=== PATIENT | female | born 1945 | race Caucasian/White ===

== ENCOUNTER → 2016-08-27 | Outpatient (CLI) | payer MEDICARE ==
--- NOTE | 2016-08-27 11:29 | KCIC ---
PQRS STATEMENT One or more of the following individualized dose reduction techniques were utilized for this study:1.Automated exposure control. 2.Adjustment of the mA and/orkVaccording to patient size. 3.Use of iterative reconstruction technique CT chest. Indication: Reason For Study Reason: COUGH / Spl. Instructions: / History: Cough, hoarseness for about 6 months. Some SOA TECHNIQUE Multiple contiguous axial images were obtained through the chest. Coronal reformations were created. Findings: There is no axillary adenopathy. Evaluation of the mediastinum and elyse are limited in the absence of IV contrast but no gross adenopathy is identified. The heart size is normal. Coronary artery calcifications are noted. There is no pericardial effusion. The thoracic aorta is normal in caliber. The lungs are clear with no evidence for infiltrate or consolidation. Minimal atelectasis is noted in the lingula. There is no pleural effusion or pneumothorax. Limited subdiaphragmatic evaluation demonstrates upper abdominal ascites and recanalized periumbilical vein. There also upper abdominal varices. No destructive osseous lesion is identified. Impression: - Coronary artery disease. - Minimal atelectasis in the lingula. - There is evidence of portal hypertension including upper abdominal ascites and upper abdominal varices. Electronically signed by: Alphonso Gauthier (Aug 27, 2016 11:27:13)
== END | disposition home or self-care (01) ==
LOC: KCIC CT 09:24
PROVIDERS: ATTEND Family Medicine
DX: I25.10 Atherosclerotic heart disease of native coronary artery without angina pectoris (principal); I10 Essential (primary) hypertension; I86.8 Varicose veins of other specified sites; R06.02 Shortness of breath; R18.8 Other ascites; J98.11 Atelectasis
CPT/HCPCS: 71250

== ENCOUNTER → 2016-09-22 | Outpatient (CLI) | payer MEDICARE ==
--- NOTE | 2016-09-22 16:34 | KCIC ---
Examination: Ultrasound abdomen complete. HISTORY History of ascites, varices COMPARISON None available. Findings : The visualized pancreas grossly appears unremarkable. The visualized aorta, IVC appear patent. The right lobe of the liver measures 16.5 centimeters. There is increased echogenicity noted throughout the liver likely hepatic steatosis. There is some nodular appearance to the liver appear. No evidence of gallstones identified in the gallbladder. The gallbladder wall thickness measures 1.7 millimeters. The right kidney measures 10.4 x 4.2 x 5.3 centimeters. There is a small cyst is identified in the lower pole of the right kidney measuring 1.4 centimeters could be a cyst. The left kidney measures 11.2 x 4.8 x 5.4 centimeters. Minimal echogenic appearing bilateral kidneys. No evidence of hydronephrosis. The spleen measures 16.4 centimeters. The umbilical vein appears recannulized. IMPRESSION - Increased echogenicity noted throughout the liver likely hepatic steatosis. There is some nodular appearance to the liver. Correlate for cirrhosis. - The umbilical vein is recannalized - Splenomegaly. - 1.4 centimeters cystic structure in the right kidney probably a cyst. Electronically signed by: Patric Manning (Sep 22, 2016 16:33:23)
== END | disposition home or self-care (01) ==
LOC: KCIC US 08:54
PROVIDERS: ATTEND Family Medicine
DX: R18.8 Other ascites (principal)
CPT/HCPCS: 76700

== ENCOUNTER → 2016-11-04 | Outpatient (CLI) | payer BC, MEDICARE ==
[~2016-11-04] MED LIST: ASPI-482 PO; CONTRAST GIVEN MC PRN; GLIP5TAB10 PO; IOHEXOL 300 MG/ML 100ML VIAL. IV ONE; METF500T4 PO; PANT40TA5 PO
--- NOTE | 2016-11-04 12:54 | KCIC ---
CT head with and without contrast Indication: Vocal cord paralysis after a scope. Pre and post intravenous contrast axial imaging through the brain was performed. PQRS STATEMENT One or more of the following individualized dose reduction techniques were utilized for this study: 1.Automated exposure control. 2.Adjustment of the mA and/orkVaccording to patient size. 3.Use of iterative reconstruction technique. No prior studies are available for comparison. The ventricles and sulci are within normal limits. No sulcal effacement, midline shift or hemorrhage is detected. The cisterns are patent. The visualized paranasal sinuses are clear. No abnormal enhancement following contrast administration is identified. Impression: Unremarkable pre and post-contrast CT of the brain. Electronically signed by: Delonte Carlos MD (November 04, 2016 12:53:48)
--- NOTE | 2016-11-04 12:58 | KCIC ---
CT soft tissue neck with and without contrast Indication: Vocal cord paralysis. Pre and post intravenous contrast axial imaging through the soft tissues of the neck was performed. Sagittal and coronal reformations were also performed. PQRS STATEMENT One or more of the following individualized dose reduction techniques were utilized for this study: 1.Automated exposure control. 2.Adjustment of the mA and/orkVaccording to patient size. 3.Use of iterative reconstruction technique. No prior studies are available for comparison. The visualized intracranial structures are unremarkable. The posterior nasopharynx and oropharynx are unremarkable. The parapharyngeal fat planes are preserved. There is a large amount of artifact in the neck from the patient's dental hardware. This does limit the study. Epiglottis is unremarkable. No significant laryngeal abnormality is seen. No mass is detected. No thyroid mass is seen. No cervical lymphadenopathy is identified. The submandibular and parotid glands are unremarkable. No fluid collections are identified. Impression: Essentially unremarkable CT of the soft tissues of the neck. Electronically signed by: Delonte Carlos MD (November 04, 2016 12:57:07)
--- NOTE | 2016-11-04 13:02 | KCIC ---
CT chest with contrast Indication: Vocal cord paralysis after scope. Axial imaging through the chest was performed after the administration of intravenous contrast. PQRS STATEMENT One or more of the following individualized dose reduction techniques were utilized for this study: 1.Automated exposure control. 2.Adjustment of the mA and/orkVaccording to patient size. 3.Use of iterative reconstruction technique. Comparison is made with prior CT chest from 08/27/2016. No axillary, hilar or mediastinal lymphadenopathy is seen. No mediastinal mass is identified. There is some ectasia of the aortic arch. No pericardial or pleural fluid is identified. There is minimal linear scarring or atelectasis in the lingula. Tiny nodule right upper lobe is noted and stable, image 15. Upper abdomen demonstrates splenomegaly. Previously noted upper abdominal ascites is improved. Impression: Essentially unremarkable CT of the chest with contrast. No mediastinal mass is detected. Electronically signed by: Delonte Carlos MD (November 04, 2016 13:00:24)
== END | disposition home or self-care (01) ==
LOC: KCIC CT 10:31
PROVIDERS: ATTEND Otolaryngology
DX: J38.00 Paralysis of vocal cords and larynx, unspecified (principal)
CPT/HCPCS: 70470; 70492; 71260; 82565; Q9967

== ENCOUNTER 2016-11-09 10:44 | Inpatient (IN) | payer BC, MEDICARE ==
[~2016-11-09] VITALS: Ht 157.5 cm; Wt 71.9 kg
--- NOTE | 2016-11-09 11:45 | PHYS DOC ---
Past Medical History Past Medical History: Diabetes-Type II, GERD, GI Bleed, High Cholesterol, Hypertension, Liver Disease, Other Additional Past Medical Histor: cirrohsis Past Surgical History: , Hysterectomy, Tonsillectomy Alcohol Use: Occasionally Drug Use: None Adult General Chief Complaint Chief Complaint: ABNORMAL LABS HPI HPI Patient is a 71 year old female with history of hypertension, cirrhosis of the liver, diabetes type 2, who presents today with abnormal labs. Patient states she was seen at an imaging center for CT of the abdomen ordered by Dr. Watts for Liver cirrhosis, she states they did her lab work and her creatinine was 7.9 with GFR of 5.4 and she was sent to the ED to be evaluated. Patient states she's had diarrhea for 1-1/2 weeks. She states she's been feeling weak and believes she has the stomach flu, she states she watched her grand children three days ago who had similar symptoms. Patient states she's not been eating much for couple days. Patient denies any vomiting but she states she's had nausea for [address] Migdalia Gannon Review of Systems Review of Systems Constitutional: Denies fever or chills [] Eyes: Denies change in visual acuity, redness, or eye pain [] HENT: Denies nasal congestion or sore throat [] Respiratory: Denies cough or shortness of breath [] Cardiovascular: No additional information not addressed in HPI [] GI: Diarrhea and nausea : Denies dysuria or hematuria [] Musculoskeletal: Denies back pain or joint pain [] Integument: Denies rash or skin lesions [] Neurologic: Denies headache, focal weakness or sensory changes [] Endocrine: Denies polyuria or polydipsia [] Current Medications Current Medications Allergies Allergies Allergies Coded Allergies Type Severity Reaction Last Updated Verified amoxicillin Adverse Reaction Intermediate vomiting and diarrhea 11/09/16 Yes clavulanic acid Adverse Reaction Intermediate vomiting and diarrhea 11/09/16 Yes naproxen Adverse Reaction Intermediate "internal bleeding" 11/09/16 Yes Physical Exam Physical Exam Constitutional: Well developed, well nourished, no acute distress, non-toxic appearance. [] HENT: Normocephalic, atraumatic, bilateral external ears normal, oropharynx moist, no oral exudates, nose normal. [] Eyes: PERRLA, EOMI, conjunctiva normal, no discharge. [] Neck: Normal range of motion, no tenderness, supple, no stridor. [] Cardiovascular:Heart rate regular rhythm, no murmur [] Lungs & Thorax: Bilateral breath sounds clear to auscultation [] Abdomen: Rounded abdomen consistent with cirrhosis. No abdominal tenderness on exam. Bowel sounds normal, soft, no masses, no pulsatile masses. [] Skin: Warm, dry, no erythema, no rash. [] Back: No tenderness, no CVA tenderness. [] Extremities: No tenderness, no cyanosis, no clubbing, ROM intact, no edema. [] Neurologic: Alert and oriented X 3, normal motor function, normal sensory function, no focal deficits noted. [] Psychologic: Affect normal, judgement normal, mood normal. [] Current Patient Data Vital Signs Vital Signs Date Time Temp Pulse Resp B/P (MAP) Pulse Ox O2 Delivery O2 Flow Rate FiO2 11/09/16 10:50 98.5 62 20 200/82 (121) 97 Room Air 98.5 Lab Values Laboratory Tests Test 11/09/16 10:55 11/09/16 11:22 11/09/16 11:43 Urine Collection Type Void Urine Color Yellow Urine Clarity Clear Urine pH 6.0 Urine Specific [place] 1.010 Urine Protein 30 mg/dL (NEG-TRACE) Urine Glucose (UA) Negative mg/dL (NEG) Urine Ketones (Stick) Negative mg/dL (NEG) Urine Blood Moderate (NEG) Urine Nitrite Negative (NEG) Urine Bilirubin Negative (NEG) Urine Urobilinogen Dipstick 0.2 mg/dL (0.2 mg/dL) Urine Leukocyte Esterase Negative (NEG) Urine RBC 6-10 /HPF (0-2) Urine WBC Occ /HPF (0-4) Urine Squamous Epithelial Cells Few /LPF Urine Bacteria 0 /HPF (0-FEW) Prothrombin Time 14.7 SEC (11.7-14.0) H Prothrombin Time INR 1.2 (0.8-1.1) H White Blood Count 5.1 x10^3/uL (4.0-11.0) Red Blood Count 4.27 x10^6/uL (3.50-5.40) Hemoglobin 13.2 g/dL (12.0-15.5) Hematocrit 38.6 % (36.0-47.0) Mean Corpuscular Volume 91 fL (79-100) Mean Corpuscular Hemoglobin 31 pg (25-35) Mean Corpuscular Hemoglobin Concent 34 g/dL (31-37) Red Cell Distribution Width 14.0 % (11.5-14.5) Platelet Count 86 x10^3/uL (140-400) L Neutrophils (%) (Auto) 57 % (31-73) Lymphocytes (%) (Auto) 35 % (24-48) Monocytes (%) (Auto) 6 % (0-9) Eosinophils (%) (Auto) 1 % (0-3) Basophils (%) (Auto) 1 % (0-3) Neutrophils # (Auto) 2.9 x10^3uL (1.8-7.7) Lymphocytes # (Auto) 1.8 x10^3/uL (1.0-4.8) Monocytes # (Auto) 0.3 x10^3/uL (0.0-1.1) Eosinophils # (Auto) 0.0 x10^3/uL (0.0-0.7) Basophils # (Auto) 0.1 x10^3/uL (0.0-0.2) Sodium Level 135 mmol/L (136-145) L Potassium Level 4.9 mmol/L (3.5-5.1) Chloride Level 97 mmol/L (98-107) L Carbon Dioxide Level 20 mmol/L (21-32) L Anion Gap 18 (6-14) H Blood Urea Nitrogen 63 mg/dL (7-20) H Creatinine 7.2 mg/dL (0.6-1.0) H Estimated GFR (Cockcroft-Gault) 5.6 BUN/Creatinine Ratio 9 (6-20) Glucose Level 92 mg/dL (70-99) Lactic Acid Level 3.9 mmol/L (0.4-2.0) H Calcium Level 10.1 mg/dL (8.5-10.1) Magnesium Level 1.7 mg/dL (1.8-2.4) L Total Bilirubin 1.8 mg/dL (0.2-1.0) H Aspartate Amino Transferase (AST) 40 U/L (15-37) H Alanine Aminotransferase (ALT) 28 U/L (14-59) Alkaline Phosphatase 68 U/L (46-116) Creatine Kinase 40 U/L (26-192) Creatine Kinase MB (Mass) 0.6 ng/mL (0.0-3.6) Creatine Kinase MB Relative Index % (0-4) Troponin I Quantitative < 0.017 ng/mL (0.000-0.055) ZP-Apn-U-Type Natriuretic Peptide 4267 pg/mL (0-124) H Total Protein 7.5 g/dL (6.4-8.2) Albumin 3.7 g/dL (3.4-5.0) Albumin/Globulin Ratio 1.0 (1.0-1.7) Lipase 204 U/L (73-393) Influenza Type A Antigen Negative (NEGATIVE) Influenza Type B Antigen Negative (NEGATIVE) Laboratory Tests 11/09/16 11:43 Laboratory Tests 11/09/16 11:43 EKG EKG 11:[address] Thomson sinus rhythm heart rate 58, heart rate 58, no STEMI [] Radiology/Procedures Radiology/Procedures []PROCEDURE: CHEST AP ONLY Indication: Weakness and vomiting. Time of exam 11:58 AM The heart is mildly enlarged. The lungs are clear. No infiltrate or failure is detected. No effusion or pneumothorax is seen. Impression: No acute cardiopulmonary process is detected. DICTATED and SIGNED BY: LINDA WYNNE MD DATE: 11/09/16 1200 CC: ROSSI CAMPA APRN; NON,STAFF; MIGDALIA GANNON MD ~ Course & Med Decision Making Course & Med Decision Making Pertinent Labs and Imaging studies reviewed. (See chart for details) Patient is in the ED with nausea diarrhea generalized weakness for 3 days. She went to get an outpatient CT scan of the abdomen and her creatinine was noted at 7.9 with GFR of 54. Patient denies any history of renal failure. She was sent to the ED for evaluation. CBC with no acute findings. CMP with creatinine of 17.2 and BUN of 63. Lactic acid 3.9 and repeat was ordered. BNP 4267. Chest x-ray with no acute findings. Blood pressure on arrival to the ED was 200/82 with a heart rate of 62. Patient denies taking any of high blood pressure medicines this morning. 11:[address] Thomson sinus rhythm heart rate 58, heart rate 58, no STEMI [] Dr. Thomson spoke with Dr. Carreon glue clamp operator on-call about this patient's care he agreed with assessment of prerenal azotemia given the hypochloremic metabolic acidosis secondary to volume loss and nausea and vomiting. He agreed that normal saline at 100 hours and appropriate fluid rate and he will check on her later this afternoon in the morning. Time of consultation was 2:[address] Peraza who accepted patient for admission. Dragon Disclaimer Dragon Disclaimer This electronic medical record was generated, in whole or in part, using a voice recognition dictation system. Departure Departure Impression: Primary Impression: Acute renal failure Additional Impressions: Dehydration, severe Accelerated hypertension Disposition: ADMITTED INPATIENT Admitting Physician: Other Referrals: MIGDALIA GANNON MD (PCP) Problem Qualifiers Primary Impression: Acute renal failure Acute renal failure type: unspecified Qualified Codes: N17.9 - Acute kidney failure, unspecified KATHERYNROSSI BERRY PICKER MACHINE OPERATOR November 09, 2016 11:45 MARCO A THOMSON MD November 09, 2016 14:49
[2016-11-09 11:54] LABS: BASO # 0.1 x10^3/uL (0.0-0.2); BASO % 1 % (0-3); EOS % 1 % (0-3); HEMATOCRIT 38.6 % (36.0-47.0); HEMOGLOBIN 13.2 g/dL (12.0-15.5); LYMPH # 1.8 x10^3/uL (1.0-4.8); LYMPH % 35 % (24-48); MEAN CORPUSCULAR HEMOGLOBIN 31 pg (25-35); MEAN CORPUSCULAR HGB CONC 34 g/dL (31-37); MEAN CORPUSCULAR VOLUME 91 fL (79-100); MONO % 6 % (0-9); NEUT % 57 % (31-73); PLATELET COUNT 86 x10^3/uL (140-400); RED BLOOD COUNT 4.27 x10^6/uL (3.50-5.40); WHITE BLOOD COUNT 5.1 x10^3/uL (4.0-11.0)
[2016-11-09 11:57] LABS: BILIRUBIN,URINE NEGATIVE (NEG); GLUCOSE,URINE NEGATIVE (NEG); NITRITE,URINE NEGATIVE (NEG); PROTEIN,URINE 30 mg/dL (NEG-TRACE); UROBILINOGEN,URINE 0.2 mg/dL (0.2 mg/dL)
[2016-11-09 12:03] LABS: BACTERIA,URINE 0 /HPF (0-FEW); SQUAMOUS EPITHELIAL CELL,UR FEW /LPF; WBC,URINE OCC /HPF (0-4)
[2016-11-09 12:04] LABS: INR 1.2 (0.8-1.1); PROTHROMBIN TIME PATIENT 14.7 SEC (11.7-14.0)
--- NOTE | 2016-11-09 12:12 | RAD ---
Indication: Weakness and vomiting. Time of exam 11:58 AM The heart is mildly enlarged. The lungs are clear. No infiltrate or failure is detected. No effusion or pneumothorax is seen. Impression: No acute cardiopulmonary process is detected.
[2016-11-09 12:16] LABS: CALCIUM 10.1 mg/dL (8.5-10.1); CREATININE 7.2 mg/dL (0.6-1.0); GFR 5.6; POTASSIUM 4.9 mmol/L (3.5-5.1)
[2016-11-09 12:22] LABS: ALBUMIN 3.7 g/dL (3.4-5.0); MAGNESIUM 1.7 mg/dL (1.8-2.4); TOTAL BILIRUBIN 1.8 mg/dL (0.2-1.0); TOTAL PROTEIN 7.5 g/dL (6.4-8.2)
--- NOTE | 2016-11-09 12:22 | EKG ---
[facility] [address] [place] [address] Test Date: 2016-11-09 Test Time: 11:36:06 Pat Name: DESI GUAMAN Department: Room: Gender: F White Mixing Operator: : [id number] Requested By: ROSSI CAMPA Order Number: [id number] Reading MD: Arsenio Blood Measurements Intervals [place] Rate: 58 P: 41 IN: 156 QRS: -32 QRSD: 94 T: 11 QT: 468 QTc: 463 Interpretive Statements SINUS RHYTHM ABNORMAL LEFT AXIS DEVIATION LEFT ANTERIOR FASCICULAR BLOCK Electronically Signed On 11-15-2016 9:07:57 CDT by Arsenio Blood
[2016-11-09 12:24] LABS: OBC FLU VALID
[2016-11-09 12:29] LABS: CKMB MASS 0.6 ng/mL (0.0-3.6); CREATINE KINASE 40 U/L (26-192)
[2016-11-09] MEDS ORDERED: IV NORMAL SALINE 1000ML BAG 1,000 ML IV ONE (13:45)
[2016-11-09] MEDS ORDERED: fentaNYL PF VIAL 100 MCG/2 ML VIAL IV PRN (14:30)
[2016-11-09] MEDS ORDERED: ONDANSETRON PF 4 MG/2 ML VIAL. IV PRN (14:30)
--- NOTE | 2016-11-09 15:05 | PDOC2 ---
GI CONSULT Reason For Consult: Renal failure, dehydration HPI: HPI: 71 y/o white female who recently saw Dr. Watts in the office for h/o cirrhosis. Labs were ordered including FABY, ASM, Hep B and C, HFE gene (no results available). Outpatient CT A/P was also ordered which was performed today. She was found to have elevated Cr (7.8) and advised to go to the ER. Will be admitted w/ pending renal consult. Denies previous renal disease. Has been ill w/ n/v and diarrhea since 11/06/16 after babysitting her three grandchildren the night before. Her daughter might have had similar symptoms. Not much oral intake the last few days although felt better today. GI history significant for ?GI bleed in [place], [place]. She's unable to describe much of this history to me except to say that she was taking Aleve, was found to be anemic and admitted. Denies PUD, bowel/colon resection. Unclear if she had an EGD/colonoscopy at that point. Has reflux after eating spicy foods about twice weekly, takes Tums and probably pantoprazole (on med list, she's unsure). Med list also includes ASA and iron. No abd pain or weight loss. CT from this morning: cirrhosis and portal hypertension with varices and mild splenomegaly, sigmoid diverticulosis w/ wall thickening (colitis vs incomplete distention). PMH: PMH: HTN, DM, GERD, OA, ?vocal chord paralysis, ?GI bleed, , hysterectomy FH: Family History: Cancer (liver - brother), Other (father - cirrhosis) Social History: Smoke: Quit ALCOHOL: social (in the past) Drugs: None ROS: GEN: Denies fevers, chills, sweats HEENT: Denies blurred vision, sore throat CV: Denies chest pain RESP: Denies shortness of air, cough GI: Per HPI : Denies hematuria, dysuria ENDO: Denies weight changes NEURO: Denies confusion, dizziness MSK: Denies weakness, joint pain/swelling SKIN: Denies jaundice, pruritus Vitals: Vitals: Vital Signs Date Time Temp Pulse Resp B/P (MAP) Pulse Ox O2 Delivery O2 Flow Rate FiO2 11/09/16 10:50 98.5 62 20 200/82 (121) 97 Room Air 98.5 Labs: Labs: Laboratory Tests Test 11/09/16 10:55 11/09/16 11:22 11/09/16 11:43 Urine Collection Type Void Urine Color Yellow Urine Clarity Clear Urine pH 6.0 Urine Specific [place] 1.010 Urine Protein 30 mg/dL (NEG-TRACE) Urine Glucose (UA) Negative mg/dL (NEG) Urine Ketones (Stick) Negative mg/dL (NEG) Urine Blood Moderate (NEG) Urine Nitrite Negative (NEG) Urine Bilirubin Negative (NEG) Urine Urobilinogen Dipstick 0.2 mg/dL (0.2 mg/dL) Urine Leukocyte Esterase Negative (NEG) Urine RBC 6-10 /HPF (0-2) Urine WBC Occ /HPF (0-4) Urine Squamous Epithelial Cells Few /LPF Urine Bacteria 0 /HPF (0-FEW) Prothrombin Time 14.7 SEC (11.7-14.0) Prothromb Time International Ratio 1.2 (0.8-1.1) White Blood Count 5.1 x10^3/uL (4.0-11.0) Red Blood Count 4.27 x10^6/uL (3.50-5.40) Hemoglobin 13.2 g/dL (12.0-15.5) Hematocrit 38.6 % (36.0-47.0) Mean Corpuscular Volume 91 fL (79-100) Mean Corpuscular Hemoglobin 31 pg (25-35) Mean Corpuscular Hemoglobin Concent 34 g/dL (31-37) Red Cell Distribution Width 14.0 % (11.5-14.5) Platelet Count 86 x10^3/uL (140-400) Neutrophils (%) (Auto) 57 % (31-73) Lymphocytes (%) (Auto) 35 % (24-48) Monocytes (%) (Auto) 6 % (0-9) Eosinophils (%) (Auto) 1 % (0-3) Basophils (%) (Auto) 1 % (0-3) Neutrophils # (Auto) 2.9 x10^3uL (1.8-7.7) Lymphocytes # (Auto) 1.8 x10^3/uL (1.0-4.8) Monocytes # (Auto) 0.3 x10^3/uL (0.0-1.1) Eosinophils # (Auto) 0.0 x10^3/uL (0.0-0.7) Basophils # (Auto) 0.1 x10^3/uL (0.0-0.2) Sodium Level 135 mmol/L (136-145) Potassium Level 4.9 mmol/L (3.5-5.1) Chloride Level 97 mmol/L (98-107) Carbon Dioxide Level 20 mmol/L (21-32) Anion Gap 18 (6-14) Blood Urea Nitrogen 63 mg/dL (7-20) Creatinine 7.2 mg/dL (0.6-1.0) Estimated GFR (Cockcroft-Gault) 5.6 BUN/Creatinine Ratio 9 (6-20) Glucose Level 92 mg/dL (70-99) Lactic Acid Level 3.9 mmol/L (0.4-2.0) Calcium Level 10.1 mg/dL (8.5-10.1) Magnesium Level 1.7 mg/dL (1.8-2.4) Total Bilirubin 1.8 mg/dL (0.2-1.0) Aspartate Amino Transf (AST/SGOT) 40 U/L (15-37) Alanine Aminotransferase (ALT/SGPT) 28 U/L (14-59) Alkaline Phosphatase 68 U/L (46-116) Creatine Kinase 40 U/L (26-192) Creatine Kinase MB (Mass) 0.6 ng/mL (0.0-3.6) Creatine Kinase MB Relative Index % (0-4) Troponin I Quantitative < 0.017 ng/mL (0.000-0.055) FH-Fiz-B-Type Natriuretic Peptide 4267 pg/mL (0-124) Total Protein 7.5 g/dL (6.4-8.2) Albumin 3.7 g/dL (3.4-5.0) Albumin/Globulin Ratio 1.0 (1.0-1.7) Lipase 204 U/L (73-393) Influenza Type A Antigen Negative (NEGATIVE) Influenza Type B Antigen Negative (NEGATIVE) Allergies: Coded Allergies: amoxicillin (Verified Adverse Reaction, Intermediate, vomiting and diarrhea, 11/09/16) clavulanic acid (Verified Adverse Reaction, Intermediate, vomiting and diarrhea, 11/09/16) naproxen (Verified Adverse Reaction, Intermediate, "internal bleeding", 11/09/16) Medications: Please see EMR. Imaging: Imaging: CT A/P w/ oral contrast 11/09/16 IMPRESSION 1. There are findings of cirrhosis and portal hypertension with varices and mild splenomegaly. No free fluid is demonstrated. Accurate evaluation for hepatic mass is very limited as no intravenous contrast given for today's exam. 2. There is some residual enhancement of the bilateral renal parenchyma presumably related to patient's recent November 04, 2016 post contrast exam. There is mild right renal pelvocaliectasis/very mild hydronephrosis. Reportedly patient was sent to the emergency department after conclusion of exam due to the patient's elevated creatinine. 3. There is sigmoid diverticulosis. There is appearance of wall thickening of segments of the sigmoid colon and descending colon, colitis not excluded although could be related to incomplete distension. CXR 11/09/16 Impression: No acute cardiopulmonary process is detected. Abd US 09/2016 IMPRESSION - Increased echogenicity noted throughout the liver likely hepatic steatosis. There is some nodular appearance to the liver. Correlate for cirrhosis. - The umbilical vein is recannalized - Splenomegaly. - 1.4 centimeters cystic structure in the right kidney probably a cyst. PE: GEN: NAD HEENT: Atraumatic, PERRL LUNGS: CTAB anteriorly HEART: RRR ABD: BS+, some distention, non-tender EXTREMITY: No edema SKIN: No rashes, no jaundice NEURO/PSYCH: A & O 3 A/P: A/P: Cirrhosis, portal hypertension, varices -CT as above -labs ordered as outpt (FABY, ASM, Hep B and C, HFE gene) N/v, diarrhea - improving -onset over the weekend after babysitting grandchildren, daughter has similar symptoms Acute renal failure ?h/o GI bleed in [place], [place] -now avoids NSAIDs, seems takes PPI and ASA GERD -occasional reflux Diverticulosis CRC screen -unclear when last colonoscopy performed -- Reviewed office records. Await renal consult. Acute renal failure/?viral gastroenteritis w/ known cirrhosis. Other per Dr. Watts. SAUD MCDONALD November 09, 2016 15:05
[2016-11-09] MEDS: PANTOPRAZOLE 40 MG TABLET.DR. PO SCH (17:41)
[2016-11-09 19:00] VITALS: BP 143/55
[2016-11-09] MEDS ORDERED: DEXTROSE 50% 25 GM / 50ML DISP.SYRIN. IV PRN (19:00)
--- NOTE | 2016-11-09 19:23 | ACF ---
Admission Forms Criteria RENAL FAILURE, ACUTE Clinical Indications for Admission to Inpatient Care ( Place 'X' for any and all applicable criteria): Admission is indicated for ALL (if I & II) or III of the following [A](2)(3)(4)( 5)(6)(7): [ ]I. Acute renal failure as indicated by ANY ONE of the following: [ ]a) A 3-fold rise in serum creatinine from baseline [ ]b) Serum creatinine greater than 4 mg/dL (354 micromoles/L) with an acute rise greater than 0.5 mg/dL (44.2 micromoles/L) [ ]c) Reduction of more than 75% in estimated glomerular filtration rate from baseline [ ]d) Estimated glomerular filtration rate less than 35 mL/min/1.73m2 (0.59mL/sec/1.73m2)in a child up to 18 years of age [ ]e) Anuria indicated by ALL of the following: [ ]i) Adequate volume status [ ]ii) Cessation of urine output indicated by ANY ONE of the following: [ ]1) Urine output less than 0.3 mL/kg/hr for 24 hours [ ]2) Anuria (urine output less than 0.1 mL/kg/ hr) for 12 hours [ ] II. Renal failure cannot be managed in an outpatient setting or observational care setting as indicating by ANY ONE of the following: [ ]a) Altered mental status that is severe or persistent [ ]b) Volume overload or Respiratory distress (eg, clinically significant pulmonary edema) that is severe or persistent [ ]c) Cardiac arrhythmias of immediate concern [ ]d) Hemodynamic instability [ ]e) Clinically significant electrolyte abnormality that requires inpatient care (eg, hyperkalemia with severe ECG findings)[B] [ ]f) Clinically significant metabolic abnormality (eg, acidosis) that is severe or persistent [ ]g) Acute treatment of renal failure (eg, renal replacement therapy) not feasible or appropriate in observational care setting [ ]h) Clinical situation too unstable or uncertain (eg, inadequate urine output, ongoing decline in renal function, etiology unclear) [ ]i) Necessary support and caregiver ability to comply with outpatient treatment cannot be arranged in observation care timeframe (eg, within 24 hours) [ ]j) Other significant finding or clinical condition judged not to be within scope of observation care [X]III.General contraindications and/or Inappropriate clinical situations for Observational Care in patients with Acute Renal Failure, when ANY ONE of the following is required: [X]a) Prediction of prolongation of LOS based on ANY ONE of the following may be considered as a contraindication for observational care 2, 3, 4, 5, 6, 7, 8 , 9, 10, 11 [X]i) Age > 65 yrs. [ ]ii) Patient arriving by ambulance [ ]iii) Patient with high acuity [ ]iv) Patient requiring vital sign monitoring [ ]v) Patient on IV medication [ ]b) Systolic blood pressures 180mmHg 3,12 [ ]c) Patient with altered mental status including delirium and other alteration of consciousness, (3) [ ]d) Patient whose discharge disposition will be to a care home home or rehabilitation home should not be managed in Emergency Department Observation Unit. CMS rule requires 3 days hospital stay before such placement.3,13 [ ]e) Patient with failure to thrive due to broad array of etiologies 3, 16,17 [ ]f) Inability to ambulate 3,14 Extended stay beyond goal length of stay may be needed for(13) [ ]a) Continuing uremic complications [ ]b) Care for comorbidities [ ]c) acute renal failure [ ]d) Need for dialysis The original [employer] content created by [employer] has been revised. The portions of the content which have been revised are identified through the use of italic text or in bold, and [facility] has neither reviewed nor approved the modified material. All other unmodified content is copyright [employer] [facility] [employer]. Please see references footnoted in the original [employer] [facility] edition 2016 Admission Criteria Met?: Yes RASHARD RAYMOND November 09, 2016 19:23
--- NOTE | 2016-11-09 21:26 | HP ---
ADMIT DATE: 11/09/2016 CHIEF COMPLAINT: Weakness. HISTORY OF PRESENT ILLNESS: The patient is a 71-year-old woman with past medical history of cirrhosis of unknown specificity who presented to the Emergency Room with generalized weakness. She relates that since Tuesday afternoon, after babysitting her grandchildren on Tuesday night, she started feeling weak and nauseous, had copious watery diarrhea without any blood, multiple episodes of nausea as well. This continued through the night and on Tuesday. By Tuesday, she was slowly feeling a little better in the afternoon. Nevertheless, weakness did not subside and she decided to come to the Emergency Room. In the ER, she was found with a creatinine of 7.2, CO2 at 20, BUN of 63 and was promptly admitted with acute renal failure. She is unaware of having any kidney issues in the past. PAST MEDICAL HISTORY: Cirrhosis, currently undergoing workup by Dr. Watts, question GI bleed associated with NSAID use in [place], GERD, osteoarthritis, diabetes mellitus. PAST SURGICAL HISTORY: She is status post , hysterectomy. FAMILY HISTORY: Father with cirrhosis in advanced age. Brother with liver cancer. SOCIAL HISTORY: Lives with her , just moved 3 years ago to [place] to be closer to her grandchildren. Quit smoking many years ago. No significant alcohol or drug use. MEDICATIONS: MAR reconciled with home medications. ALLERGIES: AUGMENTIN AND NAPROXEN. REVIEW OF SYSTEMS: Positive as per HPI. She is not able to eat without any difficulties, nausea completely resolved. Still has ongoing diarrhea, decreased in frequency, no melena or hematochezia. Rest of organ system review is essentially normal. PHYSICAL EXAMINATION: VITAL SIGNS: From today, show a blood pressure of 200/82 early this morning in the ER, has not been repeated since, pulse at 62. She is afebrile. GENERAL: This is a well-nourished, well-developed, pale appearing 71-year-old woman, alert and oriented, in no acute distress. HEENT: Shows no scleral icterus. NECK: Supple, without any lymphadenopathy. LUNGS: Clear. HEART: Has regular rate and rhythm. ABDOMEN: Has positive bowel sounds, soft, nontender, without any organomegaly or masses. EXTREMITIES: Show no edema. SKIN: Warm, soft and dry without any rash. LABORATORY DATA: CBC with a WBC of 5.1, hemoglobin 13.2, platelets of 86. Chemistries with a BUN and creatinine of 63 and 7.2, sodium 135, CO2 at 20, potassium 4.9, total bilirubin 1.8, AST 40, albumin 3.7. Influenza serology was negative. UA was negative as well. IMAGING STUDIES: Chest x-ray in the Emergency Room showing no acute cardiopulmonary process. ASSESSMENT AND PLAN: The patient is a 71-year-old woman with severe diarrhea, nausea, vomiting and severe kidney failure. Hopefully, this is related to being severely dehydrated. She has been started on IV fluids for the time being. Nephrology consult has been requested. The patient does have a history of cirrhosis, so far of unknown etiology. Dr. Watts has been consulted as well. Doubt that this is related in any way, shape or form. The patient does have a history of GERD and question UGI bleed and is on pantoprazole, will continue. We will hold aspirin, glipizide and metformin given her renal function for the time being. This will be replaced with insulin sliding scale. We will hold off on heparin for the time being for DVT prophylaxis. If she remains bedridden, will start in a.m. ZACKARY ANDERSON MD DR: SHARONA/kevin JOB#: [id number] / [id number] MIGDALIA Charles MD MTDD
[2016-11-09 23:00] VITALS: BP 135/60
[2016-11-10 03:00] VITALS: BP 115/57
[2016-11-10] MEDS: IV NORMAL SALINE 1000ML BAG 1,000 ML IV SCH ×4 (03:15→23:07)
[2016-11-10 07:00] VITALS: BP 149/54
[2016-11-10] MEDS: INSULIN ASPART 300 UNITS/3 ML INSULN.PEN SQ SCH ×3 (08:00→17:38)
[2016-11-10] MEDS: PANTOPRAZOLE 40 MG TABLET.DR. PO SCH (08:12)
[2016-11-10] MEDS ORDERED: PANTOPRAZOLE 40 MG TABLET.DR. PO SCH (09:00)
--- NOTE | 2016-11-10 09:40 | PDOC ---
PROGRESS NOTES Chief Complaint Chief Complaint cc: N/V JIM DUE TO DEHYDRATION HYPERGLYCEMIA CIRRHOSIS PLAN IV NS SSI PRN ZOFRAN LABS REVIEWED. CPM Vitals Vitals Vital Signs Date Time Temp Pulse Resp B/P (MAP) Pulse Ox O2 Delivery O2 Flow Rate FiO2 11/10/16 08:00 Room Air 11/10/16 07:00 97.5 67 19 149/54 (85) 99 97.5 Physical Exam General: Alert, Oriented X3 Heart: Normal S1, Normal S2 Lungs: Clear Abdomen: Normal bowel sounds Labs LABS Laboratory Tests Test 11/09/16 10:55 11/09/16 11:22 11/09/16 11:43 11/09/16 16:28 Urine Collection Type Void Urine Color Yellow Urine Clarity Clear Urine pH 6.0 Urine Specific [place] 1.010 Urine Protein 30 mg/dL (NEG-TRACE) Urine Glucose (UA) Negative mg/dL (NEG) Urine Ketones (Stick) Negative mg/dL (NEG) Urine Blood Moderate (NEG) Urine Nitrite Negative (NEG) Urine Bilirubin Negative (NEG) Urine Urobilinogen Dipstick 0.2 mg/dL (0.2 mg/dL) Urine Leukocyte Esterase Negative (NEG) Urine RBC 6-10 /HPF (0-2) Urine WBC Occ /HPF (0-4) Urine Squamous Epithelial Cells Few /LPF Urine Bacteria 0 /HPF (0-FEW) Prothrombin Time 14.7 SEC (11.7-14.0) Prothromb Time International Ratio 1.2 (0.8-1.1) White Blood Count 5.1 x10^3/uL (4.0-11.0) Red Blood Count 4.27 x10^6/uL (3.50-5.40) Hemoglobin 13.2 g/dL (12.0-15.5) Hematocrit 38.6 % (36.0-47.0) Mean Corpuscular Volume 91 fL (79-100) Mean Corpuscular Hemoglobin 31 pg (25-35) Mean Corpuscular Hemoglobin Concent 34 g/dL (31-37) Red Cell Distribution Width 14.0 % (11.5-14.5) Platelet Count 86 x10^3/uL (140-400) Neutrophils (%) (Auto) 57 % (31-73) Lymphocytes (%) (Auto) 35 % (24-48) Monocytes (%) (Auto) 6 % (0-9) Eosinophils (%) (Auto) 1 % (0-3) Basophils (%) (Auto) 1 % (0-3) Neutrophils # (Auto) 2.9 x10^3uL (1.8-7.7) Lymphocytes # (Auto) 1.8 x10^3/uL (1.0-4.8) Monocytes # (Auto) 0.3 x10^3/uL (0.0-1.1) Eosinophils # (Auto) 0.0 x10^3/uL (0.0-0.7) Basophils # (Auto) 0.1 x10^3/uL (0.0-0.2) Sodium Level 135 mmol/L (136-145) Potassium Level 4.9 mmol/L (3.5-5.1) Chloride Level 97 mmol/L (98-107) Carbon Dioxide Level 20 mmol/L (21-32) Anion Gap 18 (6-14) Blood Urea Nitrogen 63 mg/dL (7-20) Creatinine 7.2 mg/dL (0.6-1.0) Estimated GFR (Cockcroft-Gault) 5.6 BUN/Creatinine Ratio 9 (6-20) Glucose Level 92 mg/dL (70-99) Lactic Acid Level 3.9 mmol/L (0.4-2.0) Calcium Level 10.1 mg/dL (8.5-10.1) Magnesium Level 1.7 mg/dL (1.8-2.4) Total Bilirubin 1.8 mg/dL (0.2-1.0) Aspartate Amino Transf (AST/SGOT) 40 U/L (15-37) Alanine Aminotransferase (ALT/SGPT) 28 U/L (14-59) Alkaline Phosphatase 68 U/L (46-116) Creatine Kinase 40 U/L (26-192) Creatine Kinase MB (Mass) 0.6 ng/mL (0.0-3.6) Creatine Kinase MB Relative Index % (0-4) Troponin I Quantitative < 0.017 ng/mL (0.000-0.055) GS-Oam-N-Type Natriuretic Peptide 4267 pg/mL (0-124) Total Protein 7.5 g/dL (6.4-8.2) Albumin 3.7 g/dL (3.4-5.0) Albumin/Globulin Ratio 1.0 (1.0-1.7) Lipase 204 U/L (73-393) Influenza Type A Antigen Negative (NEGATIVE) Influenza Type B Antigen Negative (NEGATIVE) Glucose (Fingerstick) 63 mg/dL (70-99) Test 11/09/16 16:45 11/09/16 18:15 11/09/16 21:26 11/10/16 07:58 Lactic Acid Level 4.0 mmol/L (0.4-2.0) Clostridium difficile Toxin (PCR) Negative (Negative) Glucose (Fingerstick) 322 mg/dL (70-99) 272 mg/dL (70-99) Assessment and Plan Assessmemt and Plan Problems Medical Problems: (1) Accelerated hypertension Status: Acute (2) Acute renal failure Status: Acute (3) Dehydration, severe Status: Acute Problems: Comment Review of Relevant I have reviewed the following items tiffanie (where applicable) has been applied. Labs Laboratory Tests Test 11/09/16 10:55 11/09/16 11:22 11/09/16 11:43 11/09/16 16:28 Urine Collection Type Void Urine Color Yellow Urine Clarity Clear Urine pH 6.0 Urine Specific [place] 1.010 Urine Protein 30 mg/dL (NEG-TRACE) Urine Glucose (UA) Negative mg/dL (NEG) Urine Ketones (Stick) Negative mg/dL (NEG) Urine Blood Moderate (NEG) Urine Nitrite Negative (NEG) Urine Bilirubin Negative (NEG) Urine Urobilinogen Dipstick 0.2 mg/dL (0.2 mg/dL) Urine Leukocyte Esterase Negative (NEG) Urine RBC 6-10 /HPF (0-2) Urine WBC Occ /HPF (0-4) Urine Squamous Epithelial Cells Few /LPF Urine Bacteria 0 /HPF (0-FEW) Prothrombin Time 14.7 SEC (11.7-14.0) Prothromb Time International Ratio 1.2 (0.8-1.1) White Blood Count 5.1 x10^3/uL (4.0-11.0) Red Blood Count 4.27 x10^6/uL (3.50-5.40) Hemoglobin 13.2 g/dL (12.0-15.5) Hematocrit 38.6 % (36.0-47.0) Mean Corpuscular Volume 91 fL (79-100) Mean Corpuscular Hemoglobin 31 pg (25-35) Mean Corpuscular Hemoglobin Concent 34 g/dL (31-37) Red Cell Distribution Width 14.0 % (11.5-14.5) Platelet Count 86 x10^3/uL (140-400) Neutrophils (%) (Auto) 57 % (31-73) Lymphocytes (%) (Auto) 35 % (24-48) Monocytes (%) (Auto) 6 % (0-9) Eosinophils (%) (Auto) 1 % (0-3) Basophils (%) (Auto) 1 % (0-3) Neutrophils # (Auto) 2.9 x10^3uL (1.8-7.7) Lymphocytes # (Auto) 1.8 x10^3/uL (1.0-4.8) Monocytes # (Auto) 0.3 x10^3/uL (0.0-1.1) Eosinophils # (Auto) 0.0 x10^3/uL (0.0-0.7) Basophils # (Auto) 0.1 x10^3/uL (0.0-0.2) Sodium Level 135 mmol/L (136-145) Potassium Level 4.9 mmol/L (3.5-5.1) Chloride Level 97 mmol/L (98-107) Carbon Dioxide Level 20 mmol/L (21-32) Anion Gap 18 (6-14) Blood Urea Nitrogen 63 mg/dL (7-20) Creatinine 7.2 mg/dL (0.6-1.0) Estimated GFR (Cockcroft-Gault) 5.6 BUN/Creatinine Ratio 9 (6-20) Glucose Level 92 mg/dL (70-99) Lactic Acid Level 3.9 mmol/L (0.4-2.0) Calcium Level 10.1 mg/dL (8.5-10.1) Magnesium Level 1.7 mg/dL (1.8-2.4) Total Bilirubin 1.8 mg/dL (0.2-1.0) Aspartate Amino Transf (AST/SGOT) 40 U/L (15-37) Alanine Aminotransferase (ALT/SGPT) 28 U/L (14-59) Alkaline Phosphatase 68 U/L (46-116) Creatine Kinase 40 U/L (26-192) Creatine Kinase MB (Mass) 0.6 ng/mL (0.0-3.6) Creatine Kinase MB Relative Index % (0-4) Troponin I Quantitative < 0.017 ng/mL (0.000-0.055) OR-Xdw-J-Type Natriuretic Peptide 4267 pg/mL (0-124) Total Protein 7.5 g/dL (6.4-8.2) Albumin 3.7 g/dL (3.4-5.0) Albumin/Globulin Ratio 1.0 (1.0-1.7) Lipase 204 U/L (73-393) Influenza Type A Antigen Negative (NEGATIVE) Influenza Type B Antigen Negative (NEGATIVE) Glucose (Fingerstick) 63 mg/dL (70-99) Test 11/09/16 16:45 11/09/16 18:15 11/09/16 21:26 11/10/16 07:58 Lactic Acid Level 4.0 mmol/L (0.4-2.0) Clostridium difficile Toxin (PCR) Negative (Negative) Glucose (Fingerstick) 322 mg/dL (70-99) 272 mg/dL (70-99) Laboratory Tests Test 11/09/16 10:55 11/09/16 11:22 11/09/16 11:43 11/09/16 16:28 Urine Collection Type Void Urine Color Yellow Urine Clarity Clear Urine pH 6.0 Urine Specific [place] 1.010 Urine Protein 30 mg/dL (NEG-TRACE) Urine Glucose (UA) Negative mg/dL (NEG) Urine Ketones (Stick) Negative mg/dL (NEG) Urine Blood Moderate (NEG) Urine Nitrite Negative (NEG) Urine Bilirubin Negative (NEG) Urine Urobilinogen Dipstick 0.2 mg/dL (0.2 mg/dL) Urine Leukocyte Esterase Negative (NEG) Urine RBC 6-10 /HPF (0-2) Urine WBC Occ /HPF (0-4) Urine Squamous Epithelial Cells Few /LPF Urine Bacteria 0 /HPF (0-FEW) Prothrombin Time 14.7 SEC (11.7-14.0) Prothromb Time International Ratio 1.2 (0.8-1.1) White Blood Count 5.1 x10^3/uL (4.0-11.0) Red Blood Count 4.27 x10^6/uL (3.50-5.40) Hemoglobin 13.2 g/dL (12.0-15.5) Hematocrit 38.6 % (36.0-47.0) Mean Corpuscular Volume 91 fL (79-100) Mean Corpuscular Hemoglobin 31 pg (25-35) Mean Corpuscular Hemoglobin Concent 34 g/dL (31-37) Red Cell Distribution Width 14.0 % (11.5-14.5) Platelet Count 86 x10^3/uL (140-400) Neutrophils (%) (Auto) 57 % (31-73) Lymphocytes (%) (Auto) 35 % (24-48) Monocytes (%) (Auto) 6 % (0-9) Eosinophils (%) (Auto) 1 % (0-3) Basophils (%) (Auto) 1 % (0-3) Neutrophils # (Auto) 2.9 x10^3uL (1.8-7.7) Lymphocytes # (Auto) 1.8 x10^3/uL (1.0-4.8) Monocytes # (Auto) 0.3 x10^3/uL (0.0-1.1) Eosinophils # (Auto) 0.0 x10^3/uL (0.0-0.7) Basophils # (Auto) 0.1 x10^3/uL (0.0-0.2) Sodium Level 135 mmol/L (136-145) Potassium Level 4.9 mmol/L (3.5-5.1) Chloride Level 97 mmol/L (98-107) Carbon Dioxide Level 20 mmol/L (21-32) Anion Gap 18 (6-14) Blood Urea Nitrogen 63 mg/dL (7-20) Creatinine 7.2 mg/dL (0.6-1.0) Estimated GFR (Cockcroft-Gault) 5.6 BUN/Creatinine Ratio 9 (6-20) Glucose Level 92 mg/dL (70-99) Lactic Acid Level 3.9 mmol/L (0.4-2.0) Calcium Level 10.1 mg/dL (8.5-10.1) Magnesium Level 1.7 mg/dL (1.8-2.4) Total Bilirubin 1.8 mg/dL (0.2-1.0) Aspartate Amino Transf (AST/SGOT) 40 U/L (15-37) Alanine Aminotransferase (ALT/SGPT) 28 U/L (14-59) Alkaline Phosphatase 68 U/L (46-116) Creatine Kinase 40 U/L (26-192) Creatine Kinase MB (Mass) 0.6 ng/mL (0.0-3.6) Creatine Kinase MB Relative Index % (0-4) Troponin I Quantitative < 0.017 ng/mL (0.000-0.055) EL-Msz-S-Type Natriuretic Peptide 4267 pg/mL (0-124) Total Protein 7.5 g/dL (6.4-8.2) Albumin 3.7 g/dL (3.4-5.0) Albumin/Globulin Ratio 1.0 (1.0-1.7) Lipase 204 U/L (73-393) Influenza Type A Antigen Negative (NEGATIVE) Influenza Type B Antigen Negative (NEGATIVE) Glucose (Fingerstick) 63 mg/dL (70-99) Test 11/09/16 16:45 11/09/16 18:15 11/09/16 21:26 11/10/16 07:58 Lactic Acid Level 4.0 mmol/L (0.4-2.0) Clostridium difficile Toxin (PCR) Negative (Negative) Glucose (Fingerstick) 322 mg/dL (70-99) 272 mg/dL (70-99) Medications Current Medications Sodium Chloride 1,000 ml @ 125 mls/hr 1X ONCE IV Last administered on 15:22; Start 11/09/16 at 13:45; Stop 11/09/16 at 17:16; Status DC Ondansetron HCl (Zofran) 4 mg PRN Q8HRS PRN IV NAUSEA/VOMITING; Start 11/09/16 at 14:30; Stop 11/10/16 at 14:29 Fentanyl Citrate (Fentanyl 2ml Vial) 50 mcg PRN Q2HR PRN IV PAIN; Start at 14:30; Stop 11/10/16 at 14:29 Pantoprazole Sodium (Protonix) 40 mg DAILYAC PO Last administered on 11/10/16 08:12; Start 11/09/16 at 16:00 Sodium Chloride 1,000 ml @ 100 mls/hr Q10H IV Last administered on 11/10/16 04:48; Start 11/09/16 at 17:15 Pantoprazole Sodium (Protonix) 40 mg DAILY PO ; Start 11/10/16 at 09:00; Status UNV Insulin Aspart (Novolog) 0-7 UNITS TIDWMEALS SQ ; Start 11/10/16 at 08:00 Dextrose (Dextrose 50%-Water Syringe) 12.5 gm PRN Q15MIN PRN IV SEE COMMENTS; Start 11/09/16 at 19:00 Active Scripts Active Reported Pantoprazole Sodium 40 Mg Tablet. 1 Tab PO DAILY Metformin Hcl 500 Mg Tablet 500 Mg PO BIDWMEALS Glipizide 5 Mg Tablet 1 Tab PO BID Aspir 81 (Aspirin) 81 Mg Tablet. 1 Tab PO DAILY Vitals/I & O Vital Sign - Last 24 Hours 11/09/16 11/09/16 11/09/16 11/09/16 10:50 11:32 12:03 12:32 Temp 98.5 98.5 Pulse 62 68 62 62 Resp 20 20 14 14 B/P (MAP) 200/82 (121) 184/106 (132) 200/81 (120) 170/72 (104) Pulse Ox 97 97 97 95 O2 Delivery Room Air Room Air Room Air Room Air 11/09/16 11/09/16 11/09/16 11/09/16 13:55 14:08 15:02 15:44 Pulse 62 62 68 Resp 20 16 16 B/P (MAP) 190/77 (114) 188/78 (114) 150/67 (94) Pulse Ox 97 97 97 O2 Delivery Room Air Room Air Room Air Room Air 11/09/16 11/09/16 11/09/16 11/10/16 19:00 20:00 23:00 03:00 Temp 99.5 98.1 97.9 99.5 98.1 97.9 Pulse 73 74 77 Resp 18 18 18 B/P (MAP) 143/55 (84) 135/60 (85) 115/57 (76) Pulse Ox 98 94 96 O2 Delivery Room Air Room Air Room Air Room Air 11/10/16 11/10/16 07:00 08:00 Temp 97.5 97.5 Pulse 67 Resp 19 B/P (MAP) 149/54 (85) Pulse Ox 99 O2 Delivery Room Air Room Air Intake and Output 11/09/16 11/09/16 11/10/16 15:00 23:00 07:00 Intake Total 1500 ml 2408 ml Output Total 2 ml Balance 1498 ml 2408 ml ROSSANA PEGUERO MD November 10, 2016 09:40
[2016-11-10 11:00] VITALS: BP 148/59
[2016-11-10] MEDS ORDERED: INSULIN ASPART 300 UNITS/3 ML INSULN.PEN SQ ONE (11:45)
[2016-11-10] MEDS ORDERED: MAGNESIUM SULFATE 2GM 50 ML IV ONE (12:00)
--- NOTE | 2016-11-10 12:00 | PDOC2 ---
CONSULT Date of Consult Date of Consult DATE: 11/10/16 TIME: 11:54 Reason for Consult Reason for Consult: JIM Referring Physician Referring Physician: JUSTIN Identification/Chief Complaint Chief Complaint N/V/D Source Source: Chart review, Patient History of Present Illness Reason for Visit: THIS IS A 71 YR OLD WITH N/V/D. SHE HAS HAD THIS FOR SEVERAL DAYS. CR OVER 7.0 WITH MET ACIDOSIS. BASELINE CR IS 1.2. NO HX OF ANY KIDNEY OR BLADDER SURGERIES HEMATURIA DYSURIA OR FREQUENCY Past Medical History Cardiovascular: HTN GI: GERD, GI bleed, Other (CIRRHOSIS) Musculoskeletal: Osteoarthritis Endocrine: Diabetes Past Surgical History Past Surgical History: , Hysterectomy Family History Family History: No Significant Social History No ALCOHOL: social (in the past) Drugs: None Lives: with Family Current Problem List Problem List Problems Medical Problems: (1) Accelerated hypertension Status: Acute (2) Acute renal failure Status: Acute (3) Dehydration, severe Status: Acute Current Medications Current Medications Current Medications Sodium Chloride 1,000 ml @ 125 mls/hr 1X ONCE IV Last administered on 15:22; Start 11/09/16 at 13:45; Stop 11/09/16 at 17:16; Status DC Ondansetron HCl (Zofran) 4 mg PRN Q8HRS PRN IV NAUSEA/VOMITING; Start 11/09/16 at 14:30; Stop 11/10/16 at 14:29 Fentanyl Citrate (Fentanyl 2ml Vial) 50 mcg PRN Q2HR PRN IV PAIN; Start at 14:30; Stop 11/10/16 at 14:29 Pantoprazole Sodium (Protonix) 40 mg DAILYAC PO Last administered on 11/10/16 08:12; Start 11/09/16 at 16:00 Sodium Chloride 1,000 ml @ 100 mls/hr Q10H IV Last administered on 11/10/16 04:48; Start 11/09/16 at 17:15 Pantoprazole Sodium (Protonix) 40 mg DAILY PO ; Start 11/10/16 at 09:00; Status UNV Insulin Aspart (Novolog) 0-7 UNITS TIDWMEALS SQ ; Start 11/10/16 at 08:00 Dextrose (Dextrose 50%-Water Syringe) 12.5 gm PRN Q15MIN PRN IV SEE COMMENTS; Start 11/09/16 at 19:00 Insulin Aspart (Novolog) 20 units 1X ONCE SQ Last administered on 11/10/16t 11 :37; Start 11/10/16 at 11:45; Stop 11/10/16 at 11:46; Status DC Active Scripts Active Reported Pantoprazole Sodium 40 Mg Tablet. 1 Tab PO DAILY Metformin Hcl 500 Mg Tablet 500 Mg PO BIDWMEALS Glipizide 5 Mg Tablet 1 Tab PO BID Aspir 81 (Aspirin) 81 Mg Tablet.dr 1 Tab PO DAILY Allergies Allergies: Coded Allergies: amoxicillin (Verified Adverse Reaction, Intermediate, vomiting and diarrhea, 11/09/16) clavulanic acid (Verified Adverse Reaction, Intermediate, vomiting and diarrhea, 11/09/16) naproxen (Verified Adverse Reaction, Intermediate, "internal bleeding", 11/09/16) ROS General: YES: Fatigue, Malaise, Appetite PSYCHOLOGICAL ROS: YES: Anxiety Eyes: Yes Decreased vision HEENT: YES: Heacaches Respiratory: YES: Cough Gastrointestinal: Yes Nausea, Yes Vomiting, Yes Diarrhea Genitourinary: YES Other (LOW UO) Neurological: Yes Weakness Physical Exam General: Alert, Oriented X3, Cooperative, No acute distress HEENT: Atraumatic, EOMI Heart: Regular rate, Normal S1 Abdomen: Normal bowel sounds, No tenderness Extremities: No clubbing Neuro: Normal speech, Cranial nerves 3-12 NL Psych/Mental Status: Mental status NL, Mood NL MUSCULOSKELETAL: No deformity, No swelling Vitals VITALS Vital Signs Date Time Temp Pulse Resp B/P (MAP) Pulse Ox O2 Delivery O2 Flow Rate FiO2 11/10/16 08:00 Room Air 11/10/16 07:00 97.5 67 19 149/54 (85) 99 97.5 Labs Labs Laboratory Tests Test 11/09/16 10:55 11/09/16 11:22 11/09/16 11:43 11/09/16 16:28 Urine Collection Type Void Urine Color Yellow Urine Clarity Clear Urine pH 6.0 Urine Specific [place] 1.010 Urine Protein 30 mg/dL (NEG-TRACE) Urine Glucose (UA) Negative mg/dL (NEG) Urine Ketones (Stick) Negative mg/dL (NEG) Urine Blood Moderate (NEG) Urine Nitrite Negative (NEG) Urine Bilirubin Negative (NEG) Urine Urobilinogen Dipstick 0.2 mg/dL (0.2 mg/dL) Urine Leukocyte Esterase Negative (NEG) Urine RBC 6-10 /HPF (0-2) Urine WBC Occ /HPF (0-4) Urine Squamous Epithelial Cells Few /LPF Urine Bacteria 0 /HPF (0-FEW) Prothrombin Time 14.7 SEC (11.7-14.0) Prothromb Time International Ratio 1.2 (0.8-1.1) White Blood Count 5.1 x10^3/uL (4.0-11.0) Red Blood Count 4.27 x10^6/uL (3.50-5.40) Hemoglobin 13.2 g/dL (12.0-15.5) Hematocrit 38.6 % (36.0-47.0) Mean Corpuscular Volume 91 fL (79-100) Mean Corpuscular Hemoglobin 31 pg (25-35) Mean Corpuscular Hemoglobin Concent 34 g/dL (31-37) Red Cell Distribution Width 14.0 % (11.5-14.5) Platelet Count 86 x10^3/uL (140-400) Neutrophils (%) (Auto) 57 % (31-73) Lymphocytes (%) (Auto) 35 % (24-48) Monocytes (%) (Auto) 6 % (0-9) Eosinophils (%) (Auto) 1 % (0-3) Basophils (%) (Auto) 1 % (0-3) Neutrophils # (Auto) 2.9 x10^3uL (1.8-7.7) Lymphocytes # (Auto) 1.8 x10^3/uL (1.0-4.8) Monocytes # (Auto) 0.3 x10^3/uL (0.0-1.1) Eosinophils # (Auto) 0.0 x10^3/uL (0.0-0.7) Basophils # (Auto) 0.1 x10^3/uL (0.0-0.2) Sodium Level 135 mmol/L (136-145) Potassium Level 4.9 mmol/L (3.5-5.1) Chloride Level 97 mmol/L (98-107) Carbon Dioxide Level 20 mmol/L (21-32) Anion Gap 18 (6-14) Blood Urea Nitrogen 63 mg/dL (7-20) Creatinine 7.2 mg/dL (0.6-1.0) Estimated GFR (Cockcroft-Gault) 5.6 BUN/Creatinine Ratio 9 (6-20) Glucose Level 92 mg/dL (70-99) Lactic Acid Level 3.9 mmol/L (0.4-2.0) Calcium Level 10.1 mg/dL (8.5-10.1) Magnesium Level 1.7 mg/dL (1.8-2.4) Total Bilirubin 1.8 mg/dL (0.2-1.0) Aspartate Amino Transf (AST/SGOT) 40 U/L (15-37) Alanine Aminotransferase (ALT/SGPT) 28 U/L (14-59) Alkaline Phosphatase 68 U/L (46-116) Creatine Kinase 40 U/L (26-192) Creatine Kinase MB (Mass) 0.6 ng/mL (0.0-3.6) Creatine Kinase MB Relative Index % (0-4) Troponin I Quantitative < 0.017 ng/mL (0.000-0.055) TZ-Txf-J-Type Natriuretic Peptide 4267 pg/mL (0-124) Total Protein 7.5 g/dL (6.4-8.2) Albumin 3.7 g/dL (3.4-5.0) Albumin/Globulin Ratio 1.0 (1.0-1.7) Lipase 204 U/L (73-393) Influenza Type A Antigen Negative (NEGATIVE) Influenza Type B Antigen Negative (NEGATIVE) Glucose (Fingerstick) 63 mg/dL (70-99) Test 11/09/16 16:45 11/09/16 18:15 11/09/16 21:26 11/10/16 07:58 Lactic Acid Level 4.0 mmol/L (0.4-2.0) Clostridium difficile Toxin (PCR) Negative (Negative) Glucose (Fingerstick) 322 mg/dL (70-99) 272 mg/dL (70-99) Test 11/10/16 11:01 Glucose (Fingerstick) 412 mg/dL (70-99) Laboratory Tests Test 11/09/16 16:28 11/09/16 16:45 11/09/16 18:15 11/09/16 21:26 Glucose (Fingerstick) 63 mg/dL (70-99) 322 mg/dL (70-99) Lactic Acid Level 4.0 mmol/L (0.4-2.0) Clostridium difficile Toxin (PCR) Negative (Negative) Test 11/10/16 07:58 11/10/16 11:01 Glucose (Fingerstick) 272 mg/dL (70-99) 412 mg/dL (70-99) Assessment/Plan Assessment/Plan IMP JIM-ATN-CR OF 1.2 DEHYDRATION PROB GASTROENTERITIS LOW MAG PLAN VOLUME EXPAND WITH ISOTONIC SALINE LABS IN AM HOLD METFORMIN REPLACE MAG IZA FELIX MD November 10, 2016 12:00
--- NOTE | 2016-11-10 12:40 | PDOC ---
Subjective: Subjective: No further n/v or diarrhea. No abd pain. Tolerating diet. Feels fatigued. Objective: Vital Signs: Vital Signs Date Time Temp Pulse Resp B/P (MAP) Pulse Ox O2 Delivery O2 Flow Rate FiO2 11/10/16 11:00 97.9 71 19 148/59 (88) 95 Room Air 97.9 Labs: Laboratory Tests Test 11/09/16 16:28 11/09/16 16:45 11/09/16 18:15 11/09/16 21:26 Glucose (Fingerstick) 63 mg/dL 322 mg/dL Lactic Acid Level 4.0 mmol/L Clostridium difficile Toxin (PCR) Negative Test 11/10/16 07:58 11/10/16 11:01 Glucose (Fingerstick) 272 mg/dL 412 mg/dL PE: GEN: NAD LUNGS: clear anteriorly HEART: RRR ABD: S/ND/NT NEURO/PSYCH: A & O 3 A/P: Cirrhosis, portal hypertension, varices N/v, diarrhea - resolved Acute renal failure -per nephrology, labs ordered for a.m. ?h/o GI bleed in [place], [place] -on PPI here -- Stable GI-mcgraw. SAUD MCDONALD November 10, 2016 12:40
[2016-11-10 15:00] VITALS: BP 152/53
[2016-11-10 15:02] LABS: BASO % 0 % (0-3); EOS % 1 % (0-3); HEMATOCRIT 38.2 % (36.0-47.0); HEMOGLOBIN 13.3 g/dL (12.0-15.5); LYMPH # 2.1 x10^3/uL (1.0-4.8); LYMPH % 36 % (24-48); MEAN CORPUSCULAR HEMOGLOBIN 31 pg (25-35); MEAN CORPUSCULAR HGB CONC 35 g/dL (31-37); MEAN CORPUSCULAR VOLUME 89 fL (79-100); MONO % 11 % (0-9); NEUT % 52 % (31-73); PLATELET COUNT 106 x10^3/uL (140-400); RED BLOOD COUNT 4.28 x10^6/uL (3.50-5.40); WHITE BLOOD COUNT 5.9 x10^3/uL (4.0-11.0)
[2016-11-10 15:27] LABS: ALBUMIN 3.8 g/dL (3.4-5.0); CREATININE 5.8 mg/dL (0.6-1.0); GFR 7.2; POTASSIUM 4.2 mmol/L (3.5-5.1); TOTAL BILIRUBIN 1.6 mg/dL (0.2-1.0); TOTAL PROTEIN 7.7 g/dL (6.4-8.2)
[2016-11-10 19:00] VITALS: BP 171/66
[2016-11-10 23:00] VITALS: BP 128/58
[2016-11-11 03:00] VITALS: BP 172/70
[2016-11-11 07:00] VITALS: BP 163/89
[2016-11-11] MEDS: PANTOPRAZOLE 40 MG TABLET.DR. PO SCH (08:46)
[2016-11-11] MEDS: INSULIN ASPART 300 UNITS/3 ML INSULN.PEN SQ SCH ×5 (09:02→17:56)
[2016-11-11 09:13] LABS: CALCIUM 8.5 mg/dL (8.5-10.1); CREATININE 4.3 mg/dL (0.6-1.0); GFR 10.2; MAGNESIUM 1.9 mg/dL (1.8-2.4); POTASSIUM 3.6 mmol/L (3.5-5.1)
[2016-11-11] MEDS: IV NORMAL SALINE 1000ML BAG 1,000 ML IV SCH ×2 (10:30→20:29)
--- NOTE | 2016-11-11 10:47 | PDOC ---
Renal-Progress Notes Subjective Notes Notes FEELING BETTER History of Present Illness Hx of present illness BETTER Vitals Vitals Vital Signs Date Time Temp Pulse Resp B/P (MAP) Pulse Ox O2 Delivery O2 Flow Rate FiO2 11/11/16 07:00 98.0 78 16 163/89 (113) 99 Room Air 98.0 Weight Weight [ ] I.O. Intake and Output Intake and Output 11/11/16 07:00 Intake Total 3541 ml Balance 3541 ml Intake Oral 1590 ml IV Total 1951 ml # Voids 4 Labs Labs Laboratory Tests Test 11/10/16 11:01 11/10/16 14:35 11/10/16 15:27 11/10/16 16:39 Glucose (Fingerstick) 412 mg/dL (70-99) 197 mg/dL (70-99) 268 mg/dL (70-99) White Blood Count 5.9 x10^3/uL (4.0-11.0) Red Blood Count 4.28 x10^6/uL (3.50-5.40) Hemoglobin 13.3 g/dL (12.0-15.5) Hematocrit 38.2 % (36.0-47.0) Mean Corpuscular Volume 89 fL (79-100) Mean Corpuscular Hemoglobin 31 pg (25-35) Mean Corpuscular Hemoglobin Concent 35 g/dL (31-37) Red Cell Distribution Width 14.0 % (11.5-14.5) Platelet Count 106 x10^3/uL (140-400) Neutrophils (%) (Auto) 52 % (31-73) Lymphocytes (%) (Auto) 36 % (24-48) Monocytes (%) (Auto) 11 % (0-9) Eosinophils (%) (Auto) 1 % (0-3) Basophils (%) (Auto) 0 % (0-3) Neutrophils # (Auto) 3.1 x10^3uL (1.8-7.7) Lymphocytes # (Auto) 2.1 x10^3/uL (1.0-4.8) Monocytes # (Auto) 0.6 x10^3/uL (0.0-1.1) Eosinophils # (Auto) 0.1 x10^3/uL (0.0-0.7) Basophils # (Auto) 0.0 x10^3/uL (0.0-0.2) Sodium Level 137 mmol/L (136-145) Potassium Level 4.2 mmol/L (3.5-5.1) Chloride Level 99 mmol/L (98-107) Carbon Dioxide Level 24 mmol/L (21-32) Anion Gap 14 (6-14) Blood Urea Nitrogen 51 mg/dL (7-20) Creatinine 5.8 mg/dL (0.6-1.0) Estimated GFR (Cockcroft-Gault) 7.2 BUN/Creatinine Ratio 9 (6-20) Glucose Level 179 mg/dL (70-99) Hemoglobin A1c 10.1 % (4.8-5.6) Calcium Level 9.0 mg/dL (8.5-10.1) Total Bilirubin 1.6 mg/dL (0.2-1.0) Aspartate Amino Transf (AST/SGOT) 45 U/L (15-37) Alanine Aminotransferase (ALT/SGPT) 34 U/L (14-59) Alkaline Phosphatase 67 U/L (46-116) HD-Cea-R-Type Natriuretic Peptide 1390 pg/mL (0-124) Total Protein 7.7 g/dL (6.4-8.2) Albumin 3.8 g/dL (3.4-5.0) Albumin/Globulin Ratio 1.0 (1.0-1.7) Test 11/10/16 21:06 11/11/16 08:26 11/11/16 08:40 Glucose (Fingerstick) 314 mg/dL (70-99) 247 mg/dL (70-99) Sodium Level 139 mmol/L (136-145) Potassium Level 3.6 mmol/L (3.5-5.1) Chloride Level 103 mmol/L (98-107) Carbon Dioxide Level 22 mmol/L (21-32) Anion Gap 14 (6-14) Blood Urea Nitrogen 40 mg/dL (7-20) Creatinine 4.3 mg/dL (0.6-1.0) Estimated GFR (Cockcroft-Gault) 10.2 Glucose Level 282 mg/dL (70-99) Calcium Level 8.5 mg/dL (8.5-10.1) Magnesium Level 1.9 mg/dL (1.8-2.4) Review of Systems Constitutional: yes: weakness, alert, oriented Ears/Nose/Throat: Yes: no symptom reported Eyes: Yes: no symptom reported Pulmonary: Yes no symptom reported Gastrointestional: Yes: nausea, vomiting, diarrhea Musculoskeletal: Yes: muscle stiffness Skin: Yes no symptom reported Physical Exam General Appearance: no apparent distress Skin: warm Respiratory: bilateral CTA Heart: S1S2 Abdomen: soft, rectal tube Neurology: alert, oriented Musculoskeletal: Osteoarthritis Assessment Assessment IMP DEHYDRATION JIM-IMPROVING GASTROENTERITIS PLAN CONT IVF'S LABS IN AM IZA FELIX MD November 11, 2016 10:47
[2016-11-11 11:00] VITALS: BP 154/78
--- NOTE | 2016-11-11 12:07 | PDOC ---
Subjective: Subjective: No GI complaints except doesn't like the food here. Objective: Vital Signs: Vital Signs Date Time Temp Pulse Resp B/P (MAP) Pulse Ox O2 Delivery O2 Flow Rate FiO2 11/11/16 07:00 98.0 78 16 163/89 (113) 99 Room Air 98.0 Labs: Laboratory Tests Test 11/10/16 14:35 11/10/16 15:27 11/10/16 16:39 11/10/16 21:06 White Blood Count 5.9 x10^3/uL Red Blood Count 4.28 x10^6/uL Hemoglobin 13.3 g/dL Hematocrit 38.2 % Mean Corpuscular Volume 89 fL Mean Corpuscular Hemoglobin 31 pg Mean Corpuscular Hemoglobin Concent 35 g/dL Red Cell Distribution Width 14.0 % Platelet Count 106 x10^3/uL Neutrophils (%) (Auto) 52 % Lymphocytes (%) (Auto) 36 % Monocytes (%) (Auto) 11 % Eosinophils (%) (Auto) 1 % Basophils (%) (Auto) 0 % Neutrophils # (Auto) 3.1 x10^3uL Lymphocytes # (Auto) 2.1 x10^3/uL Monocytes # (Auto) 0.6 x10^3/uL Eosinophils # (Auto) 0.1 x10^3/uL Basophils # (Auto) 0.0 x10^3/uL Sodium Level 137 mmol/L Potassium Level 4.2 mmol/L Chloride Level 99 mmol/L Carbon Dioxide Level 24 mmol/L Anion Gap 14 Blood Urea Nitrogen 51 mg/dL Creatinine 5.8 mg/dL Estimated GFR (Cockcroft-Gault) 7.2 BUN/Creatinine Ratio 9 Glucose Level 179 mg/dL Hemoglobin A1c 10.1 % Calcium Level 9.0 mg/dL Total Bilirubin 1.6 mg/dL Aspartate Amino Transf (AST/SGOT) 45 U/L Alanine Aminotransferase (ALT/SGPT) 34 U/L Alkaline Phosphatase 67 U/L [id number]-[id number]-Type Natriuretic Peptide 1390 pg/mL Total Protein 7.7 g/dL Albumin 3.8 g/dL Albumin/Globulin Ratio 1.0 Glucose (Fingerstick) 197 mg/dL 268 mg/dL 314 mg/dL Test 11/11/16 08:26 11/11/16 08:40 11/11/16 10:51 Glucose (Fingerstick) 247 mg/dL 405 mg/dL Sodium Level 139 mmol/L Potassium Level 3.6 mmol/L Chloride Level 103 mmol/L Carbon Dioxide Level 22 mmol/L Anion Gap 14 Blood Urea Nitrogen 40 mg/dL Creatinine 4.3 mg/dL Estimated GFR (Cockcroft-Gault) 10.2 Glucose Level 282 mg/dL Calcium Level 8.5 mg/dL Magnesium Level 1.9 mg/dL PE: GEN: NAD LUNGS: CTAB HEART: RRR ABD: NABS, S/ND/NT NEURO/PSYCH: A & O 3 A/P: Cirrhosis, portal hypertension, varices Acute renal failure in setting of n/v, diarrhea -GI symptoms resolved -Cr improved DM -HA1c >10 -- Continue same per GI, follow nephrology recs. SAUD MCDONALD November 11, 2016 12:07
--- NOTE | 2016-11-11 13:38 | PDOC ---
PROGRESS NOTES Chief Complaint Chief Complaint cc: Nausea and vomiting acute viral enteritis JIM DUE TO DEHYDRATION DM2, poor control CIRRHOSIS History of Present Illness History of Present Illness hgb A1c 10.1 add meal and Levemir and SSI hold metformin for renal fxn cont current Vitals Vitals Vital Signs Date Time Temp Pulse Resp B/P (MAP) Pulse Ox O2 Delivery O2 Flow Rate FiO2 11/11/16 11:00 98.1 74 17 154/78 (103) 95 Room Air 98.1 Physical Exam General: Alert, Oriented X3, No acute distress Heart: Normal S1, Normal S2, No murmurs Lungs: Clear, Other (good vol) Abdomen: Normal bowel sounds Extremities: No clubbing Skin: No rashes Labs LABS Laboratory Tests Test 11/10/16 14:35 11/10/16 15:27 11/10/16 16:39 11/10/16 21:06 White Blood Count 5.9 x10^3/uL (4.0-11.0) Red Blood Count 4.28 x10^6/uL (3.50-5.40) Hemoglobin 13.3 g/dL (12.0-15.5) Hematocrit 38.2 % (36.0-47.0) Mean Corpuscular Volume 89 fL (79-100) Mean Corpuscular Hemoglobin 31 pg (25-35) Mean Corpuscular Hemoglobin Concent 35 g/dL (31-37) Red Cell Distribution Width 14.0 % (11.5-14.5) Platelet Count 106 x10^3/uL (140-400) Neutrophils (%) (Auto) 52 % (31-73) Lymphocytes (%) (Auto) 36 % (24-48) Monocytes (%) (Auto) 11 % (0-9) Eosinophils (%) (Auto) 1 % (0-3) Basophils (%) (Auto) 0 % (0-3) Neutrophils # (Auto) 3.1 x10^3uL (1.8-7.7) Lymphocytes # (Auto) 2.1 x10^3/uL (1.0-4.8) Monocytes # (Auto) 0.6 x10^3/uL (0.0-1.1) Eosinophils # (Auto) 0.1 x10^3/uL (0.0-0.7) Basophils # (Auto) 0.0 x10^3/uL (0.0-0.2) Sodium Level 137 mmol/L (136-145) Potassium Level 4.2 mmol/L (3.5-5.1) Chloride Level 99 mmol/L (98-107) Carbon Dioxide Level 24 mmol/L (21-32) Anion Gap 14 (6-14) Blood Urea Nitrogen 51 mg/dL (7-20) Creatinine 5.8 mg/dL (0.6-1.0) Estimated GFR (Cockcroft-Gault) 7.2 BUN/Creatinine Ratio 9 (6-20) Glucose Level 179 mg/dL (70-99) Hemoglobin A1c 10.1 % (4.8-5.6) Calcium Level 9.0 mg/dL (8.5-10.1) Total Bilirubin 1.6 mg/dL (0.2-1.0) Aspartate Amino Transf (AST/SGOT) 45 U/L (15-37) Alanine Aminotransferase (ALT/SGPT) 34 U/L (14-59) Alkaline Phosphatase 67 U/L (46-116) LG-Lrp-K-Type Natriuretic Peptide 1390 pg/mL (0-124) Total Protein 7.7 g/dL (6.4-8.2) Albumin 3.8 g/dL (3.4-5.0) Albumin/Globulin Ratio 1.0 (1.0-1.7) Glucose (Fingerstick) 197 mg/dL (70-99) 268 mg/dL (70-99) 314 mg/dL (70-99) Test 11/11/16 08:26 11/11/16 08:40 11/11/16 10:51 Glucose (Fingerstick) 247 mg/dL (70-99) 405 mg/dL (70-99) Sodium Level 139 mmol/L (136-145) Potassium Level 3.6 mmol/L (3.5-5.1) Chloride Level 103 mmol/L (98-107) Carbon Dioxide Level 22 mmol/L (21-32) Anion Gap 14 (6-14) Blood Urea Nitrogen 40 mg/dL (7-20) Creatinine 4.3 mg/dL (0.6-1.0) Estimated GFR (Cockcroft-Gault) 10.2 Glucose Level 282 mg/dL (70-99) Calcium Level 8.5 mg/dL (8.5-10.1) Magnesium Level 1.9 mg/dL (1.8-2.4) Review of Systems Review of Systems tremor at rest, a little worse than usual, she declines to see a neurologist here or outpatient no nchavez Assessment and Plan Assessmemt and Plan Problems Medical Problems: (1) Accelerated hypertension Status: Acute (2) Acute renal failure Status: Acute (3) Dehydration, severe Status: Acute Problems: Comment Review of Relevant I have reviewed the following items tiffanie (where applicable) has been applied. Labs Laboratory Tests Test 11/09/16 16:28 11/09/16 16:45 11/09/16 18:15 11/09/16 21:26 Glucose (Fingerstick) 63 mg/dL (70-99) 322 mg/dL (70-99) Lactic Acid Level 4.0 mmol/L (0.4-2.0) Clostridium difficile Toxin (PCR) Negative (Negative) Test 11/10/16 07:58 11/10/16 11:01 11/10/16 14:35 11/10/16 15:27 Glucose (Fingerstick) 272 mg/dL (70-99) 412 mg/dL (70-99) 197 mg/dL (70-99) White Blood Count 5.9 x10^3/uL (4.0-11.0) Red Blood Count 4.28 x10^6/uL (3.50-5.40) Hemoglobin 13.3 g/dL (12.0-15.5) Hematocrit 38.2 % (36.0-47.0) Mean Corpuscular Volume 89 fL (79-100) Mean Corpuscular Hemoglobin 31 pg (25-35) Mean Corpuscular Hemoglobin Concent 35 g/dL (31-37) Red Cell Distribution Width 14.0 % (11.5-14.5) Platelet Count 106 x10^3/uL (140-400) Neutrophils (%) (Auto) 52 % (31-73) Lymphocytes (%) (Auto) 36 % (24-48) Monocytes (%) (Auto) 11 % (0-9) Eosinophils (%) (Auto) 1 % (0-3) Basophils (%) (Auto) 0 % (0-3) Neutrophils # (Auto) 3.1 x10^3uL (1.8-7.7) Lymphocytes # (Auto) 2.1 x10^3/uL (1.0-4.8) Monocytes # (Auto) 0.6 x10^3/uL (0.0-1.1) Eosinophils # (Auto) 0.1 x10^3/uL (0.0-0.7) Basophils # (Auto) 0.0 x10^3/uL (0.0-0.2) Sodium Level 137 mmol/L (136-145) Potassium Level 4.2 mmol/L (3.5-5.1) Chloride Level 99 mmol/L (98-107) Carbon Dioxide Level 24 mmol/L (21-32) Anion Gap 14 (6-14) Blood Urea Nitrogen 51 mg/dL (7-20) Creatinine 5.8 mg/dL (0.6-1.0) Estimated GFR (Cockcroft-Gault) 7.2 BUN/Creatinine Ratio 9 (6-20) Glucose Level 179 mg/dL (70-99) Hemoglobin A1c 10.1 % (4.8-5.6) Calcium Level 9.0 mg/dL (8.5-10.1) Total Bilirubin 1.6 mg/dL (0.2-1.0) Aspartate Amino Transf (AST/SGOT) 45 U/L (15-37) Alanine Aminotransferase (ALT/SGPT) 34 U/L (14-59) Alkaline Phosphatase 67 U/L (46-116) DM-Qho-C-Type Natriuretic Peptide 1390 pg/mL (0-124) Total Protein 7.7 g/dL (6.4-8.2) Albumin 3.8 g/dL (3.4-5.0) Albumin/Globulin Ratio 1.0 (1.0-1.7) Test 11/10/16 16:39 11/10/16 21:06 11/11/16 08:26 11/11/16 08:40 Glucose (Fingerstick) 268 mg/dL (70-99) 314 mg/dL (70-99) 247 mg/dL (70-99) Sodium Level 139 mmol/L (136-145) Potassium Level 3.6 mmol/L (3.5-5.1) Chloride Level 103 mmol/L (98-107) Carbon Dioxide Level 22 mmol/L (21-32) Anion Gap 14 (6-14) Blood Urea Nitrogen 40 mg/dL (7-20) Creatinine 4.3 mg/dL (0.6-1.0) Estimated GFR (Cockcroft-Gault) 10.2 Glucose Level 282 mg/dL (70-99) Calcium Level 8.5 mg/dL (8.5-10.1) Magnesium Level 1.9 mg/dL (1.8-2.4) Test 11/11/16 10:51 Glucose (Fingerstick) 405 mg/dL (70-99) Laboratory Tests Test 11/10/16 14:35 11/10/16 15:27 11/10/16 16:39 11/10/16 21:06 White Blood Count 5.9 x10^3/uL (4.0-11.0) Red Blood Count 4.28 x10^6/uL (3.50-5.40) Hemoglobin 13.3 g/dL (12.0-15.5) Hematocrit 38.2 % (36.0-47.0) Mean Corpuscular Volume 89 fL (79-100) Mean Corpuscular Hemoglobin 31 pg (25-35) Mean Corpuscular Hemoglobin Concent 35 g/dL (31-37) Red Cell Distribution Width 14.0 % (11.5-14.5) Platelet Count 106 x10^3/uL (140-400) Neutrophils (%) (Auto) 52 % (31-73) Lymphocytes (%) (Auto) 36 % (24-48) Monocytes (%) (Auto) 11 % (0-9) Eosinophils (%) (Auto) 1 % (0-3) Basophils (%) (Auto) 0 % (0-3) Neutrophils # (Auto) 3.1 x10^3uL (1.8-7.7) Lymphocytes # (Auto) 2.1 x10^3/uL (1.0-4.8) Monocytes # (Auto) 0.6 x10^3/uL (0.0-1.1) Eosinophils # (Auto) 0.1 x10^3/uL (0.0-0.7) Basophils # (Auto) 0.0 x10^3/uL (0.0-0.2) Sodium Level 137 mmol/L (136-145) Potassium Level 4.2 mmol/L (3.5-5.1) Chloride Level 99 mmol/L (98-107) Carbon Dioxide Level 24 mmol/L (21-32) Anion Gap 14 (6-14) Blood Urea Nitrogen 51 mg/dL (7-20) Creatinine 5.8 mg/dL (0.6-1.0) Estimated GFR (Cockcroft-Gault) 7.2 BUN/Creatinine Ratio 9 (6-20) Glucose Level 179 mg/dL (70-99) Hemoglobin A1c 10.1 % (4.8-5.6) Calcium Level 9.0 mg/dL (8.5-10.1) Total Bilirubin 1.6 mg/dL (0.2-1.0) Aspartate Amino Transf (AST/SGOT) 45 U/L (15-37) Alanine Aminotransferase (ALT/SGPT) 34 U/L (14-59) Alkaline Phosphatase 67 U/L (46-116) DD-Lkb-R-Type Natriuretic Peptide 1390 pg/mL (0-124) Total Protein 7.7 g/dL (6.4-8.2) Albumin 3.8 g/dL (3.4-5.0) Albumin/Globulin Ratio 1.0 (1.0-1.7) Glucose (Fingerstick) 197 mg/dL (70-99) 268 mg/dL (70-99) 314 mg/dL (70-99) Test 11/11/16 08:26 11/11/16 08:40 11/11/16 10:51 Glucose (Fingerstick) 247 mg/dL (70-99) 405 mg/dL (70-99) Sodium Level 139 mmol/L (136-145) Potassium Level 3.6 mmol/L (3.5-5.1) Chloride Level 103 mmol/L (98-107) Carbon Dioxide Level 22 mmol/L (21-32) Anion Gap 14 (6-14) Blood Urea Nitrogen 40 mg/dL (7-20) Creatinine 4.3 mg/dL (0.6-1.0) Estimated GFR (Cockcroft-Gault) 10.2 Glucose Level 282 mg/dL (70-99) Calcium Level 8.5 mg/dL (8.5-10.1) Magnesium Level 1.9 mg/dL (1.8-2.4) Medications Current Medications Sodium Chloride 1,000 ml @ 125 mls/hr 1X ONCE IV Last administered on 15:22; Start 11/09/16 at 13:45; Stop 11/09/16 at 17:16; Status DC Ondansetron HCl (Zofran) 4 mg PRN Q8HRS PRN IV NAUSEA/VOMITING; Start 11/09/16 at 14:30; Stop 11/10/16 at 14:29; Status DC Fentanyl Citrate (Fentanyl 2ml Vial) 50 mcg PRN Q2HR PRN IV PAIN Last administered on 11/10/16 13:03; Start 11/09/16 at 14:30; Stop 11/10/16 at 14:29 ; Status DC Pantoprazole Sodium (Protonix) 40 mg DAILYAC PO Last administered on 11/11/16 08:46; Start 11/09/16 at 16:00 Sodium Chloride 1,000 ml @ 100 mls/hr Q10H IV Last administered on 11/10/16 23:07; Start 11/09/16 at 17:15 Pantoprazole Sodium (Protonix) 40 mg DAILY PO ; Start 11/10/16 at 09:00; Status UNV Insulin Aspart (Novolog) 0-7 UNITS TIDWMEALS SQ Last administered on 11/11/16 12:35; Start 11/10/16 at 08:00 Dextrose (Dextrose 50%-Water Syringe) 12.5 gm PRN Q15MIN PRN IV SEE COMMENTS; Start 11/09/16 at 19:00 Insulin Aspart (Novolog) 20 units 1X ONCE SQ Last administered on 11/10/16 11 :37; Start 11/10/16 at 11:45; Stop 11/10/16 at 11:46; Status DC Magnesium Sulfate/ Dextrose 50 ml @ 25 mls/hr 1X ONCE IV Last administered on 11/10/16 13:03; Start 11/10/16 at 12:00; Stop 11/10/16 at 13:59; Status DC Insulin Detemir (Levemir) 12 units QHS SQ ; Start 11/11/16 at 21:00 Active Scripts Active Reported Pantoprazole Sodium 40 Mg Tablet.dr 1 Tab PO DAILY Metformin Hcl 500 Mg Tablet 500 Mg PO BIDWMEALS Glipizide 5 Mg Tablet 1 Tab PO BID Aspir 81 (Aspirin) 81 Mg Tablet. 1 Tab PO DAILY Vitals/I & O Vital Sign - Last 24 Hours 11/10/16 11/10/16 11/10/16 11/10/16 15:00 19:00 20:30 23:00 Temp 97.9 97.7 97.7 97.9 97.7 97.7 Pulse 79 85 71 Resp 19 20 18 B/P (MAP) 152/53 (86) 171/66 (101) 128/58 (81) Pulse Ox 98 97 94 O2 Delivery Room Air Room Air Room Air Room Air 11/11/16 11/11/16 11/11/16 03:00 07:00 11:00 Temp 97.9 98.0 98.1 97.9 98.0 98.1 Pulse 72 78 74 Resp 20 16 17 B/P (MAP) 172/70 (104) 163/89 (113) 154/78 (103) Pulse Ox 96 99 95 O2 Delivery Room Air Room Air Room Air Intake and Output 11/10/16 11/10/16 11/11/16 15:00 23:00 07:00 Intake Total 500 ml 1921 ml 1120 ml Balance 500 ml 1921 ml 1120 ml EMRE PORTER MD November 11, 2016 13:38
[2016-11-11 15:00] VITALS: BP 194/63
[2016-11-11 19:00] VITALS: BP 180/48
[2016-11-11] MEDS ORDERED: INSULIN DETEMIR 300 UNITS/3 ML INSULN.PEN. SQ SCH ×2 (21:00)
[2016-11-11 23:02] VITALS: BP 159/55
[2016-11-12 03:00] VITALS: BP 157/54
[2016-11-12 05:35] LABS: CALCIUM 8.3 mg/dL (8.5-10.1); CREATININE 3.3 mg/dL (0.6-1.0); GFR 13.8; POTASSIUM 3.8 mmol/L (3.5-5.1)
[2016-11-12] MEDS: PANTOPRAZOLE 40 MG TABLET.DR. PO SCH (06:05)
[2016-11-12] MEDS: IV NORMAL SALINE 1000ML BAG 1,000 ML IV SCH ×2 (06:06→18:30)
[2016-11-12 07:00] VITALS: BP 147/46
[2016-11-12] MEDS: INSULIN ASPART 300 UNITS/3 ML INSULN.PEN SQ SCH ×6 (08:43→18:38)
--- NOTE | 2016-11-12 10:01 | PDOC ---
Subjective: Subjective: Not sleeping way away from home. Urinating frequently. No GI complaints. Objective: Vital Signs: Vital Signs Date Time Temp Pulse Resp B/P (MAP) Pulse Ox O2 Delivery O2 Flow Rate FiO2 11/12/16 07:00 97.7 69 17 147/46 (79) 97 Room Air 97.7 Labs: Laboratory Tests Test 11/11/16 10:51 11/11/16 16:24 11/11/16 20:34 11/12/16 04:50 Glucose (Fingerstick) 405 mg/dL 369 mg/dL 279 mg/dL Sodium Level 141 mmol/L Potassium Level 3.8 mmol/L Chloride Level 107 mmol/L Carbon Dioxide Level 22 mmol/L Anion Gap 12 Blood Urea Nitrogen 31 mg/dL Creatinine 3.3 mg/dL Estimated GFR (Cockcroft-Gault) 13.8 Glucose Level 266 mg/dL Calcium Level 8.3 mg/dL Test 11/12/16 07:33 Glucose (Fingerstick) 317 mg/dL PE: GEN: NAD LUNGS: CTAB HEART: RRR ABD: NABS, S/ND/NT NEURO/PSYCH: A & O 3 A/P: Cirrhosis, portal hypertension, varices Acute renal failure -precipitating by gastroenteritis - n/v, diarrhea resolved -Cr improving, per nephrology -DM w/ elevated A1c -- Stable GI mcgraw. SAUD MCDONALD November 12, 2016 10:01
--- NOTE | 2016-11-12 10:02 | PDOC ---
PROGRESS NOTES Chief Complaint Chief Complaint cc: Nausea and vomiting acute viral enteritis JIM DUE TO DEHYDRATION DM2, poor control CIRRHOSIS History of Present Illness History of Present Illness hgb A1c 10.1 add meal and Levemir and SSI, increase doses hold metformin for renal fxn cont current, needs additional IV fluid Vitals Vitals Vital Signs Date Time Temp Pulse Resp B/P (MAP) Pulse Ox O2 Delivery O2 Flow Rate FiO2 11/12/16 07:00 97.7 69 17 147/46 (79) 97 Room Air 97.7 Physical Exam General: Alert, Oriented X3, No acute distress Heart: Normal S1, Normal S2, No murmurs Lungs: Clear, Other (good vol) Abdomen: Normal bowel sounds Extremities: No clubbing Skin: No rashes Labs LABS Laboratory Tests Test 11/11/16 10:51 11/11/16 16:24 11/11/16 20:34 11/12/16 04:50 Glucose (Fingerstick) 405 mg/dL (70-99) 369 mg/dL (70-99) 279 mg/dL (70-99) Sodium Level 141 mmol/L (136-145) Potassium Level 3.8 mmol/L (3.5-5.1) Chloride Level 107 mmol/L (98-107) Carbon Dioxide Level 22 mmol/L (21-32) Anion Gap 12 (6-14) Blood Urea Nitrogen 31 mg/dL (7-20) Creatinine 3.3 mg/dL (0.6-1.0) Estimated GFR (Cockcroft-Gault) 13.8 Glucose Level 266 mg/dL (70-99) Calcium Level 8.3 mg/dL (8.5-10.1) Test 11/12/16 07:33 Glucose (Fingerstick) 317 mg/dL (70-99) Review of Systems Review of Systems insomnia, try ambien PRN Assessment and Plan Assessmemt and Plan Problems Medical Problems: (1) Accelerated hypertension Status: Acute (2) Acute renal failure Status: Acute (3) Dehydration, severe Status: Acute Problems: Comment Review of Relevant I have reviewed the following items tiffanie (where applicable) has been applied. Labs Laboratory Tests Test 11/10/16 11:01 11/10/16 14:35 11/10/16 15:27 11/10/16 16:39 Glucose (Fingerstick) 412 mg/dL (70-99) 197 mg/dL (70-99) 268 mg/dL (70-99) White Blood Count 5.9 x10^3/uL (4.0-11.0) Red Blood Count 4.28 x10^6/uL (3.50-5.40) Hemoglobin 13.3 g/dL (12.0-15.5) Hematocrit 38.2 % (36.0-47.0) Mean Corpuscular Volume 89 fL (79-100) Mean Corpuscular Hemoglobin 31 pg (25-35) Mean Corpuscular Hemoglobin Concent 35 g/dL (31-37) Red Cell Distribution Width 14.0 % (11.5-14.5) Platelet Count 106 x10^3/uL (140-400) Neutrophils (%) (Auto) 52 % (31-73) Lymphocytes (%) (Auto) 36 % (24-48) Monocytes (%) (Auto) 11 % (0-9) Eosinophils (%) (Auto) 1 % (0-3) Basophils (%) (Auto) 0 % (0-3) Neutrophils # (Auto) 3.1 x10^3uL (1.8-7.7) Lymphocytes # (Auto) 2.1 x10^3/uL (1.0-4.8) Monocytes # (Auto) 0.6 x10^3/uL (0.0-1.1) Eosinophils # (Auto) 0.1 x10^3/uL (0.0-0.7) Basophils # (Auto) 0.0 x10^3/uL (0.0-0.2) Sodium Level 137 mmol/L (136-145) Potassium Level 4.2 mmol/L (3.5-5.1) Chloride Level 99 mmol/L (98-107) Carbon Dioxide Level 24 mmol/L (21-32) Anion Gap 14 (6-14) Blood Urea Nitrogen 51 mg/dL (7-20) Creatinine 5.8 mg/dL (0.6-1.0) Estimated GFR (Cockcroft-Gault) 7.2 BUN/Creatinine Ratio 9 (6-20) Glucose Level 179 mg/dL (70-99) Hemoglobin A1c 10.1 % (4.8-5.6) Calcium Level 9.0 mg/dL (8.5-10.1) Total Bilirubin 1.6 mg/dL (0.2-1.0) Aspartate Amino Transf (AST/SGOT) 45 U/L (15-37) Alanine Aminotransferase (ALT/SGPT) 34 U/L (14-59) Alkaline Phosphatase 67 U/L (46-116) AT-Txj-X-Type Natriuretic Peptide 1390 pg/mL (0-124) Total Protein 7.7 g/dL (6.4-8.2) Albumin 3.8 g/dL (3.4-5.0) Albumin/Globulin Ratio 1.0 (1.0-1.7) Test 11/10/16 21:06 11/11/16 08:26 11/11/16 08:40 11/11/16 10:51 Glucose (Fingerstick) 314 mg/dL (70-99) 247 mg/dL (70-99) 405 mg/dL (70-99) Sodium Level 139 mmol/L (136-145) Potassium Level 3.6 mmol/L (3.5-5.1) Chloride Level 103 mmol/L (98-107) Carbon Dioxide Level 22 mmol/L (21-32) Anion Gap 14 (6-14) Blood Urea Nitrogen 40 mg/dL (7-20) Creatinine 4.3 mg/dL (0.6-1.0) Estimated GFR (Cockcroft-Gault) 10.2 Glucose Level 282 mg/dL (70-99) Calcium Level 8.5 mg/dL (8.5-10.1) Magnesium Level 1.9 mg/dL (1.8-2.4) Test 11/11/16 16:24 11/11/16 20:34 11/12/16 04:50 11/12/16 07:33 Glucose (Fingerstick) 369 mg/dL (70-99) 279 mg/dL (70-99) 317 mg/dL (70-99) Sodium Level 141 mmol/L (136-145) Potassium Level 3.8 mmol/L (3.5-5.1) Chloride Level 107 mmol/L (98-107) Carbon Dioxide Level 22 mmol/L (21-32) Anion Gap 12 (6-14) Blood Urea Nitrogen 31 mg/dL (7-20) Creatinine 3.3 mg/dL (0.6-1.0) Estimated GFR (Cockcroft-Gault) 13.8 Glucose Level 266 mg/dL (70-99) Calcium Level 8.3 mg/dL (8.5-10.1) Laboratory Tests Test 11/11/16 10:51 11/11/16 16:24 11/11/16 20:34 11/12/16 04:50 Glucose (Fingerstick) 405 mg/dL (70-99) 369 mg/dL (70-99) 279 mg/dL (70-99) Sodium Level 141 mmol/L (136-145) Potassium Level 3.8 mmol/L (3.5-5.1) Chloride Level 107 mmol/L (98-107) Carbon Dioxide Level 22 mmol/L (21-32) Anion Gap 12 (6-14) Blood Urea Nitrogen 31 mg/dL (7-20) Creatinine 3.3 mg/dL (0.6-1.0) Estimated GFR (Cockcroft-Gault) 13.8 Glucose Level 266 mg/dL (70-99) Calcium Level 8.3 mg/dL (8.5-10.1) Test 11/12/16 07:33 Glucose (Fingerstick) 317 mg/dL (70-99) Medications Current Medications Sodium Chloride 1,000 ml @ 125 mls/hr 1X ONCE IV Last administered on 15:22; Start 11/09/16 at 13:45; Stop 11/09/16 at 17:16; Status DC Ondansetron HCl (Zofran) 4 mg PRN Q8HRS PRN IV NAUSEA/VOMITING; Start 11/09/16 at 14:30; Stop 11/10/16 at 14:29; Status DC Fentanyl Citrate (Fentanyl 2ml Vial) 50 mcg PRN Q2HR PRN IV PAIN Last administered on 11/10/16 13:03; Start 11/09/16 at 14:30; Stop 11/10/16 at 14:29 ; Status DC Pantoprazole Sodium (Protonix) 40 mg DAILYAC PO Last administered on 11/12/16 06:05; Start 11/09/16 at 16:00 Sodium Chloride 1,000 ml @ 100 mls/hr Q10H IV Last administered on 11/12/16 06:06; Start 11/09/16 at 17:15 Pantoprazole Sodium (Protonix) 40 mg DAILY PO ; Start 11/10/16 at 09:00; Status UNV Insulin Aspart (Novolog) 0-7 UNITS TIDWMEALS SQ Last administered on 11/12/16 08:43; Start 11/10/16 at 08:00 Dextrose (Dextrose 50%-Water Syringe) 12.5 gm PRN Q15MIN PRN IV SEE COMMENTS; Start 11/09/16 at 19:00 Insulin Aspart (Novolog) 20 units 1X ONCE SQ Last administered on 11/10/16 11 :37; Start 11/10/16 at 11:45; Stop 11/10/16 at 11:46; Status DC Magnesium Sulfate/ Dextrose 50 ml @ 25 mls/hr 1X ONCE IV Last administered on 11/10/16 13:03; Start 11/10/16 at 12:00; Stop 11/10/16 at 13:59; Status DC Insulin Detemir (Levemir) 12 units QHS SQ ; Start 11/11/16 at 21:00; Stop at 21:00; Status DC Insulin Aspart (NovoLOG) 6 units TIDAC SQ Last administered on 11/12/16 08:43 ; Start 11/11/16 at 14:00 Insulin Detemir (Levemir) 16 units QHS SQ Last administered on 11/11/16 20:37 ; Start 11/11/16 at 21:00 Active Scripts Active Reported Pantoprazole Sodium 40 Mg Tablet. 1 Tab PO DAILY Metformin Hcl 500 Mg Tablet 500 Mg PO BIDWMEALS Glipizide 5 Mg Tablet 1 Tab PO BID Aspir 81 (Aspirin) 81 Mg Tablet.dr 1 Tab PO DAILY Vitals/I & O Vital Sign - Last 24 Hours 11/11/16 11/11/16 11/11/16 11/11/16 11:00 15:00 19:00 20:00 Temp 98.1 97.1 97.5 98.1 97.1 97.5 Pulse 74 76 70 Resp 17 18 B/P (MAP) 154/78 (103) 194/63 (106) 180/48 (92) Pulse Ox 95 97 100 O2 Delivery Room Air Room Air Room Air Room Air 11/11/16 11/12/16 11/12/16 23:02 03:00 07:00 Temp 97.9 97.7 97.7 97.9 97.7 97.7 Pulse 68 73 69 Resp 18 18 17 B/P (MAP) 159/55 (89) 157/54 (88) 147/46 (79) Pulse Ox 98 96 97 O2 Delivery Room Air Room Air Room Air Intake and Output 11/11/16 11/11/16 11/12/16 15:00 23:00 07:00 Intake Total 450 ml 120 ml Balance 450 ml 120 ml EMRE PORTER MD November 12, 2016 10:02
[2016-11-12 11:00] VITALS: BP_SYST 143; BP_SYST 178; BP_DIAS 55; BP_DIAS 57
--- NOTE | 2016-11-12 11:33 | PDOC ---
Renal-Progress Notes Subjective Notes Notes NONE History of Present Illness Hx of present illness BETTER Vitals Vitals Vital Signs Date Time Temp Pulse Resp B/P (MAP) Pulse Ox O2 Delivery O2 Flow Rate FiO2 11/12/16 08:00 Room Air 11/12/16 07:00 97.7 69 17 147/46 (79) 97 97.7 Weight Weight [ ] I.O. Intake and Output Intake and Output 11/12/16 07:00 Intake Total 570 ml Balance 570 ml Intake Oral 570 ml # Voids 5 Labs Labs Laboratory Tests Test 11/11/16 16:24 11/11/16 20:34 11/12/16 04:50 11/12/16 07:33 Glucose (Fingerstick) 369 mg/dL (70-99) 279 mg/dL (70-99) 317 mg/dL (70-99) Sodium Level 141 mmol/L (136-145) Potassium Level 3.8 mmol/L (3.5-5.1) Chloride Level 107 mmol/L (98-107) Carbon Dioxide Level 22 mmol/L (21-32) Anion Gap 12 (6-14) Blood Urea Nitrogen 31 mg/dL (7-20) Creatinine 3.3 mg/dL (0.6-1.0) Estimated GFR (Cockcroft-Gault) 13.8 Glucose Level 266 mg/dL (70-99) Calcium Level 8.3 mg/dL (8.5-10.1) Review of Systems Constitutional: yes: weakness, alert, oriented Ears/Nose/Throat: Yes: no symptom reported Eyes: Yes: no symptom reported Pulmonary: Yes no symptom reported Gastrointestional: Yes: nausea, vomiting, diarrhea Musculoskeletal: Yes: muscle stiffness Skin: Yes no symptom reported Physical Exam General Appearance: no apparent distress Skin: warm Respiratory: bilateral CTA Heart: S1S2 Abdomen: soft, rectal tube Neurology: alert, oriented Musculoskeletal: Osteoarthritis Assessment Assessment IMP DEHYDRATION JIM-IMPROVING CR DOWN BUT STILL 3.3 GASTROENTERITIS-IMPROVED PLAN CONT IVF'S ENC PO INTAKE SHOULD BE OK TO D/C BY TOMORROW IF CR IMPROVES AGAIN LABS IN AM IZA FELIX MD November 12, 2016 11:33
[2016-11-12 15:00] VITALS: BP 143/55
[2016-11-12 19:00] VITALS: BP 148/48
[2016-11-12] MEDS: INSULIN DETEMIR 300 UNITS/3 ML INSULN.PEN. SQ SCH (21:55)
[2016-11-12 23:00] VITALS: BP 146/52
[2016-11-13 03:00] VITALS: BP 135/59
[2016-11-13] MEDS: IV NORMAL SALINE 1000ML BAG 1,000 ML IV SCH ×2 (05:17→16:21)
[2016-11-13 05:38] LABS: CALCIUM 8.2 mg/dL (8.5-10.1); CREATININE 2.5 mg/dL (0.6-1.0); POTASSIUM 3.8 mmol/L (3.5-5.1)
[2016-11-13 07:15] VITALS: BP 182/52
[2016-11-13] MEDS: INSULIN ASPART 300 UNITS/3 ML INSULN.PEN SQ SCH ×6 (07:44→17:31)
[2016-11-13] MEDS: PANTOPRAZOLE 40 MG TABLET.DR. PO SCH (08:39)
--- NOTE | 2016-11-13 08:41 | PDOC ---
PROGRESS NOTES Subjective Subjective SEEN IN FOLLOW UP OF ARF DUE TO DEHYDRATION Objective Objective Vital Signs Date Time Temp Pulse Resp B/P (MAP) Pulse Ox O2 Delivery O2 Flow Rate FiO2 11/13/16 03:00 97.7 62 18 135/59 (84) 96 Room Air 97.7 Intake and Output 11/13/16 07:00 Intake Total 734 ml Balance 734 ml Intake Oral 0 ml IV Total 734 ml # Voids 7 Physical Exam Abdomen: Normal bowel sounds, Soft, No tenderness, No hepatosplenomegaly, No masses Heart: Regular rate, Normal S1, Normal S2, No murmurs, Gallops Extremities: No clubbing, No cyanosis, No edema, Normal pulses, No tenderness/ swelling General: Alert, Oriented X3, Cooperative, No acute distress Lungs: Clear to auscultation, Normal air movement Psych/Mental Status: Mental status NL, Mood NL Diagnosis RENAL FAILURE: Acute, Other (DEHYDRATION) Assessment Assessment Problems Medical Problems: (1) Accelerated hypertension Status: Acute (2) Acute renal failure Status: Acute (3) Dehydration, severe Status: Acute Plan Plan of Care NO FURTHER DIARRHEA. CONT IVF AND PO TODAY AND IF GFR CONT TO IMPROVE THEN OK TO D/C TOMORROW WITH CONT PO FLUIDS Comment Review of Relevant I have reviewed the following items tiffanie (where applicable) has been applied. Labs Laboratory Tests Test 11/11/16 08:40 11/11/16 10:51 11/11/16 16:24 11/11/16 20:34 Sodium Level 139 mmol/L (136-145) Potassium Level 3.6 mmol/L (3.5-5.1) Chloride Level 103 mmol/L (98-107) Carbon Dioxide Level 22 mmol/L (21-32) Anion Gap 14 (6-14) Blood Urea Nitrogen 40 mg/dL (7-20) Creatinine 4.3 mg/dL (0.6-1.0) Estimated GFR (Cockcroft-Gault) 10.2 Glucose Level 282 mg/dL (70-99) Calcium Level 8.5 mg/dL (8.5-10.1) Magnesium Level 1.9 mg/dL (1.8-2.4) Glucose (Fingerstick) 405 mg/dL (70-99) 369 mg/dL (70-99) 279 mg/dL (70-99) Test 11/12/16 04:50 11/12/16 07:33 11/12/16 11:09 11/12/16 16:38 Sodium Level 141 mmol/L (136-145) Potassium Level 3.8 mmol/L (3.5-5.1) Chloride Level 107 mmol/L (98-107) Carbon Dioxide Level 22 mmol/L (21-32) Anion Gap 12 (6-14) Blood Urea Nitrogen 31 mg/dL (7-20) Creatinine 3.3 mg/dL (0.6-1.0) Estimated GFR (Cockcroft-Gault) 13.8 Glucose Level 266 mg/dL (70-99) Calcium Level 8.3 mg/dL (8.5-10.1) Glucose (Fingerstick) 317 mg/dL (70-99) 378 mg/dL (70-99) 180 mg/dL (70-99) Test 11/12/16 21:00 11/13/16 05:00 Glucose (Fingerstick) 226 mg/dL (70-99) Sodium Level 144 mmol/L (136-145) Potassium Level 3.8 mmol/L (3.5-5.1) Chloride Level 111 mmol/L (98-107) Carbon Dioxide Level 21 mmol/L (21-32) Anion Gap 12 (6-14) Blood Urea Nitrogen 24 mg/dL (7-20) Creatinine 2.5 mg/dL (0.6-1.0) Estimated GFR (Cockcroft-Gault) 19.0 Glucose Level 164 mg/dL (70-99) Calcium Level 8.2 mg/dL (8.5-10.1) Laboratory Tests Test 11/12/16 11:09 11/12/16 16:38 11/12/16 21:00 11/13/16 05:00 Glucose (Fingerstick) 378 mg/dL (70-99) 180 mg/dL (70-99) 226 mg/dL (70-99) Sodium Level 144 mmol/L (136-145) Potassium Level 3.8 mmol/L (3.5-5.1) Chloride Level 111 mmol/L (98-107) Carbon Dioxide Level 21 mmol/L (21-32) Anion Gap 12 (6-14) Blood Urea Nitrogen 24 mg/dL (7-20) Creatinine 2.5 mg/dL (0.6-1.0) Estimated GFR (Cockcroft-Gault) 19.0 Glucose Level 164 mg/dL (70-99) Calcium Level 8.2 mg/dL (8.5-10.1) Medications Current Medications Sodium Chloride 1,000 ml @ 125 mls/hr 1X ONCE IV Last administered on 15:22; Start 11/09/16 at 13:45; Stop 11/09/16 at 17:16; Status DC Ondansetron HCl (Zofran) 4 mg PRN Q8HRS PRN IV NAUSEA/VOMITING; Start 11/09/16 at 14:30; Stop 11/10/16 at 14:29; Status DC Fentanyl Citrate (Fentanyl 2ml Vial) 50 mcg PRN Q2HR PRN IV PAIN Last administered on 11/10/16 13:03; Start 11/09/16 at 14:30; Stop 11/10/16 at 14:29 ; Status DC Pantoprazole Sodium (Protonix) 40 mg DAILYAC PO Last administered on 11/12/16 06:05; Start 11/09/16 at 16:00 Sodium Chloride 1,000 ml @ 100 mls/hr Q10H IV Last administered on 11/13/16 05:17; Start 11/09/16 at 17:15 Pantoprazole Sodium (Protonix) 40 mg DAILY PO ; Start 11/10/16 at 09:00; Status UNV Insulin Aspart (Novolog) 0-7 UNITS TIDWMEALS SQ Last administered on 11/12/16 18:37; Start 11/10/16 at 08:00 Dextrose (Dextrose 50%-Water Syringe) 12.5 gm PRN Q15MIN PRN IV SEE COMMENTS; Start 11/09/16 at 19:00 Insulin Aspart (Novolog) 20 units 1X ONCE SQ Last administered on 11/10/16 11 :37; Start 11/10/16 at 11:45; Stop 11/10/16 at 11:46; Status DC Magnesium Sulfate/ Dextrose 50 ml @ 25 mls/hr 1X ONCE IV Last administered on 11/10/16 13:03; Start 11/10/16 at 12:00; Stop 11/10/16 at 13:59; Status DC Insulin Detemir (Levemir) 12 units QHS SQ ; Start 11/11/16 at 21:00; Stop at 21:00; Status DC Insulin Aspart (NovoLOG) 6 units TIDAC SQ Last administered on 11/12/16 08:43 ; Start 11/11/16 at 14:00; Stop 11/12/16 at 10:02; Status DC Insulin Detemir (Levemir) 16 units QHS SQ Last administered on 11/11/16 20:37 ; Start 11/11/16 at 21:00; Stop 11/12/16 at 10:02; Status DC Insulin Aspart (NovoLOG) 15 units TIDAC SQ Last administered on 11/12/16 18:38 ; Start 11/12/16 at 11:30 Insulin Detemir (Levemir) 28 units QHS SQ Last administered on 11/12/16 21:55 ; Start 11/12/16 at 21:00 Active Scripts Active Reported Pantoprazole Sodium 40 Mg Tablet. 1 Tab PO DAILY Metformin Hcl 500 Mg Tablet 500 Mg PO BIDWMEALS Glipizide 5 Mg Tablet 1 Tab PO BID Aspir 81 (Aspirin) 81 Mg Tablet.dr 1 Tab PO DAILY Vitals/I & O Vital Sign - Last 24 Hours 11/12/16 11/12/16 11/12/16 11/12/16 11:00 15:00 19:00 20:40 Temp 97.6 96.6 98.1 97.6 96.6 98.1 Pulse 69 69 80 Resp 17 17 18 B/P (MAP) 178/57 (97) 143/55 (84) 148/48 (81) Pulse Ox 96 98 99 O2 Delivery Room Air Room Air Room Air Room Air 11/12/16 11/13/16 23:00 03:00 Temp 98.2 97.7 98.2 97.7 Pulse 66 62 Resp 18 18 B/P (MAP) 146/52 (83) 135/59 (84) Pulse Ox 97 96 O2 Delivery Room Air Room Air Intake and Output 11/12/16 11/12/16 11/13/16 15:00 23:00 07:00 Intake Total 734 ml Balance 734 ml CHAS MARTÍNEZ MD November 13, 2016 08:41
[2016-11-13 10:45] VITALS: BP 170/70
--- NOTE | 2016-11-13 13:21 | PDOC ---
PROGRESS NOTES Chief Complaint Chief Complaint cc: Nausea and vomiting History of Present Illness History of Present Illness Pt was up and walking around her room. She states she feels much better and has been urinating a lot Reports tolerating PO intake Would like to be home for mother's day Vitals Vitals Vital Signs Date Time Temp Pulse Resp B/P (MAP) Pulse Ox O2 Delivery O2 Flow Rate FiO2 11/13/16 10:45 96.1 68 20 170/70 (103) 98 Room Air 96.1 Physical Exam General: Alert, Oriented X3, Cooperative, No acute distress Heart: Regular rate, Normal S1, Normal S2, No murmurs, Gallops Lungs: Clear, Other (no wheezing) Abdomen: Normal bowel sounds, Soft, No tenderness, No hepatosplenomegaly, No masses Extremities: No clubbing, No cyanosis, No edema, Normal pulses, No tenderness/ swelling Skin: No rashes, No significant lesion Labs LABS Laboratory Tests Test 11/12/16 16:38 11/12/16 21:00 11/13/16 05:00 11/13/16 07:17 Glucose (Fingerstick) 180 mg/dL (70-99) 226 mg/dL (70-99) 144 mg/dL (70-99) Sodium Level 144 mmol/L (136-145) Potassium Level 3.8 mmol/L (3.5-5.1) Chloride Level 111 mmol/L (98-107) Carbon Dioxide Level 21 mmol/L (21-32) Anion Gap 12 (6-14) Blood Urea Nitrogen 24 mg/dL (7-20) Creatinine 2.5 mg/dL (0.6-1.0) Estimated GFR (Cockcroft-Gault) 19.0 Glucose Level 164 mg/dL (70-99) Calcium Level 8.2 mg/dL (8.5-10.1) Test 11/13/16 12:03 Glucose (Fingerstick) 250 mg/dL (70-99) Review of Systems Review of Systems Denies chest pain Denies SOA Denies N/V/D Assessment and Plan Assessmemt and Plan Problems Medical Problems: (1) Accelerated hypertension Status: Acute (2) Acute renal failure Status: Acute (3) Dehydration, severe Status: Acute Assessment: Viral Gastroenteritis - resolved Dehydration JIM secondary to severe dehydration DM2 - poor control - A1C 10.1 Cirrhosis Plan: Continue renal recs - cont IVFs and PO intake; if GFR improves again tomorrow probable DC Continue SSI Continue GI prophylaxis Check labs in am PT/OT Problems: Comment Review of Relevant I have reviewed the following items tiffanie (where applicable) has been applied. Labs Laboratory Tests Test 11/11/16 16:24 11/11/16 20:34 11/12/16 04:50 11/12/16 07:33 Glucose (Fingerstick) 369 mg/dL (70-99) 279 mg/dL (70-99) 317 mg/dL (70-99) Sodium Level 141 mmol/L (136-145) Potassium Level 3.8 mmol/L (3.5-5.1) Chloride Level 107 mmol/L (98-107) Carbon Dioxide Level 22 mmol/L (21-32) Anion Gap 12 (6-14) Blood Urea Nitrogen 31 mg/dL (7-20) Creatinine 3.3 mg/dL (0.6-1.0) Estimated GFR (Cockcroft-Gault) 13.8 Glucose Level 266 mg/dL (70-99) Calcium Level 8.3 mg/dL (8.5-10.1) Test 11/12/16 11:09 11/12/16 16:38 11/12/16 21:00 11/13/16 05:00 Glucose (Fingerstick) 378 mg/dL (70-99) 180 mg/dL (70-99) 226 mg/dL (70-99) Sodium Level 144 mmol/L (136-145) Potassium Level 3.8 mmol/L (3.5-5.1) Chloride Level 111 mmol/L (98-107) Carbon Dioxide Level 21 mmol/L (21-32) Anion Gap 12 (6-14) Blood Urea Nitrogen 24 mg/dL (7-20) Creatinine 2.5 mg/dL (0.6-1.0) Estimated GFR (Cockcroft-Gault) 19.0 Glucose Level 164 mg/dL (70-99) Calcium Level 8.2 mg/dL (8.5-10.1) Test 11/13/16 07:17 11/13/16 12:03 Glucose (Fingerstick) 144 mg/dL (70-99) 250 mg/dL (70-99) Laboratory Tests Test 11/12/16 16:38 11/12/16 21:00 11/13/16 05:00 11/13/16 07:17 Glucose (Fingerstick) 180 mg/dL (70-99) 226 mg/dL (70-99) 144 mg/dL (70-99) Sodium Level 144 mmol/L (136-145) Potassium Level 3.8 mmol/L (3.5-5.1) Chloride Level 111 mmol/L (98-107) Carbon Dioxide Level 21 mmol/L (21-32) Anion Gap 12 (6-14) Blood Urea Nitrogen 24 mg/dL (7-20) Creatinine 2.5 mg/dL (0.6-1.0) Estimated GFR (Cockcroft-Gault) 19.0 Glucose Level 164 mg/dL (70-99) Calcium Level 8.2 mg/dL (8.5-10.1) Test 11/13/16 12:03 Glucose (Fingerstick) 250 mg/dL (70-99) Medications Current Medications Sodium Chloride 1,000 ml @ 125 mls/hr 1X ONCE IV Last administered on 15:22; Start 11/09/16 at 13:45; Stop 11/09/16 at 17:16; Status DC Ondansetron HCl (Zofran) 4 mg PRN Q8HRS PRN IV NAUSEA/VOMITING; Start 11/09/16 at 14:30; Stop 11/10/16 at 14:29; Status DC Fentanyl Citrate (Fentanyl 2ml Vial) 50 mcg PRN Q2HR PRN IV PAIN Last administered on 11/10/16 13:03; Start 11/09/16 at 14:30; Stop 11/10/16 at 14:29 ; Status DC Pantoprazole Sodium (Protonix) 40 mg DAILYAC PO Last administered on 11/13/16 08:39; Start 11/09/16 at 16:00 Sodium Chloride 1,000 ml @ 100 mls/hr Q10H IV Last administered on 11/13/16 05:17; Start 11/09/16 at 17:15 Pantoprazole Sodium (Protonix) 40 mg DAILY PO ; Start 11/10/16 at 09:00; Status UNV Insulin Aspart (Novolog) 0-7 UNITS TIDWMEALS SQ Last administered on 11/13/16 12:19; Start 11/10/16 at 08:00 Dextrose (Dextrose 50%-Water Syringe) 12.5 gm PRN Q15MIN PRN IV SEE COMMENTS; Start 11/09/16 at 19:00 Insulin Aspart (Novolog) 20 units 1X ONCE SQ Last administered on 11/10/16 11 :37; Start 11/10/16 at 11:45; Stop 11/10/16 at 11:46; Status DC Magnesium Sulfate/ Dextrose 50 ml @ 25 mls/hr 1X ONCE IV Last administered on 11/10/16 13:03; Start 11/10/16 at 12:00; Stop 11/10/16 at 13:59; Status DC Insulin Detemir (Levemir) 12 units QHS SQ ; Start 11/11/16 at 21:00; Stop at 21:00; Status DC Insulin Aspart (NovoLOG) 6 units TIDAC SQ Last administered on 11/12/16 08:43 ; Start 11/11/16 at 14:00; Stop 11/12/16 at 10:02; Status DC Insulin Detemir (Levemir) 16 units QHS SQ Last administered on 11/11/16 20:37 ; Start 11/11/16 at 21:00; Stop 11/12/16 at 10:02; Status DC Insulin Aspart (NovoLOG) 15 units TIDAC SQ Last administered on 11/13/16 12:19 ; Start 11/12/16 at 11:30 Insulin Detemir (Levemir) 28 units QHS SQ Last administered on 11/12/16 21:55 ; Start 11/12/16 at 21:00 Active Scripts Active Reported Pantoprazole Sodium 40 Mg Tablet.dr 1 Tab PO DAILY Metformin Hcl 500 Mg Tablet 500 Mg PO BIDWMEALS Glipizide 5 Mg Tablet 1 Tab PO BID Aspir 81 (Aspirin) 81 Mg Tablet.dr 1 Tab PO DAILY Vitals/I & O Vital Sign - Last 24 Hours 11/12/16 11/12/16 11/12/16 11/12/16 15:00 19:00 20:40 23:00 Temp 96.6 98.1 98.2 96.6 98.1 98.2 Pulse 69 80 66 Resp 17 18 18 B/P (MAP) 143/55 (84) 148/48 (81) 146/52 (83) Pulse Ox 98 99 97 O2 Delivery Room Air Room Air Room Air Room Air 11/13/16 11/13/16 11/13/16 11/13/16 03:00 07:15 08:30 10:45 Temp 97.7 97.9 96.1 97.7 97.9 96.1 Pulse 62 72 68 Resp 18 20 20 B/P (MAP) 135/59 (84) 182/52 (95) 170/70 (103) Pulse Ox 96 98 98 O2 Delivery Room Air Room Air Room Air Room Air Intake and Output 11/12/16 11/12/16 11/13/16 15:00 23:00 07:00 Intake Total 734 ml Balance 734 ml BIMAL RODRIGES III DO November 13, 2016 13:21
[2016-11-13 14:48] VITALS: BP 171/76
[2016-11-13 19:00] VITALS: BP 140/69
[2016-11-13] MEDS: INSULIN DETEMIR 300 UNITS/3 ML INSULN.PEN. SQ SCH (21:28)
[2016-11-13 23:00] VITALS: BP 148/70
[2016-11-14 03:00] VITALS: BP 130/61
[2016-11-14] MEDS: IV NORMAL SALINE 1000ML BAG 1,000 ML IV SCH ×2 (03:19→07:15)
[2016-11-14] MEDS: PANTOPRAZOLE 40 MG TABLET.DR. PO SCH (06:21)
[2016-11-14 07:30] LABS: CALCIUM 8.4 mg/dL (8.5-10.1); CREATININE 2.1 mg/dL (0.6-1.0); GFR 23.3; POTASSIUM 3.7 mmol/L (3.5-5.1)
[2016-11-14 07:39] LABS: BASO % 1 % (0-3); EOS % 3 % (0-3); HEMATOCRIT 29.5 % (36.0-47.0); HEMOGLOBIN 10.1 g/dL (12.0-15.5); LYMPH # 1.3 x10^3/uL (1.0-4.8); LYMPH % 40 % (24-48); MEAN CORPUSCULAR HEMOGLOBIN 31 pg (25-35); MEAN CORPUSCULAR HGB CONC 34 g/dL (31-37); MEAN CORPUSCULAR VOLUME 91 fL (79-100); MONO % 8 % (0-9); NEUT % 49 % (31-73); PLATELET COUNT 64 x10^3/uL (140-400); RED BLOOD COUNT 3.25 x10^6/uL (3.50-5.40); RED CELL DISTRIBUTION WIDTH 14.5 % (11.5-14.5); WHITE BLOOD COUNT 3.4 x10^3/uL (4.0-11.0)
[2016-11-14 07:55] VITALS: BP 179/63
[2016-11-14] MEDS: INSULIN ASPART 300 UNITS/3 ML INSULN.PEN SQ SCH ×4 (08:00→12:02)
[2016-11-14 10:55] VITALS: BP 130/85
--- NOTE | 2016-11-14 13:23 | PDOC ---
PROGRESS NOTES Chief Complaint Chief Complaint Nausea and vomiting Dehydration Accelerated hypertension Acute renal failure DM2 Cirrhosis GERD Osteoarthritis History of Present Illness History of Present Illness Pt states she feels much better and has been urinating a lot Reports tolerating PO intake Would like to be home for mother's day Vitals Vitals Vital Signs Date Time Temp Pulse Resp B/P (MAP) Pulse Ox O2 Delivery O2 Flow Rate FiO2 11/14/16 10:55 97.7 70 20 130/85 (100) 99 Room Air 97.7 Physical Exam General: Alert, Oriented X3, Cooperative, No acute distress Heart: Regular rate, Normal S1, Normal S2, No murmurs, Gallops Lungs: Clear, Other (no wheezing) Abdomen: Normal bowel sounds, Soft, No tenderness, No hepatosplenomegaly, No masses Extremities: No clubbing, No cyanosis, No edema, Normal pulses, No tenderness/ swelling Skin: No rashes, No significant lesion Labs LABS Laboratory Tests Test 11/13/16 16:16 11/13/16 20:41 11/14/16 06:50 Glucose (Fingerstick) 155 mg/dL (70-99) 214 mg/dL (70-99) White Blood Count 3.4 x10^3/uL (4.0-11.0) Red Blood Count 3.25 x10^6/uL (3.50-5.40) Hemoglobin 10.1 g/dL (12.0-15.5) Hematocrit 29.5 % (36.0-47.0) Mean Corpuscular Volume 91 fL (79-100) Mean Corpuscular Hemoglobin 31 pg (25-35) Mean Corpuscular Hemoglobin Concent 34 g/dL (31-37) Red Cell Distribution Width 14.5 % (11.5-14.5) Platelet Count 64 x10^3/uL (140-400) Neutrophils (%) (Auto) 49 % (31-73) Lymphocytes (%) (Auto) 40 % (24-48) Monocytes (%) (Auto) 8 % (0-9) Eosinophils (%) (Auto) 3 % (0-3) Basophils (%) (Auto) 1 % (0-3) Neutrophils # (Auto) 1.6 x10^3uL (1.8-7.7) Lymphocytes # (Auto) 1.3 x10^3/uL (1.0-4.8) Monocytes # (Auto) 0.3 x10^3/uL (0.0-1.1) Eosinophils # (Auto) 0.1 x10^3/uL (0.0-0.7) Basophils # (Auto) 0.0 x10^3/uL (0.0-0.2) Sodium Level 147 mmol/L (136-145) Potassium Level 3.7 mmol/L (3.5-5.1) Chloride Level 113 mmol/L (98-107) Carbon Dioxide Level 20 mmol/L (21-32) Anion Gap 14 (6-14) Blood Urea Nitrogen 19 mg/dL (7-20) Creatinine 2.1 mg/dL (0.6-1.0) Estimated GFR (Cockcroft-Gault) 23.3 Glucose Level 99 mg/dL (70-99) Calcium Level 8.4 mg/dL (8.5-10.1) Review of Systems Review of Systems General: denies weakness GI: denies N/V/D/C Assessment and Plan Assessmemt and Plan Problems Medical Problems: (1) Accelerated hypertension Status: Acute (2) Acute renal failure Status: Acute (3) Dehydration, severe Status: Acute Nausea and vomiting Dehydration Accelerated hypertension Acute renal failure DM2 Cirrhosis GERD Osteoarthritis Plan: -Discharge today -Follow up with PCP in one week -Consider lab recheck as outpatient -Counseled on appropriate fluid intake -Subspecialty input appreciated Problems: Comment Review of Relevant I have reviewed the following items tiffanie (where applicable) has been applied. Labs Laboratory Tests Test 11/12/16 16:38 11/12/16 21:00 11/13/16 05:00 11/13/16 07:17 Glucose (Fingerstick) 180 mg/dL (70-99) 226 mg/dL (70-99) 144 mg/dL (70-99) Sodium Level 144 mmol/L (136-145) Potassium Level 3.8 mmol/L (3.5-5.1) Chloride Level 111 mmol/L (98-107) Carbon Dioxide Level 21 mmol/L (21-32) Anion Gap 12 (6-14) Blood Urea Nitrogen 24 mg/dL (7-20) Creatinine 2.5 mg/dL (0.6-1.0) Estimated GFR (Cockcroft-Gault) 19.0 Glucose Level 164 mg/dL (70-99) Calcium Level 8.2 mg/dL (8.5-10.1) Test 11/13/16 12:03 11/13/16 16:16 11/13/16 20:41 11/14/16 06:50 Glucose (Fingerstick) 250 mg/dL (70-99) 155 mg/dL (70-99) 214 mg/dL (70-99) White Blood Count 3.4 x10^3/uL (4.0-11.0) Red Blood Count 3.25 x10^6/uL (3.50-5.40) Hemoglobin 10.1 g/dL (12.0-15.5) Hematocrit 29.5 % (36.0-47.0) Mean Corpuscular Volume 91 fL (79-100) Mean Corpuscular Hemoglobin 31 pg (25-35) Mean Corpuscular Hemoglobin Concent 34 g/dL (31-37) Red Cell Distribution Width 14.5 % (11.5-14.5) Platelet Count 64 x10^3/uL (140-400) Neutrophils (%) (Auto) 49 % (31-73) Lymphocytes (%) (Auto) 40 % (24-48) Monocytes (%) (Auto) 8 % (0-9) Eosinophils (%) (Auto) 3 % (0-3) Basophils (%) (Auto) 1 % (0-3) Neutrophils # (Auto) 1.6 x10^3uL (1.8-7.7) Lymphocytes # (Auto) 1.3 x10^3/uL (1.0-4.8) Monocytes # (Auto) 0.3 x10^3/uL (0.0-1.1) Eosinophils # (Auto) 0.1 x10^3/uL (0.0-0.7) Basophils # (Auto) 0.0 x10^3/uL (0.0-0.2) Sodium Level 147 mmol/L (136-145) Potassium Level 3.7 mmol/L (3.5-5.1) Chloride Level 113 mmol/L (98-107) Carbon Dioxide Level 20 mmol/L (21-32) Anion Gap 14 (6-14) Blood Urea Nitrogen 19 mg/dL (7-20) Creatinine 2.1 mg/dL (0.6-1.0) Estimated GFR (Cockcroft-Gault) 23.3 Glucose Level 99 mg/dL (70-99) Calcium Level 8.4 mg/dL (8.5-10.1) Laboratory Tests Test 11/13/16 16:16 11/13/16 20:41 11/14/16 06:50 Glucose (Fingerstick) 155 mg/dL (70-99) 214 mg/dL (70-99) White Blood Count 3.4 x10^3/uL (4.0-11.0) Red Blood Count 3.25 x10^6/uL (3.50-5.40) Hemoglobin 10.1 g/dL (12.0-15.5) Hematocrit 29.5 % (36.0-47.0) Mean Corpuscular Volume 91 fL (79-100) Mean Corpuscular Hemoglobin 31 pg (25-35) Mean Corpuscular Hemoglobin Concent 34 g/dL (31-37) Red Cell Distribution Width 14.5 % (11.5-14.5) Platelet Count 64 x10^3/uL (140-400) Neutrophils (%) (Auto) 49 % (31-73) Lymphocytes (%) (Auto) 40 % (24-48) Monocytes (%) (Auto) 8 % (0-9) Eosinophils (%) (Auto) 3 % (0-3) Basophils (%) (Auto) 1 % (0-3) Neutrophils # (Auto) 1.6 x10^3uL (1.8-7.7) Lymphocytes # (Auto) 1.3 x10^3/uL (1.0-4.8) Monocytes # (Auto) 0.3 x10^3/uL (0.0-1.1) Eosinophils # (Auto) 0.1 x10^3/uL (0.0-0.7) Basophils # (Auto) 0.0 x10^3/uL (0.0-0.2) Sodium Level 147 mmol/L (136-145) Potassium Level 3.7 mmol/L (3.5-5.1) Chloride Level 113 mmol/L (98-107) Carbon Dioxide Level 20 mmol/L (21-32) Anion Gap 14 (6-14) Blood Urea Nitrogen 19 mg/dL (7-20) Creatinine 2.1 mg/dL (0.6-1.0) Estimated GFR (Cockcroft-Gault) 23.3 Glucose Level 99 mg/dL (70-99) Calcium Level 8.4 mg/dL (8.5-10.1) Medications Current Medications Sodium Chloride 1,000 ml @ 125 mls/hr 1X ONCE IV Last administered on 15:22; Start 11/09/16 at 13:45; Stop 11/09/16 at 17:16; Status DC Ondansetron HCl (Zofran) 4 mg PRN Q8HRS PRN IV NAUSEA/VOMITING; Start 11/09/16 at 14:30; Stop 11/10/16 at 14:29; Status DC Fentanyl Citrate (Fentanyl 2ml Vial) 50 mcg PRN Q2HR PRN IV PAIN Last administered on 11/10/16 13:03; Start 11/09/16 at 14:30; Stop 11/10/16 at 14:29 ; Status DC Pantoprazole Sodium (Protonix) 40 mg DAILYAC PO Last administered on 11/14/16 06:21; Start 11/09/16 at 16:00 Sodium Chloride 1,000 ml @ 100 mls/hr Q10H IV Last administered on 11/14/16 03:19; Start 11/09/16 at 17:15 Pantoprazole Sodium (Protonix) 40 mg DAILY PO ; Start 11/10/16 at 09:00; Status UNV Insulin Aspart (Novolog) 0-7 UNITS TIDWMEALS SQ Last administered on 11/14/16 12:01; Start 11/10/16 at 08:00 Dextrose (Dextrose 50%-Water Syringe) 12.5 gm PRN Q15MIN PRN IV SEE COMMENTS; Start 11/09/16 at 19:00 Insulin Aspart (Novolog) 20 units 1X ONCE SQ Last administered on 11/10/16 11 :37; Start 11/10/16 at 11:45; Stop 11/10/16 at 11:46; Status DC Magnesium Sulfate/ Dextrose 50 ml @ 25 mls/hr 1X ONCE IV Last administered on 11/10/16 13:03; Start 11/10/16 at 12:00; Stop 11/10/16 at 13:59; Status DC Insulin Detemir (Levemir) 12 units QHS SQ ; Start 11/11/16 at 21:00; Stop at 21:00; Status DC Insulin Aspart (NovoLOG) 6 units TIDAC SQ Last administered on 11/12/16 08:43 ; Start 11/11/16 at 14:00; Stop 11/12/16 at 10:02; Status DC Insulin Detemir (Levemir) 16 units QHS SQ Last administered on 11/11/16 20:37 ; Start 11/11/16 at 21:00; Stop 11/12/16 at 10:02; Status DC Insulin Aspart (NovoLOG) 15 units TIDAC SQ Last administered on 11/14/16 12:02 ; Start 11/12/16 at 11:30 Insulin Detemir (Levemir) 28 units QHS SQ Last administered on 11/13/16 21:28 ; Start 11/12/16 at 21:00 Active Scripts Active Reported Pantoprazole Sodium 40 Mg Tablet.dr 1 Tab PO DAILY Metformin Hcl 500 Mg Tablet 500 Mg PO BIDWMEALS Glipizide 5 Mg Tablet 1 Tab PO BID Aspir 81 (Aspirin) 81 Mg Tablet.dr 1 Tab PO DAILY Vitals/I & O Vital Sign - Last 24 Hours 11/13/16 11/13/16 11/13/16 11/13/16 14:48 19:00 20:00 23:00 Temp 97.9 98.1 98.5 97.9 98.1 98.5 Pulse 71 75 70 Resp 20 20 20 B/P (MAP) 171/76 (107) 140/69 (92) 148/70 (96) Pulse Ox 98 100 99 O2 Delivery Room Air Room Air Room Air Room Air 11/14/16 11/14/16 11/14/16 11/14/16 03:00 07:55 08:15 10:55 Temp 98.1 97.9 97.7 98.1 97.9 97.7 Pulse 69 71 70 Resp 20 20 20 B/P (MAP) 130/61 (84) 179/63 (101) 130/85 (100) Pulse Ox 99 97 99 O2 Delivery Room Air Room Air Room Air Room Air Intake and Output 11/13/16 11/13/16 11/14/16 15:00 23:00 07:00 Intake Total 300 ml 480 ml 540 ml Balance 300 ml 480 ml 540 ml BIMAL RODRIGES III DO November 14, 2016 13:23
== END 2016-11-14 13:40 | disposition home or self-care (01) | DRG 391 ==
LOC: ER 10:44 → 5 NORTH 13:30
PROVIDERS: ADMIT Internal Medicine Hematology & Oncology; ATTEND Internal Medicine Hematology & Oncology
DX: A08.4 Viral intestinal infection, unspecified (principal); N17.0 Acute kidney failure with tubular necrosis; K76.6 Portal hypertension; E87.2 Acidosis; N13.30 Unspecified hydronephrosis; K74.60 Unspecified cirrhosis of liver; E78.00 Pure hypercholesterolemia, unspecified; I10 Essential (primary) hypertension; K57.30 Diverticulosis of large intestine without perforation or abscess without bleeding; K21.9 Gastro-esophageal reflux disease without esophagitis; M19.90 Unspecified osteoarthritis, unspecified site; E11.65 Type 2 diabetes mellitus with hyperglycemia; D64.9 Anemia, unspecified; Z88.8 Allergy status to other drugs, medicaments and biological substances; Z79.4 Long term (current) use of insulin; Z90.710 Acquired absence of both cervix and uterus; Z80.0 Family history of malignant neoplasm of digestive organs; Z79.899 Other long term (current) drug therapy; Z80.8 Family history of malignant neoplasm of other organs or systems; Z84.89 Family history of other specified conditions; Z79.1 Long term (current) use of non-steroidal anti-inflammatories (NSAID); Z87.891 Personal history of nicotine dependence
CPT/HCPCS: 36415; 71010; 80048; 80053; 81001; 82553; 82947; 83036; 83605; 83690; 83735; 83880; 84484; 85027; 85610; 87324; 87804; 93005; J1815; J3010; J7030; J7060; 99285-25

== ENCOUNTER → 2016-11-09 | Outpatient (CLI) | payer BC, MEDICARE ==
[~2016-11-09] MED LIST changes: -CONTRAST GIVEN MC PRN; -IOHEXOL 300 MG/ML 100ML VIAL. IV ONE
--- NOTE | 2016-11-09 13:07 | KCIC ---
PROCEDURE CT abdomen pelvis with oral contrast only HISTORY Cirrhosis TECHNIQUE After administration of oral contrast, CT imaging was performed of the abdomen pelvis. Multiplanar reconstruction images are submitted. No intravenous contrast was given due to the patient's elevated creatinine. Exposure: One or more of the following individualized dose reduction techniques were utilized for this exam: 1. Automated exposure control. 2. Adjustment of the mA and/or kV according to patient size. 3. Use of iterative reconstruction technique. COMPARISON None FINDINGS There is no significant abnormality of the limited visualized lung bases. There is a somewhat nodular margin of the liver. There is recanalized paraumbilical vein. Spleen is somewhat enlarged at 13 by 9 x 12 centimeters. There are varices such as at the medial aspect of the spleen and near the gastroesophageal junction and gastrohepatic region. Left adrenal gland is poorly defined, no right adrenal nodularity. Mild internal hyperdensity in the gallbladder lumen could be due to vicarious excretion contrast as patient had a recent contrast enhanced exam. There is some residual enhancement of the bilateral kidneys presumably from patient's recent November 04, 2016 exam. There is mild right renal pelvocaliectasis/very mild hydronephrosis. There is hypodense lesion of the mid to inferior right kidney on the order of 1.4 centimeters in size, density measurements of a cyst at 17 Hounsfield units. Bowel is not significantly dilated. There is mild to moderate sigmoid diverticulosis. There is appearance of wall thickening of segments of the descending and sigmoid colon. Normal caliber appendix is visualized. There is scattered atherosclerotic calcification of the normal caliber abdominal aorta. There is atherosclerotic calcification near the superior mesenteric artery origin with suspected [id number] narrowing. There is multilevel lumbar facet degenerative change. There is grade 1 anterior spondylolisthesis at L4-5. There is degenerative disc disease with associated vacuum phenomenon at L4-5 and L1-2. IMPRESSION 1. There are findings of cirrhosis and portal hypertension with varices and mild splenomegaly. No free fluid is demonstrated. Accurate evaluation for hepatic mass is very limited as no intravenous contrast given for today's exam. 2. There is some residual enhancement of the bilateral renal parenchyma presumably related to patient's recent November 04, 2016 post contrast exam. There is mild right renal pelvocaliectasis/very mild hydronephrosis. Reportedly patient was sent to the emergency department after conclusion of exam due to the patient's elevated creatinine. 3. There is sigmoid diverticulosis. There is appearance of wall thickening of segments of the sigmoid colon and descending colon, colitis not excluded although could be related to incomplete distension. Electronically signed by: Leroy Smith MD (November 09, 2016 13:05:19)
== END | disposition home or self-care (01) ==
LOC: KCIC CT 08:37
PROVIDERS: ATTEND Internal Medicine Gastroenterology
DX: K74.60 Unspecified cirrhosis of liver (principal); I10 Essential (primary) hypertension; E11.9 Type 2 diabetes mellitus without complications
CPT/HCPCS: 74176; 82565

== ENCOUNTER 2017-03-22 11:39 | Emergency (ER) | payer BC ==
[~2017-03-22] VITALS: Ht 154.9 cm; Wt 71.7 kg
[2017-03-22] MEDS ORDERED: INSULIN REGULAR 100 UNIT/ML 10ML VIAL. IV ONE (12:15)
[2017-03-22] MEDS ORDERED: IV NORMAL SALINE 500ML BAG 500 ML IV ONE (12:15)
--- NOTE | 2017-03-22 12:23 | PHYS DOC ---
Past Medical History Past Medical History: Diabetes-Type II, GERD, GI Bleed, High Cholesterol, Hypertension, Liver Disease, Other Additional Past Medical Histor: cirrohsis Past Surgical History: , Hysterectomy, Tonsillectomy Alcohol Use: Occasionally Drug Use: None Adult General Chief Complaint Chief Complaint: HYPERGLYCEMIA HPI HPI 71-year-old female with a past medical history of asthma and nonalcoholic steatohepatitis presenting to the emergency department today after being told her blood sugar was elevated. She was recently seen at the [facility] in clinic where the patient had basic lab tests drawn. When she returned home she was called and asked to return to the emergency department because of an elevated blood sugar. She reports feeling fine otherwise. She has a history of type 2 diabetes and used to take metformin and glipizide however currently is not on any diabetic medications. She more recently was only on metformin which was recently taken off about within the last 2 weeks. Location generalized. Duration intermittent. No alleviating or exacerbating factors present. Review of systems is negative for chest pain shortness of breath nausea vomiting diaphoresis fevers chills. She denies abdominal pain. All other review of systems is negative unless otherwise noted in history of present illness. ED course: 71-year-old female presenting to the emergency department today with an elevated blood sugar. Vital signs. Pertinent physical exam findings show a soft nontender abdomen. Lungs are clear to auscultation bilaterally. Otherwise unremarkable exam. Blood work obtained. Chest x-ray and urinalysis obtained and reviewed. The patient was given IV insulin and normal saline in the emergency department. Repeat blood sugar came down. Patient does not have any evidence of acidosis. Unfortunately because the patient has significant kidney dysfunction and does not have a high enough GFR we were unable to initiate metformin. I discussed the case with Dr. Gannon the patient's primary care physician who said that he could follow her up in clinic within a reasonable amount of time. I discussed the plan with the patient which she was comfortable with. The patient was then discharged home in stable condition to follow up with their primary care physician over the next 2-3 days. They were to return if their symptoms worsened or if they were concerned for any reason. [id number] discharge instructions and return precautions were given. Patient's questions were answered to their satisfaction. Patient is comfortable plan. Review of Systems Review of Systems SEE ABOVE. Current Medications Current Medications Current Medications Medications (Trade) Dose Ordered Sig/Gavin Start Time Stop Time Status Last Admin Dose Admin Insulin Human Regular (NovoLIN R VIAL) 10 unit 1X ONCE 03/22/17 12:15 03/22/17 12:16 DC 03/22/17 12:55 10 UNIT Sodium Chloride 500 ml @ 500 mls/hr 1X ONCE 03/22/17 12:15 03/22/17 13:14 DC 03/22/17 12:15 500 MLS/HR Allergies Allergies Allergies Coded Allergies Type Severity Reaction Last Updated Verified amoxicillin Adverse Reaction Intermediate vomiting and diarrhea 11/09/16 Yes clavulanic acid Adverse Reaction Intermediate vomiting and diarrhea 11/09/16 Yes naproxen Adverse Reaction Intermediate "internal bleeding" 11/09/16 Yes Physical Exam Physical Exam SEE ABOVE Constitutional: Well developed, well nourished, no acute distress, non-toxic appearance. [] HENT: Normocephalic, atraumatic, bilateral external ears normal, oropharynx moist, no oral exudates, nose normal. [] Eyes: PERRLA, EOMI, conjunctiva normal, no discharge. [] Neck: Normal range of motion, no tenderness, supple, no stridor. [] Cardiovascular:Heart rate regular rhythm, no murmur [] Lungs & Thorax: Bilateral breath sounds clear to auscultation [] Abdomen: Bowel sounds normal, soft, no tenderness, no masses, no pulsatile masses. [] Skin: Warm, dry, no erythema, no rash. [] Back: No tenderness, no CVA tenderness. [] Extremities: No tenderness, no cyanosis, no clubbing, ROM intact, no edema. [] Neurologic: Alert and oriented X 3, normal motor function, normal sensory function, no focal deficits noted. [] Psychologic: Affect normal, judgement normal, mood normal. [] Current Patient Data Vital Signs Vital Signs Date Time Temp Pulse Resp B/P (MAP) Pulse Ox O2 Delivery O2 Flow Rate FiO2 03/22/17 14:10 57 20 206/82 (123) 97 Room Air 03/22/17 12:00 98.0 98.0 Lab Values Laboratory Tests Test 03/22/17 12:10 03/22/17 12:30 03/22/17 12:40 03/22/17 13:56 Glucose (Fingerstick) 568 mg/dL (70-99) *H 487 mg/dL (70-99) H White Blood Count 5.4 x10^3/uL (4.0-11.0) Red Blood Count 3.64 x10^6/uL (3.50-5.40) Hemoglobin 11.2 g/dL (12.0-15.5) L Hematocrit 32.9 % (36.0-47.0) L Mean Corpuscular Volume 90 fL (79-100) Mean Corpuscular Hemoglobin 31 pg (25-35) Mean Corpuscular Hemoglobin Concent 34 g/dL (31-37) Red Cell Distribution Width 14.0 % (11.5-14.5) Platelet Count 85 x10^3/uL (140-400) L Neutrophils (%) (Auto) 55 % (31-73) Lymphocytes (%) (Auto) 32 % (24-48) Monocytes (%) (Auto) 9 % (0-9) Eosinophils (%) (Auto) 3 % (0-3) Basophils (%) (Auto) 1 % (0-3) Neutrophils # (Auto) 2.9 x10^3uL (1.8-7.7) Lymphocytes # (Auto) 1.7 x10^3/uL (1.0-4.8) Monocytes # (Auto) 0.5 x10^3/uL (0.0-1.1) Eosinophils # (Auto) 0.1 x10^3/uL (0.0-0.7) Basophils # (Auto) 0.1 x10^3/uL (0.0-0.2) Sodium Level 130 mmol/L (136-145) L Potassium Level 5.2 mmol/L (3.5-5.1) H Chloride Level 96 mmol/L (98-107) L Carbon Dioxide Level 21 mmol/L (21-32) Anion Gap 13 (6-14) Blood Urea Nitrogen 29 mg/dL (7-20) H Creatinine 2.2 mg/dL (0.6-1.0) H Estimated GFR (Cockcroft-Gault) 22.1 Glucose Level 641 mg/dL (70-99) *H Calcium Level 9.0 mg/dL (8.5-10.1) Total Bilirubin 1.3 mg/dL (0.2-1.0) H Direct Bilirubin 0.4 mg/dL (0.0-0.2) H Aspartate Amino Transferase (AST) 34 U/L (15-37) Alanine Aminotransferase (ALT) 43 U/L (14-59) Alkaline Phosphatase 70 U/L (46-116) Troponin I Quantitative < 0.017 ng/mL (0.000-0.055) Total Protein 6.3 g/dL (6.4-8.2) L Albumin 3.3 g/dL (3.4-5.0) L Lipase 432 U/L (73-393) H Urine Collection Type Void Urine Color Yellow Urine Clarity Clear Urine pH 5.5 Urine Specific [place] 1.020 Urine Protein Negative mg/dL (NEG-TRACE) Urine Glucose (UA) >=1000 mg/dL (NEG) Urine Ketones (Stick) Negative mg/dL (NEG) Urine Blood Negative (NEG) Urine Nitrite Negative (NEG) Urine Bilirubin Negative (NEG) Urine Urobilinogen Dipstick 0.2 mg/dL (0.2 mg/dL) Urine Leukocyte Esterase Negative (NEG) Urine RBC 0 /HPF (0-2) Urine WBC 0 /HPF (0-4) Urine Squamous Epithelial Cells Few /LPF Urine Bacteria 0 /HPF (0-FEW) Laboratory Tests 03/22/17 12:30 Laboratory Tests 03/22/17 12:30 EKG EKG [] Radiology/Procedures Radiology/Procedures [] Course & Med Decision Making Course & Med Decision Making Pertinent Labs and Imaging studies reviewed. (See chart for details) [] Dragon Disclaimer Dragon Disclaimer This electronic medical record was generated, in whole or in part, using a voice recognition dictation system. Departure Departure Impression: Primary Impression: Hyperglycemia Additional Impression: Diabetes mellitus Disposition: HOME, SELF-CARE Condition: STABLE Referrals: MIGDALIA GANNON MD (PCP) Problem Qualifiers ROSY ARGUETA MD Mar 22, 2017 12:23
--- NOTE | 2017-03-22 12:38 | RAD ---
Indication hyperglycemia. Cortical study. A single view of the chest was obtained. Comparison is made to an examination 11/09/2016. The heart and pulmonary vessels appear normal. The lungs are clear. There is no pleural fluid or pneumothorax. There has not been a significant change when compared to the previous exam. IMPRESSION: No acute or focal process. No significant change
--- NOTE | 2017-03-22 12:53 | EKG ---
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
[2017-03-22 13:27] LABS: BASO # 0.1 x10^3/uL (0.0-0.2); BASO % 1 % (0-3); EOS % 3 % (0-3); HEMATOCRIT 32.9 % (36.0-47.0); HEMOGLOBIN 11.2 g/dL (12.0-15.5); LYMPH # 1.7 x10^3/uL (1.0-4.8); LYMPH % 32 % (24-48); MEAN CORPUSCULAR HEMOGLOBIN 31 pg (25-35); MEAN CORPUSCULAR HGB CONC 34 g/dL (31-37); MEAN CORPUSCULAR VOLUME 90 fL (79-100); MONO % 9 % (0-9); NEUT % 55 % (31-73); PLATELET COUNT 85 x10^3/uL (140-400); RED BLOOD COUNT 3.64 x10^6/uL (3.50-5.40); WHITE BLOOD COUNT 5.4 x10^3/uL (4.0-11.0)
[2017-03-22 13:40] LABS: BILIRUBIN,URINE NEGATIVE (NEG); GLUCOSE,URINE >=1000 mg/dL (NEG); NITRITE,URINE NEGATIVE (NEG); PH,URINE 5.5; PROTEIN,URINE NEGATIVE (NEG-TRACE); UROBILINOGEN,URINE 0.2 mg/dL (0.2 mg/dL)
[2017-03-22 13:46] LABS: BACTERIA,URINE 0 /HPF (0-FEW); RBC,URINE 0 /HPF (0-2); SQUAMOUS EPITHELIAL CELL,UR FEW /LPF; WBC,URINE 0 /HPF (0-4)
[2017-03-22 13:48] LABS: ALBUMIN 3.3 g/dL (3.4-5.0); CREATININE 2.2 mg/dL (0.6-1.0); DIRECT BILIRUBIN 0.4 mg/dL (0.0-0.2); GFR 22.1; POTASSIUM 5.2 mmol/L (3.5-5.1); TOTAL BILIRUBIN 1.3 mg/dL (0.2-1.0); TOTAL PROTEIN 6.3 g/dL (6.4-8.2)
[2017-03-22 14:10] VITALS: BP 206/82
== END 2017-03-22 15:15 | disposition home or self-care (01) ==
LOC: ER 11:39
DX: E11.65 Type 2 diabetes mellitus with hyperglycemia (principal); K21.9 Gastro-esophageal reflux disease without esophagitis; E78.00 Pure hypercholesterolemia, unspecified; I10 Essential (primary) hypertension; K74.60 Unspecified cirrhosis of liver; Z88.1 Allergy status to other antibiotic agents; Z88.8 Allergy status to other drugs, medicaments and biological substances
CPT/HCPCS: 36415; 71010; 80048; 80076; 81001; 82962; 83690; 84484; 85025; 93005; 96361; 96374; 99285; J7040; J1815

== ENCOUNTER 2018-09-12 10:52 | Inpatient (IN) | payer MEDICARE, OTHER ==
[~2018-09-12] VITALS: Ht 165.1 cm; Wt 74.5 kg
[~2018-09-12 10:52] MED LIST changes: +ATOR20TA58 PO; +CHOL100013 PO; +INSU100I13 SQ; +METF500T16 PO; -METF500T4 PO; +METO50TA6 PO; +SPIR25TA5 PO; +VALS320T2 PO; +VENTOLIN HFA18 GM INH
[2018-09-12] MEDS ORDERED: IV NORMAL SALINE 1000ML BAG 1,000 ML IV SCH (11:45)
--- NOTE | 2018-09-12 11:53 | PHYS DOC ---
Past Medical History Past Medical History: Diabetes-Type II, High Cholesterol Additional Past Medical Histor: cirrohsis Past Surgical History: , Hysterectomy, Tonsillectomy Alcohol Use: Occasionally Drug Use: None Adult General Chief Complaint Chief Complaint: ABNORMAL LABS HPI HPI Patient is a 73-year-old female with a past history of CAMPBELL, hypertension and diabetes, who states that she had routine blood draw yesterday and was told that her potassium was 6.9, and was sent to the emergency department. She has no complaints and feels fine. She does not feel any weaker than normal. She has not had any chest pain, or difficulty urinating. She has not had any fevers or chills. She states she has had one prior episode of renal insufficiency, which was treated successfully. There are no alleviating or exacerbating factors to her condition, as she is currently asymptomatic. She does take lisinopril for blood pressure. Review of Systems Review of Systems Constitutional: Denies fever or chills [] Eyes: Denies change in visual acuity, redness, or eye pain [] HENT: Denies nasal congestion or sore throat [] Respiratory: Denies cough or shortness of breath [] Cardiovascular: The patient denies any shortness of breath, chest pain, palpitations, or orthopnea [] GI: Denies abdominal pain, nausea, vomiting, bloody stools or diarrhea [] : Denies dysuria or hematuria [] Musculoskeletal: Denies back pain or joint pain [] Integument: Denies rash or skin lesions [] Neurologic: Denies headache, focal weakness or sensory changes [] Endocrine: Denies polyuria or polydipsia [] All other systems were reviewed and found to be within normal limits, except as documented in this note. Current Medications Current Medications Current Medications Medications (Trade) Dose Ordered Sig/Gavin Start Time Stop Time Status Last Admin Dose Admin Calcium Gluconate (Calcium Gluconate) 1,000 mg 1X ONCE 09/12/18 12:30 09/12/18 12:31 DC Dextrose (Dextrose 50%-Water Syringe) 25 gm 1X ONCE 09/12/18 12:30 09/12/18 12:31 DC Insulin Human Regular (HumuLIN R VIAL) 10 unit 1X ONCE 09/12/18 12:30 09/12/18 12:31 DC Sodium Polystyrene Sulfonate (Kayexalate) 30 gm 1X ONCE 09/12/18 12:30 09/12/18 12:31 DC Sodium Bicarbonate (Sodium Bicarb Adult 8.4% Syr) 50 meq 1X ONCE 09/12/18 12:30 09/12/18 12:31 DC Sodium Chloride 1,000 ml @ 1,000 mls/hr Q1H 09/12/18 11:45 09/12/18 12:44 09/12/18 12:01 1,000 MLS/HR Allergies Allergies Allergies Coded Allergies Type Severity Reaction Last Updated Verified NSAIDS (Non-Steroidal Anti-Inflamma Adverse Reaction Intermediate CAUSES GI BLEEDING 10/04/17 Yes Sulfa (Sulfonamide Antibiotics) Adverse Reaction Intermediate Nausea and Vomiting 10/04/17 Yes amoxicillin Adverse Reaction Intermediate vomiting and diarrhea 11/09/16 Yes aspirin Adverse Reaction Intermediate CAUSES GI BLEEDING 10/04/17 Yes clavulanic acid Adverse Reaction Intermediate vomiting and diarrhea 11/09/16 Yes naproxen Adverse Reaction Intermediate "internal bleeding" 11/09/16 Yes Physical Exam Physical Exam PHYSICAL EXAM: CONSTITUTIONAL: Well developed, well nourished HEAD: normocephalic, atraumatic EENT: PERRL, EOMI. Conjunctivae normal color, sclerae non-icteric; moist mucous membranes. NECK: Supple, non-tender; no meningismus. LUNGS: Lungs CTA, breathing even and unlabored. Normal air movement. HEART: Regular rate and rhythm, no murmur CHEST: No deformity; non-tender ABDOMEN: The abdomen is soft, and non-tender, no masses or bruits. EXTREM: Normal ROM; no deformity, no calf tenderness. Normal pulses palpable in all extremities. There is no pedal edema. SKIN: No rash; no diaphoresis with the patient does appear somewhat pale. NEURO: Alert; normal speech and cognition; CN's grossly intact; strength grossly intact without focal deficit. BACK: No CVA TTP. Current Patient Data Vital Signs Vital Signs Date Time Temp Pulse Resp B/P (MAP) Pulse Ox O2 Delivery O2 Flow Rate FiO2 09/12/18 12:27 53 18 113/52 (72) 100 Room Air 09/12/18 11:13 97.8 97.8 Lab Values Laboratory Tests Test 09/12/18 11:45 White Blood Count 6.7 x10^3/uL (4.0-11.0) Red Blood Count 4.35 x10^6/uL (3.50-5.40) Hemoglobin 13.5 g/dL (12.0-15.5) Hematocrit 40.8 % (36.0-47.0) Mean Corpuscular Volume 94 fL (79-100) Mean Corpuscular Hemoglobin 31 pg (25-35) Mean Corpuscular Hemoglobin Concent 33 g/dL (31-37) Red Cell Distribution Width 13.5 % (11.5-14.5) Platelet Count 106 x10^3/uL (140-400) L Neutrophils (%) (Auto) 64 % (31-73) Lymphocytes (%) (Auto) 24 % (24-48) Monocytes (%) (Auto) 10 % (0-9) H Eosinophils (%) (Auto) 2 % (0-3) Basophils (%) (Auto) 1 % (0-3) Neutrophils # (Auto) 4.3 x10^3uL (1.8-7.7) Lymphocytes # (Auto) 1.6 x10^3/uL (1.0-4.8) Monocytes # (Auto) 0.7 x10^3/uL (0.0-1.1) Eosinophils # (Auto) 0.1 x10^3/uL (0.0-0.7) Basophils # (Auto) 0.1 x10^3/uL (0.0-0.2) Sodium Level 131 mmol/L (136-145) L Potassium Level 6.6 mmol/L (3.5-5.1) *H Chloride Level 98 mmol/L (98-107) Carbon Dioxide Level 20 mmol/L (21-32) L Anion Gap 13 (6-14) Blood Urea Nitrogen 43 mg/dL (7-20) H Creatinine 2.9 mg/dL (0.6-1.0) H Estimated GFR (Cockcroft-Gault) 16.0 BUN/Creatinine Ratio 15 (6-20) Glucose Level 413 mg/dL (70-99) H Calcium Level 9.8 mg/dL (8.5-10.1) Magnesium Level 1.6 mg/dL (1.8-2.4) L Total Bilirubin 1.8 mg/dL (0.2-1.0) H Aspartate Amino Transferase (AST) 42 U/L (15-37) H Alanine Aminotransferase (ALT) 45 U/L (14-59) Alkaline Phosphatase 105 U/L (46-116) WC-Nxb-B-Type Natriuretic Peptide 836 pg/mL (0-124) H Total Protein 7.1 g/dL (6.4-8.2) Albumin 3.4 g/dL (3.4-5.0) Albumin/Globulin Ratio 0.9 (1.0-1.7) L Laboratory Tests 09/12/18 11:45 Laboratory Tests 09/12/18 11:45 EKG EKG [Sinus rhythm a rate of 64 beats for minute, left axis deviation, normal intervals, nonspecific ST/T changes without acute ischemic changes, mildly pointed T waves laterally, no definite "peaked" T waves. Course & Med Decision Making Course & Med Decision Making Pertinent Labs and Imaging studies reviewed. (See chart for details) [12:35 PM: [The patient's condition remains stable. I spoke with the hospitalist, who accepted the patient to the hospital for further evaluation and treatment.]] Dragon Disclaimer Dragon Disclaimer This electronic medical record was generated, in whole or in part, using a voice recognition dictation system. Departure Departure Impression: Primary Impression: Hyperkalemia Additional Impression: Acute on chronic renal failure Disposition: ADMITTED INPATIENT Admitting Physician: Tushar Caruso Condition: STABLE Referrals: MIGDALIA GANNON MD (PCP) Problem Qualifiers LION CHEN MD Sep 12, 2018 11:53
--- NOTE | 2018-09-12 12:05 | EKG ---
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
[2018-09-12 12:08] LABS: BASO # 0.1 x10^3/uL (0.0-0.2); BASO % 1 % (0-3); EOS # 0.1 x10^3/uL (0.0-0.7); EOS % 2 % (0-3); HEMATOCRIT 40.8 % (36.0-47.0); HEMOGLOBIN 13.5 g/dL (12.0-15.5); LYMPH # 1.6 x10^3/uL (1.0-4.8); LYMPH % 24 % (24-48); MEAN CORPUSCULAR HEMOGLOBIN 31 pg (25-35); MEAN CORPUSCULAR HGB CONC 33 g/dL (31-37); MEAN CORPUSCULAR VOLUME 94 fL (79-100); MONO # 0.7 x10^3/uL (0.0-1.1); MONO % 10 % (0-9); NEUT # 4.3 x10^3uL (1.8-7.7); NEUT % 64 % (31-73); PLATELET COUNT 106 x10^3/uL (140-400); RED BLOOD COUNT 4.35 x10^6/uL (3.50-5.40); RED CELL DISTRIBUTION WIDTH 13.5 % (11.5-14.5); WHITE BLOOD COUNT 6.7 x10^3/uL (4.0-11.0)
[2018-09-12 12:14] LABS: ALBUMIN 3.4 g/dL (3.4-5.0); ALBUMIN/GLOBULIN RATIO 0.9 (1.0-1.7); CALCIUM 9.8 mg/dL (8.5-10.1); CREATININE 2.9 mg/dL (0.6-1.0); MAGNESIUM 1.6 mg/dL (1.8-2.4); TOTAL BILIRUBIN 1.8 mg/dL (0.2-1.0); TOTAL PROTEIN 7.1 g/dL (6.4-8.2)
[2018-09-12 12:21] LABS: POTASSIUM 6.6 mmol/L (3.5-5.1)
[2018-09-12] MEDS ORDERED: INSULIN REGULAR 100 UNIT/ML 3ML VIAL. IV ONE (12:30)
[2018-09-12] MEDS ORDERED: CALCIUM GLUCONATE 1,000 MG/10 ML VIAL. IVP ONE (12:30)
[2018-09-12] MEDS ORDERED: DEXTROSE 50% 25 GM / 50ML DISP.SYRIN. IV ONE (12:30)
[2018-09-12] MEDS ORDERED: SODIUM BICARB ADULT 8.4% 50 MEQ/50 ML DISP.SYRIN. IV ONE (12:30)
[2018-09-12] MEDS ORDERED: SODIUM POLYSTYRENE SULFONATE 15 GM/60 ML ORAL.SUSP. PO ONE (12:30)
--- NOTE | 2018-09-12 12:36 | PDOC1 ---
History and Physical Date of Admission Date of Admission DATE: 09/12/18 TIME: 12:36 Identification/Chief Complaint Chief Complaint seen in er, 73-year-old female with a past history of CAMPBELL, hypertension and diabetes, she had routine blood draw 09/11 and was told that her potassium was 6.9, and was sent to the emergency department. She has not been drinking much fluid ,She does not feel any weaker than normal. She has not had any chest pain , or difficulty urinating. She has not had any fevers Past Medical History Past Medical History Past Medical History Past Medical History Past Medical History: Diabetes-Type II, High Cholesterol Additional Past Medical Histor: cirrohsis Past Surgical History: , Hysterectomy, Tonsillectomy Alcohol Use: Occasionally Drug Use: None Cardiovascular: HTN GI: GERD, GI bleed, Other Musculoskeletal: Osteoarthritis Renal/: Chronic renal insuff Endocrine: Diabetes Past Surgical History Past Surgical History: , Hysterectomy Family History Family History: No Significant, Hypertension Social History Smoke: No ALCOHOL: none Drugs: None Current Medications Current Medications Current Medications Sodium Chloride 1,000 ml @ 1,000 mls/hr Q1H IV Last administered on 09/12/18at 12:01; Start 09/12/18 at 11:45; Stop 09/12/18 at 12:44 Sodium Polystyrene Sulfonate (Kayexalate) 30 gm 1X ONCE PO ; Start 09/12/18 at 12:30; Stop 09/12/18 at 12:31; Status DC Insulin Human Regular (HumuLIN R VIAL) 10 unit 1X ONCE IV ; Start 09/12/18 at 12:30; Stop 09/12/18 at 12:31; Status DC Dextrose (Dextrose 50%-Water Syringe) 25 gm 1X ONCE IV ; Start 09/12/18 at 12: 30; Stop 09/12/18 at 12:31; Status DC Sodium Bicarbonate (Sodium Bicarb Adult 8.4% Syr) 50 meq 1X ONCE IV ; Start 06/21 at 12:30; Stop 09/12/18 at 12:31; Status DC Calcium Gluconate (Calcium Gluconate) 1,000 mg 1X ONCE IVP ; Start 09/12/18 at 12:30; Stop 09/12/18 at 12:31; Status DC Active Scripts Active Reported Ventolin Hfa Inhaler (Albuterol Sulfate) 18 Gm Hfa.aer.ad 2 Puff INH PRN Q4HRS Atorvastatin Calcium 20 Mg Tablet 1 Tab PO DAILY Metoprolol Tartrate 50 Mg Tablet 1 Tab PO BID Spironolactone 25 Mg Tablet 1 Tab PO PRN Diovan (Valsartan) 320 Mg Tablet 320 Mg PO DAILY Vitamin D (Cholecalciferol (Vitamin D3)) 1,000 Unit Capsule 1 Cap PO DAILY Lantus Solostar (Insulin Glargine,Hum.rec.anlog) 100 Unit/1 Ml Insuln.pen 60 Unit SQ QHS Pantoprazole Sodium 40 Mg Tablet.dr 1 Tab PO DAILY Allergies Allergies: Coded Allergies: NSAIDS (Non-Steroidal Anti-Inflamma (Verified Adverse Reaction, Intermediate, CAUSES GI BLEEDING, 10/04/17) Sulfa (Sulfonamide Antibiotics) (Verified Adverse Reaction, Intermediate, Nausea and Vomiting, 10/04/17) amoxicillin (Verified Adverse Reaction, Intermediate, vomiting and diarrhea, 11/09/16) aspirin (Verified Adverse Reaction, Intermediate, CAUSES GI BLEEDING, ) clavulanic acid (Verified Adverse Reaction, Intermediate, vomiting and diarrhea, 11/09/16) naproxen (Verified Adverse Reaction, Intermediate, "internal bleeding", 11/09/16) ROS Review of System Review of Systems Review of Systems Constitutional: Denies fever or chills [] poor liquid intake recently Eyes: Denies change in visual acuity, redness, or eye pain [] HENT: Denies nasal congestion or sore throat [] Respiratory: Denies cough or shortness of breath [] Cardiovascular: The patient denies any shortness of breath, chest pain, palpitations, or orthopnea [] GI: Denies abdominal pain, nausea, vomiting, bloody stools or diarrhea [] : Denies dysuria or hematuria [] Musculoskeletal: Denies back pain or joint pain [] Integument: Denies rash or skin lesions [] Neurologic: Denies headache, focal weakness or sensory changes [] Endocrine: Denies polyuria or polydipsia [] 14 pt systems were reviewed and found to be within normal limits, except as documented PSYCHOLOGICAL ROS: No: Anxiety, Behavioral Disorder, Concentration difficultie , Decreased libido, Depression, Disorientation, Hallucinations, Hostility, Irritablity, Memory difficulties, Mood Swings, Obsessive thoughts, Physical abuse, Sexual abuse, Sleep disturbances, Suicidal ideation, Other ALLERGY AND IMMUNOLOGY: No: Hives, Insect Bite Sensitivity, Itchy/Watery Eyes, Nasal Congestion, Post Nasal Drip, Seasonal Allergies, Other ENDOCRINE: No: Breast Changes, Galactorrhea, Hair Pattern Changes, Hot Flashes , Malaise/lethargy, Mood Swings, Palpitations, Polydipsia/polyuria, Skin Changes , Temperature Intolerance, Unexpected Weight Changes, Other Respiratory: YES: SOB with excertion Neurological: No Behavorial Changes, No Bowel/Bladder ControlChng, No Confusion , No Dizziness, No Gait Disturbance, No Headaches, No Impaired Coord/balance, No Memory Loss, No Numbness/Tingling, No Seizures, No Speech Problems, No Tremors, No Visual Changes, No Weakness, No Other Skin: Yes Dry Skin Physical Exam Physical Exam Physical Exam Physical Exam PHYSICAL EXAM: CONSTITUTIONAL: Well developed, well nourished HEAD: normocephalic, atraumatic EENT: PERRL, EOMI. Conjunctivae normal color, sclerae non-icteric; moist mucous membranes. NECK: Supple, non-tender; no meningismus. LUNGS: Lungs CTA, breathing even and unlabored. Normal air movement. HEART: Regular rate and rhythm, no murmur CHEST: No deformity; non-tender ABDOMEN: The abdomen is soft, and non-tender, no masses or bruits. EXTREM: Normal ROM; no deformity, no calf tenderness. Normal pulses palpable in all extremities. no pedal edema. SKIN: No rash; no diaphoresis with the patient does appear somewhat pale. NEURO: Alert; normal speech and cognition; CN's grossly intact; strength grossly intact without focal deficit. BACK: No CVA TTP. General: Alert, Oriented X3, Cooperative, No acute distress HEENT: Atraumatic, EOMI, Other (DRY MUCOUS MEMBRANES ORAL) Lungs: Clear to auscultation, Normal air movement Heart: S1S2, RRR, no thrills Breasts: Not examined Rectal Exam: not examined PELVIC: Examination not indicated Extremities: No clubbing, No cyanosis Neuro: Normal speech, Cranial nerves 3-12 NL Psych/Mental Status: Mental status NL, Mood NL Vitals Vitals Vital Signs Date Time Temp Pulse Resp B/P (MAP) Pulse Ox O2 Delivery O2 Flow Rate FiO2 09/12/18 12:27 53 18 113/52 (72) 100 Room Air 09/12/18 11:13 97.8 97.8 Labs Labs Laboratory Tests Test 09/12/18 11:45 White Blood Count 6.7 x10^3/uL (4.0-11.0) Red Blood Count 4.35 x10^6/uL (3.50-5.40) Hemoglobin 13.5 g/dL (12.0-15.5) Hematocrit 40.8 % (36.0-47.0) Mean Corpuscular Volume 94 fL (79-100) Mean Corpuscular Hemoglobin 31 pg (25-35) Mean Corpuscular Hemoglobin Concent 33 g/dL (31-37) Red Cell Distribution Width 13.5 % (11.5-14.5) Platelet Count 106 x10^3/uL (140-400) Neutrophils (%) (Auto) 64 % (31-73) Lymphocytes (%) (Auto) 24 % (24-48) Monocytes (%) (Auto) 10 % (0-9) Eosinophils (%) (Auto) 2 % (0-3) Basophils (%) (Auto) 1 % (0-3) Neutrophils # (Auto) 4.3 x10^3uL (1.8-7.7) Lymphocytes # (Auto) 1.6 x10^3/uL (1.0-4.8) Monocytes # (Auto) 0.7 x10^3/uL (0.0-1.1) Eosinophils # (Auto) 0.1 x10^3/uL (0.0-0.7) Basophils # (Auto) 0.1 x10^3/uL (0.0-0.2) Sodium Level 131 mmol/L (136-145) Potassium Level 6.6 mmol/L (3.5-5.1) Chloride Level 98 mmol/L (98-107) Carbon Dioxide Level 20 mmol/L (21-32) Anion Gap 13 (6-14) Blood Urea Nitrogen 43 mg/dL (7-20) Creatinine 2.9 mg/dL (0.6-1.0) Estimated GFR (Cockcroft-Gault) 16.0 BUN/Creatinine Ratio 15 (6-20) Glucose Level 413 mg/dL (70-99) Calcium Level 9.8 mg/dL (8.5-10.1) Magnesium Level 1.6 mg/dL (1.8-2.4) Total Bilirubin 1.8 mg/dL (0.2-1.0) Aspartate Amino Transf (AST/SGOT) 42 U/L (15-37) Alanine Aminotransferase (ALT/SGPT) 45 U/L (14-59) Alkaline Phosphatase 105 U/L (46-116) UP-Bpa-T-Type Natriuretic Peptide 836 pg/mL (0-124) Total Protein 7.1 g/dL (6.4-8.2) Albumin 3.4 g/dL (3.4-5.0) Albumin/Globulin Ratio 0.9 (1.0-1.7) Laboratory Tests Test 09/12/18 11:45 White Blood Count 6.7 x10^3/uL (4.0-11.0) Red Blood Count 4.35 x10^6/uL (3.50-5.40) Hemoglobin 13.5 g/dL (12.0-15.5) Hematocrit 40.8 % (36.0-47.0) Mean Corpuscular Volume 94 fL (79-100) Mean Corpuscular Hemoglobin 31 pg (25-35) Mean Corpuscular Hemoglobin Concent 33 g/dL (31-37) Red Cell Distribution Width 13.5 % (11.5-14.5) Platelet Count 106 x10^3/uL (140-400) Neutrophils (%) (Auto) 64 % (31-73) Lymphocytes (%) (Auto) 24 % (24-48) Monocytes (%) (Auto) 10 % (0-9) Eosinophils (%) (Auto) 2 % (0-3) Basophils (%) (Auto) 1 % (0-3) Neutrophils # (Auto) 4.3 x10^3uL (1.8-7.7) Lymphocytes # (Auto) 1.6 x10^3/uL (1.0-4.8) Monocytes # (Auto) 0.7 x10^3/uL (0.0-1.1) Eosinophils # (Auto) 0.1 x10^3/uL (0.0-0.7) Basophils # (Auto) 0.1 x10^3/uL (0.0-0.2) Sodium Level 131 mmol/L (136-145) Potassium Level 6.6 mmol/L (3.5-5.1) Chloride Level 98 mmol/L (98-107) Carbon Dioxide Level 20 mmol/L (21-32) Anion Gap 13 (6-14) Blood Urea Nitrogen 43 mg/dL (7-20) Creatinine 2.9 mg/dL (0.6-1.0) Estimated GFR (Cockcroft-Gault) 16.0 BUN/Creatinine Ratio 15 (6-20) Glucose Level 413 mg/dL (70-99) Calcium Level 9.8 mg/dL (8.5-10.1) Magnesium Level 1.6 mg/dL (1.8-2.4) Total Bilirubin 1.8 mg/dL (0.2-1.0) Aspartate Amino Transf (AST/SGOT) 42 U/L (15-37) Alanine Aminotransferase (ALT/SGPT) 45 U/L (14-59) Alkaline Phosphatase 105 U/L (46-116) LJ-Bej-H-Type Natriuretic Peptide 836 pg/mL (0-124) Total Protein 7.1 g/dL (6.4-8.2) Albumin 3.4 g/dL (3.4-5.0) Albumin/Globulin Ratio 0.9 (1.0-1.7) Images Images Abdominal ultrasound dated 09/12/2018. Comparison made to CT dated 11/09/2016. Clinical data indication: Cirrhosis and portal hypertension. Renal failure. FINDINGS: Liver is heterogeneous in echogenicity and of slightly nodular contour. No apparent hepatic mass. Intrapelvic and extrapelvic biliary tree normal in caliber. The common bile duct measures 5 mm. Recanalized umbilical vein. Gallbladder normal in size. There is diffuse gallbladder wall thickening measuring up to 4 mm. No pericholecystic fluid. No shadowing stones. Right kidney measures 10.1 cm in length. Left kidney measures 11.6 cm in length. Mild bilateral pelvocaliectasis. Echogenic focus at the upper pole left kidney measures 10 mm. There is also a small cyst at the midpole right kidney measures 1.5 cm. Spleen is homogeneous in echogenicity and measures 15 cm longitudinal dimension. Limited visualized portions of pancreas aorta and IVC unremarkable. No significant ascites. IMPRESSION: 1. Heterogeneous nodular liver consistent with history of cirrhosis. 2. Diffuse wall thickening of the gallbladder, nonspecific. This could be related to hepatocellular disease. Acalculous cholecystitis considered less likely. 3. Mild bilateral renal pelvocaliectasis, nonspecific. This is similar to prior CT. 4. Possible small stone at the upper pole left kidney. 5. Splenomegaly with recanalized umbilical vein, suggesting portal hypertension. Electronically signed by: Toro Khan MD (09/12/2018 2:07 PM) [facility] TECHNIQUE After administration of oral contrast, CT imaging was performed of the abdomen pelvis. Multiplanar reconstruction images are submitted. No intravenous contrast was given due to the patient's elevated creatinine. Exposure: One or more of the following individualized dose reduction techniques were utilized for this exam: 1. Automated exposure control. 2. Adjustment of the mA and/or kV according to patient size. 3. Use of iterative reconstruction technique. COMPARISON None FINDINGS There is no significant abnormality of the limited visualized lung bases. There is a somewhat nodular margin of the liver. There is recanalized paraumbilical vein. Spleen is somewhat enlarged at 13 by 9 x 12 centimeters. There are varices such as at the medial aspect of the spleen and near the gastroesophageal junction and gastrohepatic region. Left adrenal gland is poorly defined, no right adrenal nodularity. Mild internal hyperdensity in the gallbladder lumen could be due to vicarious excretion contrast as patient had a recent contrast enhanced exam. There is some residual enhancement of the bilateral kidneys presumably from patient's recent November 04, 2016 exam. There is mild right renal pelvocaliectasis/very mild hydronephrosis. There is hypodense lesion of the mid to inferior right kidney on the order of 1.4 centimeters in size, density measurements of a cyst at 17 Hounsfield units. Bowel is not significantly dilated. There is mild to moderate sigmoid diverticulosis. There is appearance of wall thickening of segments of the descending and sigmoid colon. Normal caliber appendix is visualized. There is scattered atherosclerotic calcification of the normal caliber abdominal aorta. There is atherosclerotic calcification near the superior mesenteric artery origin with suspected [id number] narrowing. There is multilevel lumbar facet degenerative change. There is grade 1 anterior spondylolisthesis at L4-5. There is degenerative disc disease with associated vacuum phenomenon at L4-5 and L1-2. IMPRESSION 1. There are findings of cirrhosis and portal hypertension with varices and mild splenomegaly. No free fluid is demonstrated. Accurate evaluation for hepatic mass is very limited as no intravenous contrast given for today's exam. 2. There is some residual enhancement of the bilateral renal parenchyma presumably related to patient's recent November 04, 2016 post contrast exam. There is mild right renal pelvocaliectasis/very mild hydronephrosis. Reportedly patient was sent to the emergency department after conclusion of exam due to the patient's elevated creatinine. 3. There is sigmoid diverticulosis. There is appearance of wall thickening of segments of the sigmoid colon and descending colon, colitis not excluded although could be related to incomplete distension. Electronically signed by: Leroy Smith MD (November 09, 2016 13:05:19) VTE Prophylaxis Ordered VTE Prophylaxis Devices: Yes VTE Pharmacological Prophylaxi: Yes Assessment/Plan Assessment/Plan impression 1. cirrhosis and portal hypertension with varices and mild splenomegaly. No free fluid is demonstrated. Accurate evaluation for hepatic mass is very limited as no intravenous contrast given for today's exam. 2. acute renal failure on ckd stage 3 3. hyperkalemia sec to dec renal clearance/ vasomotor nephropathy 4. Hyperkalemia, CKD, hyponatremia 5. DM/hyperglycemia 6. +FABY hx 7. acid reflux 8. Diverticulosis 9. Heterogeneous nodular liver consistent with history of cirrhosis. 10. Diffuse wall thickening of the gallbladder, nonspecific. This could be related to hepatocellular disease. Acalculous cholecystitis considered less likely. 11. Mild bilateral renal pelvocaliectasis, nonspecific. This is similar to prior CT. 12. Possible small stone at the upper pole left kidney. 13. Splenomegaly with recanalized umbilical vein, suggesting portal hypertension. 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 IV hydration with serial labs / renal consult. plan admit 2 mn nephrology consult kayexylate iv fluid support GI consult follow k iv hydrate dvt prophylaxis 78 min exam, record review coordination of care > 50% of this face to face and record review d/w ER // COMPLEX DECISION MAKING ELISA CASTELAN MD Sep 12, 2018 12:36
[2018-09-12 13:48] LABS: BILIRUBIN,URINE NEGATIVE (NEG); CLARITY,URINE CLEAR; COLOR,URINE YELLOW; NITRITE,URINE NEGATIVE (NEG); PROTEIN,URINE NEGATIVE (NEG-TRACE); UROBILINOGEN,URINE 0.2 mg/dL (0.2 mg/dL)
[2018-09-12 13:56] LABS: BACTERIA,URINE 0 /HPF (0-FEW); RBC,URINE 0 /HPF (0-2); SQUAMOUS EPITHELIAL CELL,UR FEW /LPF; WBC,URINE 0 /HPF (0-4)
--- NOTE | 2018-09-12 14:10 | RAD ---
Abdominal ultrasound dated 09/12/2018. Comparison made to CT dated 11/09/2016. Clinical data indication: Cirrhosis and portal hypertension. Renal failure. FINDINGS: Liver is heterogeneous in echogenicity and of slightly nodular contour. No apparent hepatic mass. Intrapelvic and extrapelvic biliary tree normal in caliber. The common bile duct measures 5 mm. Recanalized umbilical vein. Gallbladder normal in size. There is diffuse gallbladder wall thickening measuring up to 4 mm. No pericholecystic fluid. No shadowing stones. Right kidney measures 10.1 cm in length. Left kidney measures 11.6 cm in length. Mild bilateral pelvocaliectasis. Echogenic focus at the upper pole left kidney measures 10 mm. There is also a small cyst at the midpole right kidney measures 1.5 cm. Spleen is homogeneous in echogenicity and measures 15 cm longitudinal dimension. Limited visualized portions of pancreas aorta and IVC unremarkable. No significant ascites. IMPRESSION: 1. Heterogeneous nodular liver consistent with history of cirrhosis. 2. Diffuse wall thickening of the gallbladder, nonspecific. This could be related to hepatocellular disease. Acalculous cholecystitis considered less likely. 3. Mild bilateral renal pelvocaliectasis, nonspecific. This is similar to prior CT. 4. Possible small stone at the upper pole left kidney. 5. Splenomegaly with recanalized umbilical vein, suggesting portal hypertension. Electronically signed by: Toro Khan MD (09/12/2018 2:07 PM) [facility]
--- NOTE | 2018-09-12 14:23 | PDOC2 ---
GI CONSULT Reason For Consult: Cirrhosis/portal HTN HPI: HPI: 73 y/o female admitted through ER - was sent for hyperkalemia. Seen this afternoon w/ Dr. Watts - she has no complaints. Does take spironolactone. Very pleasant, not the best historian. ?h/o GI bleed in [place], [place] - was taking Aleve and was anemic. Unclear if she had EGD or colonoscopy at that time - no scopes per our office records. Per past GI consult, h/o reflux after certain foods. Past imaging noted cirrhosis and portal hypertension, again demonstrated on US from today. Past imaging also noted diverticulosis. Very mildly elevated lipase in 2017. Per office records, normal AFP, neg Hep B and C, neg AMA, and positive FABY. No past paracentesis. PMH: PMH: HTN, DM, HLD, GERD, OA, ?vocal cord paralysis, ?GI bleed, diverticulosis, CKD , hysterectomy, cataract removal, tonsillectomy FH: Family History: Cancer (liver - brother), Other (father - cirrhosis) Social History: Smoke: Quit ALCOHOL: social (in the past) Drugs: None ROS: GEN: Denies fevers, chills, sweats HEENT: Denies blurred vision, sore throat CV: Denies chest pain RESP: Denies shortness of air, cough GI: Per HPI : Denies hematuria, dysuria ENDO: Denies weight changes NEURO: Denies confusion, dizziness MSK: Denies weakness, joint pain/swelling SKIN: Denies jaundice, pruritus Vitals: Vitals: Vital Signs Date Time Temp Pulse Resp B/P (MAP) Pulse Ox O2 Delivery O2 Flow Rate FiO2 09/12/18 13:29 68 17 98 Room Air 09/12/18 11:13 97.8 97.8 Labs: Labs: Laboratory Tests Test 09/12/18 11:45 09/12/18 13:15 White Blood Count 6.7 x10^3/uL (4.0-11.0) Red Blood Count 4.35 x10^6/uL (3.50-5.40) Hemoglobin 13.5 g/dL (12.0-15.5) Hematocrit 40.8 % (36.0-47.0) Mean Corpuscular Volume 94 fL (79-100) Mean Corpuscular Hemoglobin 31 pg (25-35) Mean Corpuscular Hemoglobin Concent 33 g/dL (31-37) Red Cell Distribution Width 13.5 % (11.5-14.5) Platelet Count 106 x10^3/uL (140-400) Neutrophils (%) (Auto) 64 % (31-73) Lymphocytes (%) (Auto) 24 % (24-48) Monocytes (%) (Auto) 10 % (0-9) Eosinophils (%) (Auto) 2 % (0-3) Basophils (%) (Auto) 1 % (0-3) Neutrophils # (Auto) 4.3 x10^3uL (1.8-7.7) Lymphocytes # (Auto) 1.6 x10^3/uL (1.0-4.8) Monocytes # (Auto) 0.7 x10^3/uL (0.0-1.1) Eosinophils # (Auto) 0.1 x10^3/uL (0.0-0.7) Basophils # (Auto) 0.1 x10^3/uL (0.0-0.2) Sodium Level 131 mmol/L (136-145) Potassium Level 6.6 mmol/L (3.5-5.1) Chloride Level 98 mmol/L (98-107) Carbon Dioxide Level 20 mmol/L (21-32) Anion Gap 13 (6-14) Blood Urea Nitrogen 43 mg/dL (7-20) Creatinine 2.9 mg/dL (0.6-1.0) Estimated GFR (Cockcroft-Gault) 16.0 BUN/Creatinine Ratio 15 (6-20) Glucose Level 413 mg/dL (70-99) Calcium Level 9.8 mg/dL (8.5-10.1) Magnesium Level 1.6 mg/dL (1.8-2.4) Total Bilirubin 1.8 mg/dL (0.2-1.0) Aspartate Amino Transf (AST/SGOT) 42 U/L (15-37) Alanine Aminotransferase (ALT/SGPT) 45 U/L (14-59) Alkaline Phosphatase 105 U/L (46-116) NU-Try-U-Type Natriuretic Peptide 836 pg/mL (0-124) Total Protein 7.1 g/dL (6.4-8.2) Albumin 3.4 g/dL (3.4-5.0) Albumin/Globulin Ratio 0.9 (1.0-1.7) Urine Collection Type Unknown Urine Color Yellow Urine Clarity Clear Urine pH 6.0 Urine Specific [place] 1.015 Urine Protein Negative mg/dL (NEG-TRACE) Urine Glucose (UA) >=1000 mg/dL (NEG) Urine Ketones (Stick) Negative mg/dL (NEG) Urine Blood Negative (NEG) Urine Nitrite Negative (NEG) Urine Bilirubin Negative (NEG) Urine Urobilinogen Dipstick 0.2 mg/dL (0.2 mg/dL) Urine Leukocyte Esterase Negative (NEG) Urine RBC 0 /HPF (0-2) Urine WBC 0 /HPF (0-4) Urine Squamous Epithelial Cells Few /LPF Urine Bacteria 0 /HPF (0-FEW) Allergies: Coded Allergies: NSAIDS (Non-Steroidal Anti-Inflamma (Verified Adverse Reaction, Intermediate, CAUSES GI BLEEDING, 10/04/17) Sulfa (Sulfonamide Antibiotics) (Verified Adverse Reaction, Intermediate, Nausea and Vomiting, 10/04/17) amoxicillin (Verified Adverse Reaction, Intermediate, vomiting and diarrhea, 11/09/16) aspirin (Verified Adverse Reaction, Intermediate, CAUSES GI BLEEDING, ) clavulanic acid (Verified Adverse Reaction, Intermediate, vomiting and diarrhea, 11/09/16) naproxen (Verified Adverse Reaction, Intermediate, "internal bleeding", 11/09/16) Medications: Current Medications Medications (Trade) Dose Ordered Sig/Gavin Route PRN Reason Start Time Stop Time Status Last Admin Dose Admin Sodium Chloride 1,000 ml @ 1,000 mls/hr Q1H IV 09/12/18 11:45 09/12/18 12:44 DC 09/12/18 12:01 Sodium Polystyrene Sulfonate (Kayexalate) 30 gm 1X ONCE PO 09/12/18 12:30 09/12/18 12:31 DC 09/12/18 12:42 Insulin Human Regular (HumuLIN R VIAL) 10 unit 1X ONCE IV 09/12/18 12:30 09/12/18 12:31 DC 09/12/18 12:53 Dextrose (Dextrose 50%-Water Syringe) 25 gm 1X ONCE IV 09/12/18 12:30 09/12/18 12:31 DC 09/12/18 12:52 Sodium Bicarbonate (Sodium Bicarb Adult 8.4% Syr) 50 meq 1X ONCE IV 09/12/18 12:30 09/12/18 12:31 DC 09/12/18 12:53 Calcium Gluconate (Calcium Gluconate) 1,000 mg 1X ONCE IVP 09/12/18 12:30 09/12/18 12:31 DC 09/12/18 12:52 Imaging: Imaging: Abd US IMPRESSION: 1. Heterogeneous nodular liver consistent with history of cirrhosis. 2. Diffuse wall thickening of the gallbladder, nonspecific. This could be related to hepatocellular disease. Acalculous cholecystitis considered less likely. 3. Mild bilateral renal pelvocaliectasis, nonspecific. This is similar to prior CT. 4. Possible small stone at the upper pole left kidney. 5. Splenomegaly with recanalized umbilical vein, suggesting portal hypertension. PE: GEN: NAD HEENT: Atraumatic, PERRL LUNGS: CTAB HEART: RRR ABD: NABS, S/ND/NT EXTREMITY: No edema SKIN: No rashes, no jaundice NEURO/PSYCH: A & O 3 A/P: A/P: Hyperkalemia, CKD, hyponatremia DM/hyperglycemia Cirrhosis, portal hypertension - +FABY per office records Occasional acid reflux CRC screen - unclear timing Diverticulosis -- Currently without IVF, will start. Recheck BMP in a.m. May need to adjust diuretic. Renal consult pending. Consider outpt 'scopes. SAUD MCDONALD Sep 12, 2018 14:23
[2018-09-12] MEDS ORDERED: IRBE300T3 PO (14:46)
[2018-09-12] MEDS ORDERED: RANI-376 PO (14:46)
[2018-09-12] MEDS ORDERED: GLIP10TA13 PO (14:46)
[2018-09-12 15:00] VITALS: BP 140/50
[2018-09-12] MEDS: IV 1/2 NORMAL SALINE 1,000 ML IV SCH (16:33)
[2018-09-12 19:00] VITALS: BP 92/36
[2018-09-12] MEDS ORDERED: DEXTROSE 50% 25 GM / 50ML DISP.SYRIN. IV PRN ×2 (20:00→22:30)
[2018-09-12] MEDS: METOPROLOL TART IMMED RELEASE 50 MG TABLET. PO SCH (20:40)
[2018-09-12] MEDS: ENOXAPARIN 30 MG/0.3 ML SYRINGE. SQ SCH (20:47)
[2018-09-12] MEDS ORDERED: INSULIN LISPRO 300 UNITS/3 ML INSULN.PEN. SQ ONE ×2 (21:00→23:15)
[2018-09-12 23:00] VITALS: BP 104/48
[2018-09-12 23:05] LABS: CALCIUM 8.7 mg/dL (8.5-10.1); CREATININE 2.7 mg/dL (0.6-1.0); GFR 17.3
--- NOTE | 2018-09-13 00:25 | NUR ---
DR Osborne notified of glucose 323, no further humalog to administer. Recheck 2 hrs after, call if >400
[2018-09-13 03:00] VITALS: BP 95/45
[2018-09-13] MEDS: IV 1/2 NORMAL SALINE 1,000 ML IV SCH ×2 (06:13→17:43)
[2018-09-13 07:31] LABS: BASO % 1 % (0-3); EOS # 0.1 x10^3/uL (0.0-0.7); EOS % 2 % (0-3); HEMATOCRIT 34.1 % (36.0-47.0); HEMOGLOBIN 11.5 g/dL (12.0-15.5); LYMPH # 1.9 x10^3/uL (1.0-4.8); LYMPH % 44 % (24-48); MEAN CORPUSCULAR HEMOGLOBIN 31 pg (25-35); MEAN CORPUSCULAR HGB CONC 34 g/dL (31-37); MEAN CORPUSCULAR VOLUME 93 fL (79-100); MONO # 0.4 x10^3/uL (0.0-1.1); MONO % 9 % (0-9); NEUT % 45 % (31-73); PLATELET COUNT 75 x10^3/uL (140-400); RED BLOOD COUNT 3.68 x10^6/uL (3.50-5.40); RED CELL DISTRIBUTION WIDTH 13.3 % (11.5-14.5); WHITE BLOOD COUNT 4.4 x10^3/uL (4.0-11.0)
[2018-09-13 07:35] LABS: PROTHROMBIN TIME PATIENT 15.1 SEC (11.7-14.0)
[2018-09-13 07:50] VITALS: BP 115/43
[2018-09-13] MEDS: INSULIN LISPRO 300 UNITS/3 ML INSULN.PEN. SQ SCH ×6 (08:00→23:27)
[2018-09-13 08:12] LABS: ALBUMIN 2.8 g/dL (3.4-5.0); CALCIUM 8.7 mg/dL (8.5-10.1); CREATININE 2.4 mg/dL (0.6-1.0); DIRECT BILIRUBIN 0.5 mg/dL (0.0-0.2); GFR 19.8; PHOSPHORUS 3.2 mg/dL (2.6-4.7); POTASSIUM 4.3 mmol/L (3.5-5.1); TOTAL BILIRUBIN 1.6 mg/dL (0.2-1.0)
[2018-09-13] MEDS: CHOLECALCIFEROL (VITAMIN D3) 1,000 UNIT TABLET PO SCH (08:38)
[2018-09-13] MEDS: METOPROLOL TART IMMED RELEASE 50 MG TABLET. PO SCH ×2 (08:39→20:57)
[2018-09-13 11:00] VITALS: BP 109/49
--- NOTE | 2018-09-13 11:14 | PDOC2 ---
CONSULT Date of Consult Date of Consult DATE: 09/13/18 TIME: 11:08 Reason for Consult Reason for Consult: HIGH K AND JIM Referring Physician Referring Physician: FLIP Identification/Chief Complaint Chief Complaint ABNORMAL LABS Source Source: Chart review, Patient History of Present Illness Reason for Visit: THIS IS A 73 YR OLD WITH ABNORMAL LABS. OP LABS SHOWED A K OF 6.9 AND SHE WAS SENT TO THE ER. HERE K WAS 6.6. CR OF 2.9 WITH MILD MET ACIDOSIS AND A BLOOD GLUCOSE OF OVER 500. SHE DENIED ANY NEPHROTOXINS. SHE IS NOTED TO HAVE CKD WITH CR OF ABOUT 2.0 AT BASELINE C/W STAGE 4 CKD. SHE ALSO REPORTED INCREASED THIRST AND POLYURIA. MEDS INCLUDED AN ARB AND ALDACTONE Past Medical History Cardiovascular: HTN GI: GERD, GI bleed, Other Musculoskeletal: Osteoarthritis Renal/: Chronic renal insuff Endocrine: Diabetes Past Surgical History Past Surgical History: , Hysterectomy Family History Family History: No Significant, Hypertension Social History No ALCOHOL: none Drugs: None Lives: with Family Current Problem List Problem List Problems Medical Problems: (1) Acute on chronic renal failure Status: Acute (2) Hyperkalemia Status: Acute Current Medications Current Medications Current Medications Sodium Chloride 1,000 ml @ 1,000 mls/hr Q1H IV Last administered on 09/12/18at 12:01; Start 09/12/18 at 11:45; Stop 09/12/18 at 12:44; Status DC Sodium Polystyrene Sulfonate (Kayexalate) 30 gm 1X ONCE PO Last administered on 09/12/18at 12:42; Start 09/12/18 at 12:30; Stop 09/12/18 at 12:31; Status DC Insulin Human Regular (HumuLIN R VIAL) 10 unit 1X ONCE IV Last administered on 09/12/18 12:53; Start 09/12/18 at 12:30; Stop 09/12/18 at 12:31; Status DC Dextrose (Dextrose 50%-Water Syringe) 25 gm 1X ONCE IV Last administered on 06/21at 12:52; Start 09/12/18 at 12:30; Stop 09/12/18 at 12:31; Status DC Sodium Bicarbonate (Sodium Bicarb Adult 8.4% Syr) 50 meq 1X ONCE IV Last administered on 09/12/18at 12:53; Start 09/12/18 at 12:30; Stop 09/12/18 at 12:31 ; Status DC Calcium Gluconate (Calcium Gluconate) 1,000 mg 1X ONCE IVP Last administered on 09/12/18at 12:52; Start 09/12/18 at 12:30; Stop 09/12/18 at 12:31; Status DC Sodium Chloride 1,000 ml @ 75 mls/hr [id number] IV Last administered on at 06:13; Start 09/12/18 at 15:15 Enoxaparin Sodium (Lovenox 30mg Syringe) 30 mg Q24H SQ Last administered on 06/21at 20:47; Start 09/12/18 at 20:00 Insulin Human Lispro (HumaLOG) 0-7 UNITS TIDWMEALS SQ Last administered on 09/13at 08:49; Start 09/13/18 at 08:00 Dextrose (Dextrose 50%-Water Syringe) 12.5 gm PRN Q15MIN PRN IV SEE COMMENTS; Start 09/12/18 at 20:00; Stop 09/12/18 at 22:38; Status DC Metoprolol Tartrate (Lopressor) 50 mg BID PO ; Start 09/12/18 at 21:00 Vitamin D (Vitamin D3) 1,000 unit DAILY PO Last administered on 09/13/18at 08:38 ; Start 09/13/18 at 09:00 Insulin Human Lispro (HumaLOG) 12 units 1X ONCE SQ Last administered on at 21:44; Start 09/12/18 at 21:00; Stop 09/12/18 at 21:02; Status DC Insulin Human Lispro (HumaLOG) 0-7 UNITS TIDWMEALS SQ ; Start 09/13/18 at 08:00 Dextrose (Dextrose 50%-Water Syringe) 12.5 gm PRN Q15MIN PRN IV SEE COMMENTS; Start 09/12/18 at 22:30 Insulin Human Lispro (HumaLOG) 8 units 1X ONCE SQ Last administered on at 23:16; Start 09/12/18 at 23:15; Stop 09/12/18 at 23:16; Status DC Glipizide (Glucotrol) 10 mg DAILYAC PO ; Start 09/13/18 at 11:30 Famotidine (Pepcid) 20 mg DAILY PO ; Start 09/13/18 at 11:00 Atorvastatin Calcium (Lipitor) 20 mg QHS PO ; Start 09/13/18 at 21:00 Active Scripts Active Reported Irbesartan 300 Mg Tablet 1 Tab PO DAILY Glipizide 10 Mg Tablet 10 Mg PO DAILY Zantac (Ranitidine Hcl) 150 Mg Tablet 1 Tab PO BID Atorvastatin Calcium 20 Mg Tablet 1 Tab PO DAILY Metoprolol Tartrate 50 Mg Tablet 1 Tab PO BID Spironolactone 25 Mg Tablet 1 Tab PO PRN Vitamin D (Cholecalciferol (Vitamin D3)) 1,000 Unit Capsule 1 Cap PO DAILY Allergies Allergies: Coded Allergies: NSAIDS (Non-Steroidal Anti-Inflamma (Verified Adverse Reaction, Intermediate, CAUSES GI BLEEDING, 10/04/17) Sulfa (Sulfonamide Antibiotics) (Verified Adverse Reaction, Intermediate, Nausea and Vomiting, 10/04/17) amoxicillin (Verified Adverse Reaction, Intermediate, vomiting and diarrhea, 11/09/16) aspirin (Verified Adverse Reaction, Intermediate, CAUSES GI BLEEDING, ) clavulanic acid (Verified Adverse Reaction, Intermediate, vomiting and diarrhea, 11/09/16) naproxen (Verified Adverse Reaction, Intermediate, "internal bleeding", 11/09/16) ROS General: YES: Fatigue, Malaise, Appetite, Other (POLYURIA) PSYCHOLOGICAL ROS: YES: Anxiety Eyes: Yes Decreased vision HEENT: YES: Heacaches Respiratory: YES: Cough Gastrointestinal: Yes Constipation Genitourinary: YES Frequency Musculoskeletal: Yes Muscular Weakness Neurological: Yes Headaches Skin: Yes Dry Skin Physical Exam General: Alert, Oriented X3, Cooperative, No acute distress HEENT: Atraumatic, PERRLA, EOMI Lungs: Clear to auscultation Heart: Regular rate Abdomen: Normal bowel sounds, Soft, No tenderness Neuro: Normal speech, Cranial nerves 3-12 NL Psych/Mental Status: Mental status NL, Mood NL MUSCULOSKELETAL: No joint tenderness, No deformity Vitals VITALS Vital Signs Date Time Temp Pulse Resp B/P (MAP) Pulse Ox O2 Delivery O2 Flow Rate FiO2 09/13/18 08:39 67 115/43 09/13/18 07:50 97.5 18 99 Room Air 97.5 Labs Labs Laboratory Tests Test 09/12/18 11:45 09/12/18 13:15 09/12/18 16:47 09/12/18 20:40 White Blood Count 6.7 x10^3/uL (4.0-11.0) Red Blood Count 4.35 x10^6/uL (3.50-5.40) Hemoglobin 13.5 g/dL (12.0-15.5) Hematocrit 40.8 % (36.0-47.0) Mean Corpuscular Volume 94 fL (79-100) Mean Corpuscular Hemoglobin 31 pg (25-35) Mean Corpuscular Hemoglobin Concent 33 g/dL (31-37) Red Cell Distribution Width 13.5 % (11.5-14.5) Platelet Count 106 x10^3/uL (140-400) Neutrophils (%) (Auto) 64 % (31-73) Lymphocytes (%) (Auto) 24 % (24-48) Monocytes (%) (Auto) 10 % (0-9) Eosinophils (%) (Auto) 2 % (0-3) Basophils (%) (Auto) 1 % (0-3) Neutrophils # (Auto) 4.3 x10^3uL (1.8-7.7) Lymphocytes # (Auto) 1.6 x10^3/uL (1.0-4.8) Monocytes # (Auto) 0.7 x10^3/uL (0.0-1.1) Eosinophils # (Auto) 0.1 x10^3/uL (0.0-0.7) Basophils # (Auto) 0.1 x10^3/uL (0.0-0.2) Sodium Level 131 mmol/L (136-145) Potassium Level 6.6 mmol/L (3.5-5.1) Chloride Level 98 mmol/L (98-107) Carbon Dioxide Level 20 mmol/L (21-32) Anion Gap 13 (6-14) Blood Urea Nitrogen 43 mg/dL (7-20) Creatinine 2.9 mg/dL (0.6-1.0) Estimated GFR (Cockcroft-Gault) 16.0 BUN/Creatinine Ratio 15 (6-20) Glucose Level 413 mg/dL (70-99) Calcium Level 9.8 mg/dL (8.5-10.1) Magnesium Level 1.6 mg/dL (1.8-2.4) Total Bilirubin 1.8 mg/dL (0.2-1.0) Aspartate Amino Transf (AST/SGOT) 42 U/L (15-37) Alanine Aminotransferase (ALT/SGPT) 45 U/L (14-59) Alkaline Phosphatase 105 U/L (46-116) CL-Ejs-W-Type Natriuretic Peptide 836 pg/mL (0-124) Total Protein 7.1 g/dL (6.4-8.2) Albumin 3.4 g/dL (3.4-5.0) Albumin/Globulin Ratio 0.9 (1.0-1.7) Urine Collection Type Unknown Urine Color Yellow Urine Clarity Clear Urine pH 6.0 Urine Specific [place] 1.015 Urine Protein Negative mg/dL (NEG-TRACE) Urine Glucose (UA) >=1000 mg/dL (NEG) Urine Ketones (Stick) Negative mg/dL (NEG) Urine Blood Negative (NEG) Urine Nitrite Negative (NEG) Urine Bilirubin Negative (NEG) Urine Urobilinogen Dipstick 0.2 mg/dL (0.2 mg/dL) Urine Leukocyte Esterase Negative (NEG) Urine RBC 0 /HPF (0-2) Urine WBC 0 /HPF (0-4) Urine Squamous Epithelial Cells Few /LPF Urine Bacteria 0 /HPF (0-FEW) Glucose (Fingerstick) 390 mg/dL (70-99) 540 mg/dL (70-99) Test 09/12/18 22:15 09/12/18 22:48 09/13/18 00:19 09/13/18 02:24 Sodium Level 132 mmol/L (136-145) Potassium Level 5.0 mmol/L (3.5-5.1) Chloride Level 97 mmol/L (98-107) Carbon Dioxide Level 23 mmol/L (21-32) Anion Gap 12 (6-14) Blood Urea Nitrogen 38 mg/dL (7-20) Creatinine 2.7 mg/dL (0.6-1.0) Estimated GFR (Cockcroft-Gault) 17.3 Glucose Level 510 mg/dL (70-99) Calcium Level 8.7 mg/dL (8.5-10.1) Glucose (Fingerstick) 440 mg/dL (70-99) 323 mg/dL (70-99) 213 mg/dL (70-99) Test 09/13/18 05:57 09/13/18 06:53 09/13/18 07:34 Glucose (Fingerstick) 164 mg/dL (70-99) 271 mg/dL (70-99) White Blood Count 4.4 x10^3/uL (4.0-11.0) Red Blood Count 3.68 x10^6/uL (3.50-5.40) Hemoglobin 11.5 g/dL (12.0-15.5) Hematocrit 34.1 % (36.0-47.0) Mean Corpuscular Volume 93 fL (79-100) Mean Corpuscular Hemoglobin 31 pg (25-35) Mean Corpuscular Hemoglobin Concent 34 g/dL (31-37) Red Cell Distribution Width 13.3 % (11.5-14.5) Platelet Count 75 x10^3/uL (140-400) Neutrophils (%) (Auto) 45 % (31-73) Lymphocytes (%) (Auto) 44 % (24-48) Monocytes (%) (Auto) 9 % (0-9) Eosinophils (%) (Auto) 2 % (0-3) Basophils (%) (Auto) 1 % (0-3) Neutrophils # (Auto) 2.0 x10^3uL (1.8-7.7) Lymphocytes # (Auto) 1.9 x10^3/uL (1.0-4.8) Monocytes # (Auto) 0.4 x10^3/uL (0.0-1.1) Eosinophils # (Auto) 0.1 x10^3/uL (0.0-0.7) Basophils # (Auto) 0.0 x10^3/uL (0.0-0.2) Prothrombin Time 15.1 SEC (11.7-14.0) Prothromb Time International Ratio 1.2 (0.8-1.1) Sodium Level 133 mmol/L (136-145) Potassium Level 4.3 mmol/L (3.5-5.1) Chloride Level 99 mmol/L (98-107) Carbon Dioxide Level 20 mmol/L (21-32) Anion Gap 14 (6-14) Blood Urea Nitrogen 35 mg/dL (7-20) Creatinine 2.4 mg/dL (0.6-1.0) Estimated GFR (Cockcroft-Gault) 19.8 Glucose Level 261 mg/dL (70-99) Calcium Level 8.7 mg/dL (8.5-10.1) Phosphorus Level 3.2 mg/dL (2.6-4.7) Total Bilirubin 1.6 mg/dL (0.2-1.0) Direct Bilirubin 0.5 mg/dL (0.0-0.2) Aspartate Amino Transf (AST/SGOT) 43 U/L (15-37) Alanine Aminotransferase (ALT/SGPT) 40 U/L (14-59) Alkaline Phosphatase 84 U/L (46-116) Total Protein 6.0 g/dL (6.4-8.2) Albumin 2.8 g/dL (3.4-5.0) Laboratory Tests Test 09/12/18 11:45 09/12/18 13:15 09/12/18 16:47 09/12/18 20:40 White Blood Count 6.7 x10^3/uL (4.0-11.0) Red Blood Count 4.35 x10^6/uL (3.50-5.40) Hemoglobin 13.5 g/dL (12.0-15.5) Hematocrit 40.8 % (36.0-47.0) Mean Corpuscular Volume 94 fL (79-100) Mean Corpuscular Hemoglobin 31 pg (25-35) Mean Corpuscular Hemoglobin Concent 33 g/dL (31-37) Red Cell Distribution Width 13.5 % (11.5-14.5) Platelet Count 106 x10^3/uL (140-400) Neutrophils (%) (Auto) 64 % (31-73) Lymphocytes (%) (Auto) 24 % (24-48) Monocytes (%) (Auto) 10 % (0-9) Eosinophils (%) (Auto) 2 % (0-3) Basophils (%) (Auto) 1 % (0-3) Neutrophils # (Auto) 4.3 x10^3uL (1.8-7.7) Lymphocytes # (Auto) 1.6 x10^3/uL (1.0-4.8) Monocytes # (Auto) 0.7 x10^3/uL (0.0-1.1) Eosinophils # (Auto) 0.1 x10^3/uL (0.0-0.7) Basophils # (Auto) 0.1 x10^3/uL (0.0-0.2) Sodium Level 131 mmol/L (136-145) Potassium Level 6.6 mmol/L (3.5-5.1) Chloride Level 98 mmol/L (98-107) Carbon Dioxide Level 20 mmol/L (21-32) Anion Gap 13 (6-14) Blood Urea Nitrogen 43 mg/dL (7-20) Creatinine 2.9 mg/dL (0.6-1.0) Estimated GFR (Cockcroft-Gault) 16.0 BUN/Creatinine Ratio 15 (6-20) Glucose Level 413 mg/dL (70-99) Calcium Level 9.8 mg/dL (8.5-10.1) Magnesium Level 1.6 mg/dL (1.8-2.4) Total Bilirubin 1.8 mg/dL (0.2-1.0) Aspartate Amino Transf (AST/SGOT) 42 U/L (15-37) Alanine Aminotransferase (ALT/SGPT) 45 U/L (14-59) Alkaline Phosphatase 105 U/L (46-116) YL-Aih-V-Type Natriuretic Peptide 836 pg/mL (0-124) Total Protein 7.1 g/dL (6.4-8.2) Albumin 3.4 g/dL (3.4-5.0) Albumin/Globulin Ratio 0.9 (1.0-1.7) Urine Collection Type Unknown Urine Color Yellow Urine Clarity Clear Urine pH 6.0 Urine Specific [place] 1.015 Urine Protein Negative mg/dL (NEG-TRACE) Urine Glucose (UA) >=1000 mg/dL (NEG) Urine Ketones (Stick) Negative mg/dL (NEG) Urine Blood Negative (NEG) Urine Nitrite Negative (NEG) Urine Bilirubin Negative (NEG) Urine Urobilinogen Dipstick 0.2 mg/dL (0.2 mg/dL) Urine Leukocyte Esterase Negative (NEG) Urine RBC 0 /HPF (0-2) Urine WBC 0 /HPF (0-4) Urine Squamous Epithelial Cells Few /LPF Urine Bacteria 0 /HPF (0-FEW) Glucose (Fingerstick) 390 mg/dL (70-99) 540 mg/dL (70-99) Test 09/12/18 22:15 09/12/18 22:48 3/13/19 00:19 09/13/18 02:24 Sodium Level 132 mmol/L (136-145) Potassium Level 5.0 mmol/L (3.5-5.1) Chloride Level 97 mmol/L (98-107) Carbon Dioxide Level 23 mmol/L (21-32) Anion Gap 12 (6-14) Blood Urea Nitrogen 38 mg/dL (7-20) Creatinine 2.7 mg/dL (0.6-1.0) Estimated GFR (Cockcroft-Gault) 17.3 Glucose Level 510 mg/dL (70-99) Calcium Level 8.7 mg/dL (8.5-10.1) Glucose (Fingerstick) 440 mg/dL (70-99) 323 mg/dL (70-99) 213 mg/dL (70-99) Test 09/13/18 05:57 09/13/18 06:53 09/13/18 07:34 Glucose (Fingerstick) 164 mg/dL (70-99) 271 mg/dL (70-99) White Blood Count 4.4 x10^3/uL (4.0-11.0) Red Blood Count 3.68 x10^6/uL (3.50-5.40) Hemoglobin 11.5 g/dL (12.0-15.5) Hematocrit 34.1 % (36.0-47.0) Mean Corpuscular Volume 93 fL (79-100) Mean Corpuscular Hemoglobin 31 pg (25-35) Mean Corpuscular Hemoglobin Concent 34 g/dL (31-37) Red Cell Distribution Width 13.3 % (11.5-14.5) Platelet Count 75 x10^3/uL (140-400) Neutrophils (%) (Auto) 45 % (31-73) Lymphocytes (%) (Auto) 44 % (24-48) Monocytes (%) (Auto) 9 % (0-9) Eosinophils (%) (Auto) 2 % (0-3) Basophils (%) (Auto) 1 % (0-3) Neutrophils # (Auto) 2.0 x10^3uL (1.8-7.7) Lymphocytes # (Auto) 1.9 x10^3/uL (1.0-4.8) Monocytes # (Auto) 0.4 x10^3/uL (0.0-1.1) Eosinophils # (Auto) 0.1 x10^3/uL (0.0-0.7) Basophils # (Auto) 0.0 x10^3/uL (0.0-0.2) Prothrombin Time 15.1 SEC (11.7-14.0) Prothromb Time International Ratio 1.2 (0.8-1.1) Sodium Level 133 mmol/L (136-145) Potassium Level 4.3 mmol/L (3.5-5.1) Chloride Level 99 mmol/L (98-107) Carbon Dioxide Level 20 mmol/L (21-32) Anion Gap 14 (6-14) Blood Urea Nitrogen 35 mg/dL (7-20) Creatinine 2.4 mg/dL (0.6-1.0) Estimated GFR (Cockcroft-Gault) 19.8 Glucose Level 261 mg/dL (70-99) Calcium Level 8.7 mg/dL (8.5-10.1) Phosphorus Level 3.2 mg/dL (2.6-4.7) Total Bilirubin 1.6 mg/dL (0.2-1.0) Direct Bilirubin 0.5 mg/dL (0.0-0.2) Aspartate Amino Transf (AST/SGOT) 43 U/L (15-37) Alanine Aminotransferase (ALT/SGPT) 40 U/L (14-59) Alkaline Phosphatase 84 U/L (46-116) Total Protein 6.0 g/dL (6.4-8.2) Albumin 2.8 g/dL (3.4-5.0) Assessment/Plan Assessment/Plan IMP JIM WITH CR FO 2.9 CKD STAGE 4 WITH CR OF ABOUT 2.0 DEHYDRATION HYPERGLYCEMIA POORLY CONTROLLED DM II HYPERKALEMIA MET ACIDOSIS LIVER CIRRHOSIS PLAN HOLD ARB HOLD ALDACTONE HYDRATION RENAL SONOGRAM IZA FELIX MD Sep 13, 2018 11:14
[2018-09-13] MEDS: FAMOTIDINE 20 MG TABLET. PO SCH (12:23)
[2018-09-13] MEDS: glipiZIDE 5 MG TABLET PO SCH (12:26)
--- NOTE | 2018-09-13 12:28 | PDOC ---
Subjective: Subjective: Tired - didn't sleep well last night. Hungry - awaiting lunch. No GI complaints. Objective: Objective: Note hyperglycemia overnight. Vital Signs: Vital Signs Date Time Temp Pulse Resp B/P (MAP) Pulse Ox O2 Delivery O2 Flow Rate FiO2 09/13/18 08:39 67 115/43 09/13/18 07:50 97.5 18 99 Room Air 97.5 Labs: Laboratory Tests Test 09/12/18 16:47 09/12/18 20:40 09/12/18 22:48 09/13/18 00:19 Glucose (Fingerstick) 390 mg/dL (70-99) 540 mg/dL (70-99) 440 mg/dL (70-99) 323 mg/dL (70-99) Test 09/13/18 02:24 09/13/18 05:57 09/13/18 07:34 09/13/18 11:25 Glucose (Fingerstick) 213 mg/dL (70-99) 164 mg/dL (70-99) 271 mg/dL (70-99) 431 mg/dL (70-99) PE: GEN: NAD LUNGS: CTAB HEART: RRR ABD: NABS, S/ND/NT NEURO/PSYCH: A & O 3 A/P: CKD, DM, cirrhosis -- MELD 22 w/ elevated Cr. Continue support per GI. SAUD MCDONALD Sep 13, 2018 12:28
[2018-09-13] MEDS ORDERED: INSULIN LISPRO 300 UNITS/3 ML INSULN.PEN. SQ SCH ×3 (12:30→23:15)
--- NOTE | 2018-09-13 13:57 | PDOC ---
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 On spironolactone ARBreturn diuretic at home which we are holding I'll getting IV fluids from renal I have discussed with GI, okay to continue statinas LFTs are not that high Plan continue IV hydration per renal Avoid nephrotoxins Creatinine is 2.4 Follow GI and renal recommendations PT OT Nontoxic-appearing Diabetes type 2, slightly scaly insulin-so far blood sugars are good Vitals Vitals Vital Signs Date Time Temp Pulse Resp B/P (MAP) Pulse Ox O2 Delivery O2 Flow Rate FiO2 09/13/18 11:00 98.4 85 18 109/49 (69) 95 Room Air 98.4 Physical Exam General: Alert, Oriented X3, Cooperative, No acute distress Heart: Regular rate Lungs: Clear, Other Abdomen: Normal bowel sounds, Soft, No tenderness Extremities: No clubbing, No cyanosis Labs LABS Laboratory Tests Test 09/12/18 16:47 09/12/18 20:40 09/12/18 22:15 09/12/18 22:48 Glucose (Fingerstick) 390 mg/dL (70-99) 540 mg/dL (70-99) 440 mg/dL (70-99) Sodium Level 132 mmol/L (136-145) Potassium Level 5.0 mmol/L (3.5-5.1) Chloride Level 97 mmol/L (98-107) Carbon Dioxide Level 23 mmol/L (21-32) Anion Gap 12 (6-14) Blood Urea Nitrogen 38 mg/dL (7-20) Creatinine 2.7 mg/dL (0.6-1.0) Estimated GFR (Cockcroft-Gault) 17.3 Glucose Level 510 mg/dL (70-99) Calcium Level 8.7 mg/dL (8.5-10.1) Test 09/13/18 00:19 09/13/18 02:24 09/13/18 05:57 09/13/18 06:53 Glucose (Fingerstick) 323 mg/dL (70-99) 213 mg/dL (70-99) 164 mg/dL (70-99) White Blood Count 4.4 x10^3/uL (4.0-11.0) Red Blood Count 3.68 x10^6/uL (3.50-5.40) Hemoglobin 11.5 g/dL (12.0-15.5) Hematocrit 34.1 % (36.0-47.0) Mean Corpuscular Volume 93 fL (79-100) Mean Corpuscular Hemoglobin 31 pg (25-35) Mean Corpuscular Hemoglobin Concent 34 g/dL (31-37) Red Cell Distribution Width 13.3 % (11.5-14.5) Platelet Count 75 x10^3/uL (140-400) Neutrophils (%) (Auto) 45 % (31-73) Lymphocytes (%) (Auto) 44 % (24-48) Monocytes (%) (Auto) 9 % (0-9) Eosinophils (%) (Auto) 2 % (0-3) Basophils (%) (Auto) 1 % (0-3) Neutrophils # (Auto) 2.0 x10^3uL (1.8-7.7) Lymphocytes # (Auto) 1.9 x10^3/uL (1.0-4.8) Monocytes # (Auto) 0.4 x10^3/uL (0.0-1.1) Eosinophils # (Auto) 0.1 x10^3/uL (0.0-0.7) Basophils # (Auto) 0.0 x10^3/uL (0.0-0.2) Prothrombin Time 15.1 SEC (11.7-14.0) Prothromb Time International Ratio 1.2 (0.8-1.1) Sodium Level 133 mmol/L (136-145) Potassium Level 4.3 mmol/L (3.5-5.1) Chloride Level 99 mmol/L (98-107) Carbon Dioxide Level 20 mmol/L (21-32) Anion Gap 14 (6-14) Blood Urea Nitrogen 35 mg/dL (7-20) Creatinine 2.4 mg/dL (0.6-1.0) Estimated GFR (Cockcroft-Gault) 19.8 Glucose Level 261 mg/dL (70-99) Calcium Level 8.7 mg/dL (8.5-10.1) Phosphorus Level 3.2 mg/dL (2.6-4.7) Total Bilirubin 1.6 mg/dL (0.2-1.0) Direct Bilirubin 0.5 mg/dL (0.0-0.2) Aspartate Amino Transf (AST/SGOT) 43 U/L (15-37) Alanine Aminotransferase (ALT/SGPT) 40 U/L (14-59) Alkaline Phosphatase 84 U/L (46-116) Total Protein 6.0 g/dL (6.4-8.2) Albumin 2.8 g/dL (3.4-5.0) Test 09/13/18 07:34 09/13/18 11:25 Glucose (Fingerstick) 271 mg/dL (70-99) 431 mg/dL (70-99) Review of Systems Review of Systems A 14 point ROS was completed with the following noted as positive: Other systems reviewed and negative. \CONSTITUTIONAL: No fever or chills EYES: No recent changes SKIN: No rash or itching CARDIOVASCULAR: No chest pain, syncope, palpitations, or edema RESPIRATORY: No SOB or cough GASTROINTESTINAL: No nausea, vomiting or abdominal pain NEUROLOGICAL: No headaches or weakness ENDOCRINE: No cold or heat intolerance GENITOURINARY: No urgency or frequency of urination MUSCULOSKELETAL: No back pain or joint pain LYMPHATICS: No enlarged lymph nodes PSYCHIATRIC: No anxiety or depression Assessment and Plan Assessmemt and Plan Problems Medical Problems: (1) Acute on chronic renal failure Status: Acute (2) Hyperkalemia Status: Acute Comment Review of Relevant I have reviewed the following items tiffanie (where applicable) has been applied. Labs Laboratory Tests Test 09/12/18 11:45 09/12/18 13:15 09/12/18 16:47 09/12/18 20:40 White Blood Count 6.7 x10^3/uL (4.0-11.0) Red Blood Count 4.35 x10^6/uL (3.50-5.40) Hemoglobin 13.5 g/dL (12.0-15.5) Hematocrit 40.8 % (36.0-47.0) Mean Corpuscular Volume 94 fL (79-100) Mean Corpuscular Hemoglobin 31 pg (25-35) Mean Corpuscular Hemoglobin Concent 33 g/dL (31-37) Red Cell Distribution Width 13.5 % (11.5-14.5) Platelet Count 106 x10^3/uL (140-400) Neutrophils (%) (Auto) 64 % (31-73) Lymphocytes (%) (Auto) 24 % (24-48) Monocytes (%) (Auto) 10 % (0-9) Eosinophils (%) (Auto) 2 % (0-3) Basophils (%) (Auto) 1 % (0-3) Neutrophils # (Auto) 4.3 x10^3uL (1.8-7.7) Lymphocytes # (Auto) 1.6 x10^3/uL (1.0-4.8) Monocytes # (Auto) 0.7 x10^3/uL (0.0-1.1) Eosinophils # (Auto) 0.1 x10^3/uL (0.0-0.7) Basophils # (Auto) 0.1 x10^3/uL (0.0-0.2) Sodium Level 131 mmol/L (136-145) Potassium Level 6.6 mmol/L (3.5-5.1) Chloride Level 98 mmol/L (98-107) Carbon Dioxide Level 20 mmol/L (21-32) Anion Gap 13 (6-14) Blood Urea Nitrogen 43 mg/dL (7-20) Creatinine 2.9 mg/dL (0.6-1.0) Estimated GFR (Cockcroft-Gault) 16.0 BUN/Creatinine Ratio 15 (6-20) Glucose Level 413 mg/dL (70-99) Calcium Level 9.8 mg/dL (8.5-10.1) Magnesium Level 1.6 mg/dL (1.8-2.4) Total Bilirubin 1.8 mg/dL (0.2-1.0) Aspartate Amino Transf (AST/SGOT) 42 U/L (15-37) Alanine Aminotransferase (ALT/SGPT) 45 U/L (14-59) Alkaline Phosphatase 105 U/L (46-116) GK-Xxs-L-Type Natriuretic Peptide 836 pg/mL (0-124) Total Protein 7.1 g/dL (6.4-8.2) Albumin 3.4 g/dL (3.4-5.0) Albumin/Globulin Ratio 0.9 (1.0-1.7) Urine Collection Type Unknown Urine Color Yellow Urine Clarity Clear Urine pH 6.0 Urine Specific Errol 1.015 Urine Protein Negative mg/dL (NEG-TRACE) Urine Glucose (UA) >=1000 mg/dL (NEG) Urine Ketones (Stick) Negative mg/dL (NEG) Urine Blood Negative (NEG) Urine Nitrite Negative (NEG) Urine Bilirubin Negative (NEG) Urine Urobilinogen Dipstick 0.2 mg/dL (0.2 mg/dL) Urine Leukocyte Esterase Negative (NEG) Urine RBC 0 /HPF (0-2) Urine WBC 0 /HPF (0-4) Urine Squamous Epithelial Cells Few /LPF Urine Bacteria 0 /HPF (0-FEW) Glucose (Fingerstick) 390 mg/dL (70-99) 540 mg/dL (70-99) Test 09/12/18 22:15 09/12/18 22:48 09/13/18 00:19 09/13/18 02:24 Sodium Level 132 mmol/L (136-145) Potassium Level 5.0 mmol/L (3.5-5.1) Chloride Level 97 mmol/L (98-107) Carbon Dioxide Level 23 mmol/L (21-32) Anion Gap 12 (6-14) Blood Urea Nitrogen 38 mg/dL (7-20) Creatinine 2.7 mg/dL (0.6-1.0) Estimated GFR (Cockcroft-Gault) 17.3 Glucose Level 510 mg/dL (70-99) Calcium Level 8.7 mg/dL (8.5-10.1) Glucose (Fingerstick) 440 mg/dL (70-99) 323 mg/dL (70-99) 213 mg/dL (70-99) Test 09/13/18 05:57 09/13/18 06:53 09/13/18 07:34 09/13/18 11:25 Glucose (Fingerstick) 164 mg/dL (70-99) 271 mg/dL (70-99) 431 mg/dL (70-99) White Blood Count 4.4 x10^3/uL (4.0-11.0) Red Blood Count 3.68 x10^6/uL (3.50-5.40) Hemoglobin 11.5 g/dL (12.0-15.5) Hematocrit 34.1 % (36.0-47.0) Mean Corpuscular Volume 93 fL (79-100) Mean Corpuscular Hemoglobin 31 pg (25-35) Mean Corpuscular Hemoglobin Concent 34 g/dL (31-37) Red Cell Distribution Width 13.3 % (11.5-14.5) Platelet Count 75 x10^3/uL (140-400) Neutrophils (%) (Auto) 45 % (31-73) Lymphocytes (%) (Auto) 44 % (24-48) Monocytes (%) (Auto) 9 % (0-9) Eosinophils (%) (Auto) 2 % (0-3) Basophils (%) (Auto) 1 % (0-3) Neutrophils # (Auto) 2.0 x10^3uL (1.8-7.7) Lymphocytes # (Auto) 1.9 x10^3/uL (1.0-4.8) Monocytes # (Auto) 0.4 x10^3/uL (0.0-1.1) Eosinophils # (Auto) 0.1 x10^3/uL (0.0-0.7) Basophils # (Auto) 0.0 x10^3/uL (0.0-0.2) Prothrombin Time 15.1 SEC (11.7-14.0) Prothromb Time International Ratio 1.2 (0.8-1.1) Sodium Level 133 mmol/L (136-145) Potassium Level 4.3 mmol/L (3.5-5.1) Chloride Level 99 mmol/L (98-107) Carbon Dioxide Level 20 mmol/L (21-32) Anion Gap 14 (6-14) Blood Urea Nitrogen 35 mg/dL (7-20) Creatinine 2.4 mg/dL (0.6-1.0) Estimated GFR (Cockcroft-Gault) 19.8 Glucose Level 261 mg/dL (70-99) Calcium Level 8.7 mg/dL (8.5-10.1) Phosphorus Level 3.2 mg/dL (2.6-4.7) Total Bilirubin 1.6 mg/dL (0.2-1.0) Direct Bilirubin 0.5 mg/dL (0.0-0.2) Aspartate Amino Transf (AST/SGOT) 43 U/L (15-37) Alanine Aminotransferase (ALT/SGPT) 40 U/L (14-59) Alkaline Phosphatase 84 U/L (46-116) Total Protein 6.0 g/dL (6.4-8.2) Albumin 2.8 g/dL (3.4-5.0) Laboratory Tests Test 09/12/18 16:47 09/12/18 20:40 09/12/18 22:15 09/12/18 22:48 Glucose (Fingerstick) 390 mg/dL (70-99) 540 mg/dL (70-99) 440 mg/dL (70-99) Sodium Level 132 mmol/L (136-145) Potassium Level 5.0 mmol/L (3.5-5.1) Chloride Level 97 mmol/L (98-107) Carbon Dioxide Level 23 mmol/L (21-32) Anion Gap 12 (6-14) Blood Urea Nitrogen 38 mg/dL (7-20) Creatinine 2.7 mg/dL (0.6-1.0) Estimated GFR (Cockcroft-Gault) 17.3 Glucose Level 510 mg/dL (70-99) Calcium Level 8.7 mg/dL (8.5-10.1) Test 09/13/18 00:19 09/13/18 02:24 09/13/18 05:57 09/13/18 06:53 Glucose (Fingerstick) 323 mg/dL (70-99) 213 mg/dL (70-99) 164 mg/dL (70-99) White Blood Count 4.4 x10^3/uL (4.0-11.0) Red Blood Count 3.68 x10^6/uL (3.50-5.40) Hemoglobin 11.5 g/dL (12.0-15.5) Hematocrit 34.1 % (36.0-47.0) Mean Corpuscular Volume 93 fL (79-100) Mean Corpuscular Hemoglobin 31 pg (25-35) Mean Corpuscular Hemoglobin Concent 34 g/dL (31-37) Red Cell Distribution Width 13.3 % (11.5-14.5) Platelet Count 75 x10^3/uL (140-400) Neutrophils (%) (Auto) 45 % (31-73) Lymphocytes (%) (Auto) 44 % (24-48) Monocytes (%) (Auto) 9 % (0-9) Eosinophils (%) (Auto) 2 % (0-3) Basophils (%) (Auto) 1 % (0-3) Neutrophils # (Auto) 2.0 x10^3uL (1.8-7.7) Lymphocytes # (Auto) 1.9 x10^3/uL (1.0-4.8) Monocytes # (Auto) 0.4 x10^3/uL (0.0-1.1) Eosinophils # (Auto) 0.1 x10^3/uL (0.0-0.7) Basophils # (Auto) 0.0 x10^3/uL (0.0-0.2) Prothrombin Time 15.1 SEC (11.7-14.0) Prothromb Time International Ratio 1.2 (0.8-1.1) Sodium Level 133 mmol/L (136-145) Potassium Level 4.3 mmol/L (3.5-5.1) Chloride Level 99 mmol/L (98-107) Carbon Dioxide Level 20 mmol/L (21-32) Anion Gap 14 (6-14) Blood Urea Nitrogen 35 mg/dL (7-20) Creatinine 2.4 mg/dL (0.6-1.0) Estimated GFR (Cockcroft-Gault) 19.8 Glucose Level 261 mg/dL (70-99) Calcium Level 8.7 mg/dL (8.5-10.1) Phosphorus Level 3.2 mg/dL (2.6-4.7) Total Bilirubin 1.6 mg/dL (0.2-1.0) Direct Bilirubin 0.5 mg/dL (0.0-0.2) Aspartate Amino Transf (AST/SGOT) 43 U/L (15-37) Alanine Aminotransferase (ALT/SGPT) 40 U/L (14-59) Alkaline Phosphatase 84 U/L (46-116) Total Protein 6.0 g/dL (6.4-8.2) Albumin 2.8 g/dL (3.4-5.0) Test 09/13/18 07:34 09/13/18 11:25 Glucose (Fingerstick) 271 mg/dL (70-99) 431 mg/dL (70-99) Medications Current Medications Sodium Chloride 1,000 ml @ 1,000 mls/hr Q1H IV Last administered on 09/12/18 12:01; Start 09/12/18 at 11:45; Stop 09/12/18 at 12:44; Status DC Sodium Polystyrene Sulfonate (Kayexalate) 30 gm 1X ONCE PO Last administered on 09/12/18at 12:42; Start 09/12/18 at 12:30; Stop 09/12/18 at 12:31; Status DC Insulin Human Regular (HumuLIN R VIAL) 10 unit 1X ONCE IV Last administered on 09/12/18at 12:53; Start 09/12/18 at 12:30; Stop 09/12/18 at 12:31; Status DC Dextrose (Dextrose 50%-Water Syringe) 25 gm 1X ONCE IV Last administered on 12:52; Start 09/12/18 at 12:30; Stop 09/12/18 at 12:31; Status DC Sodium Bicarbonate (Sodium Bicarb Adult 8.4% Syr) 50 meq 1X ONCE IV Last administered on 09/12/18at 12:53; Start 09/12/18 at 12:30; Stop 09/12/18 at 12:31 ; Status DC Calcium Gluconate (Calcium Gluconate) 1,000 mg 1X ONCE IVP Last administered on 09/12/18 12:52; Start 09/12/18 at 12:30; Stop 09/12/18 at 12:31; Status DC Sodium Chloride 1,000 ml @ 75 mls/hr [id number] IV Last administered on at 06:13; Start 09/12/18 at 15:15 Enoxaparin Sodium (Lovenox 30mg Syringe) 30 mg Q24H SQ Last administered on 06/21at 20:47; Start 09/12/18 at 20:00 Insulin Human Lispro (HumaLOG) 0-7 UNITS TIDWMEALS SQ Last administered on 09/13at 08:49; Start 09/13/18 at 08:00 Dextrose (Dextrose 50%-Water Syringe) 12.5 gm PRN Q15MIN PRN IV SEE COMMENTS; Start 09/12/18 at 20:00; Stop 09/12/18 at 22:38; Status DC Metoprolol Tartrate (Lopressor) 50 mg BID PO ; Start 09/12/18 at 21:00 Vitamin D (Vitamin D3) 1,000 unit DAILY PO Last administered on 09/13/18at 08:38 ; Start 09/13/18 at 09:00 Insulin Human Lispro (HumaLOG) 12 units 1X ONCE SQ Last administered on at 21:44; Start 09/12/18 at 21:00; Stop 09/12/18 at 21:02; Status DC Insulin Human Lispro (HumaLOG) 0-7 UNITS TIDWMEALS SQ ; Start 09/13/18 at 08:00 Dextrose (Dextrose 50%-Water Syringe) 12.5 gm PRN Q15MIN PRN IV SEE COMMENTS; Start 09/12/18 at 22:30 Insulin Human Lispro (HumaLOG) 8 units 1X ONCE SQ Last administered on at 23:16; Start 09/12/18 at 23:15; Stop 09/12/18 at 23:16; Status DC Glipizide (Glucotrol) 10 mg DAILYAC PO Last administered on 09/13/18at 12:26; Start 09/13/18 at 11:30 Famotidine (Pepcid) 20 mg DAILY PO Last administered on 09/13/18at 12:23; Start 09/13/18 at 11:00 Atorvastatin Calcium (Lipitor) 20 mg QHS PO ; Start 09/13/18 at 21:00 Insulin Human Lispro (HumaLOG) 20 units STAT SQ ; Start 09/13/18 at 12:30 Active Scripts Active Reported Irbesartan 300 Mg Tablet 1 Tab PO DAILY Glipizide 10 Mg Tablet 10 Mg PO DAILY Zantac (Ranitidine Hcl) 150 Mg Tablet 1 Tab PO BID Atorvastatin Calcium 20 Mg Tablet 1 Tab PO DAILY Metoprolol Tartrate 50 Mg Tablet 1 Tab PO BID Spironolactone 25 Mg Tablet 1 Tab PO PRN Vitamin D (Cholecalciferol (Vitamin D3)) 1,000 Unit Capsule 1 Cap PO DAILY Vitals/I & O Vital Sign - Last 24 Hours 09/12/18 09/12/18 09/12/18 09/12/18 15:00 18:00 19:00 20:00 Temp 97.9 98.2 97.9 98.2 Pulse 57 67 Resp 18 18 B/P (MAP) 140/50 (80) 92/36 (54) Pulse Ox 99 99 O2 Delivery Room Air Room Air Room Air Room Air 09/12/18 09/13/18 09/13/18 09/13/18 23:00 03:00 07:50 08:39 Temp 98.2 98.2 97.5 98.2 98.2 97.5 Pulse 68 73 67 67 Resp 18 18 18 B/P (MAP) 104/48 (66) 95/45 (62) 115/43 (67) 115/43 Pulse Ox 97 98 99 O2 Delivery Room Air Room Air Room Air 09/13/18 11:00 Temp 98.4 98.4 Pulse 85 Resp 18 B/P (MAP) 109/49 (69) Pulse Ox 95 O2 Delivery Room Air Intake and Output 09/12/18 09/12/18 09/13/18 14:59 22:59 06:59 Intake Total 440 ml 360 ml Balance 440 ml 360 ml JULIANO MCGRATH MD Sep 13, 2018 13:57
[2018-09-13] MEDS ORDERED: INSULIN REGULAR VIAL 150 UNIT in 0.9 % SODIUM CHLORIDE 150ML 150 ML IV PRN (14:15)
[2018-09-13] MEDS ORDERED: DEXTROSE 50% 25 GM / 50ML DISP.SYRIN. IV PRN ×3 (14:15→23:15)
[2018-09-13 14:28] VITALS: BP 119/39
[2018-09-13 19:00] VITALS: BP 117/46
[2018-09-13] MEDS: ATORVASTATIN CALCIUM 20 MG TABLET PO SCH (20:56)
[2018-09-13] MEDS: ENOXAPARIN 30 MG/0.3 ML SYRINGE. SQ SCH (20:57)
[2018-09-13 23:00] VITALS: BP 127/60
[2018-09-14] VITALS (7 sets, daily range): BP systolic 106–138; BP diastolic 47–67
[2018-09-14 03:13] LABS: HEMOGLOBIN A1C 15.4 % (4.8-5.6)
[2018-09-14] MEDS: METOPROLOL TART IMMED RELEASE 50 MG TABLET. PO SCH ×2 (09:00→20:51)
[2018-09-14] MEDS: IV 1/2 NORMAL SALINE 1,000 ML IV SCH (09:15)
[2018-09-14] MEDS: CHOLECALCIFEROL (VITAMIN D3) 1,000 UNIT TABLET PO SCH (09:15)
[2018-09-14] MEDS: glipiZIDE 5 MG TABLET PO SCH (09:15)
[2018-09-14] MEDS: FAMOTIDINE 20 MG TABLET. PO SCH (09:16)
[2018-09-14] MEDS: INSULIN LISPRO 300 UNITS/3 ML INSULN.PEN. SQ SCH ×3 (09:21→17:40)
[2018-09-14 09:28] LABS: BASO % 1 % (0-3); EOS # 0.1 x10^3/uL (0.0-0.7); EOS % 1 % (0-3); HEMATOCRIT 36.4 % (36.0-47.0); HEMOGLOBIN 12.1 g/dL (12.0-15.5); LYMPH # 1.8 x10^3/uL (1.0-4.8); LYMPH % 31 % (24-48); MEAN CORPUSCULAR HEMOGLOBIN 31 pg (25-35); MEAN CORPUSCULAR HGB CONC 33 g/dL (31-37); MEAN CORPUSCULAR VOLUME 94 fL (79-100); MONO # 0.7 x10^3/uL (0.0-1.1); MONO % 12 % (0-9); NEUT # 3.2 x10^3uL (1.8-7.7); NEUT % 55 % (31-73); PLATELET COUNT 91 x10^3/uL (140-400); RED BLOOD COUNT 3.87 x10^6/uL (3.50-5.40); RED CELL DISTRIBUTION WIDTH 13.9 % (11.5-14.5); WHITE BLOOD COUNT 5.8 x10^3/uL (4.0-11.0)
[2018-09-14 10:04] LABS: ALBUMIN 2.9 g/dL (3.4-5.0); ALBUMIN/GLOBULIN RATIO 0.9 (1.0-1.7); CREATININE 2.4 mg/dL (0.6-1.0); GFR 19.8; POTASSIUM 4.7 mmol/L (3.5-5.1); TOTAL BILIRUBIN 1.5 mg/dL (0.2-1.0); TOTAL PROTEIN 6.2 g/dL (6.4-8.2)
--- NOTE | 2018-09-14 12:11 | PDOC ---
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 InciDental diverticulosis Incidental nonobstructing left upper pole kidney stone Incidental gallbladder wall thickening History of Present Illness History of Present Illness CAMPBELL seems to be stable Creatinine down to 2.4 from 2.7 from 2.9 - on IVF 75 per renal Blood sugars down to 300 from 400 or 500 Insulin drip never started - did get some pushes last night Patient would rather pay her mortgage rather than pay insulin-she is self-pay Otherwise She has no symptoms Plan: lantus 20 units twice a day now-I'm trying to minimize insulin shots as is expensive for her Start glyburide 5 twice a day Unable to start metformin because of creatinine Social work for insulin help Hgba1c if not yet done I can DC to home once my blood sugars are much better-and when okay with renal Avoid nephrotoxins Vitals Vitals Vital Signs Date Time Temp Pulse Resp B/P (MAP) Pulse Ox O2 Delivery O2 Flow Rate FiO2 09/14/18 11:00 98.7 67 18 106/67 (80) 98 Room Air 98.7 Physical Exam General: Alert, Oriented X3, Cooperative, No acute distress Heart: Regular rate Lungs: Clear, Other Abdomen: Normal bowel sounds, Soft, No tenderness Extremities: No clubbing, No cyanosis Labs LABS Laboratory Tests Test 09/13/18 14:02 09/13/18 16:46 09/13/18 20:07 09/14/18 07:22 Glucose (Fingerstick) 466 mg/dL (70-99) 369 mg/dL (70-99) 323 mg/dL (70-99) 351 mg/dL (70-99) Test 09/14/18 08:55 09/14/18 11:43 White Blood Count 5.8 x10^3/uL (4.0-11.0) Red Blood Count 3.87 x10^6/uL (3.50-5.40) Hemoglobin 12.1 g/dL (12.0-15.5) Hematocrit 36.4 % (36.0-47.0) Mean Corpuscular Volume 94 fL (79-100) Mean Corpuscular Hemoglobin 31 pg (25-35) Mean Corpuscular Hemoglobin Concent 33 g/dL (31-37) Red Cell Distribution Width 13.9 % (11.5-14.5) Platelet Count 91 x10^3/uL (140-400) Neutrophils (%) (Auto) 55 % (31-73) Lymphocytes (%) (Auto) 31 % (24-48) Monocytes (%) (Auto) 12 % (0-9) Eosinophils (%) (Auto) 1 % (0-3) Basophils (%) (Auto) 1 % (0-3) Neutrophils # (Auto) 3.2 x10^3uL (1.8-7.7) Lymphocytes # (Auto) 1.8 x10^3/uL (1.0-4.8) Monocytes # (Auto) 0.7 x10^3/uL (0.0-1.1) Eosinophils # (Auto) 0.1 x10^3/uL (0.0-0.7) Basophils # (Auto) 0.0 x10^3/uL (0.0-0.2) Sodium Level 133 mmol/L (136-145) Potassium Level 4.7 mmol/L (3.5-5.1) Chloride Level 99 mmol/L (98-107) Carbon Dioxide Level 21 mmol/L (21-32) Anion Gap 13 (6-14) Blood Urea Nitrogen 29 mg/dL (7-20) Creatinine 2.4 mg/dL (0.6-1.0) Estimated GFR (Cockcroft-Gault) 19.8 BUN/Creatinine Ratio 12 (6-20) Glucose Level 451 mg/dL (70-99) Calcium Level 9.0 mg/dL (8.5-10.1) Total Bilirubin 1.5 mg/dL (0.2-1.0) Aspartate Amino Transf (AST/SGOT) 45 U/L (15-37) Alanine Aminotransferase (ALT/SGPT) 42 U/L (14-59) Alkaline Phosphatase 89 U/L (46-116) Total Protein 6.2 g/dL (6.4-8.2) Albumin 2.9 g/dL (3.4-5.0) Albumin/Globulin Ratio 0.9 (1.0-1.7) Glucose (Fingerstick) 371 mg/dL (70-99) Review of Systems Review of Systems A 14 point ROS was completed with the following noted as positive: Other systems reviewed and negative. \CONSTITUTIONAL: No fever or chills EYES: No recent changes SKIN: No rash or itching CARDIOVASCULAR: No chest pain, syncope, palpitations, or edema RESPIRATORY: No SOB or cough GASTROINTESTINAL: No nausea, vomiting or abdominal pain NEUROLOGICAL: No headaches or weakness ENDOCRINE: No cold or heat intolerance GENITOURINARY: No urgency or frequency of urination MUSCULOSKELETAL: No back pain or joint pain LYMPHATICS: No enlarged lymph nodes PSYCHIATRIC: No anxiety or depression Assessment and Plan Assessmemt and Plan Problems Medical Problems: (1) Acute on chronic renal failure Status: Acute (2) Hyperkalemia Status: Acute Comment Review of Relevant I have reviewed the following items tiffanie (where applicable) has been applied. Labs Laboratory Tests Test 09/12/18 13:15 09/12/18 16:47 09/12/18 20:40 09/12/18 22:15 Urine Collection Type Unknown Urine Color Yellow Urine Clarity Clear Urine pH 6.0 Urine Specific [place] 1.015 Urine Protein Negative mg/dL (NEG-TRACE) Urine Glucose (UA) >=1000 mg/dL (NEG) Urine Ketones (Stick) Negative mg/dL (NEG) Urine Blood Negative (NEG) Urine Nitrite Negative (NEG) Urine Bilirubin Negative (NEG) Urine Urobilinogen Dipstick 0.2 mg/dL (0.2 mg/dL) Urine Leukocyte Esterase Negative (NEG) Urine RBC 0 /HPF (0-2) Urine WBC 0 /HPF (0-4) Urine Squamous Epithelial Cells Few /LPF Urine Bacteria 0 /HPF (0-FEW) Glucose (Fingerstick) 390 mg/dL (70-99) 540 mg/dL (70-99) Sodium Level 132 mmol/L (136-145) Potassium Level 5.0 mmol/L (3.5-5.1) Chloride Level 97 mmol/L (98-107) Carbon Dioxide Level 23 mmol/L (21-32) Anion Gap 12 (6-14) Blood Urea Nitrogen 38 mg/dL (7-20) Creatinine 2.7 mg/dL (0.6-1.0) Estimated GFR (Cockcroft-Gault) 17.3 Glucose Level 510 mg/dL (70-99) Calcium Level 8.7 mg/dL (8.5-10.1) Test 09/12/18 22:48 09/13/18 00:19 09/13/18 02:24 09/13/18 05:57 Glucose (Fingerstick) 440 mg/dL (70-99) 323 mg/dL (70-99) 213 mg/dL (70-99) 164 mg/dL (70-99) Test 09/13/18 06:53 09/13/18 07:34 09/13/18 11:25 09/13/18 14:02 White Blood Count 4.4 x10^3/uL (4.0-11.0) Red Blood Count 3.68 x10^6/uL (3.50-5.40) Hemoglobin 11.5 g/dL (12.0-15.5) Hematocrit 34.1 % (36.0-47.0) Mean Corpuscular Volume 93 fL (79-100) Mean Corpuscular Hemoglobin 31 pg (25-35) Mean Corpuscular Hemoglobin Concent 34 g/dL (31-37) Red Cell Distribution Width 13.3 % (11.5-14.5) Platelet Count 75 x10^3/uL (140-400) Neutrophils (%) (Auto) 45 % (31-73) Lymphocytes (%) (Auto) 44 % (24-48) Monocytes (%) (Auto) 9 % (0-9) Eosinophils (%) (Auto) 2 % (0-3) Basophils (%) (Auto) 1 % (0-3) Neutrophils # (Auto) 2.0 x10^3uL (1.8-7.7) Lymphocytes # (Auto) 1.9 x10^3/uL (1.0-4.8) Monocytes # (Auto) 0.4 x10^3/uL (0.0-1.1) Eosinophils # (Auto) 0.1 x10^3/uL (0.0-0.7) Basophils # (Auto) 0.0 x10^3/uL (0.0-0.2) Prothrombin Time 15.1 SEC (11.7-14.0) Prothromb Time International Ratio 1.2 (0.8-1.1) Sodium Level 133 mmol/L (136-145) Potassium Level 4.3 mmol/L (3.5-5.1) Chloride Level 99 mmol/L (98-107) Carbon Dioxide Level 20 mmol/L (21-32) Anion Gap 14 (6-14) Blood Urea Nitrogen 35 mg/dL (7-20) Creatinine 2.4 mg/dL (0.6-1.0) Estimated GFR (Cockcroft-Gault) 19.8 Glucose Level 261 mg/dL (70-99) Calcium Level 8.7 mg/dL (8.5-10.1) Phosphorus Level 3.2 mg/dL (2.6-4.7) Total Bilirubin 1.6 mg/dL (0.2-1.0) Direct Bilirubin 0.5 mg/dL (0.0-0.2) Aspartate Amino Transf (AST/SGOT) 43 U/L (15-37) Alanine Aminotransferase (ALT/SGPT) 40 U/L (14-59) Alkaline Phosphatase 84 U/L (46-116) Total Protein 6.0 g/dL (6.4-8.2) Albumin 2.8 g/dL (3.4-5.0) Glucose (Fingerstick) 271 mg/dL (70-99) 431 mg/dL (70-99) 466 mg/dL (70-99) Test 09/13/18 16:46 09/13/18 20:07 09/14/18 07:22 09/14/18 08:55 Glucose (Fingerstick) 369 mg/dL (70-99) 323 mg/dL (70-99) 351 mg/dL (70-99) White Blood Count 5.8 x10^3/uL (4.0-11.0) Red Blood Count 3.87 x10^6/uL (3.50-5.40) Hemoglobin 12.1 g/dL (12.0-15.5) Hematocrit 36.4 % (36.0-47.0) Mean Corpuscular Volume 94 fL (79-100) Mean Corpuscular Hemoglobin 31 pg (25-35) Mean Corpuscular Hemoglobin Concent 33 g/dL (31-37) Red Cell Distribution Width 13.9 % (11.5-14.5) Platelet Count 91 x10^3/uL (140-400) Neutrophils (%) (Auto) 55 % (31-73) Lymphocytes (%) (Auto) 31 % (24-48) Monocytes (%) (Auto) 12 % (0-9) Eosinophils (%) (Auto) 1 % (0-3) Basophils (%) (Auto) 1 % (0-3) Neutrophils # (Auto) 3.2 x10^3uL (1.8-7.7) Lymphocytes # (Auto) 1.8 x10^3/uL (1.0-4.8) Monocytes # (Auto) 0.7 x10^3/uL (0.0-1.1) Eosinophils # (Auto) 0.1 x10^3/uL (0.0-0.7) Basophils # (Auto) 0.0 x10^3/uL (0.0-0.2) Sodium Level 133 mmol/L (136-145) Potassium Level 4.7 mmol/L (3.5-5.1) Chloride Level 99 mmol/L (98-107) Carbon Dioxide Level 21 mmol/L (21-32) Anion Gap 13 (6-14) Blood Urea Nitrogen 29 mg/dL (7-20) Creatinine 2.4 mg/dL (0.6-1.0) Estimated GFR (Cockcroft-Gault) 19.8 BUN/Creatinine Ratio 12 (6-20) Glucose Level 451 mg/dL (70-99) Calcium Level 9.0 mg/dL (8.5-10.1) Total Bilirubin 1.5 mg/dL (0.2-1.0) Aspartate Amino Transf (AST/SGOT) 45 U/L (15-37) Alanine Aminotransferase (ALT/SGPT) 42 U/L (14-59) Alkaline Phosphatase 89 U/L (46-116) Total Protein 6.2 g/dL (6.4-8.2) Albumin 2.9 g/dL (3.4-5.0) Albumin/Globulin Ratio 0.9 (1.0-1.7) Test 09/14/18 11:43 Glucose (Fingerstick) 371 mg/dL (70-99) Laboratory Tests Test 09/13/18 14:02 09/13/18 16:46 09/13/18 20:07 09/14/18 07:22 Glucose (Fingerstick) 466 mg/dL (70-99) 369 mg/dL (70-99) 323 mg/dL (70-99) 351 mg/dL (70-99) Test 09/14/18 08:55 09/14/18 11:43 White Blood Count 5.8 x10^3/uL (4.0-11.0) Red Blood Count 3.87 x10^6/uL (3.50-5.40) Hemoglobin 12.1 g/dL (12.0-15.5) Hematocrit 36.4 % (36.0-47.0) Mean Corpuscular Volume 94 fL (79-100) Mean Corpuscular Hemoglobin 31 pg (25-35) Mean Corpuscular Hemoglobin Concent 33 g/dL (31-37) Red Cell Distribution Width 13.9 % (11.5-14.5) Platelet Count 91 x10^3/uL (140-400) Neutrophils (%) (Auto) 55 % (31-73) Lymphocytes (%) (Auto) 31 % (24-48) Monocytes (%) (Auto) 12 % (0-9) Eosinophils (%) (Auto) 1 % (0-3) Basophils (%) (Auto) 1 % (0-3) Neutrophils # (Auto) 3.2 x10^3uL (1.8-7.7) Lymphocytes # (Auto) 1.8 x10^3/uL (1.0-4.8) Monocytes # (Auto) 0.7 x10^3/uL (0.0-1.1) Eosinophils # (Auto) 0.1 x10^3/uL (0.0-0.7) Basophils # (Auto) 0.0 x10^3/uL (0.0-0.2) Sodium Level 133 mmol/L (136-145) Potassium Level 4.7 mmol/L (3.5-5.1) Chloride Level 99 mmol/L (98-107) Carbon Dioxide Level 21 mmol/L (21-32) Anion Gap 13 (6-14) Blood Urea Nitrogen 29 mg/dL (7-20) Creatinine 2.4 mg/dL (0.6-1.0) Estimated GFR (Cockcroft-Gault) 19.8 BUN/Creatinine Ratio 12 (6-20) Glucose Level 451 mg/dL (70-99) Calcium Level 9.0 mg/dL (8.5-10.1) Total Bilirubin 1.5 mg/dL (0.2-1.0) Aspartate Amino Transf (AST/SGOT) 45 U/L (15-37) Alanine Aminotransferase (ALT/SGPT) 42 U/L (14-59) Alkaline Phosphatase 89 U/L (46-116) Total Protein 6.2 g/dL (6.4-8.2) Albumin 2.9 g/dL (3.4-5.0) Albumin/Globulin Ratio 0.9 (1.0-1.7) Glucose (Fingerstick) 371 mg/dL (70-99) Medications Current Medications Sodium Chloride 1,000 ml @ 1,000 mls/hr Q1H IV Last administered on 09/12/18 12:01; Start 09/12/18 at 11:45; Stop 09/12/18 at 12:44; Status DC Sodium Polystyrene Sulfonate (Kayexalate) 30 gm 1X ONCE PO Last administered on 09/12/18at 12:42; Start 09/12/18 at 12:30; Stop 09/12/18 at 12:31; Status DC Insulin Human Regular (HumuLIN R VIAL) 10 unit 1X ONCE IV Last administered on 09/12/18 12:53; Start 09/12/18 at 12:30; Stop 09/12/18 at 12:31; Status DC Dextrose (Dextrose 50%-Water Syringe) 25 gm 1X ONCE IV Last administered on 12:52; Start 09/12/18 at 12:30; Stop 09/12/18 at 12:31; Status DC Sodium Bicarbonate (Sodium Bicarb Adult 8.4% Syr) 50 meq 1X ONCE IV Last administered on 09/12/18 12:53; Start 09/12/18 at 12:30; Stop 09/12/18 at 12:31 ; Status DC Calcium Gluconate (Calcium Gluconate) 1,000 mg 1X ONCE IVP Last administered on 09/12/18 12:52; Start 09/12/18 at 12:30; Stop 09/12/18 at 12:31; Status DC Sodium Chloride 1,000 ml @ 75 mls/hr [id number] IV Last administered on at 09:15; Start 09/12/18 at 15:15 Enoxaparin Sodium (Lovenox 30mg Syringe) 30 mg Q24H SQ Last administered on 20:57; Start 09/12/18 at 20:00 Insulin Human Lispro (HumaLOG) 0-7 UNITS TIDWMEALS SQ Last administered on 09/13 08:49; Start 09/13/18 at 08:00; Stop 09/13/18 at 14:07; Status DC Dextrose (Dextrose 50%-Water Syringe) 12.5 gm PRN Q15MIN PRN IV SEE COMMENTS; Start 09/12/18 at 20:00; Stop 09/12/18 at 22:38; Status DC Metoprolol Tartrate (Lopressor) 50 mg BID PO Last administered on 09/13/18 20: 57; Start 09/12/18 at 21:00 Vitamin D (Vitamin D3) 1,000 unit DAILY PO Last administered on 09/14/18 09:15 ; Start 09/13/18 at 09:00 Insulin Human Lispro (HumaLOG) 12 units 1X ONCE SQ Last administered on at 21:44; Start 09/12/18 at 21:00; Stop 09/12/18 at 21:02; Status DC Insulin Human Lispro (HumaLOG) 0-7 UNITS TIDWMEALS SQ ; Start 09/13/18 at 08:00 ; Stop 09/13/18 at 21:12; Status DC Dextrose (Dextrose 50%-Water Syringe) 12.5 gm PRN Q15MIN PRN IV SEE COMMENTS; Start 09/12/18 at 22:30; Stop 09/13/18 at 23:07; Status DC Insulin Human Lispro (HumaLOG) 8 units 1X ONCE SQ Last administered on at 23:16; Start 09/12/18 at 23:15; Stop 09/12/18 at 23:16; Status DC Glipizide (Glucotrol) 10 mg DAILYAC PO Last administered on 09/14/18 09:15; Start 09/13/18 at 11:30 Famotidine (Pepcid) 20 mg DAILY PO Last administered on 09/14/18 09:16; Start 09/13/18 at 11:00 Atorvastatin Calcium (Lipitor) 20 mg QHS PO Last administered on 09/13/18 20: 56; Start 09/13/18 at 21:00 Insulin Human Lispro (HumaLOG) 20 units STAT SQ ; Start 09/13/18 at 12:30 Insulin Human Lispro (HumaLOG) 0-9 UNITS TIDWMEALS SQ Last administered on 09/13at 17:43; Start 09/13/18 at 17:00; Stop 09/13/18 at 23:01; Status DC Dextrose (Dextrose 50%-Water Syringe) 12.5 gm PRN Q15MIN PRN IV SEE COMMENTS; Start 09/13/18 at 14:15; Stop 09/13/18 at 14:15; Status DC Insulin Human Regular 150 unit/ Sodium Chloride 151.5 ml @ 0 mls/hr CONT PRN IV SEE I/O RECORD; Start 09/13/18 at 14:15 Dextrose (Dextrose 50%-Water Syringe) 12.5 gm PRN Q15MIN PRN IV LOW BLOOD SUGAR ; Start 09/13/18 at 14:15; Stop 09/13/18 at 23:07; Status DC Insulin Human Lispro (HumaLOG) 0-9 UNITS QID SQ ; Start 09/13/18 at 23:15; Status UNV Insulin Human Lispro (HumaLOG) 0-9 UNITS QIDACHS SQ Last administered on at 09:21; Start 09/13/18 at 23:30 Dextrose (Dextrose 50%-Water Syringe) 12.5 gm PRN Q15MIN PRN IV SEE COMMENTS; Start 09/13/18 at 23:15 Active Scripts Active Reported Irbesartan 300 Mg Tablet 1 Tab PO DAILY Glipizide 10 Mg Tablet 10 Mg PO DAILY Zantac (Ranitidine Hcl) 150 Mg Tablet 1 Tab PO BID Atorvastatin Calcium 20 Mg Tablet 1 Tab PO DAILY Metoprolol Tartrate 50 Mg Tablet 1 Tab PO BID Spironolactone 25 Mg Tablet 1 Tab PO PRN Vitamin D (Cholecalciferol (Vitamin D3)) 1,000 Unit Capsule 1 Cap PO DAILY Vitals/I & O Vital Sign - Last 24 Hours 09/13/18 09/13/18 09/13/18 09/13/18 14:28 19:00 20:00 20:57 Temp 98.5 98.3 98.5 98.3 Pulse 87 76 78 Resp 18 20 B/P (MAP) 119/39 (65) 117/46 (69) 120/54 Pulse Ox 97 97 O2 Delivery Room Air Room Air Room Air 09/13/18 09/14/18 09/14/18 09/14/18 23:00 03:31 07:00 08:00 Temp 98.5 98.6 98.6 98.5 98.6 98.6 Pulse 71 65 65 Resp 20 20 18 B/P (MAP) 127/60 (82) 116/51 (72) 138/47 (77) Pulse Ox 96 95 96 O2 Delivery Room Air Room Air Room Air Room Air 09/14/18 09/14/18 09:00 11:00 Temp 98.7 98.7 Pulse 65 67 Resp 18 B/P (MAP) 138/47 106/67 (80) Pulse Ox 98 O2 Delivery Room Air Intake and Output 09/13/18 09/13/18 09/14/18 14:59 22:59 06:59 Intake Total 240 ml 530 ml Balance 240 ml 530 ml JULIANO MCGRATH MD Sep 14, 2018 12:11
--- NOTE | 2018-09-14 12:23 | PDOC ---
Renal-Progress Notes Subjective Notes Notes FEELS WELL History of Present Illness Hx of present illness BETTER Vitals Vitals Vital Signs Date Time Temp Pulse Resp B/P (MAP) Pulse Ox O2 Delivery O2 Flow Rate FiO2 09/14/18 12:17 98.7 67 106/67 (80) 98 Room Air 98.7 09/14/18 11:00 18 Weight Weight [ ] I.O. Intake and Output Intake and Output 09/14/18 07:00 Intake Total 770 ml Balance 770 ml Intake Oral 770 ml # Voids 5 Labs Labs Laboratory Tests Test 09/13/18 14:02 09/13/18 16:46 09/13/18 20:07 09/14/18 07:22 Glucose (Fingerstick) 466 mg/dL (70-99) 369 mg/dL (70-99) 323 mg/dL (70-99) 351 mg/dL (70-99) Test 09/14/18 08:55 09/14/18 11:43 White Blood Count 5.8 x10^3/uL (4.0-11.0) Red Blood Count 3.87 x10^6/uL (3.50-5.40) Hemoglobin 12.1 g/dL (12.0-15.5) Hematocrit 36.4 % (36.0-47.0) Mean Corpuscular Volume 94 fL (79-100) Mean Corpuscular Hemoglobin 31 pg (25-35) Mean Corpuscular Hemoglobin Concent 33 g/dL (31-37) Red Cell Distribution Width 13.9 % (11.5-14.5) Platelet Count 91 x10^3/uL (140-400) Neutrophils (%) (Auto) 55 % (31-73) Lymphocytes (%) (Auto) 31 % (24-48) Monocytes (%) (Auto) 12 % (0-9) Eosinophils (%) (Auto) 1 % (0-3) Basophils (%) (Auto) 1 % (0-3) Neutrophils # (Auto) 3.2 x10^3uL (1.8-7.7) Lymphocytes # (Auto) 1.8 x10^3/uL (1.0-4.8) Monocytes # (Auto) 0.7 x10^3/uL (0.0-1.1) Eosinophils # (Auto) 0.1 x10^3/uL (0.0-0.7) Basophils # (Auto) 0.0 x10^3/uL (0.0-0.2) Sodium Level 133 mmol/L (136-145) Potassium Level 4.7 mmol/L (3.5-5.1) Chloride Level 99 mmol/L (98-107) Carbon Dioxide Level 21 mmol/L (21-32) Anion Gap 13 (6-14) Blood Urea Nitrogen 29 mg/dL (7-20) Creatinine 2.4 mg/dL (0.6-1.0) Estimated GFR (Cockcroft-Gault) 19.8 BUN/Creatinine Ratio 12 (6-20) Glucose Level 451 mg/dL (70-99) Calcium Level 9.0 mg/dL (8.5-10.1) Total Bilirubin 1.5 mg/dL (0.2-1.0) Aspartate Amino Transf (AST/SGOT) 45 U/L (15-37) Alanine Aminotransferase (ALT/SGPT) 42 U/L (14-59) Alkaline Phosphatase 89 U/L (46-116) Total Protein 6.2 g/dL (6.4-8.2) Albumin 2.9 g/dL (3.4-5.0) Albumin/Globulin Ratio 0.9 (1.0-1.7) Glucose (Fingerstick) 371 mg/dL (70-99) Review of Systems Constitutional: yes: weakness, alert, oriented Ears/Nose/Throat: Yes: no symptom reported Eyes: Yes: no symptom reported Pulmonary: Yes no symptom reported Cardiovascular: Yes no symptom reported Gastrointestional: Yes: no symptom reported Genitourinary: Yes: no symptom reported Musculoskeletal: Yes: no symptom reported Skin: Yes no symptom reported Psychiatric/Neurological: Yes: no symptom reported Physical Exam General Appearance: no apparent distress Skin: warm Respiratory: bilateral CTA Heart: S1S2 Abdomen: soft, bowel sounds present Extremities: pulses present Neurology: alert Musculoskeletal: Osteoarthritis Assessment Assessment IMP JIM BETTER WITH CR DOWN TO 2.4 CKD STAGE 4 WITH CR OF ABOUT 2.0 DEHYDRATION HYPERGLYCEMIA POORLY CONTROLLED DM II HYPERKALEMIA MET ACIDOSIS LIVER CIRRHOSIS PLAN HOLD ARB HOLD ALDACTONE HYDRATION RENAL SONOGRAM NEG FOR ANY ACUTE FINDINGS OK TO D/C FROM RENAL STANDPOINT IZA FELIX MD Sep 14, 2018 12:23
[2018-09-14] MEDS ORDERED: INSULIN GLARGINE 300 UNITS/3 ML INSULN.PEN. SQ SCH (12:30)
--- NOTE | 2018-09-14 12:47 | PDOC ---
Subjective: Subjective: Would like some help opening her Ranch packet. Objective: Vital Signs: Vital Signs Date Time Temp Pulse Resp B/P (MAP) Pulse Ox O2 Delivery O2 Flow Rate FiO2 09/14/18 12:17 98.7 67 106/67 (80) 98 Room Air 98.7 09/14/18 11:00 18 Labs: Laboratory Tests Test 09/13/18 14:02 09/13/18 16:46 09/13/18 20:07 09/14/18 07:22 Glucose (Fingerstick) 466 mg/dL 369 mg/dL 323 mg/dL 351 mg/dL Test 09/14/18 08:55 09/14/18 11:43 White Blood Count 5.8 x10^3/uL Red Blood Count 3.87 x10^6/uL Hemoglobin 12.1 g/dL Hematocrit 36.4 % Mean Corpuscular Volume 94 fL Mean Corpuscular Hemoglobin 31 pg Mean Corpuscular Hemoglobin Concent 33 g/dL Red Cell Distribution Width 13.9 % Platelet Count 91 x10^3/uL Neutrophils (%) (Auto) 55 % Lymphocytes (%) (Auto) 31 % Monocytes (%) (Auto) 12 % Eosinophils (%) (Auto) 1 % Basophils (%) (Auto) 1 % Neutrophils # (Auto) 3.2 x10^3uL Lymphocytes # (Auto) 1.8 x10^3/uL Monocytes # (Auto) 0.7 x10^3/uL Eosinophils # (Auto) 0.1 x10^3/uL Basophils # (Auto) 0.0 x10^3/uL Sodium Level 133 mmol/L Potassium Level 4.7 mmol/L Chloride Level 99 mmol/L Carbon Dioxide Level 21 mmol/L Anion Gap 13 Blood Urea Nitrogen 29 mg/dL Creatinine 2.4 mg/dL Estimated GFR (Cockcroft-Gault) 19.8 BUN/Creatinine Ratio 12 Glucose Level 451 mg/dL Calcium Level 9.0 mg/dL Total Bilirubin 1.5 mg/dL Aspartate Amino Transf (AST/SGOT) 45 U/L Alanine Aminotransferase (ALT/SGPT) 42 U/L Alkaline Phosphatase 89 U/L Total Protein 6.2 g/dL Albumin 2.9 g/dL Albumin/Globulin Ratio 0.9 Glucose (Fingerstick) 371 mg/dL PE: GEN: NAD - dressed, eating lunch LUNGS: room air ABD: S/ND/NT NEURO/PSYCH: A & O 3 A/P: CKD, DM, cirrhosis -- Renal following - spironolactone held. SAUD MCDONALD Sep 14, 2018 12:47
--- NOTE | 2018-09-14 15:47 | NUR ---
SW consulted to assist with Insulin. Pt is insured and does not qualify to get services at [facility]. SW provided pt with [employer] services, [employer] and Rx assistance cards. Pt reported she lives at home with spouse and lives off of social security benefits. Pt reported she is struggling to afford her Insulin. SW provided pt with various pt assistance programs informations as well. Pt accepted resources and verbalized understanding. No other dc needs noted at this time. Discussed with Physician.
[2018-09-14] MEDS ORDERED: glyBURIDE 5 MG TABLET PO SCH (17:00)
[2018-09-14] MEDS ORDERED: INSULIN LISPRO 300 UNITS/3 ML INSULN.PEN. SQ ONE (18:15)
[2018-09-14] MEDS: ATORVASTATIN CALCIUM 20 MG TABLET PO SCH (20:52)
[2018-09-14] MEDS: ENOXAPARIN 30 MG/0.3 ML SYRINGE. SQ SCH (20:54)
[2018-09-14] MEDS: INSULIN GLARGINE 300 UNITS/3 ML INSULN.PEN. SQ SCH (20:58)
[2018-09-15] MEDS: IV 1/2 NORMAL SALINE 1,000 ML IV SCH (01:48)
[2018-09-15 03:00] VITALS: BP 100/41
[2018-09-15 05:14] LABS: CALCIUM 8.8 mg/dL (8.5-10.1); CREATININE 2.4 mg/dL (0.6-1.0); GFR 19.8; POTASSIUM 4.4 mmol/L (3.5-5.1)
[2018-09-15 07:00] VITALS: BP 111/47
[2018-09-15] MEDS ORDERED: INSULIN LISPRO 300 UNITS/3 ML INSULN.PEN. SQ SCH ×2 (08:00→12:00)
[2018-09-15] MEDS: CHOLECALCIFEROL (VITAMIN D3) 1,000 UNIT TABLET PO SCH (08:17)
[2018-09-15] MEDS: FAMOTIDINE 20 MG TABLET. PO SCH (08:17)
[2018-09-15 08:18] VITALS: BP 100/41
[2018-09-15] MEDS: METOPROLOL TART IMMED RELEASE 50 MG TABLET. PO SCH (08:18)
[2018-09-15] MEDS: INSULIN GLARGINE 300 UNITS/3 ML INSULN.PEN. SQ SCH (08:21)
[2018-09-15] MEDS ORDERED: INSU100I11 SQ (10:00)
[2018-09-15] MEDS ORDERED: INSU100I13 SQ (10:00)
--- NOTE | 2018-09-15 10:02 | SNU/HH DC ---
DISCHARGE WITH HOME HEALTH DISCHARGE INFORMATION: Discharge Date: Sep 15, 2018 Final Diagnosis: Problems Medical Problems: (1) Acute on chronic renal failure Status: Acute (2) Hyperkalemia Status: Acute Condition on Discharge: Stable CODE STATUS: Code Status: Full HOME HEALTH: Face to Face: I certify this patient is under my care and that I, or a nurse practitioner or physician's custody assistant working with me, had a face to face encounter that meets the physician face to face encounter requirements with this patient on 09/15 Medical Complications: DM, Other (renal failure, hyperkalemia, hyperglycemia, non-compliance with DM meds) POST DISCHARGE ORDERS: Activity Instructions for Disc: Other, see below Weight Bearing Status after Di: No restrictions DIET AFTER DISCHARGE: ADA Wound/Incision Care: Ice to area for comfort CHECKS AFTER DISCHARGE: Checks after discharge: Check blood sugar, ac/hs FOLLOW-UP: Follow up with: primary care 1 week CERTIFICATION STATEMENT: Certification Statement: Certification Statement: Based on the above finding, I certify that this patient is confined to the home and needs intermittent group home care, physical therapy and/or speech therapy, or continues to need occupational therapy.~ This patient is under my care, and I have initiated the establishment of the plan of care.~ This patient will be followed by myself or a community physician who will periodically review the plan of care. Home Meds Active Scripts Azithromycin (AZITHROMYCIN TABLET) 250 Mg Tablet, 250 MG PO DAILY for sinusitis for 6 Days, #6 TAB 0 Refills Prov:EMRE PORTER MD 09/15/18 Glipizide (GLIPIZIDE ER) 5 Mg Tab.er.24, 1 TAB PO DAILY for diabetes, #30 TAB 1 Refill Prov:EMRE PORTER MD 09/15/18 Insulin Lispro (HUMALOG) 100 Unit/1 Ml Insuln.pen, 20 UNITS SQ TIDWMEALS for diabetes for 30 Days, EACH 1 Refill Prov:EMRE PORTER MD 09/15/18 Insulin Glargine,Hum.rec.anlog (LANTUS SOLOSTAR) 100 Unit/1 Ml Insuln.pen, 33 UNITS SQ BID for diabetes for 30 Days, EACH Prov:EMRE PORTER MD 09/15/18 Reported Medications Irbesartan (IRBESARTAN) 300 Mg Tablet, 1 TAB PO DAILY for HTN , #30 TAB 5 Refills 09/12/18 Ranitidine Hcl (ZANTAC) 150 Mg Tablet, 1 TAB PO BID for GERD, #60 TAB 2 Refills 09/12/18 Atorvastatin Calcium (ATORVASTATIN CALCIUM) 20 Mg Tablet, 1 TAB PO DAILY, #30 TAB 5 Refills 10/04/17 Metoprolol Tartrate (METOPROLOL TARTRATE) 50 Mg Tablet, 1 TAB PO BID, #60 TAB 5 Refills 10/04/17 Cholecalciferol (Vitamin D3) (VITAMIN D) 1,000 Unit Capsule, 1 CAP PO DAILY, # 30 CAP 3 Refills 10/04/17 Discontinued Reported Medications Glipizide (GLIPIZIDE) 10 Mg Tablet, 10 MG PO DAILY for DM II , TAB 09/12/18 Spironolactone (SPIRONOLACTONE) 25 Mg Tablet, 1 TAB PO PRN, #90 TAB 1 Refill 10/04/17 Albuterol Sulfate (VENTOLIN HFA INHALER) 18 Gm Hfa.aer.ad, 2 PUFF INH PRN Q4HRS , INHALER 0 Refills 10/04/17 Valsartan (DIOVAN) 320 Mg Tablet, 320 MG PO DAILY, TAB 10/04/17 Insulin Glargine,Hum.rec.anlog (LANTUS SOLOSTAR) 100 Unit/1 Ml Insuln.pen, 60 UNIT SQ QHS, #15 ML 3 Refills 10/04/17 Pantoprazole Sodium (PANTOPRAZOLE SODIUM) 40 Mg Tablet., 1 TAB PO DAILY, #30 TAB 3 Refills 11/04/16 EMRE PORTER MD Sep 15, 2018 10:02
--- NOTE | 2018-09-15 10:27 | PDOC3 ---
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 InciDental diverticulosis Incidental nonobstructing left upper pole kidney stone Incidental gallbladder wall thickening History of Present Illness History of Present Illness COTNRERAS seems to be stable Creatinine down to 2.4 from 2.7 from 2.9 - on IVF 75 per renal Blood sugars down to 300 from 400 or 500 Insulin drip never started - did get some pushes last night Patient would rather pay her mortgage rather than pay insulin-she is self-pay Problems Medical Problems: (1) Acute on chronic renal failure Status: Acute (2) Hyperkalemia Status: Acute Brief Hospital Course Allergies Allergies Coded Allergies Type Severity Reaction Last Updated Verified NSAIDS (Non-Steroidal Anti-Inflamma Adverse Reaction Intermediate CAUSES GI BLEEDING 10/04/17 Yes Sulfa (Sulfonamide Antibiotics) Adverse Reaction Intermediate Nausea and Vomiting 10/04/17 Yes amoxicillin Adverse Reaction Intermediate vomiting and diarrhea 11/09/16 Yes aspirin Adverse Reaction Intermediate CAUSES GI BLEEDING 10/04/17 Yes clavulanic acid Adverse Reaction Intermediate vomiting and diarrhea 11/09/16 Yes naproxen Adverse Reaction Intermediate "internal bleeding" 11/09/16 Yes Vital Signs Vital Signs Date Time Temp Pulse Resp B/P (MAP) Pulse Ox O2 Delivery O2 Flow Rate FiO2 09/15/18 08:18 62 100/41 09/15/18 08:00 Room Air 09/15/18 07:00 98.5 18 96 98.5 Lab Results Laboratory Tests Test 09/13/18 11:25 09/13/18 14:02 09/13/18 16:46 09/13/18 20:07 Glucose (Fingerstick) 431 mg/dL (70-99) 466 mg/dL (70-99) 369 mg/dL (70-99) 323 mg/dL (70-99) Test 09/14/18 07:22 09/14/18 08:55 09/14/18 11:43 09/14/18 16:43 Glucose (Fingerstick) 351 mg/dL (70-99) 371 mg/dL (70-99) 355 mg/dL (70-99) White Blood Count 5.8 x10^3/uL (4.0-11.0) Red Blood Count 3.87 x10^6/uL (3.50-5.40) Hemoglobin 12.1 g/dL (12.0-15.5) Hematocrit 36.4 % (36.0-47.0) Mean Corpuscular Volume 94 fL (79-100) Mean Corpuscular Hemoglobin 31 pg (25-35) Mean Corpuscular Hemoglobin Concent 33 g/dL (31-37) Red Cell Distribution Width 13.9 % (11.5-14.5) Platelet Count 91 x10^3/uL (140-400) Neutrophils (%) (Auto) 55 % (31-73) Lymphocytes (%) (Auto) 31 % (24-48) Monocytes (%) (Auto) 12 % (0-9) Eosinophils (%) (Auto) 1 % (0-3) Basophils (%) (Auto) 1 % (0-3) Neutrophils # (Auto) 3.2 x10^3uL (1.8-7.7) Lymphocytes # (Auto) 1.8 x10^3/uL (1.0-4.8) Monocytes # (Auto) 0.7 x10^3/uL (0.0-1.1) Eosinophils # (Auto) 0.1 x10^3/uL (0.0-0.7) Basophils # (Auto) 0.0 x10^3/uL (0.0-0.2) Sodium Level 133 mmol/L (136-145) Potassium Level 4.7 mmol/L (3.5-5.1) Chloride Level 99 mmol/L (98-107) Carbon Dioxide Level 21 mmol/L (21-32) Anion Gap 13 (6-14) Blood Urea Nitrogen 29 mg/dL (7-20) Creatinine 2.4 mg/dL (0.6-1.0) Estimated GFR (Cockcroft-Gault) 19.8 BUN/Creatinine Ratio 12 (6-20) Glucose Level 451 mg/dL (70-99) Calcium Level 9.0 mg/dL (8.5-10.1) Total Bilirubin 1.5 mg/dL (0.2-1.0) Aspartate Amino Transf (AST/SGOT) 45 U/L (15-37) Alanine Aminotransferase (ALT/SGPT) 42 U/L (14-59) Alkaline Phosphatase 89 U/L (46-116) Total Protein 6.2 g/dL (6.4-8.2) Albumin 2.9 g/dL (3.4-5.0) Albumin/Globulin Ratio 0.9 (1.0-1.7) Test 09/14/18 20:42 09/15/18 04:00 09/15/18 08:16 Glucose (Fingerstick) 364 mg/dL (70-99) 339 mg/dL (70-99) Sodium Level 137 mmol/L (136-145) Potassium Level 4.4 mmol/L (3.5-5.1) Chloride Level 104 mmol/L (98-107) Carbon Dioxide Level 20 mmol/L (21-32) Anion Gap 13 (6-14) Blood Urea Nitrogen 28 mg/dL (7-20) Creatinine 2.4 mg/dL (0.6-1.0) Estimated GFR (Cockcroft-Gault) 19.8 Glucose Level 180 mg/dL (70-99) Calcium Level 8.8 mg/dL (8.5-10.1) Laboratory Tests Test 09/14/18 11:43 09/14/18 16:43 09/14/18 20:42 09/15/18 04:00 Glucose (Fingerstick) 371 mg/dL (70-99) 355 mg/dL (70-99) 364 mg/dL (70-99) Sodium Level 137 mmol/L (136-145) Potassium Level 4.4 mmol/L (3.5-5.1) Chloride Level 104 mmol/L (98-107) Carbon Dioxide Level 20 mmol/L (21-32) Anion Gap 13 (6-14) Blood Urea Nitrogen 28 mg/dL (7-20) Creatinine 2.4 mg/dL (0.6-1.0) Estimated GFR (Cockcroft-Gault) 19.8 Glucose Level 180 mg/dL (70-99) Calcium Level 8.8 mg/dL (8.5-10.1) Test 09/15/18 08:16 Glucose (Fingerstick) 339 mg/dL (70-99) Brief Hospital Course Ms. Eaton is a 73 old admit for renal failure and hyperglycemia Plan: lantus 33 units twice a day no Start glyburide 5 a day Unable to start metformin because of creatinine Social work for insulin help Hgba1c 15.4!! i discussed need for blood sugar control, she says she cannot afford meds Discharge Information Condition at Discharge: Improved Follow Up: Weeks Disposition/Orders: D/C to Home w/ HH Scheduled Atorvastatin Calcium (Atorvastatin Calcium) 20 Mg Tablet, 1 TAB PO DAILY, #30 Ref 5 (Reported) Entered as Reported by: GERALD JOHNSON on 10/04/17 1500 Last Action: Continued on 09/13/18 1036 by JULIANO MCGRATH Azithromycin (Azithromycin Tablet) 250 Mg Tablet, 250 MG PO DAILY for sinusitis for 6 Days, #6 Ref 0 Prescribed by: EMRE PORTER on 09/15/18 1030 Cholecalciferol (Vitamin D3) (Vitamin D) 1,000 Unit Capsule, 1 CAP PO DAILY, # 30 Ref 3 (Reported) Entered as Reported by: GERALD JOHNSON on 10/04/17 1458 Last Action: Converted on 09/12/181999 by ELISA CASTELAN MD Glipizide (Glipizide Er) 5 Mg Tab.er.24, 1 TAB PO DAILY for diabetes, #30 Ref 1 Prescribed by: EMRE PORTER on 09/15/18 1028 Insulin Glargine,Hum.rec.anlog (Lantus Solostar) 100 Unit/1 Ml Insuln.pen, 33 UNITS SQ BID for diabetes for 30 Days Prescribed by: EMRE PORTER on 09/15/18 1000 Insulin Lispro (Humalog) 100 Unit/1 Ml Insuln.pen, 20 UNITS SQ TIDWMEALS for diabetes for 30 Days, Ref 1 Prescribed by: EMRE PORTER on 09/15/18 1000 Irbesartan (Irbesartan) 300 Mg Tablet, 1 TAB PO DAILY for HTN , #30 Ref 5 ( Reported) Entered as Reported by: DUNIA ROMERO on 09/12/18 1446 Last Taken: UNKNOWN on Unknown Date & Time Last Action: HELD on 09/13/18 103 by JULIANO MCGRATH Metoprolol Tartrate (Metoprolol Tartrate) 50 Mg Tablet, 1 TAB PO BID, #60 Ref 5 (Reported) Entered as Reported by: GERALD JOHNSON on 10/04/17 1459 Last Action: Continued on 09/12/181999 by ELISA CASTELAN MD Ranitidine Hcl (Zantac) 150 Mg Tablet, 1 TAB PO BID for GERD, #60 Ref 2 ( Reported) Entered as Reported by: DUNIA ROMERO on 09/12/18 1446 Last Taken: UNKNOWN on Unknown Date & Time Last Action: Converted on 09/13 1027 by JULIANO MCGRATH Discontinued Medications Albuterol Sulfate (Ventolin Hfa Inhaler) 18 Gm Hfa.aer.ad, 2 PUFF INH PRN Q4HRS , Ref 0 (Reported) Entered as Reported by: GERALD JOHNSON on 10/04/17 1500 Last Action: Discontinued on 09/12/18 1446 by DUNIA ROMERO Glipizide (Glipizide) 10 Mg Tablet, 10 MG PO DAILY for DM II , (Reported) Entered as Reported by: DUNIA ROMERO on 09/12/18 144 Last Taken: UNKNOWN on Unknown Date & Time Last Action: Converted on 09/13 1027 by JULIANO MCGRATH Insulin Glargine,Hum.rec.anlog (Lantus Solostar) 100 Unit/1 Ml Insuln.pen, 60 UNIT SQ QHS, #15 Ref 3 (Reported) Entered as Reported by: GERALD JOHNSON on 10/04/17 1458 Last Action: Discontinued on 09/12/181445 by DUNIA ROMERO Pantoprazole Sodium (Pantoprazole Sodium) 40 Mg Tablet.dr, 1 TAB PO DAILY, #30 Ref 3 (Reported) Entered as Reported by: Idania Smith on 11/04/16 1050 Last Action: Discontinued on 09/12/181445 by DUNIA ROMERO Spironolactone (Spironolactone) 25 Mg Tablet, 1 TAB PO PRN, #90 Ref 1 (Reported) Entered as Reported by: GERALD JOHNSON on 10/04/17 1459 Last Action: HELD on 09/13/18 1036 by JULIANO MCGRATH Valsartan (Diovan) 320 Mg Tablet, 320 MG PO DAILY, (Reported) Entered as Reported by: GERALD JOHNSON on 10/04/17 1458 Last Action: Discontinued on 09/12/18 144 by DUNIA ROMERO Patient Instructions Patient Instructions after DC ordered, she came out and asked for abx for sinus infection, azithro 250 daily for 6 days will f/u with Renal, Dr. Carreon hold aldactone for renal failure EMRE PORTER MD Sep 15, 2018 10:27
[2018-09-15] MEDS ORDERED: GLIP5TAB22 PO (10:28)
[2018-09-15] MEDS ORDERED: AZIT250T6 PO (10:30)
--- NOTE | 2018-09-15 11:04 | PDOC ---
Renal-Progress Notes Subjective Notes Notes FEELS WELL History of Present Illness Hx of present illness STABLE Vitals Vitals Vital Signs Date Time Temp Pulse Resp B/P (MAP) Pulse Ox O2 Delivery O2 Flow Rate FiO2 09/15/18 08:18 62 100/41 09/15/18 08:00 Room Air 09/15/18 07:00 98.5 18 96 98.5 Weight Weight [ ] I.O. Intake and Output Intake and Output 09/15/18 06:59 Intake Total 850 ml Balance 850 ml Intake Oral 850 ml # Voids 7 Labs Labs Laboratory Tests Test 09/14/18 11:43 09/14/18 16:43 09/14/18 20:42 09/15/18 04:00 Glucose (Fingerstick) 371 mg/dL (70-99) 355 mg/dL (70-99) 364 mg/dL (70-99) Sodium Level 137 mmol/L (136-145) Potassium Level 4.4 mmol/L (3.5-5.1) Chloride Level 104 mmol/L (98-107) Carbon Dioxide Level 20 mmol/L (21-32) Anion Gap 13 (6-14) Blood Urea Nitrogen 28 mg/dL (7-20) Creatinine 2.4 mg/dL (0.6-1.0) Estimated GFR (Cockcroft-Gault) 19.8 Glucose Level 180 mg/dL (70-99) Calcium Level 8.8 mg/dL (8.5-10.1) Test 09/15/18 08:16 Glucose (Fingerstick) 339 mg/dL (70-99) Review of Systems Constitutional: yes: weakness, alert, oriented Ears/Nose/Throat: Yes: no symptom reported Eyes: Yes: no symptom reported Pulmonary: Yes no symptom reported Cardiovascular: Yes no symptom reported Gastrointestional: Yes: no symptom reported Genitourinary: Yes: no symptom reported Musculoskeletal: Yes: no symptom reported Skin: Yes no symptom reported Psychiatric/Neurological: Yes: no symptom reported Physical Exam General Appearance: no apparent distress Skin: warm Respiratory: bilateral CTA Heart: S1S2 Abdomen: soft, bowel sounds present Extremities: pulses present Neurology: alert Musculoskeletal: Osteoarthritis Assessment Assessment IMP JIM RESOLVED. SUSPECT CR NOW AT BASELINE CKD STAGE 4 WITH CR OF ABOUT 2.0 DEHYDRATION HYPERGLYCEMIA POORLY CONTROLLED DM II HYPERKALEMIA-RESOLVED MET ACIDOSIS-RESOLVED LIVER CIRRHOSIS PLAN PT TO D/C TODAY HAVE ASKED HER TO FOLLOW UP WITH ME IN OFFICE ALDACTONE TO BE HELD D/W ATTENDING IZA FELIX MD Sep 15, 2018 11:04
--- NOTE | 2018-09-15 11:43 | NUR ---
Discharge Note: DESI GUAMAN EAGLE Discharge instructions and discharge home medications reviewed with Patient and a copy given. All questions have been answered and understanding verbalized. The following instructions and handouts were given: Hyperglycemia, Diabetes Meal Planning Discontinued lines and drains: Peripheral IV intact. Patient discharged to Home or Self Care with[facility] [place] [facility] Walked to front door by Celestina Martin RN
[2018-09-15] MEDS ORDERED: INSULIN GLARGINE 300 UNITS/3 ML INSULN.PEN. SQ SCH (21:00)
== END 2018-09-15 11:57 | disposition home health service (06) | DRG 682 ==
LOC: ER 10:52 → 5 NORTH 12:40
PROVIDERS: ADMIT Family Medicine; ATTEND Family Medicine
DX: N17.0 Acute kidney failure with tubular necrosis (principal); E11.00 Type 2 diabetes mellitus with hyperosmolarity without nonketotic hyperglycemic-hyperosmolar coma (NKHHC); E87.1 Hypo-osmolality and hyponatremia; E87.2 Acidosis; K76.6 Portal hypertension; E11.65 Type 2 diabetes mellitus with hyperglycemia; E11.22 Type 2 diabetes mellitus with diabetic chronic kidney disease; E86.0 Dehydration; E87.5 Hyperkalemia; K57.30 Diverticulosis of large intestine without perforation or abscess without bleeding; K74.60 Unspecified cirrhosis of liver; N13.2 Hydronephrosis with renal and ureteral calculous obstruction; R16.1 Splenomegaly, not elsewhere classified; N18.4 Chronic kidney disease, stage 4 (severe); M19.90 Unspecified osteoarthritis, unspecified site; E78.00 Pure hypercholesterolemia, unspecified; E78.5 Hyperlipidemia, unspecified; I12.9 Hypertensive chronic kidney disease with stage 1 through stage 4 chronic kidney disease, or unspecified chronic kidney disease; K21.9 Gastro-esophageal reflux disease without esophagitis; Z82.49 Family history of ischemic heart disease and other diseases of the circulatory system; Z90.710 Acquired absence of both cervix and uterus; Z88.6 Allergy status to analgesic agent; Z88.1 Allergy status to other antibiotic agents; Z79.899 Other long term (current) drug therapy; Z88.2 Allergy status to sulfonamides; Z88.8 Allergy status to other drugs, medicaments and biological substances; Z98.49 Cataract extraction status, unspecified eye
CPT/HCPCS: 36415; 76700; 80048; 80053; 80069; 80076; 81001; 82962; 83036; 83735; 83880; 85025; 85610; 93005; 96361; 96374; 96375; J0610; J1650; J1815; J7030; J7042; 99285-25

== ENCOUNTER → 2018-10-10 | Outpatient (CLI) | payer MEDICARE ==
[2018-09-15 08:18] VITALS: BP 100/41
[~2018-10-10] MED LIST changes: +AMOX1TAB11 PO; +AZIT250T6 PO; +CHOL2000 PO; +GLIP10TA13 PO; +GLIP5TAB22 PO; +INSU100I11 SQ; +IRBE300T3 PO; +RANI-376 PO; +[UNRECOGNIZED DRUG - CODE] PO
--- NOTE | 2018-10-10 16:47 | RAD ---
RENAL COMPLETE BILATERAL: 10/10/2018 4:09 PM Indication: 73 years old Female. Left upper pole renal calculus. Renal pelvocaliectasis.. Comparison: Abdominal ultrasound September 12, 2018 FINDINGS: Sonographic evaluation of kidneys is performed utilizing grayscale and color Doppler. Right kidney: Size: 10.6 x 4.2 x 3.9cm. Collecting System: No hydronephrosis. No renal calculi detected. Right renal cyst measures 1.7 cm. Parenchyma: Normal echotexture and morphology. No focal contour deforming renal mass. Left kidney: Size: 11.1 x 3.7 x 5.1cm. Collecting System: No hydronephrosis. Stable superior pole 7 mm calculus. Parenchyma: Normal echotexture and morphology. Hyperechoic lesion in the left kidney, medial superior pole measures 7 x 7 x 9 mm just above an angiomyolipoma. Urinary bladder: Unremarkable. IMPRESSION: 1. Stable 7 mm superior pole left renal calculus. No hydronephrosis. No significant residual pelvocaliectasis. 2. Simple right renal cyst measures 1.7 cm. 3. Medial superior pole hyperechoic lesion in the left kidney most favors an angiomyolipoma. Less likely consideration would include focal pyelonephritis which may be assessed with urinalysis. Electronically signed by: Fanta Monique MD (10/10/2018 4:44 PM) [id number]
== END | disposition home or self-care (01) ==
LOC: US 16:05
PROVIDERS: ATTEND Urology
DX: N20.0 Calculus of kidney (principal); N28.1 Cyst of kidney, acquired; D17.71 Benign lipomatous neoplasm of kidney
CPT/HCPCS: 76770

== ENCOUNTER 2018-11-17 15:45 | Inpatient (IN) | payer MEDICARE ==
[~2018-11-17] VITALS: Ht 157.5 cm; Wt 68.9 kg
[~2018-11-17 15:45] MED LIST changes: -AMOX1TAB11 PO; -CHOL2000 PO; -[UNRECOGNIZED DRUG - CODE] PO
--- NOTE | 2018-11-17 17:13 | PHYS DOC ---
Past Medical History Past Medical History: Diabetes-Type II, High Cholesterol Additional Past Medical Histor: cirrohsis (ROSSI CAMPA APRN) Past Surgical History: , Hysterectomy, Tonsillectomy (ROSSI CAMPA APRN) Alcohol Use: Occasionally Drug Use: None (ROSSI CAMPA APRN) Adult General Chief Complaint Chief Complaint: ABNORMAL LABS HPI HPI Patient is a 73 year old female with history of diabetes type 2, high cholesterol, asthma, nonalcoholic steatohepatitis, who presents today stating she received a phone call from the doctor's office and was informed her potassium was 7.5 from labs that were drawn on Tuesday this week. Patient denies any symptoms. PCP Dr. Migdalia Graham's (ROSSI CAMPA APRN) Review of Systems Review of Systems Constitutional: Denies fever or chills [] Eyes: Denies change in visual acuity, redness, or eye pain [] HENT: Denies nasal congestion or sore throat [] Respiratory: Denies cough or shortness of breath [] Cardiovascular: Reports elevated potassium. No additional information not addressed in HPI [] GI: Denies abdominal pain, nausea, vomiting, bloody stools or diarrhea [] : Denies dysuria or hematuria [] Musculoskeletal: Denies back pain or joint pain [] Integument: Denies rash or skin lesions [] Neurologic: Denies headache, focal weakness or sensory changes [] All other systems were reviewed and found to be within normal limits, except as documented in this note. (ROSSI CAMPA APRN) Current Medications Current Medications Current Medications Medications (Trade) Dose Ordered Sig/Gavin Start Time Stop Time Status Last Admin Dose Admin Calcium Gluconate (Calcium Gluconate) 1,000 mg 1X ONCE 11/17/18 17:45 11/17/18 17:46 Cancel Dextrose (Dextrose 50%-Water Syringe) 25 gm 1X ONCE 11/17/18 17:45 11/17/18 17:46 Cancel Insulin Human Regular (HumuLIN R VIAL) 10 unit 1X ONCE 11/17/18 17:45 11/17/18 17:46 Cancel Sodium Polystyrene Sulfonate (Kayexalate) 30 gm 1X ONCE 11/17/18 17:45 11/17/18 17:46 Cancel Sodium Bicarbonate (Sodium Bicarb Adult 8.4% Syr) 50 meq 1X ONCE 11/17/18 17:45 11/17/18 17:46 Cancel Sodium Chloride 1,000 ml @ 1,000 mls/hr Q1H 11/17/18 17:45 11/17/18 18:44 DC 11/17/18 18:25 1,000 MLS/HR (CHAS WEEKS DO) Allergies Allergies Allergies Coded Allergies Type Severity Reaction Last Updated Verified NSAIDS (Non-Steroidal Anti-Inflamma Adverse Reaction Intermediate CAUSES GI BLEEDING 10/04/17 Yes Sulfa (Sulfonamide Antibiotics) Adverse Reaction Intermediate Nausea and Vomiting 10/04/17 Yes amoxicillin Adverse Reaction Intermediate vomiting and diarrhea 11/09/16 Yes aspirin Adverse Reaction Intermediate CAUSES GI BLEEDING 10/04/17 Yes clavulanic acid Adverse Reaction Intermediate vomiting and diarrhea 11/09/16 Yes naproxen Adverse Reaction Intermediate "internal bleeding" 11/09/16 Yes (CHAS WEEKS DO) Physical Exam Physical Exam Constitutional: Well developed, well nourished, no acute distress, non-toxic appearance. [] HENT: Normocephalic, atraumatic, bilateral external ears normal, oropharynx moist, no oral exudates, nose normal. [] Eyes: PERRLA, EOMI, conjunctiva normal, no discharge. [] Neck: Normal range of motion, no tenderness, supple, no stridor. [] Cardiovascular:Heart rate regular rhythm, no murmur [] Lungs & Thorax: Bilateral breath sounds clear to auscultation [] Abdomen: Bowel sounds normal, soft, no tenderness, no masses, no pulsatile masses. [] Skin: Warm, dry, no erythema, no rash. [] Back: No tenderness, no CVA tenderness. [] Extremities: No tenderness, no cyanosis, no clubbing, ROM intact, +2 bilateral pedal pulses, edema noted to bilateral lower extremities Neurologic: Alert and oriented X 3, normal motor function, normal sensory function, no focal deficits noted. [] Psychologic: Affect normal, judgement normal, mood normal. [] (ROSSI CAMPA APRN) Current Patient Data Vital Signs Vital Signs Date Time Temp Pulse Resp B/P (MAP) Pulse Ox O2 Delivery O2 Flow Rate FiO2 11/17/18 18:00 69 184/75 (111) 95 11/17/18 17:03 98.1 20 Room Air 98.1 (CHAS WEEKS DO) Lab Values Laboratory Tests Test 11/17/18 17:15 White Blood Count 8.2 x10^3/uL (4.0-11.0) Red Blood Count 4.09 x10^6/uL (3.50-5.40) Hemoglobin 12.7 g/dL (12.0-15.5) Hematocrit 37.1 % (36.0-47.0) Mean Corpuscular Volume 91 fL (79-100) Mean Corpuscular Hemoglobin 31 pg (25-35) Mean Corpuscular Hemoglobin Concent 34 g/dL (31-37) Red Cell Distribution Width 13.7 % (11.5-14.5) Platelet Count 101 x10^3/uL (140-400) L Neutrophils (%) (Auto) 68 % (31-73) Lymphocytes (%) (Auto) 22 % (24-48) L Monocytes (%) (Auto) 9 % (0-9) Eosinophils (%) (Auto) 1 % (0-3) Basophils (%) (Auto) 1 % (0-3) Neutrophils # (Auto) 5.5 x10^3uL (1.8-7.7) Lymphocytes # (Auto) 1.8 x10^3/uL (1.0-4.8) Monocytes # (Auto) 0.7 x10^3/uL (0.0-1.1) Eosinophils # (Auto) 0.1 x10^3/uL (0.0-0.7) Basophils # (Auto) 0.1 x10^3/uL (0.0-0.2) Prothrombin Time 15.0 SEC (11.7-14.0) H Prothrombin Time INR 1.2 (0.8-1.1) H PTT 30 SEC (24-38) Sodium Level 133 mmol/L (136-145) L Potassium Level 5.7 mmol/L (3.5-5.1) H Chloride Level 98 mmol/L (98-107) Carbon Dioxide Level 20 mmol/L (21-32) L Anion Gap 15 (6-14) H Blood Urea Nitrogen 36 mg/dL (7-20) H Creatinine 2.6 mg/dL (0.6-1.0) H Estimated GFR (Cockcroft-Gault) 18.1 BUN/Creatinine Ratio 14 (6-20) Glucose Level 528 mg/dL (70-99) *H Hemoglobin A1c 9.5 % (4.8-5.6) H Calcium Level 9.6 mg/dL (8.5-10.1) Magnesium Level 1.6 mg/dL (1.8-2.4) L Total Bilirubin 2.7 mg/dL (0.2-1.0) H Aspartate Amino Transferase (AST) 25 U/L (15-37) Alanine Aminotransferase (ALT) 26 U/L (14-59) Alkaline Phosphatase 91 U/L (46-116) Creatine Kinase 24 U/L (26-192) L Creatine Kinase MB (Mass) < 0.5 ng/mL (0.0-3.6) Creatine Kinase MB Relative Index % (0-4) Troponin I Quantitative < 0.017 ng/mL (0.000-0.055) Total Protein 6.8 g/dL (6.4-8.2) Albumin 3.7 g/dL (3.4-5.0) Albumin/Globulin Ratio 1.2 (1.0-1.7) Laboratory Tests 11/17/18 17:15 Laboratory Tests 11/17/18 17:15 (CHAS WEEKS DO) Lab Values Laboratory Tests Test 11/17/18 17:15 11/17/18 18:20 White Blood Count 8.2 x10^3/uL (4.0-11.0) Red Blood Count 4.09 x10^6/uL (3.50-5.40) Hemoglobin 12.7 g/dL (12.0-15.5) Hematocrit 37.1 % (36.0-47.0) Mean Corpuscular Volume 91 fL (79-100) Mean Corpuscular Hemoglobin 31 pg (25-35) Mean Corpuscular Hemoglobin Concent 34 g/dL (31-37) Red Cell Distribution Width 13.7 % (11.5-14.5) Platelet Count 101 x10^3/uL (140-400) L Neutrophils (%) (Auto) 68 % (31-73) Lymphocytes (%) (Auto) 22 % (24-48) L Monocytes (%) (Auto) 9 % (0-9) Eosinophils (%) (Auto) 1 % (0-3) Basophils (%) (Auto) 1 % (0-3) Neutrophils # (Auto) 5.5 x10^3uL (1.8-7.7) Lymphocytes # (Auto) 1.8 x10^3/uL (1.0-4.8) Monocytes # (Auto) 0.7 x10^3/uL (0.0-1.1) Eosinophils # (Auto) 0.1 x10^3/uL (0.0-0.7) Basophils # (Auto) 0.1 x10^3/uL (0.0-0.2) Prothrombin Time 15.0 SEC (11.7-14.0) H Prothrombin Time INR 1.2 (0.8-1.1) H PTT 30 SEC (24-38) Sodium Level 133 mmol/L (136-145) L Potassium Level 5.7 mmol/L (3.5-5.1) H Chloride Level 98 mmol/L (98-107) Carbon Dioxide Level 20 mmol/L (21-32) L Anion Gap 15 (6-14) H Blood Urea Nitrogen 36 mg/dL (7-20) H Creatinine 2.6 mg/dL (0.6-1.0) H Estimated GFR (Cockcroft-Gault) 18.1 BUN/Creatinine Ratio 14 (6-20) Glucose Level 528 mg/dL (70-99) *H Calcium Level 9.6 mg/dL (8.5-10.1) Magnesium Level 1.6 mg/dL (1.8-2.4) L Total Bilirubin 2.7 mg/dL (0.2-1.0) H Aspartate Amino Transferase (AST) 25 U/L (15-37) Alanine Aminotransferase (ALT) 26 U/L (14-59) Alkaline Phosphatase 91 U/L (46-116) Creatine Kinase 24 U/L (26-192) L Creatine Kinase MB (Mass) < 0.5 ng/mL (0.0-3.6) Creatine Kinase MB Relative Index % (0-4) Troponin I Quantitative < 0.017 ng/mL (0.000-0.055) Total Protein 6.8 g/dL (6.4-8.2) Albumin 3.7 g/dL (3.4-5.0) Albumin/Globulin Ratio 1.2 (1.0-1.7) O2 Saturation 97 % (92-99) Arterial Blood pH 7.43 (7.35-7.45) Arterial Blood pCO2 at Patient Temp 27 mmHg (35-46) L Arterial Blood pO2 at Patient Temp 89 mmHg (65-108) Arterial Blood HCO3 18 mmol/L (21-28) L Arterial Blood Base Excess -5 mmol/L (-3-3) L FiO2 21 Laboratory Tests 11/17/18 17:15 Laboratory Tests 11/17/18 17:15 (ROSSI CAMPA APRN) EKG EKG 17:[address] Madison sinus rhythm HR 72 no STEMI (ROSSI CAMPA APRN) Radiology/Procedures Radiology/Procedures [] (ROSSI CAMPA APRN) Course & Med Decision Making Course & Med Decision Making Pertinent Labs and Imaging studies reviewed. (See chart for details) This is a 73-year-old female patient presenting to the ED today to be evaluated for elevated potassium. On arrival to the ED there is no EKG changes, sodium 133, potassium 5.7, CO2 20, glucose 528 with an anion gap of 15, BUN 36, creatinine 2.6, patient has history of chronic renal disease. Consulted with -. He requested we give patient IV fluids and also consult nephrology and see what they want to do. Spoke with Dr. Kee who stated we continue IV fluids Dr. Richmond ordered DKA protocal (ROSSI CAMPA APRN) Dragon Disclaimer Dragon Disclaimer This electronic medical record was generated, in whole or in part, using a voice recognition dictation system. (ROSSI CAMPA APRN) Departure Departure Impression: Primary Impression: Hyperkalemia Additional Impressions: Chronic renal failure Hyperglycemia Disposition: ADMITTED INPATIENT Condition: STABLE Referrals: MIGDALIA GANNON MD (PCP) Attending Signature Attending Signature I have reviewed the PA/IT RISK ADVISOR's note and plan of care. I was available for consultation as needed during the patient's visit in the emergency department. I agree with the clinical impression, plan, and disposition. (CHAS WEEKS DO) Problem Qualifiers Additional Impressions: Chronic renal failure Chronic kidney disease stage: unspecified stage Qualified Codes: N18.9 - Chronic kidney disease, unspecified ROSSI CAMPA APRN November 17, 2018 17:13 CHAS WEEKS DO November 18, 2018 04:55
[2018-11-17 17:21] LABS: BASO # 0.1 x10^3/uL (0.0-0.2); BASO % 1 % (0-3); EOS # 0.1 x10^3/uL (0.0-0.7); EOS % 1 % (0-3); HEMATOCRIT 37.1 % (36.0-47.0); HEMOGLOBIN 12.7 g/dL (12.0-15.5); LYMPH # 1.8 x10^3/uL (1.0-4.8); LYMPH % 22 % (24-48); MEAN CORPUSCULAR HEMOGLOBIN 31 pg (25-35); MEAN CORPUSCULAR HGB CONC 34 g/dL (31-37); MEAN CORPUSCULAR VOLUME 91 fL (79-100); MONO # 0.7 x10^3/uL (0.0-1.1); MONO % 9 % (0-9); NEUT # 5.5 x10^3uL (1.8-7.7); NEUT % 68 % (31-73); PLATELET COUNT 101 x10^3/uL (140-400); RED BLOOD COUNT 4.09 x10^6/uL (3.50-5.40); RED CELL DISTRIBUTION WIDTH 13.7 % (11.5-14.5); WHITE BLOOD COUNT 8.2 x10^3/uL (4.0-11.0)
[2018-11-17] MEDS ORDERED: AMOX1TAB11 PO (17:31)
[2018-11-17] MEDS ORDERED: CHOL2000 PO (17:31)
[2018-11-17 17:38] LABS: ALBUMIN 3.7 g/dL (3.4-5.0); ALBUMIN/GLOBULIN RATIO 1.2 (1.0-1.7); CALCIUM 9.6 mg/dL (8.5-10.1); CREATININE 2.6 mg/dL (0.6-1.0); GFR 18.1; MAGNESIUM 1.6 mg/dL (1.8-2.4); POTASSIUM 5.7 mmol/L (3.5-5.1); TOTAL BILIRUBIN 2.7 mg/dL (0.2-1.0); TOTAL PROTEIN 6.8 g/dL (6.4-8.2)
[2018-11-17] MEDS ORDERED: SODIUM POLYSTYRENE SULFONATE 15 GM/60 ML ORAL.SUSP. PO ONE (17:45)
[2018-11-17] MEDS ORDERED: INSULIN REGULAR 100 UNIT/ML 3ML VIAL. IV ONE (17:45)
[2018-11-17] MEDS ORDERED: IV NORMAL SALINE 1000ML BAG 1,000 ML IV SCH (17:45)
[2018-11-17] MEDS ORDERED: DEXTROSE 50% 25 GM / 50ML DISP.SYRIN. IV ONE (17:45)
[2018-11-17] MEDS ORDERED: SODIUM BICARB ADULT 8.4% 50 MEQ/50 ML DISP.SYRIN. IV ONE (17:45)
[2018-11-17] MEDS ORDERED: CALCIUM GLUCONATE 1,000 MG/10 ML VIAL. IVP ONE (17:45)
[2018-11-17 17:47] LABS: CREATINE KINASE 24 U/L (26-192)
[2018-11-17] MEDS ORDERED: ALBUTEROL SULFATE 2.5 MG/3 ML NEBU. NEB PRN (18:15)
[2018-11-17] MEDS ORDERED: POTASSIUM CHLORIDE 10MEQ 100 ML IV PRN ×3 (18:15)
[2018-11-17] MEDS ORDERED: ACETAMINOPHEN 650 MG/20.3 ML SOLUTION. GT PRN (18:15)
[2018-11-17] MEDS ORDERED: guaiFENesin ORAL 200 MG/10 ML LIQUID. PO PRN (18:15)
[2018-11-17] MEDS ORDERED: DOCUSATE SODIUM 100 MG CAPSULE. PO PRN (18:15)
[2018-11-17] MEDS ORDERED: ZOLPIDEM 5 MG TABLET. PO PRN (18:15)
[2018-11-17] MEDS ORDERED: INSULIN REGULAR VIAL 150 UNIT in 0.9 % SODIUM CHLORIDE 150ML 150 ML IV PRN (18:15)
[2018-11-17] MEDS ORDERED: cloNIDine HCL 0.1 MG TABLET PO PRN (18:15)
[2018-11-17] MEDS ORDERED: ONDANSETRON PF 4 MG/2 ML VIAL. IV PRN ×2 (18:15→18:30)
[2018-11-17 18:28] LABS: BASE EXCESS ABG -5 mmol/L (-3-3); HCO3 ABG 18 mmol/L (21-28); PCO2 ABG 27 mmHg (35-46); PO2 ABG 89 mmHg (65-108); SAT O2 ABG 97 % (92-99)
[2018-11-17 18:29] LABS: FIO2 ABG 21
[2018-11-17] MEDS ORDERED: IV NORMAL SALINE 1000ML BAG 1,000 ML IV ONE (18:30)
[2018-11-17] MEDS ORDERED: INSULIN,REGULAR 150 UNIT DRIP 150 ML IV ONE (18:30)
[2018-11-17 18:55] LABS: BILIRUBIN,URINE NEGATIVE (NEG); CLARITY,URINE CLEAR; COLOR,URINE YELLOW; NITRITE,URINE NEGATIVE (NEG); PH,URINE 5.5; PROTEIN,URINE NEGATIVE (NEG-TRACE); UROBILINOGEN,URINE 0.2 mg/dL (0.2 mg/dL)
[2018-11-17] MEDS: IV DEXTROSE 5 %-0.45 % NACL 1,000 ML IV SCH ×2 (19:00→23:00)
[2018-11-17] MEDS: IV NORMAL SALINE 1000ML BAG 1,000 ML IV SCH ×2 (19:00→23:00)
[2018-11-17 19:16] LABS: BACTERIA,URINE 0 /HPF (0-FEW); RBC,URINE 0 /HPF (0-2); SQUAMOUS EPITHELIAL CELL,UR OCC /LPF; WBC,URINE OCC /HPF (0-4)
[2018-11-17] MEDS: LORazepam 0.5 MG TABLET PO PRN (20:24)
[2018-11-17 22:33] VITALS: BP 183/82
--- NOTE | 2018-11-17 23:05 | PDOC1 ---
History and Physical Date of Admission Date of Admission 11/17/2018 Identification/Chief Complaint Problems: (1) Hyperkalemia Source Source: Chart review, Patient History of Present Illness History of Present Illness Patient is a 73 year old female with history of diabetes type 2, high cholesterol, asthma, nonalcoholic steatohepatitis, who presents today stating she received a phone call from the doctor's office and was informed her potassium was 7.5 from labs that were drawn on Tuesday this week. Patient denies any symptoms. Patient relates to me that approximately a year ago the patient was switched to insulin therapy for her diabetes and ever since patient has gained a lot of weight and has been unable to maintain euglycemia despite adjustments to her medications. Patient today is acidotic mildly with a pure anion gap metabolic acidosis which will require to start her on a DKA protocol. Patient did not percent palpitations no chest pain no shortness of breath. Of noticed that the patient was prescribed Augmentin for a sinus infection, she has not filled her prescription, she denies fever or purulent discharge from her nose, she has a cough productive of clear sputum. No pleurisy reported. She denies headache, blurred vision no neurological deficits, no chest pain palpitations or shortness of breath, no abdominal pain no nausea or vomiting reported. The patient denies recent changes to her insulin regimen recently and no dietary transgressions were reported either. No EKG changes with mildly elevated hyperkalemia. She is being admitted for further treatment. of her acute event. Past Medical History Cardiovascular: HTN GI: GERD, GI bleed, Other Renal/: Chronic renal insuff Endocrine: Diabetes Past Surgical History Past Surgical History: , Hysterectomy Family History Family History: No Significant, Hypertension Social History ALCOHOL: none Drugs: None Current Problem List Problem List Problems Medical Problems: (1) Chronic renal failure Status: Acute (2) Hyperglycemia Status: Acute (3) Hyperkalemia Status: Acute Current Medications Current Medications Current Medications Medications (Trade) Dose Ordered Sig/Gavin Start Time Stop Time Status Last Admin Dose Admin Acetaminophen (Tylenol) 650 mg PRN Q4HRS PRN 11/17/18 18:15 Albuterol Sulfate (Ventolin Neb Soln) 2.5 mg PRN Q4HRS PRN 11/17/18 18:15 Calcium Gluconate (Calcium Gluconate) 1,000 mg 1X ONCE 11/17/18 17:45 11/17/18 17:46 Cancel Clonidine HCl (Catapres) 0.1 mg PRN Q6HRS PRN 11/17/18 18:15 Dextrose (Dextrose 50%-Water Syringe) 25 gm 1X ONCE 11/17/18 17:45 11/17/18 17:46 Cancel Dextrose/Sodium Chloride 1,000 ml @ 250 mls/hr Q4H 11/17/18 19:00 Docusate Sodium (Colace) 100 mg PRN BID PRN 11/17/18 18:15 Guaifenesin (Robitussin) 200 mg PRN Q4HRS PRN 11/17/18 18:15 Insulin Human Regular 150 ml @ 6.9 mls/hr 1X ONCE 11/17/18 18:30 11/18/18 16:15 11/17/18 19:03 9.4 MLS/HR Insulin Human Regular (HumuLIN R VIAL) 10 unit 1X ONCE 11/17/18 17:45 11/17/18 17:46 Cancel Insulin Human Regular 150 unit/ Sodium Chloride 151.5 ml @ 0 mls/hr CONT PRN PRN 11/17/18 18:15 Lorazepam (Ativan) 0.5 mg PRN Q4HRS PRN 11/17/18 18:15 11/17/18 20:24 0.5 MG Magnesium Sulfate/ Dextrose 100 ml @ 25 mls/hr DAILY 11/18/18 09:00 11/21/18 08:59 Ondansetron HCl (Zofran) 4 mg PRN Q8HRS PRN 11/17/18 18:30 11/18/18 18:29 Potassium Chloride/Water 100 ml @ 100 mls/hr PRN Q1HR PRN 11/17/18 18:15 Sodium Polystyrene Sulfonate (Kayexalate) 30 gm 1X ONCE 11/17/18 17:45 11/17/18 17:46 Cancel Sodium Bicarbonate (Sodium Bicarb Adult 8.4% Syr) 50 meq 1X ONCE 11/17/18 17:45 11/17/18 17:46 Cancel Sodium Chloride 1,000 ml @ 125 mls/hr 1X ONCE 11/17/18 18:30 11/18/18 02:29 Zolpidem Tartrate (Ambien) 5 mg PRN QHS PRN 11/17/18 18:15 Allergies Allergies Allergies Coded Allergies Type Severity Reaction Last Updated Verified NSAIDS (Non-Steroidal Anti-Inflamma Adverse Reaction Intermediate CAUSES GI BLEEDING 10/04/17 Yes Sulfa (Sulfonamide Antibiotics) Adverse Reaction Intermediate Nausea and Vomiting 10/04/17 Yes amoxicillin Adverse Reaction Intermediate vomiting and diarrhea 11/09/16 Yes aspirin Adverse Reaction Intermediate CAUSES GI BLEEDING 10/04/17 Yes clavulanic acid Adverse Reaction Intermediate vomiting and diarrhea 11/09/16 Yes naproxen Adverse Reaction Intermediate "internal bleeding" 11/09/16 Yes ROS Review of System CONSTITUTIONAL: No fever or chills EYES: No recent changes SKIN: No rash or itching CARDIOVASCULAR: No chest pain, syncope, palpitations, or edema RESPIRATORY: No SOB or cough GASTROINTESTINAL: No nausea, vomiting or abdominal pain NEUROLOGICAL: No headaches or weakness ENDOCRINE: No cold or heat intolerance GENITOURINARY: No urgency or frequency of urination MUSCULOSKELETAL: No back pain or joint pain LYMPHATICS: No enlarged lymph nodes PSYCHIATRIC: No anxiety or depression Physical Exam Physical Exam GEN.: No apparent distress. Alert and oriented. HEENT: Head is normocephalic, atraumatic NECK: Supple. LUNGS: Clear to auscultation. HEART: RRR, S1, S2 present. systolic murmur 2/6 no radiation to carotids Peripheral pulses intact ABDOMEN: Soft, nontender. Positive bowel sounds. EXTREMITIES: Without any cyanosis. NEUROLOGIC: Normal speech, normal tone PSYCHIATRIC: Normal affect, normal mood. SKIN: No ulcerations Vitals Vitals Vital Signs Date Time Temp Pulse Resp B/P (MAP) Pulse Ox O2 Delivery O2 Flow Rate FiO2 11/17/18 22:33 98.1 83 22 183/82 (115) 98 Room Air 98.1 Labs Labs Laboratory Tests Test 11/17/18 17:15 11/17/18 18:20 11/17/18 18:35 11/17/18 20:11 White Blood Count 8.2 x10^3/uL (4.0-11.0) Red Blood Count 4.09 x10^6/uL (3.50-5.40) Hemoglobin 12.7 g/dL (12.0-15.5) Hematocrit 37.1 % (36.0-47.0) Mean Corpuscular Volume 91 fL (79-100) Mean Corpuscular Hemoglobin 31 pg (25-35) Mean Corpuscular Hemoglobin Concent 34 g/dL (31-37) Red Cell Distribution Width 13.7 % (11.5-14.5) Platelet Count 101 x10^3/uL (140-400) Neutrophils (%) (Auto) 68 % (31-73) Lymphocytes (%) (Auto) 22 % (24-48) Monocytes (%) (Auto) 9 % (0-9) Eosinophils (%) (Auto) 1 % (0-3) Basophils (%) (Auto) 1 % (0-3) Neutrophils # (Auto) 5.5 x10^3uL (1.8-7.7) Lymphocytes # (Auto) 1.8 x10^3/uL (1.0-4.8) Monocytes # (Auto) 0.7 x10^3/uL (0.0-1.1) Eosinophils # (Auto) 0.1 x10^3/uL (0.0-0.7) Basophils # (Auto) 0.1 x10^3/uL (0.0-0.2) Prothrombin Time 15.0 SEC (11.7-14.0) Prothromb Time International Ratio 1.2 (0.8-1.1) Activated Partial Thromboplast Time 30 SEC (24-38) Sodium Level 133 mmol/L (136-145) Potassium Level 5.7 mmol/L (3.5-5.1) Chloride Level 98 mmol/L (98-107) Carbon Dioxide Level 20 mmol/L (21-32) Anion Gap 15 (6-14) Blood Urea Nitrogen 36 mg/dL (7-20) Creatinine 2.6 mg/dL (0.6-1.0) Estimated GFR (Cockcroft-Gault) 18.1 BUN/Creatinine Ratio 14 (6-20) Glucose Level 528 mg/dL (70-99) Calcium Level 9.6 mg/dL (8.5-10.1) Magnesium Level 1.6 mg/dL (1.8-2.4) Total Bilirubin 2.7 mg/dL (0.2-1.0) Aspartate Amino Transf (AST/SGOT) 25 U/L (15-37) Alanine Aminotransferase (ALT/SGPT) 26 U/L (14-59) Alkaline Phosphatase 91 U/L (46-116) Creatine Kinase 24 U/L (26-192) Creatine Kinase MB (Mass) < 0.5 ng/mL (0.0-3.6) Creatine Kinase MB Relative Index % (0-4) Troponin I Quantitative < 0.017 ng/mL (0.000-0.055) Total Protein 6.8 g/dL (6.4-8.2) Albumin 3.7 g/dL (3.4-5.0) Albumin/Globulin Ratio 1.2 (1.0-1.7) Urine Color Yellow Urine Clarity Clear Urine pH 5.5 Urine Specific Lolita 1.020 Urine Protein Negative mg/dL (NEG-TRACE) Urine Glucose (UA) >=1000 mg/dL (NEG) Urine Ketones (Stick) Negative mg/dL (NEG) Urine Blood Negative (NEG) Urine Nitrite Negative (NEG) Urine Bilirubin Negative (NEG) Urine Urobilinogen Dipstick 0.2 mg/dL (0.2 mg/dL) Urine Leukocyte Esterase Negative (NEG) Urine RBC 0 /HPF (0-2) Urine WBC Occ /HPF (0-4) Urine Squamous Epithelial Cells Occ /LPF Urine Bacteria 0 /HPF (0-FEW) Urine Random Creatinine 114.5 mg/dL (Not Establ.) O2 Saturation 97 % (92-99) Arterial Blood pH 7.43 (7.35-7.45) Arterial Blood pCO2 at Patient Temp 27 mmHg (35-46) Arterial Blood pO2 at Patient Temp 89 mmHg (65-108) Arterial Blood HCO3 18 mmol/L (21-28) Arterial Blood Base Excess -5 mmol/L (-3-3) FiO2 21 Lactic Acid Level 2.3 mmol/L (0.4-2.0) Glucose (Fingerstick) 337 mg/dL (70-99) Test 11/17/18 21:50 Glucose (Fingerstick) 243 mg/dL (70-99) Laboratory Tests Test 11/17/18 17:15 11/17/18 18:20 11/17/18 18:35 11/17/18 20:11 White Blood Count 8.2 x10^3/uL (4.0-11.0) Red Blood Count 4.09 x10^6/uL (3.50-5.40) Hemoglobin 12.7 g/dL (12.0-15.5) Hematocrit 37.1 % (36.0-47.0) Mean Corpuscular Volume 91 fL (79-100) Mean Corpuscular Hemoglobin 31 pg (25-35) Mean Corpuscular Hemoglobin Concent 34 g/dL (31-37) Red Cell Distribution Width 13.7 % (11.5-14.5) Platelet Count 101 x10^3/uL (140-400) Neutrophils (%) (Auto) 68 % (31-73) Lymphocytes (%) (Auto) 22 % (24-48) Monocytes (%) (Auto) 9 % (0-9) Eosinophils (%) (Auto) 1 % (0-3) Basophils (%) (Auto) 1 % (0-3) Neutrophils # (Auto) 5.5 x10^3uL (1.8-7.7) Lymphocytes # (Auto) 1.8 x10^3/uL (1.0-4.8) Monocytes # (Auto) 0.7 x10^3/uL (0.0-1.1) Eosinophils # (Auto) 0.1 x10^3/uL (0.0-0.7) Basophils # (Auto) 0.1 x10^3/uL (0.0-0.2) Prothrombin Time 15.0 SEC (11.7-14.0) Prothromb Time International Ratio 1.2 (0.8-1.1) Activated Partial Thromboplast Time 30 SEC (24-38) Sodium Level 133 mmol/L (136-145) Potassium Level 5.7 mmol/L (3.5-5.1) Chloride Level 98 mmol/L (98-107) Carbon Dioxide Level 20 mmol/L (21-32) Anion Gap 15 (6-14) Blood Urea Nitrogen 36 mg/dL (7-20) Creatinine 2.6 mg/dL (0.6-1.0) Estimated GFR (Cockcroft-Gault) 18.1 BUN/Creatinine Ratio 14 (6-20) Glucose Level 528 mg/dL (70-99) Calcium Level 9.6 mg/dL (8.5-10.1) Magnesium Level 1.6 mg/dL (1.8-2.4) Total Bilirubin 2.7 mg/dL (0.2-1.0) Aspartate Amino Transf (AST/SGOT) 25 U/L (15-37) Alanine Aminotransferase (ALT/SGPT) 26 U/L (14-59) Alkaline Phosphatase 91 U/L (46-116) Creatine Kinase 24 U/L (26-192) Creatine Kinase MB (Mass) < 0.5 ng/mL (0.0-3.6) Creatine Kinase MB Relative Index % (0-4) Troponin I Quantitative < 0.017 ng/mL (0.000-0.055) Total Protein 6.8 g/dL (6.4-8.2) Albumin 3.7 g/dL (3.4-5.0) Albumin/Globulin Ratio 1.2 (1.0-1.7) Urine Color Yellow Urine Clarity Clear Urine pH 5.5 Urine Specific Lolita 1.020 Urine Protein Negative mg/dL (NEG-TRACE) Urine Glucose (UA) >=1000 mg/dL (NEG) Urine Ketones (Stick) Negative mg/dL (NEG) Urine Blood Negative (NEG) Urine Nitrite Negative (NEG) Urine Bilirubin Negative (NEG) Urine Urobilinogen Dipstick 0.2 mg/dL (0.2 mg/dL) Urine Leukocyte Esterase Negative (NEG) Urine RBC 0 /HPF (0-2) Urine WBC Occ /HPF (0-4) Urine Squamous Epithelial Cells Occ /LPF Urine Bacteria 0 /HPF (0-FEW) Urine Random Creatinine 114.5 mg/dL (Not Establ.) O2 Saturation 97 % (92-99) Arterial Blood pH 7.43 (7.35-7.45) Arterial Blood pCO2 at Patient Temp 27 mmHg (35-46) Arterial Blood pO2 at Patient Temp 89 mmHg (65-108) Arterial Blood HCO3 18 mmol/L (21-28) Arterial Blood Base Excess -5 mmol/L (-3-3) FiO2 21 Lactic Acid Level 2.3 mmol/L (0.4-2.0) Glucose (Fingerstick) 337 mg/dL (70-99) Test 11/17/18 21:50 Glucose (Fingerstick) 243 mg/dL (70-99) VTE Prophylaxis Ordered VTE Prophylaxis Devices: Yes VTE Pharmacological Prophylaxi: Yes Assessment/Plan Assessment/Plan DKA High aniong gap acidosis secondary to the above mild hyperkalemia most likely associated with underlying acidosis acute on chronic renal failure most likely prerenal azotemia Electrolyte disturbance with hypomagnasemia History of essential hypertension History of CAMPBELL Plan: fluid resuscitation will start insulin drip will recheck BMP in 4 hours telemetry consult nephrology for acute renal failure further recommendations based on clinical course reassess in the am DVT prophylaxis: scd and MIRIAN Ghosh MD November 17, 2018 23:05
[2018-11-17 23:30] VITALS: BP 153/60
[2018-11-17 23:46] LABS: CALCIUM 8.9 mg/dL (8.5-10.1); CREATININE 2.3 mg/dL (0.6-1.0); GFR 20.8
[2018-11-18] MEDS ORDERED: DEXTROSE 50% 25 GM / 50ML DISP.SYRIN. IV PRN ×2 (01:00→09:00)
[2018-11-18] MEDS ORDERED: INSULIN GLARGINE 300 UNITS/3 ML INSULN.PEN. SQ ONE (01:00)
[2018-11-18] MEDS: IV NORMAL SALINE 1000ML BAG 1,000 ML IV SCH ×2 (01:10→08:44)
--- NOTE | 2018-11-18 01:27 | NUR ---
Dr. Richmond contacted and alerted of pt.s fsbs, vitals and lab values. Orders taken and will continue to monitor.
[2018-11-18 03:30] VITALS: BP 137/56
[2018-11-18 04:36] LABS: BASO % 0 % (0-3); EOS # 0.1 x10^3/uL (0.0-0.7); EOS % 2 % (0-3); HEMATOCRIT 34.3 % (36.0-47.0); HEMOGLOBIN 11.6 g/dL (12.0-15.5); LYMPH # 1.6 x10^3/uL (1.0-4.8); LYMPH % 23 % (24-48); MEAN CORPUSCULAR HEMOGLOBIN 31 pg (25-35); MEAN CORPUSCULAR HGB CONC 34 g/dL (31-37); MEAN CORPUSCULAR VOLUME 92 fL (79-100); MONO # 0.6 x10^3/uL (0.0-1.1); MONO % 8 % (0-9); NEUT # 4.5 x10^3uL (1.8-7.7); NEUT % 66 % (31-73); PLATELET COUNT 85 x10^3/uL (140-400); RED BLOOD COUNT 3.75 x10^6/uL (3.50-5.40); RED CELL DISTRIBUTION WIDTH 13.8 % (11.5-14.5); WHITE BLOOD COUNT 6.7 x10^3/uL (4.0-11.0)
[2018-11-18 04:57] LABS: CALCIUM 8.9 mg/dL (8.5-10.1); CREATININE 2.1 mg/dL (0.6-1.0); GFR 23.2; POTASSIUM 4.7 mmol/L (3.5-5.1)
[2018-11-18 07:00] VITALS: BP 152/80
[2018-11-18] MEDS: MAGNESIUM SULFATE 4GM 100 ML IV SCH (08:43)
[2018-11-18] MEDS: INSULIN LISPRO 300 UNITS/3 ML INSULN.PEN. SQ SCH ×5 (08:58→17:29)
--- NOTE | 2018-11-18 10:21 | PDOC ---
PROGRESS NOTES History of Present Illness History of Present Illness VTE Prophylaxis Ordered VTE Prophylaxis Devices: Yes VTE Pharmacological Prophylaxi: Yes Assessment/Plan Assessment/Plan DKA High aniong gap acidosis secondary to the above mild hyperkalemia most likely associated with underlying acidosis acute on chronic renal failure most likely prerenal azotemia Electrolyte disturbance with hypomagnasemia History of essential hypertension History of CAMPBELL Plan: fluid resuscitation insulin drip, taper will recheck BMP telemetry consult nephrology for acute renal failure further recommendations based on clinical course reassess in the am DVT prophylaxis: scd and teds 44 min pt exam, chart review, > 50% of time with exam, chart review, pt care coordination Vitals Vitals Vital Signs Date Time Temp Pulse Resp B/P (MAP) Pulse Ox O2 Delivery O2 Flow Rate FiO2 11/18/18 07:53 Room Air 11/18/18 07:00 97.6 88 18 152/80 (104) 98 97.6 Physical Exam Physical Exam Physical Exam Physical Exam GEN.: No apparent distress. Alert and oriented. HEENT: Head is normocephalic, atraumatic NECK: Supple. LUNGS: Clear to auscultation. HEART: RRR, S1, S2 present. systolic murmur 2/6 no radiation to carotids Peripheral pulses intact ABDOMEN: Soft, nontender. Positive bowel sounds. EXTREMITIES: Without any cyanosis. NEUROLOGIC: Normal speech, normal tone PSYCHIATRIC: Normal affect, normal mood. SKIN: No ulcerations General: Alert, Oriented X3, Cooperative Heart: Regular rate Lungs: Clear, Other Extremities: No clubbing, No cyanosis Labs LABS RENAL COMPLETE BILATERAL: 10/10/2018 4:09 PM Indication: 73 years old Female. Left upper pole renal calculus. Renal pelvocaliectasis.. Comparison: Abdominal ultrasound September 12, 2018 FINDINGS: Sonographic evaluation of kidneys is performed utilizing grayscale and color Doppler. Right kidney: Size: 10.6 x 4.2 x 3.9cm. Collecting System: No hydronephrosis. No renal calculi detected. Right renal cyst measures 1.7 cm. Parenchyma: Normal echotexture and morphology. No focal contour deforming renal mass. Left kidney: Size: 11.1 x 3.7 x 5.1cm. Collecting System: No hydronephrosis. Stable superior pole 7 mm calculus. Parenchyma: Normal echotexture and morphology. Hyperechoic lesion in the left kidney, medial superior pole measures 7 x 7 x 9 mm just above an angiomyolipoma. Urinary bladder: Unremarkable. IMPRESSION: 1. Stable 7 mm superior pole left renal calculus. No hydronephrosis. No significant residual pelvocaliectasis. 2. Simple right renal cyst measures 1.7 cm. 3. Medial superior pole hyperechoic lesion in the left kidney most favors an angiomyolipoma. Less likely consideration would include focal pyelonephritis which may be assessed with urinalysis. Electronically signed by: Argentina Monique MD (10/10/2018 4:44 PM) [id number] DICTATED and SIGNED BY: ARGENTINA MONIQUE MD DATE: 10/10/18 1644 Laboratory Tests Test 11/17/18 17:15 11/17/18 18:20 11/17/18 18:35 11/17/18 20:11 White Blood Count 8.2 x10^3/uL (4.0-11.0) Red Blood Count 4.09 x10^6/uL (3.50-5.40) Hemoglobin 12.7 g/dL (12.0-15.5) Hematocrit 37.1 % (36.0-47.0) Mean Corpuscular Volume 91 fL (79-100) Mean Corpuscular Hemoglobin 31 pg (25-35) Mean Corpuscular Hemoglobin Concent 34 g/dL (31-37) Red Cell Distribution Width 13.7 % (11.5-14.5) Platelet Count 101 x10^3/uL (140-400) Neutrophils (%) (Auto) 68 % (31-73) Lymphocytes (%) (Auto) 22 % (24-48) Monocytes (%) (Auto) 9 % (0-9) Eosinophils (%) (Auto) 1 % (0-3) Basophils (%) (Auto) 1 % (0-3) Neutrophils # (Auto) 5.5 x10^3uL (1.8-7.7) Lymphocytes # (Auto) 1.8 x10^3/uL (1.0-4.8) Monocytes # (Auto) 0.7 x10^3/uL (0.0-1.1) Eosinophils # (Auto) 0.1 x10^3/uL (0.0-0.7) Basophils # (Auto) 0.1 x10^3/uL (0.0-0.2) Prothrombin Time 15.0 SEC (11.7-14.0) Prothromb Time International Ratio 1.2 (0.8-1.1) Activated Partial Thromboplast Time 30 SEC (24-38) Sodium Level 133 mmol/L (136-145) Potassium Level 5.7 mmol/L (3.5-5.1) Chloride Level 98 mmol/L (98-107) Carbon Dioxide Level 20 mmol/L (21-32) Anion Gap 15 (6-14) Blood Urea Nitrogen 36 mg/dL (7-20) Creatinine 2.6 mg/dL (0.6-1.0) Estimated GFR (Cockcroft-Gault) 18.1 BUN/Creatinine Ratio 14 (6-20) Glucose Level 528 mg/dL (70-99) Calcium Level 9.6 mg/dL (8.5-10.1) Magnesium Level 1.6 mg/dL (1.8-2.4) Total Bilirubin 2.7 mg/dL (0.2-1.0) Aspartate Amino Transf (AST/SGOT) 25 U/L (15-37) Alanine Aminotransferase (ALT/SGPT) 26 U/L (14-59) Alkaline Phosphatase 91 U/L (46-116) Creatine Kinase 24 U/L (26-192) Creatine Kinase MB (Mass) < 0.5 ng/mL (0.0-3.6) Creatine Kinase MB Relative Index % (0-4) Troponin I Quantitative < 0.017 ng/mL (0.000-0.055) Total Protein 6.8 g/dL (6.4-8.2) Albumin 3.7 g/dL (3.4-5.0) Albumin/Globulin Ratio 1.2 (1.0-1.7) Urine Color Yellow Urine Clarity Clear Urine pH 5.5 Urine Specific [place] 1.020 Urine Protein Negative mg/dL (NEG-TRACE) Urine Glucose (UA) >=1000 mg/dL (NEG) Urine Ketones (Stick) Negative mg/dL (NEG) Urine Blood Negative (NEG) Urine Nitrite Negative (NEG) Urine Bilirubin Negative (NEG) Urine Urobilinogen Dipstick 0.2 mg/dL (0.2 mg/dL) Urine Leukocyte Esterase Negative (NEG) Urine RBC 0 /HPF (0-2) Urine WBC Occ /HPF (0-4) Urine Squamous Epithelial Cells Occ /LPF Urine Bacteria 0 /HPF (0-FEW) Urine Random Creatinine 114.5 mg/dL (Not Establ.) O2 Saturation 97 % (92-99) Arterial Blood pH 7.43 (7.35-7.45) Arterial Blood pCO2 at Patient Temp 27 mmHg (35-46) Arterial Blood pO2 at Patient Temp 89 mmHg (65-108) Arterial Blood HCO3 18 mmol/L (21-28) Arterial Blood Base Excess -5 mmol/L (-3-3) FiO2 21 Lactic Acid Level 2.3 mmol/L (0.4-2.0) Glucose (Fingerstick) 337 mg/dL (70-99) Test 11/17/18 21:50 11/17/18 23:30 11/17/18 23:34 11/18/18 04:15 Glucose (Fingerstick) 243 mg/dL (70-99) 178 mg/dL (70-99) Sodium Level 137 mmol/L (136-145) 136 mmol/L (136-145) Potassium Level 4.0 mmol/L (3.5-5.1) 4.7 mmol/L (3.5-5.1) Chloride Level 103 mmol/L (98-107) 103 mmol/L (98-107) Carbon Dioxide Level 21 mmol/L (21-32) 19 mmol/L (21-32) Anion Gap 13 (6-14) 14 (6-14) Blood Urea Nitrogen 32 mg/dL (7-20) 32 mg/dL (7-20) Creatinine 2.3 mg/dL (0.6-1.0) 2.1 mg/dL (0.6-1.0) Estimated GFR (Cockcroft-Gault) 20.8 23.2 Glucose Level 194 mg/dL (70-99) 271 mg/dL (70-99) Lactic Acid Level 2.7 mmol/L (0.4-2.0) Calcium Level 8.9 mg/dL (8.5-10.1) 8.9 mg/dL (8.5-10.1) White Blood Count 6.7 x10^3/uL (4.0-11.0) Red Blood Count 3.75 x10^6/uL (3.50-5.40) Hemoglobin 11.6 g/dL (12.0-15.5) Hematocrit 34.3 % (36.0-47.0) Mean Corpuscular Volume 92 fL (79-100) Mean Corpuscular Hemoglobin 31 pg (25-35) Mean Corpuscular Hemoglobin Concent 34 g/dL (31-37) Red Cell Distribution Width 13.8 % (11.5-14.5) Platelet Count 85 x10^3/uL (140-400) Neutrophils (%) (Auto) 66 % (31-73) Lymphocytes (%) (Auto) 23 % (24-48) Monocytes (%) (Auto) 8 % (0-9) Eosinophils (%) (Auto) 2 % (0-3) Basophils (%) (Auto) 0 % (0-3) Neutrophils # (Auto) 4.5 x10^3uL (1.8-7.7) Lymphocytes # (Auto) 1.6 x10^3/uL (1.0-4.8) Monocytes # (Auto) 0.6 x10^3/uL (0.0-1.1) Eosinophils # (Auto) 0.1 x10^3/uL (0.0-0.7) Basophils # (Auto) 0.0 x10^3/uL (0.0-0.2) Magnesium Level 1.3 mg/dL (1.8-2.4) Test 11/18/18 07:58 Glucose (Fingerstick) 261 mg/dL (70-99) Assessment and Plan Assessmemt and Plan Problems Medical Problems: (1) Chronic renal failure Status: Acute (2) Hyperglycemia Status: Acute (3) Hyperkalemia Status: Acute Comment Review of Relevant I have reviewed the following items tiffanie (where applicable) has been applied. Labs Laboratory Tests Test 11/17/18 17:15 11/17/18 18:20 11/17/18 18:35 11/17/18 20:11 White Blood Count 8.2 x10^3/uL (4.0-11.0) Red Blood Count 4.09 x10^6/uL (3.50-5.40) Hemoglobin 12.7 g/dL (12.0-15.5) Hematocrit 37.1 % (36.0-47.0) Mean Corpuscular Volume 91 fL (79-100) Mean Corpuscular Hemoglobin 31 pg (25-35) Mean Corpuscular Hemoglobin Concent 34 g/dL (31-37) Red Cell Distribution Width 13.7 % (11.5-14.5) Platelet Count 101 x10^3/uL (140-400) Neutrophils (%) (Auto) 68 % (31-73) Lymphocytes (%) (Auto) 22 % (24-48) Monocytes (%) (Auto) 9 % (0-9) Eosinophils (%) (Auto) 1 % (0-3) Basophils (%) (Auto) 1 % (0-3) Neutrophils # (Auto) 5.5 x10^3uL (1.8-7.7) Lymphocytes # (Auto) 1.8 x10^3/uL (1.0-4.8) Monocytes # (Auto) 0.7 x10^3/uL (0.0-1.1) Eosinophils # (Auto) 0.1 x10^3/uL (0.0-0.7) Basophils # (Auto) 0.1 x10^3/uL (0.0-0.2) Prothrombin Time 15.0 SEC (11.7-14.0) Prothromb Time International Ratio 1.2 (0.8-1.1) Activated Partial Thromboplast Time 30 SEC (24-38) Sodium Level 133 mmol/L (136-145) Potassium Level 5.7 mmol/L (3.5-5.1) Chloride Level 98 mmol/L (98-107) Carbon Dioxide Level 20 mmol/L (21-32) Anion Gap 15 (6-14) Blood Urea Nitrogen 36 mg/dL (7-20) Creatinine 2.6 mg/dL (0.6-1.0) Estimated GFR (Cockcroft-Gault) 18.1 BUN/Creatinine Ratio 14 (6-20) Glucose Level 528 mg/dL (70-99) Calcium Level 9.6 mg/dL (8.5-10.1) Magnesium Level 1.6 mg/dL (1.8-2.4) Total Bilirubin 2.7 mg/dL (0.2-1.0) Aspartate Amino Transf (AST/SGOT) 25 U/L (15-37) Alanine Aminotransferase (ALT/SGPT) 26 U/L (14-59) Alkaline Phosphatase 91 U/L (46-116) Creatine Kinase 24 U/L (26-192) Creatine Kinase MB (Mass) < 0.5 ng/mL (0.0-3.6) Creatine Kinase MB Relative Index % (0-4) Troponin I Quantitative < 0.017 ng/mL (0.000-0.055) Total Protein 6.8 g/dL (6.4-8.2) Albumin 3.7 g/dL (3.4-5.0) Albumin/Globulin Ratio 1.2 (1.0-1.7) Urine Color Yellow Urine Clarity Clear Urine pH 5.5 Urine Specific [place] 1.020 Urine Protein Negative mg/dL (NEG-TRACE) Urine Glucose (UA) >=1000 mg/dL (NEG) Urine Ketones (Stick) Negative mg/dL (NEG) Urine Blood Negative (NEG) Urine Nitrite Negative (NEG) Urine Bilirubin Negative (NEG) Urine Urobilinogen Dipstick 0.2 mg/dL (0.2 mg/dL) Urine Leukocyte Esterase Negative (NEG) Urine RBC 0 /HPF (0-2) Urine WBC Occ /HPF (0-4) Urine Squamous Epithelial Cells Occ /LPF Urine Bacteria 0 /HPF (0-FEW) Urine Random Creatinine 114.5 mg/dL (Not Establ.) O2 Saturation 97 % (92-99) Arterial Blood pH 7.43 (7.35-7.45) Arterial Blood pCO2 at Patient Temp 27 mmHg (35-46) Arterial Blood pO2 at Patient Temp 89 mmHg (65-108) Arterial Blood HCO3 18 mmol/L (21-28) Arterial Blood Base Excess -5 mmol/L (-3-3) FiO2 21 Lactic Acid Level 2.3 mmol/L (0.4-2.0) Glucose (Fingerstick) 337 mg/dL (70-99) Test 11/17/18 21:50 11/17/18 23:30 11/17/18 23:34 11/18/18 04:15 Glucose (Fingerstick) 243 mg/dL (70-99) 178 mg/dL (70-99) Sodium Level 137 mmol/L (136-145) 136 mmol/L (136-145) Potassium Level 4.0 mmol/L (3.5-5.1) 4.7 mmol/L (3.5-5.1) Chloride Level 103 mmol/L (98-107) 103 mmol/L (98-107) Carbon Dioxide Level 21 mmol/L (21-32) 19 mmol/L (21-32) Anion Gap 13 (6-14) 14 (6-14) Blood Urea Nitrogen 32 mg/dL (7-20) 32 mg/dL (7-20) Creatinine 2.3 mg/dL (0.6-1.0) 2.1 mg/dL (0.6-1.0) Estimated GFR (Cockcroft-Gault) 20.8 23.2 Glucose Level 194 mg/dL (70-99) 271 mg/dL (70-99) Lactic Acid Level 2.7 mmol/L (0.4-2.0) Calcium Level 8.9 mg/dL (8.5-10.1) 8.9 mg/dL (8.5-10.1) White Blood Count 6.7 x10^3/uL (4.0-11.0) Red Blood Count 3.75 x10^6/uL (3.50-5.40) Hemoglobin 11.6 g/dL (12.0-15.5) Hematocrit 34.3 % (36.0-47.0) Mean Corpuscular Volume 92 fL (79-100) Mean Corpuscular Hemoglobin 31 pg (25-35) Mean Corpuscular Hemoglobin Concent 34 g/dL (31-37) Red Cell Distribution Width 13.8 % (11.5-14.5) Platelet Count 85 x10^3/uL (140-400) Neutrophils (%) (Auto) 66 % (31-73) Lymphocytes (%) (Auto) 23 % (24-48) Monocytes (%) (Auto) 8 % (0-9) Eosinophils (%) (Auto) 2 % (0-3) Basophils (%) (Auto) 0 % (0-3) Neutrophils # (Auto) 4.5 x10^3uL (1.8-7.7) Lymphocytes # (Auto) 1.6 x10^3/uL (1.0-4.8) Monocytes # (Auto) 0.6 x10^3/uL (0.0-1.1) Eosinophils # (Auto) 0.1 x10^3/uL (0.0-0.7) Basophils # (Auto) 0.0 x10^3/uL (0.0-0.2) Magnesium Level 1.3 mg/dL (1.8-2.4) Test 11/18/18 07:58 Glucose (Fingerstick) 261 mg/dL (70-99) Laboratory Tests Test 11/17/18 17:15 11/17/18 18:20 11/17/18 18:35 11/17/18 20:11 White Blood Count 8.2 x10^3/uL (4.0-11.0) Red Blood Count 4.09 x10^6/uL (3.50-5.40) Hemoglobin 12.7 g/dL (12.0-15.5) Hematocrit 37.1 % (36.0-47.0) Mean Corpuscular Volume 91 fL (79-100) Mean Corpuscular Hemoglobin 31 pg (25-35) Mean Corpuscular Hemoglobin Concent 34 g/dL (31-37) Red Cell Distribution Width 13.7 % (11.5-14.5) Platelet Count 101 x10^3/uL (140-400) Neutrophils (%) (Auto) 68 % (31-73) Lymphocytes (%) (Auto) 22 % (24-48) Monocytes (%) (Auto) 9 % (0-9) Eosinophils (%) (Auto) 1 % (0-3) Basophils (%) (Auto) 1 % (0-3) Neutrophils # (Auto) 5.5 x10^3uL (1.8-7.7) Lymphocytes # (Auto) 1.8 x10^3/uL (1.0-4.8) Monocytes # (Auto) 0.7 x10^3/uL (0.0-1.1) Eosinophils # (Auto) 0.1 x10^3/uL (0.0-0.7) Basophils # (Auto) 0.1 x10^3/uL (0.0-0.2) Prothrombin Time 15.0 SEC (11.7-14.0) Prothromb Time International Ratio 1.2 (0.8-1.1) Activated Partial Thromboplast Time 30 SEC (24-38) Sodium Level 133 mmol/L (136-145) Potassium Level 5.7 mmol/L (3.5-5.1) Chloride Level 98 mmol/L (98-107) Carbon Dioxide Level 20 mmol/L (21-32) Anion Gap 15 (6-14) Blood Urea Nitrogen 36 mg/dL (7-20) Creatinine 2.6 mg/dL (0.6-1.0) Estimated GFR (Cockcroft-Gault) 18.1 BUN/Creatinine Ratio 14 (6-20) Glucose Level 528 mg/dL (70-99) Calcium Level 9.6 mg/dL (8.5-10.1) Magnesium Level 1.6 mg/dL (1.8-2.4) Total Bilirubin 2.7 mg/dL (0.2-1.0) Aspartate Amino Transf (AST/SGOT) 25 U/L (15-37) Alanine Aminotransferase (ALT/SGPT) 26 U/L (14-59) Alkaline Phosphatase 91 U/L (46-116) Creatine Kinase 24 U/L (26-192) Creatine Kinase MB (Mass) < 0.5 ng/mL (0.0-3.6) Creatine Kinase MB Relative Index % (0-4) Troponin I Quantitative < 0.017 ng/mL (0.000-0.055) Total Protein 6.8 g/dL (6.4-8.2) Albumin 3.7 g/dL (3.4-5.0) Albumin/Globulin Ratio 1.2 (1.0-1.7) Urine Color Yellow Urine Clarity Clear Urine pH 5.5 Urine Specific [place] 1.020 Urine Protein Negative mg/dL (NEG-TRACE) Urine Glucose (UA) >=1000 mg/dL (NEG) Urine Ketones (Stick) Negative mg/dL (NEG) Urine Blood Negative (NEG) Urine Nitrite Negative (NEG) Urine Bilirubin Negative (NEG) Urine Urobilinogen Dipstick 0.2 mg/dL (0.2 mg/dL) Urine Leukocyte Esterase Negative (NEG) Urine RBC 0 /HPF (0-2) Urine WBC Occ /HPF (0-4) Urine Squamous Epithelial Cells Occ /LPF Urine Bacteria 0 /HPF (0-FEW) Urine Random Creatinine 114.5 mg/dL (Not Establ.) O2 Saturation 97 % (92-99) Arterial Blood pH 7.43 (7.35-7.45) Arterial Blood pCO2 at Patient Temp 27 mmHg (35-46) Arterial Blood pO2 at Patient Temp 89 mmHg (65-108) Arterial Blood HCO3 18 mmol/L (21-28) Arterial Blood Base Excess -5 mmol/L (-3-3) FiO2 21 Lactic Acid Level 2.3 mmol/L (0.4-2.0) Glucose (Fingerstick) 337 mg/dL (70-99) Test 11/17/18 21:50 11/17/18 23:30 11/17/18 23:34 11/18/18 04:15 Glucose (Fingerstick) 243 mg/dL (70-99) 178 mg/dL (70-99) Sodium Level 137 mmol/L (136-145) 136 mmol/L (136-145) Potassium Level 4.0 mmol/L (3.5-5.1) 4.7 mmol/L (3.5-5.1) Chloride Level 103 mmol/L (98-107) 103 mmol/L (98-107) Carbon Dioxide Level 21 mmol/L (21-32) 19 mmol/L (21-32) Anion Gap 13 (6-14) 14 (6-14) Blood Urea Nitrogen 32 mg/dL (7-20) 32 mg/dL (7-20) Creatinine 2.3 mg/dL (0.6-1.0) 2.1 mg/dL (0.6-1.0) Estimated GFR (Cockcroft-Gault) 20.8 23.2 Glucose Level 194 mg/dL (70-99) 271 mg/dL (70-99) Lactic Acid Level 2.7 mmol/L (0.4-2.0) Calcium Level 8.9 mg/dL (8.5-10.1) 8.9 mg/dL (8.5-10.1) White Blood Count 6.7 x10^3/uL (4.0-11.0) Red Blood Count 3.75 x10^6/uL (3.50-5.40) Hemoglobin 11.6 g/dL (12.0-15.5) Hematocrit 34.3 % (36.0-47.0) Mean Corpuscular Volume 92 fL (79-100) Mean Corpuscular Hemoglobin 31 pg (25-35) Mean Corpuscular Hemoglobin Concent 34 g/dL (31-37) Red Cell Distribution Width 13.8 % (11.5-14.5) Platelet Count 85 x10^3/uL (140-400) Neutrophils (%) (Auto) 66 % (31-73) Lymphocytes (%) (Auto) 23 % (24-48) Monocytes (%) (Auto) 8 % (0-9) Eosinophils (%) (Auto) 2 % (0-3) Basophils (%) (Auto) 0 % (0-3) Neutrophils # (Auto) 4.5 x10^3uL (1.8-7.7) Lymphocytes # (Auto) 1.6 x10^3/uL (1.0-4.8) Monocytes # (Auto) 0.6 x10^3/uL (0.0-1.1) Eosinophils # (Auto) 0.1 x10^3/uL (0.0-0.7) Basophils # (Auto) 0.0 x10^3/uL (0.0-0.2) Magnesium Level 1.3 mg/dL (1.8-2.4) Test 11/18/18 07:58 Glucose (Fingerstick) 261 mg/dL (70-99) Medications Current Medications Calcium Gluconate (Calcium Gluconate) 1,000 mg 1X ONCE IVP ; Start 11/17/18 at 17:45; Stop 11/17/18 at 17:46; Status Cancel Sodium Bicarbonate (Sodium Bicarb Adult 8.4% Syr) 50 meq 1X ONCE IV ; Start 11/17/18 at 17:45; Stop 11/17/18 at 17:46; Status Cancel Dextrose (Dextrose 50%-Water Syringe) 25 gm 1X ONCE IV ; Start 11/17/18 at 17:45; Stop 11/17/18 at 17:46; Status Cancel Insulin Human Regular (HumuLIN R VIAL) 10 unit 1X ONCE IV ; Start 11/17/18 at 17:45; Stop 11/17/18 at 17:46; Status Cancel Sodium Polystyrene Sulfonate (Kayexalate) 30 gm 1X ONCE PO ; Start 11/17/18 at 17:45; Stop 11/17/18 at 17:46; Status Cancel Sodium Chloride 1,000 ml @ 1,000 mls/hr Q1H IV Last administered on 11/17/18at 18:25; Start 11/17/18 at 17:45; Stop 11/17/18 at 18:44; Status DC Sodium Chloride 1,000 ml @ 250 mls/hr Q4H IV ; Start 11/17/18 at 19:00; Stop 11/18/18 at 00:54; Status DC Dextrose/Sodium Chloride 1,000 ml @ 250 mls/hr Q4H IV ; Start 11/17/18 at 19:00; Stop 11/18/18 at 00:54; Status DC Insulin Human Regular 150 unit/ Sodium Chloride 151.5 ml @ 0 mls/hr CONT PRN PRN IV PER PROTOCOL; Start 11/17/18 at 18:15; Stop 11/18/18 at 00:54; Status DC Potassium Chloride/Water 100 ml @ 100 mls/hr PRN Q1HR PRN IV SEE COMMENTS; Start 11/17/18 at 18:15 Potassium Chloride/Water 100 ml @ 100 mls/hr PRN Q1HR PRN IV SEE COMMENTS; Start 11/17/18 at 18:15 Potassium Chloride/Water 100 ml @ 100 mls/hr PRN Q1HR PRN IV SEE COMMENTS; Start 11/17/18 at 18:15 Magnesium Sulfate/ Dextrose 100 ml @ 25 mls/hr DAILY IV Last administered on 11/18/18at 08:43; Start 11/18/18 at 09:00; Stop 11/21/18 at 08:59 Ondansetron HCl (Zofran) 4 mg PRN Q4HRS PRN IV NAUSEA/VOMITING; Start 11/17/18 at 18:15 Zolpidem Tartrate (Ambien) 5 mg PRN QHS PRN PO INSOMNIA; Start 11/17/18 at 18:15 Acetaminophen (Tylenol) 650 mg PRN Q4HRS PRN GT TEMP OVER 100.4F OR MILD PAIN; Start 11/17/18 at 18:15 Clonidine HCl (Catapres) 0.1 mg PRN Q6HRS PRN PO SBP>160 OR DBP>90; Start 11/17/18 at 18:15 Docusate Sodium (Colace) 100 mg PRN BID PRN PO CONSTIPATION; Start 11/17/18 at 18:15 Albuterol Sulfate (Ventolin Neb Soln) 2.5 mg PRN Q4HRS PRN NEB SHORTNESS OF BREATH; Start 11/17/18 at 18:15 Guaifenesin (Robitussin) 200 mg PRN Q4HRS PRN PO COUGH; Start 11/17/18 at 18:15 Lorazepam (Ativan) 0.5 mg PRN Q4HRS PRN PO ANXIETY / AGITATION Last administered on 11/17/18at 20:24; Start 11/17/18 at 18:15 Insulin Human Regular 150 ml @ 6.9 mls/hr 1X ONCE IV Last administered on 11/17/18at 19:03; Start 11/17/18 at 18:30; Stop 11/18/18 at 16:15 Ondansetron HCl (Zofran) 4 mg PRN Q8HRS PRN IV NAUSEA/VOMITING; Start 11/17/18 at 18:30; Stop 11/18/18 at 18:29 Sodium Chloride 1,000 ml @ 125 mls/hr 1X ONCE IV ; Start 11/17/18 at 18:30; Stop 11/18/18 at 02:29; Status DC Insulin Glargine (Lantus) 10 units 1X ONCE SQ Last administered on 11/18/18at 01:20; Start 11/18/18 at 01:00; Stop 11/18/18 at 01:01; Status DC Sodium Chloride 1,000 ml @ 100 mls/hr Q10H IV Last administered on 11/18/18at 08:44; Start 11/18/18 at 01:00 Dextrose (Dextrose 50%-Water Syringe) 12.5 gm PRN Q15MIN PRN IV SEE COMMENTS; Start 11/18/18 at 01:00 Insulin Human Lispro (HumaLOG) 20 units TIDWMEALS SQ ; Start 11/18/18 at 12:00; Stop 11/18/18 at 12:00; Status DC Insulin Human Lispro (HumaLOG) 0-5 UNITS TIDWMEALS SQ ; Start 11/18/18 at 12:00 Dextrose (Dextrose 50%-Water Syringe) 12.5 gm PRN Q15MIN PRN IV SEE COMMENTS; Start 11/18/18 at 09:00; Status UNV Insulin Human Lispro (HumaLOG) 20 units TIDWMEALS SQ Last administered on 11/18/18at 08:58; Start 11/18/18 at 09:00 Active Scripts Active Azithromycin Tablet (Azithromycin) 250 Mg Tablet 250 Mg PO DAILY 6 Days Glipizide Er (Glipizide) 5 Mg Tab.er.24 1 Tab PO DAILY Humalog (Insulin Lispro) 100 Unit/1 Ml Insuln.pen 20 Units SQ TIDWMEALS 30 Days Lantus Solostar (Insulin Glargine,Hum.rec.anlog) 100 Unit/1 Ml Insuln.pen 33 Units SQ BID 30 Days Reported Amox Tr-K Clv 875-125 Mg Tab (Amoxicillin/Potassium Clav) 1 Each Tablet 1 Tab PO BID Vitamin D (Cholecalciferol (Vitamin D3)) 2,000 Unit Capsule 5,000 Unit PO Irbesartan 300 Mg Tablet 1 Tab PO DAILY Zantac (Ranitidine Hcl) 150 Mg Tablet 1 Tab PO BID Atorvastatin Calcium 20 Mg Tablet 1 Tab PO DAILY Metoprolol Tartrate 50 Mg Tablet 1 Tab PO BID Vitamin D (Cholecalciferol (Vitamin D3)) 1,000 Unit Capsule 1 Cap PO DAILY Vitals/I & O Vital Sign - Last 24 Hours 11/17/18 11/17/18 11/17/18 11/17/18 17:00 17:03 18:00 19:00 Temp 98.1 98.1 Pulse 72 71 69 66 Resp 20 B/P (MAP) 146/67 (93) 146/67 (93) 184/75 (111) 149/66 (93) Pulse Ox 95 96 95 95 O2 Delivery Room Air 11/17/18 11/17/18 11/17/18 11/17/18 20:00 21:00 22:00 22:00 Pulse 73 68 71 B/P (MAP) 164/71 (102) 150/67 (94) 156/68 (97) Pulse Ox 96 95 99 O2 Delivery Room Air 11/17/18 11/17/18 11/18/18 11/18/18 22:33 23:30 03:30 07:00 Temp 98.1 98.2 98.2 97.6 98.1 98.2 98.2 97.6 Pulse 83 71 89 88 Resp 22 19 18 18 B/P (MAP) 183/82 (115) 153/60 (91) 137/56 (83) 152/80 (104) Pulse Ox 98 97 98 98 O2 Delivery Room Air Room Air Room Air Room Air 11/18/18 07:53 O2 Delivery Room Air Intake and Output 11/17/18 11/17/18 11/18/18 14:59 22:59 06:59 Intake Total 1000 ml 300 ml Output Total 50 ml 500 ml Balance 950 ml -200 ml ELISA CASTELAN MD November 18, 2018 10:21
[2018-11-18] MEDS ORDERED: [UNRECOGNIZED DRUG - CODE] PO (10:31)
[2018-11-18] MEDS ORDERED: GLIP10TA13 PO (10:31)
[2018-11-18] MEDS ORDERED: SPIR25TA5 PO (10:31)
[2018-11-18] MEDS: LORazepam 0.5 MG TABLET PO PRN (10:53)
[2018-11-18 11:00] VITALS: BP 152/80
[2018-11-18] MEDS ORDERED: INSULIN LISPRO 300 UNITS/3 ML INSULN.PEN. SQ SCH (12:00)
[2018-11-18 12:10] LABS: HEMOGLOBIN A1C 9.5 % (4.8-5.6)
[2018-11-18 15:00] VITALS: BP 129/59
[2018-11-18 19:55] VITALS: BP 108/69
[2018-11-18 22:06] LABS: UR POTASSIUM 31.8 mmol/L (Not Estab.)
[2018-11-18 23:00] VITALS: BP 130/61
--- NOTE | 2018-11-19 01:13 | CONS ---
DATE OF CONSULTATION: 11/18/2018 NEPHROLOGY CONSULTATION REASON FOR CONSULTATION: Renal failure and hyperkalemia. HISTORY OF PRESENT ILLNESS: This is a 73-year-old female with a history of diabetes mellitus and chronic kidney disease. She states that she has seen a comber setter, but is unsure as to who it is. She was informed by her physician's office that her potassium was 7.5 and instructed to present to the hospital. On presentation, she was found to have potassium of 5.7, CO2 of 20, creatinine 2.6, glucose of 528, anion gap of 15. Her glycohemoglobin was 9.5. She is felt to be in diabetic ketoacidosis and to be treated for the same. She denies difficulty with urination, nephrolithiasis or gross hematuria. PAST MEDICAL HISTORY: Diabetes mellitus, hypertension, GE reflux disease, chronic kidney disease of unclear severity, hyperlipidemia, asthma, nonalcoholic steatohepatitis. ALLERGIES: NONSTEROIDAL ANTI-INFLAMMATORY AGENTS, SULFA, AMOXICILLIN, ASPIRIN, CLAVULANIC ACID, NAPROSYN. MEDICATIONS: Reviewed. FAMILY HISTORY: Noncontributory. SOCIAL HISTORY: The patient resides independently. REVIEW OF SYSTEMS: No headache, sinus problem, nasal drainage, epistaxis or change in vision or hearing. No difficulty swallowing. No fever, chills, cough, sputum production, or hemoptysis. No chest pain, shortness of breath, PND, orthopnea or dyspnea on exertion. No abdominal pain. No nausea, vomiting or diarrhea. No seizures or malignancies. PHYSICAL EXAMINATION: GENERAL APPEARANCE: The patient is awake, conversant, appropriate. HEENT: Clear. NECK: No increased JVD. No thyromegaly, mass or adenopathy. LUNGS: Clear in all villar. CARDIAC: Without S3 or rub. ABDOMEN: Soft. There are no bruits. EXTREMITIES: No edema. NEUROLOGIC: Nonfocal, localizing. PSYCHIATRIC: Fair attention to detail, appropriate affect. LABORATORY DATA: On presentation, sodium 133, potassium 5.7, chloride 98, CO2 of 20, BUN 36, creatinine 2.6, glucose 528, magnesium 1.6. Current labs, sodium 136, potassium 4.7, chloride 103, CO2 of 19, BUN 32, creatinine 2.1, GFR 23 mL per minute. IMPRESSION: 1. Chronic kidney disease, stage 4, with acute exacerbation due to reduced intravascular volume. 2. Diabetic ketoacidosis. 3. Hyperkalemia due to chronic kidney disease, stage 4 and diabetic ketoacidosis. RECOMMENDATIONS: 1. Glucose control as you are doing. 2. IV fluid administration as needed and dictated by lab. 3. Advance diet. 4. When acceptable to others, can discharge and follow up on an outpatient basis. CHAS MARTÍNEZ MD DR: IVONNE/kevin JOB#: [id number] / [id number]
[2018-11-19] MEDS: IV NORMAL SALINE 1000ML BAG 1,000 ML IV SCH ×2 (02:02→07:00)
[2018-11-19 03:40] VITALS: BP 155/54
[2018-11-19 05:13] LABS: BASO % 1 % (0-3); EOS # 0.1 x10^3/uL (0.0-0.7); EOS % 3 % (0-3); HEMATOCRIT 33.4 % (36.0-47.0); HEMOGLOBIN 11.3 g/dL (12.0-15.5); LYMPH # 1.2 x10^3/uL (1.0-4.8); LYMPH % 32 % (24-48); MEAN CORPUSCULAR HEMOGLOBIN 31 pg (25-35); MEAN CORPUSCULAR HGB CONC 34 g/dL (31-37); MEAN CORPUSCULAR VOLUME 92 fL (79-100); MONO # 0.4 x10^3/uL (0.0-1.1); MONO % 11 % (0-9); NEUT % 53 % (31-73); PLATELET COUNT 77 x10^3/uL (140-400); RED BLOOD COUNT 3.64 x10^6/uL (3.50-5.40); WHITE BLOOD COUNT 3.7 x10^3/uL (4.0-11.0)
[2018-11-19 05:45] LABS: ALBUMIN/GLOBULIN RATIO 1.2 (1.0-1.7); CALCIUM 8.5 mg/dL (8.5-10.1); CREATININE 1.8 mg/dL (0.6-1.0); GFR 27.7; POTASSIUM 5.1 mmol/L (3.5-5.1); TOTAL BILIRUBIN 1.3 mg/dL (0.2-1.0); TOTAL PROTEIN 5.6 g/dL (6.4-8.2)
[2018-11-19 07:00] VITALS: BP 145/56
[2018-11-19] MEDS: MAGNESIUM SULFATE 4GM 100 ML IV SCH (07:24)
[2018-11-19] MEDS: INSULIN LISPRO 300 UNITS/3 ML INSULN.PEN. SQ SCH ×4 (08:00→12:38)
[2018-11-19] MEDS ORDERED: glipiZIDE 5 MG TABLET PO SCH ×2 (08:30→17:00)
[2018-11-19] MEDS ORDERED: INSULIN LISPRO 300 UNITS/3 ML INSULN.PEN. SQ ONE (08:30)
[2018-11-19] MEDS ORDERED: ATORVASTATIN CALCIUM 20 MG TABLET PO SCH (09:00)
[2018-11-19] MEDS ORDERED: FAMOTIDINE 20 MG TABLET. PO SCH (09:00)
[2018-11-19] MEDS ORDERED: INSULIN GLARGINE 300 UNITS/3 ML INSULN.PEN. SQ SCH (09:00)
[2018-11-19] MEDS ORDERED: LOSARTAN POTASSIUM 50 MG TABLET. PO SCH (09:00)
[2018-11-19] MEDS ORDERED: SPIRONOLACTONE 25 MG TABLET PO SCH (09:00)
--- NOTE | 2018-11-19 09:37 | PDOC ---
PROGRESS NOTES History of Present Illness History of Present Illness VTE Prophylaxis Ordered VTE Prophylaxis Devices: Yes VTE Pharmacological Prophylaxi: Yes Assessment/Plan Assessment/Plan DKA High aniong gap acidosis secondary to the above mild hyperkalemia most likely associated with underlying acidosis acute on chronic renal failure most likely prerenal azotemia Electrolyte disturbance with hypomagnasemia History of essential hypertension History of CAMPBELL Plan: fluid resuscitation insulin drip, d/c will recheck BMP telemetry consult nephrology for acute renal failure further recommendations based on clinical course reassess in the am DVT prophylaxis: scd and teds adjust lantus dosing 33 min pt exam, chart review, > 50% of time with exam, chart review, pt care coordination Vitals Vitals Vital Signs Date Time Temp Pulse Resp B/P (MAP) Pulse Ox O2 Delivery O2 Flow Rate FiO2 11/19/18 08:44 145/56 11/19/18 07:00 98.4 66 18 96 Room Air 98.4 Physical Exam Physical Exam Physical Exam Physical Exam GEN.: No apparent distress. Alert and oriented. HEENT: Head is normocephalic, atraumatic NECK: Supple. LUNGS: Clear to auscultation. HEART: RRR, S1, S2 present. systolic murmur 2/6 no radiation to carotids Peripheral pulses intact ABDOMEN: Soft, nontender. Positive bowel sounds. EXTREMITIES: Without any cyanosis. NEUROLOGIC: Normal speech, normal tone PSYCHIATRIC: Normal affect, normal mood. SKIN: No ulcerations General: Alert, Oriented X3, Cooperative Heart: Regular rate, Normal S1 Lungs: Clear, Other Extremities: No clubbing, No cyanosis Labs LABS Laboratory Tests Test 11/18/18 11:17 11/18/18 17:18 11/18/18 21:13 11/19/18 05:00 Glucose (Fingerstick) 316 mg/dL (70-99) 233 mg/dL (70-99) 244 mg/dL (70-99) White Blood Count 3.7 x10^3/uL (4.0-11.0) Red Blood Count 3.64 x10^6/uL (3.50-5.40) Hemoglobin 11.3 g/dL (12.0-15.5) Hematocrit 33.4 % (36.0-47.0) Mean Corpuscular Volume 92 fL (79-100) Mean Corpuscular Hemoglobin 31 pg (25-35) Mean Corpuscular Hemoglobin Concent 34 g/dL (31-37) Red Cell Distribution Width 14.0 % (11.5-14.5) Platelet Count 77 x10^3/uL (140-400) Neutrophils (%) (Auto) 53 % (31-73) Lymphocytes (%) (Auto) 32 % (24-48) Monocytes (%) (Auto) 11 % (0-9) Eosinophils (%) (Auto) 3 % (0-3) Basophils (%) (Auto) 1 % (0-3) Neutrophils # (Auto) 2.0 x10^3uL (1.8-7.7) Lymphocytes # (Auto) 1.2 x10^3/uL (1.0-4.8) Monocytes # (Auto) 0.4 x10^3/uL (0.0-1.1) Eosinophils # (Auto) 0.1 x10^3/uL (0.0-0.7) Basophils # (Auto) 0.0 x10^3/uL (0.0-0.2) Sodium Level 138 mmol/L (136-145) Potassium Level 5.1 mmol/L (3.5-5.1) Chloride Level 107 mmol/L (98-107) Carbon Dioxide Level 18 mmol/L (21-32) Anion Gap 13 (6-14) Blood Urea Nitrogen 24 mg/dL (7-20) Creatinine 1.8 mg/dL (0.6-1.0) Estimated GFR (Cockcroft-Gault) 27.7 BUN/Creatinine Ratio 13 (6-20) Glucose Level 365 mg/dL (70-99) Calcium Level 8.5 mg/dL (8.5-10.1) Magnesium Level 2.0 mg/dL (1.8-2.4) Total Bilirubin 1.3 mg/dL (0.2-1.0) Aspartate Amino Transf (AST/SGOT) 28 U/L (15-37) Alanine Aminotransferase (ALT/SGPT) 23 U/L (14-59) Alkaline Phosphatase 72 U/L (46-116) Total Protein 5.6 g/dL (6.4-8.2) Albumin 3.0 g/dL (3.4-5.0) Albumin/Globulin Ratio 1.2 (1.0-1.7) Test 11/19/18 07:08 Glucose (Fingerstick) 383 mg/dL (70-99) Assessment and Plan Assessmemt and Plan Problems Medical Problems: (1) Chronic renal failure Status: Acute (2) Hyperglycemia Status: Acute (3) Hyperkalemia Status: Acute Comment Review of Relevant I have reviewed the following items tiffanie (where applicable) has been applied. Labs Laboratory Tests Test 11/17/18 17:15 11/17/18 18:20 11/17/18 18:35 11/17/18 20:11 White Blood Count 8.2 x10^3/uL (4.0-11.0) Red Blood Count 4.09 x10^6/uL (3.50-5.40) Hemoglobin 12.7 g/dL (12.0-15.5) Hematocrit 37.1 % (36.0-47.0) Mean Corpuscular Volume 91 fL (79-100) Mean Corpuscular Hemoglobin 31 pg (25-35) Mean Corpuscular Hemoglobin Concent 34 g/dL (31-37) Red Cell Distribution Width 13.7 % (11.5-14.5) Platelet Count 101 x10^3/uL (140-400) Neutrophils (%) (Auto) 68 % (31-73) Lymphocytes (%) (Auto) 22 % (24-48) Monocytes (%) (Auto) 9 % (0-9) Eosinophils (%) (Auto) 1 % (0-3) Basophils (%) (Auto) 1 % (0-3) Neutrophils # (Auto) 5.5 x10^3uL (1.8-7.7) Lymphocytes # (Auto) 1.8 x10^3/uL (1.0-4.8) Monocytes # (Auto) 0.7 x10^3/uL (0.0-1.1) Eosinophils # (Auto) 0.1 x10^3/uL (0.0-0.7) Basophils # (Auto) 0.1 x10^3/uL (0.0-0.2) Prothrombin Time 15.0 SEC (11.7-14.0) Prothromb Time International Ratio 1.2 (0.8-1.1) Activated Partial Thromboplast Time 30 SEC (24-38) Sodium Level 133 mmol/L (136-145) Potassium Level 5.7 mmol/L (3.5-5.1) Chloride Level 98 mmol/L (98-107) Carbon Dioxide Level 20 mmol/L (21-32) Anion Gap 15 (6-14) Blood Urea Nitrogen 36 mg/dL (7-20) Creatinine 2.6 mg/dL (0.6-1.0) Estimated GFR (Cockcroft-Gault) 18.1 BUN/Creatinine Ratio 14 (6-20) Glucose Level 528 mg/dL (70-99) Hemoglobin A1c 9.5 % (4.8-5.6) Calcium Level 9.6 mg/dL (8.5-10.1) Magnesium Level 1.6 mg/dL (1.8-2.4) Total Bilirubin 2.7 mg/dL (0.2-1.0) Aspartate Amino Transf (AST/SGOT) 25 U/L (15-37) Alanine Aminotransferase (ALT/SGPT) 26 U/L (14-59) Alkaline Phosphatase 91 U/L (46-116) Creatine Kinase 24 U/L (26-192) Creatine Kinase MB (Mass) < 0.5 ng/mL (0.0-3.6) Creatine Kinase MB Relative Index % (0-4) Troponin I Quantitative < 0.017 ng/mL (0.000-0.055) Total Protein 6.8 g/dL (6.4-8.2) Albumin 3.7 g/dL (3.4-5.0) Albumin/Globulin Ratio 1.2 (1.0-1.7) Urine Color Yellow Urine Clarity Clear Urine pH 5.5 Urine Specific Blum 1.020 Urine Protein Negative mg/dL (NEG-TRACE) Urine Glucose (UA) >=1000 mg/dL (NEG) Urine Ketones (Stick) Negative mg/dL (NEG) Urine Blood Negative (NEG) Urine Nitrite Negative (NEG) Urine Bilirubin Negative (NEG) Urine Urobilinogen Dipstick 0.2 mg/dL (0.2 mg/dL) Urine Leukocyte Esterase Negative (NEG) Urine RBC 0 /HPF (0-2) Urine WBC Occ /HPF (0-4) Urine Squamous Epithelial Cells Occ /LPF Urine Bacteria 0 /HPF (0-FEW) Urine Random Creatinine 114.5 mg/dL (Not Establ.) Urine Sodium 46 mmol/L (Not Estab.) Urine Potassium 31.8 mmol/L (Not Estab.) Urine Chloride 38 mmol/L (Not Estab.) O2 Saturation 97 % (92-99) Arterial Blood pH 7.43 (7.35-7.45) Arterial Blood pCO2 at Patient Temp 27 mmHg (35-46) Arterial Blood pO2 at Patient Temp 89 mmHg (65-108) Arterial Blood HCO3 18 mmol/L (21-28) Arterial Blood Base Excess -5 mmol/L (-3-3) FiO2 21 Lactic Acid Level 2.3 mmol/L (0.4-2.0) Glucose (Fingerstick) 337 mg/dL (70-99) Test 11/17/18 21:50 11/17/18 23:30 11/17/18 23:34 11/18/18 04:15 Glucose (Fingerstick) 243 mg/dL (70-99) 178 mg/dL (70-99) Sodium Level 137 mmol/L (136-145) 136 mmol/L (136-145) Potassium Level 4.0 mmol/L (3.5-5.1) 4.7 mmol/L (3.5-5.1) Chloride Level 103 mmol/L (98-107) 103 mmol/L (98-107) Carbon Dioxide Level 21 mmol/L (21-32) 19 mmol/L (21-32) Anion Gap 13 (6-14) 14 (6-14) Blood Urea Nitrogen 32 mg/dL (7-20) 32 mg/dL (7-20) Creatinine 2.3 mg/dL (0.6-1.0) 2.1 mg/dL (0.6-1.0) Estimated GFR (Cockcroft-Gault) 20.8 23.2 Glucose Level 194 mg/dL (70-99) 271 mg/dL (70-99) Lactic Acid Level 2.7 mmol/L (0.4-2.0) Calcium Level 8.9 mg/dL (8.5-10.1) 8.9 mg/dL (8.5-10.1) White Blood Count 6.7 x10^3/uL (4.0-11.0) Red Blood Count 3.75 x10^6/uL (3.50-5.40) Hemoglobin 11.6 g/dL (12.0-15.5) Hematocrit 34.3 % (36.0-47.0) Mean Corpuscular Volume 92 fL (79-100) Mean Corpuscular Hemoglobin 31 pg (25-35) Mean Corpuscular Hemoglobin Concent 34 g/dL (31-37) Red Cell Distribution Width 13.8 % (11.5-14.5) Platelet Count 85 x10^3/uL (140-400) Neutrophils (%) (Auto) 66 % (31-73) Lymphocytes (%) (Auto) 23 % (24-48) Monocytes (%) (Auto) 8 % (0-9) Eosinophils (%) (Auto) 2 % (0-3) Basophils (%) (Auto) 0 % (0-3) Neutrophils # (Auto) 4.5 x10^3uL (1.8-7.7) Lymphocytes # (Auto) 1.6 x10^3/uL (1.0-4.8) Monocytes # (Auto) 0.6 x10^3/uL (0.0-1.1) Eosinophils # (Auto) 0.1 x10^3/uL (0.0-0.7) Basophils # (Auto) 0.0 x10^3/uL (0.0-0.2) Magnesium Level 1.3 mg/dL (1.8-2.4) Test 11/18/18 07:58 11/18/18 11:17 11/18/18 17:18 11/18/18 21:13 Glucose (Fingerstick) 261 mg/dL (70-99) 316 mg/dL (70-99) 233 mg/dL (70-99) 244 mg/dL (70-99) Test 11/19/18 05:00 11/19/18 07:08 White Blood Count 3.7 x10^3/uL (4.0-11.0) Red Blood Count 3.64 x10^6/uL (3.50-5.40) Hemoglobin 11.3 g/dL (12.0-15.5) Hematocrit 33.4 % (36.0-47.0) Mean Corpuscular Volume 92 fL (79-100) Mean Corpuscular Hemoglobin 31 pg (25-35) Mean Corpuscular Hemoglobin Concent 34 g/dL (31-37) Red Cell Distribution Width 14.0 % (11.5-14.5) Platelet Count 77 x10^3/uL (140-400) Neutrophils (%) (Auto) 53 % (31-73) Lymphocytes (%) (Auto) 32 % (24-48) Monocytes (%) (Auto) 11 % (0-9) Eosinophils (%) (Auto) 3 % (0-3) Basophils (%) (Auto) 1 % (0-3) Neutrophils # (Auto) 2.0 x10^3uL (1.8-7.7) Lymphocytes # (Auto) 1.2 x10^3/uL (1.0-4.8) Monocytes # (Auto) 0.4 x10^3/uL (0.0-1.1) Eosinophils # (Auto) 0.1 x10^3/uL (0.0-0.7) Basophils # (Auto) 0.0 x10^3/uL (0.0-0.2) Sodium Level 138 mmol/L (136-145) Potassium Level 5.1 mmol/L (3.5-5.1) Chloride Level 107 mmol/L (98-107) Carbon Dioxide Level 18 mmol/L (21-32) Anion Gap 13 (6-14) Blood Urea Nitrogen 24 mg/dL (7-20) Creatinine 1.8 mg/dL (0.6-1.0) Estimated GFR (Cockcroft-Gault) 27.7 BUN/Creatinine Ratio 13 (6-20) Glucose Level 365 mg/dL (70-99) Calcium Level 8.5 mg/dL (8.5-10.1) Magnesium Level 2.0 mg/dL (1.8-2.4) Total Bilirubin 1.3 mg/dL (0.2-1.0) Aspartate Amino Transf (AST/SGOT) 28 U/L (15-37) Alanine Aminotransferase (ALT/SGPT) 23 U/L (14-59) Alkaline Phosphatase 72 U/L (46-116) Total Protein 5.6 g/dL (6.4-8.2) Albumin 3.0 g/dL (3.4-5.0) Albumin/Globulin Ratio 1.2 (1.0-1.7) Glucose (Fingerstick) 383 mg/dL (70-99) Laboratory Tests Test 11/18/18 11:17 11/18/18 17:18 11/18/18 21:13 11/19/18 05:00 Glucose (Fingerstick) 316 mg/dL (70-99) 233 mg/dL (70-99) 244 mg/dL (70-99) White Blood Count 3.7 x10^3/uL (4.0-11.0) Red Blood Count 3.64 x10^6/uL (3.50-5.40) Hemoglobin 11.3 g/dL (12.0-15.5) Hematocrit 33.4 % (36.0-47.0) Mean Corpuscular Volume 92 fL (79-100) Mean Corpuscular Hemoglobin 31 pg (25-35) Mean Corpuscular Hemoglobin Concent 34 g/dL (31-37) Red Cell Distribution Width 14.0 % (11.5-14.5) Platelet Count 77 x10^3/uL (140-400) Neutrophils (%) (Auto) 53 % (31-73) Lymphocytes (%) (Auto) 32 % (24-48) Monocytes (%) (Auto) 11 % (0-9) Eosinophils (%) (Auto) 3 % (0-3) Basophils (%) (Auto) 1 % (0-3) Neutrophils # (Auto) 2.0 x10^3uL (1.8-7.7) Lymphocytes # (Auto) 1.2 x10^3/uL (1.0-4.8) Monocytes # (Auto) 0.4 x10^3/uL (0.0-1.1) Eosinophils # (Auto) 0.1 x10^3/uL (0.0-0.7) Basophils # (Auto) 0.0 x10^3/uL (0.0-0.2) Sodium Level 138 mmol/L (136-145) Potassium Level 5.1 mmol/L (3.5-5.1) Chloride Level 107 mmol/L (98-107) Carbon Dioxide Level 18 mmol/L (21-32) Anion Gap 13 (6-14) Blood Urea Nitrogen 24 mg/dL (7-20) Creatinine 1.8 mg/dL (0.6-1.0) Estimated GFR (Cockcroft-Gault) 27.7 BUN/Creatinine Ratio 13 (6-20) Glucose Level 365 mg/dL (70-99) Calcium Level 8.5 mg/dL (8.5-10.1) Magnesium Level 2.0 mg/dL (1.8-2.4) Total Bilirubin 1.3 mg/dL (0.2-1.0) Aspartate Amino Transf (AST/SGOT) 28 U/L (15-37) Alanine Aminotransferase (ALT/SGPT) 23 U/L (14-59) Alkaline Phosphatase 72 U/L (46-116) Total Protein 5.6 g/dL (6.4-8.2) Albumin 3.0 g/dL (3.4-5.0) Albumin/Globulin Ratio 1.2 (1.0-1.7) Test 11/19/18 07:08 Glucose (Fingerstick) 383 mg/dL (70-99) Medications Current Medications Calcium Gluconate (Calcium Gluconate) 1,000 mg 1X ONCE IVP ; Start 11/17/18 at 17:45; Stop 11/17/18 at 17:46; Status Cancel Sodium Bicarbonate (Sodium Bicarb Adult 8.4% Syr) 50 meq 1X ONCE IV ; Start 11/17/18 at 17:45; Stop 11/17/18 at 17:46; Status Cancel Dextrose (Dextrose 50%-Water Syringe) 25 gm 1X ONCE IV ; Start 11/17/18 at 17:45; Stop 11/17/18 at 17:46; Status Cancel Insulin Human Regular (HumuLIN R VIAL) 10 unit 1X ONCE IV ; Start 11/17/18 at 17:45; Stop 11/17/18 at 17:46; Status Cancel Sodium Polystyrene Sulfonate (Kayexalate) 30 gm 1X ONCE PO ; Start 11/17/18 at 17:45; Stop 11/17/18 at 17:46; Status Cancel Sodium Chloride 1,000 ml @ 1,000 mls/hr Q1H IV Last administered on 11/17/18at 18:25; Start 11/17/18 at 17:45; Stop 11/17/18 at 18:44; Status DC Sodium Chloride 1,000 ml @ 250 mls/hr Q4H IV ; Start 11/17/18 at 19:00; Stop 11/18/18 at 00:54; Status DC Dextrose/Sodium Chloride 1,000 ml @ 250 mls/hr Q4H IV ; Start 11/17/18 at 19:00; Stop 11/18/18 at 00:54; Status DC Insulin Human Regular 150 unit/ Sodium Chloride 151.5 ml @ 0 mls/hr CONT PRN PRN IV PER PROTOCOL; Start 11/17/18 at 18:15; Stop 11/18/18 at 00:54; Status DC Potassium Chloride/Water 100 ml @ 100 mls/hr PRN Q1HR PRN IV SEE COMMENTS; Start 11/17/18 at 18:15 Potassium Chloride/Water 100 ml @ 100 mls/hr PRN Q1HR PRN IV SEE COMMENTS; Start 11/17/18 at 18:15 Potassium Chloride/Water 100 ml @ 100 mls/hr PRN Q1HR PRN IV SEE COMMENTS; Start 11/17/18 at 18:15 Magnesium Sulfate/ Dextrose 100 ml @ 25 mls/hr DAILY IV Last administered on 11/18/18at 08:43; Start 11/18/18 at 09:00; Stop 11/21/18 at 08:59 Ondansetron HCl (Zofran) 4 mg PRN Q4HRS PRN IV NAUSEA/VOMITING; Start 11/17/18 at 18:15 Zolpidem Tartrate (Ambien) 5 mg PRN QHS PRN PO INSOMNIA; Start 11/17/18 at 18:15 Acetaminophen (Tylenol) 650 mg PRN Q4HRS PRN GT TEMP OVER 100.4F OR MILD PAIN; Start 11/17/18 at 18:15 Clonidine HCl (Catapres) 0.1 mg PRN Q6HRS PRN PO SBP>160 OR DBP>90; Start 11/17/18 at 18:15 Docusate Sodium (Colace) 100 mg PRN BID PRN PO CONSTIPATION; Start 11/17/18 at 18:15 Albuterol Sulfate (Ventolin Neb Soln) 2.5 mg PRN Q4HRS PRN NEB SHORTNESS OF BREATH; Start 11/17/18 at 18:15 Guaifenesin (Robitussin) 200 mg PRN Q4HRS PRN PO COUGH; Start 11/17/18 at 18:15 Lorazepam (Ativan) 0.5 mg PRN Q4HRS PRN PO ANXIETY / AGITATION Last administered on 11/18/18at 10:53; Start 11/17/18 at 18:15 Insulin Human Regular 150 ml @ 6.9 mls/hr 1X ONCE IV Last administered on 11/17/18at 19:03; Start 11/17/18 at 18:30; Stop 11/18/18 at 16:15; Status DC Ondansetron HCl (Zofran) 4 mg PRN Q8HRS PRN IV NAUSEA/VOMITING; Start 11/17/18 at 18:30; Stop 11/18/18 at 18:29; Status DC Sodium Chloride 1,000 ml @ 125 mls/hr 1X ONCE IV ; Start 11/17/18 at 18:30; Stop 11/18/18 at 02:29; Status DC Insulin Glargine (Lantus) 10 units 1X ONCE SQ Last administered on 11/18/18at 01:20; Start 11/18/18 at 01:00; Stop 11/18/18 at 01:01; Status DC Sodium Chloride 1,000 ml @ 100 mls/hr Q10H IV Last administered on 11/19/18at 02:02; Start 11/18/18 at 01:00 Dextrose (Dextrose 50%-Water Syringe) 12.5 gm PRN Q15MIN PRN IV SEE COMMENTS; Start 11/18/18 at 01:00 Insulin Human Lispro (HumaLOG) 20 units TIDWMEALS SQ ; Start 11/18/18 at 12:00; Stop 11/18/18 at 12:00; Status DC Insulin Human Lispro (HumaLOG) 0-5 UNITS TIDWMEALS SQ Last administered on 11/18/18at 17:00; Start 11/18/18 at 12:00 Dextrose (Dextrose 50%-Water Syringe) 12.5 gm PRN Q15MIN PRN IV SEE COMMENTS; Start 11/18/18 at 09:00; Status UNV Insulin Human Lispro (HumaLOG) 20 units TIDWMEALS SQ Last administered on 11/18/18at 17:29; Start 11/18/18 at 09:00 Levofloxacin (Levaquin) 250 mg DAILY06 PO Last administered on 11/19/18at 05:13; Start 11/18/18 at 18:00 Atorvastatin Calcium (Lipitor) 20 mg DAILY PO Last administered on 11/19/18 08:44; Start 11/19/18 at 09:00 Ergocalciferol (Vitamin D2) 50,000 unit 3X/WEEK PO ; Start 11/20/18 at 09:00 Glipizide (Glucotrol) 10 mg DAILYWSUP PO ; Start 11/19/18 at 17:00 Glipizide (Glucotrol) 5 mg DAILY08 PO Last administered on 11/19/18 08:30; Start 11/19/18 at 08:30 Losartan Potassium (Cozaar) 100 mg DAILY PO Last administered on 11/19/18 08:44; Start 11/19/18 at 09:00 Famotidine (Pepcid) 20 mg DAILY PO Last administered on 11/19/18 08:44; Start 11/19/18 at 09:00 Spironolactone (Aldactone) 25 mg BID PO Last administered on 11/19/18 08:44; Start 11/19/18 at 09:00 Insulin Human Lispro (HumaLOG) 28 units 1X ONCE SQ Last administered on 11/19/18at 08:48; Start 11/19/18 at 08:30; Stop 11/19/18 at 08:31; Status DC Insulin Glargine (Lantus) 15 units BID SQ ; Start 11/19/18 at 09:00 Active Scripts Active Glipizide Er (Glipizide) 5 Mg Tab.er.24 1 Tab PO DAILY Humalog (Insulin Lispro) 100 Unit/1 Ml Insuln.pen 20 Units SQ TIDWMEALS 30 Days Reported Maximum D3 (Cholecalciferol (Vitamin D3)) 10,000 Unit Capsule 50,000 Unit PO 3X /WEEK Glipizide 10 Mg Tablet 10 Mg PO DAILYWSUP Spironolactone 25 Mg Tablet 1 Tab PO BID Amox Tr-K Clv 875-125 Mg Tab (Amoxicillin/Potassium Clav) 1 Each Tablet 1 Tab PO BID Irbesartan 300 Mg Tablet 1 Tab PO DAILY Zantac (Ranitidine Hcl) 150 Mg Tablet 1 Tab PO BID Atorvastatin Calcium 20 Mg Tablet 1 Tab PO DAILY Vitals/I & O Vital Sign - Last 24 Hours 11/18/18 11/18/18 11/18/18 11/18/18 11:00 15:00 19:55 20:25 Temp 97.6 98.2 97.8 97.6 98.2 97.8 Pulse 88 85 77 Resp 18 18 20 B/P (MAP) 152/80 (104) 129/59 (82) 108/69 (82) Pulse Ox 98 93 98 O2 Delivery Room Air Room Air Room Air Room Air 11/18/18 11/19/18 11/19/18 11/19/18 23:00 03:40 07:00 08:44 Temp 98.3 97.8 98.4 98.3 97.8 98.4 Pulse 71 68 66 Resp 22 20 18 B/P (MAP) 130/61 (84) 155/54 (87) 145/56 (85) 145/56 Pulse Ox 97 97 96 O2 Delivery Room Air Room Air Room Air Intake and Output 11/18/18 11/18/18 11/19/18 14:59 22:59 06:59 Intake Total 180 ml 2036 ml 800 ml Output Total 200 ml 1450 ml 450 ml Balance -20 ml 586 ml 350 ml ELISA CASTELAN MD November 19, 2018 09:37
[2018-11-19 11:00] VITALS: BP 145/59
--- NOTE | 2018-11-19 11:18 | RAD ---
Examination: 3 views of the sinuses HISTORY: History of sinusitis COMPARISON: None available. Findings The visualized ethmoidal sinuses, maxillary sinuses, mastoid air cells are clear. IMPRESSION: No evidence of fluid levels identified in sinuses to suggest sinusitis. Electronically signed by: Patric Manning MD (11/19/2018 11:15 AM) [facility]
--- NOTE | 2018-11-19 11:27 | EKG ---
[facility] [address] [place] [address] Test Date: 2018-11-17 Test Time: 17:37:55 Pat Name: DESI GUAMAN Department: Room: 263 1 Gender: F [employer]: : 1945 Requested By: BLAZE ORTEZ Order Number: [id number] Reading MD: Kevin Crews Measurements Intervals [place] Rate: 71 P: 31 HI: 156 QRS: -23 QRSD: 88 T: 26 QT: 402 QTc: 441 Interpretive Statements SINUS RHYTHM LEFTWARD AXIS QRS(T) CONTOUR ABNORMALITY CONSISTENT WITH ANTEROSEPTAL INFARCT AGE UNDETERMINED ABNORMAL ECG Electronically Signed On 12-08-2018 12:32:49 CDT by Kevin Crews
--- NOTE | 2018-11-19 14:58 | NUR ---
Pt states that she will not stay, that she has plans and the plans cannot be changed. Pt explained the risks of leaving. PT agrees to sign and leave AMA, 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 Security and staff assisted pt to car with .
--- NOTE | 2018-11-19 18:49 | PDOC3 ---
Discharge Summary Date of Admission: November 17, 2018 Date of Discharge: November 19, 2018 Follow-Up: By telephone Admitting Diagnosis comment: discharge dx left AMA Assessment/Plan DKA High aniong gap acidosis secondary to the above mild hyperkalemia most likely associated with underlying acidosis acute on chronic renal failure most likely prerenal azotemia Electrolyte disturbance with hypomagnasemia History of essential hypertension History of CAMPBELL Plan: fluid resuscitation insulin drip, d/c will recheck BMP telemetry consult nephrology for acute renal failure further recommendations based on clinical course reassess in the am DVT prophylaxis: scd and teds adjust lantus dosing 33 min pt exam, chart review, > 50% of time with exam, chart review, pt care coordination Vitals Vitals Vital Signs Date Time Temp Pulse Resp B/P (MAP) Pulse Ox O2 Delivery O2 Flow Rate FiO2 11/19/18 08:44 145/56 11/19/18 07:00 98.4 66 18 96 Room Air 98.4 Physical Exam Physical Exam Physical Exam Physical Exam GEN.: No apparent distress. Alert and oriented. HEENT: Head is normocephalic, atraumatic NECK: Supple. LUNGS: Clear to auscultation. HEART: RRR, S1, S2 present. systolic murmur 2/6 no radiation to carotids Peripheral pulses intact ABDOMEN: Soft, nontender. Positive bowel sounds. EXTREMITIES: Without any cyanosis. NEUROLOGIC: Normal speech, normal tone PSYCHIATRIC: Normal affect, normal mood. SKIN: No ulcerations General: Alert, Oriented X3, Cooperative Heart: Regular rate, Normal S1 FINAL DIAGNOSIS Problems Medical Problems: (1) Chronic renal failure Status: Acute (2) Hyperglycemia Status: Acute (3) Hyperkalemia Status: Acute Brief Hospital Course Ms. Eaton is a 73 old [sex] who presented with [DKA ] CONDITION AT DISCHARGE: Comment (GUARDED) Discharge Medications Current Medications Calcium Gluconate (Calcium Gluconate) 1,000 mg 1X ONCE IVP ; Start 11/17/18 at 17:45; Stop 11/17/18 at 17:46; Status Cancel Sodium Bicarbonate (Sodium Bicarb Adult 8.4% Syr) 50 meq 1X ONCE IV ; Start 11/17/18 at 17:45; Stop 11/17/18 at 17:46; Status Cancel Dextrose (Dextrose 50%-Water Syringe) 25 gm 1X ONCE IV ; Start 11/17/18 at 17:45; Stop 11/17/18 at 17:46; Status Cancel Insulin Human Regular (HumuLIN R VIAL) 10 unit 1X ONCE IV ; Start 11/17/18 at 17:45; Stop 11/17/18 at 17:46; Status Cancel Sodium Polystyrene Sulfonate (Kayexalate) 30 gm 1X ONCE PO ; Start 11/17/18 at 17:45; Stop 11/17/18 at 17:46; Status Cancel Sodium Chloride 1,000 ml @ 1,000 mls/hr Q1H IV Last administered on 11/17/18at 18:25; Start 11/17/18 at 17:45; Stop 11/17/18 at 18:44; Status DC Sodium Chloride 1,000 ml @ 250 mls/hr Q4H IV ; Start 11/17/18 at 19:00; Stop 11/18/18 at 00:54; Status DC Dextrose/Sodium Chloride 1,000 ml @ 250 mls/hr Q4H IV ; Start 11/17/18 at 19:00; Stop 11/18/18 at 00:54; Status DC Insulin Human Regular 150 unit/ Sodium Chloride 151.5 ml @ 0 mls/hr CONT PRN PRN IV PER PROTOCOL; Start 11/17/18 at 18:15; Stop 11/18/18 at 00:54; Status DC Potassium Chloride/Water 100 ml @ 100 mls/hr PRN Q1HR PRN IV SEE COMMENTS; Start 11/17/18 at 18:15; Stop 11/19/18 at 15:04; Status DC Potassium Chloride/Water 100 ml @ 100 mls/hr PRN Q1HR PRN IV SEE COMMENTS; Start 11/17/18 at 18:15; Stop 11/19/18 at 15:04; Status DC Potassium Chloride/Water 100 ml @ 100 mls/hr PRN Q1HR PRN IV SEE COMMENTS; Start 11/17/18 at 18:15; Stop 11/19/18 at 15:04; Status DC Magnesium Sulfate/ Dextrose 100 ml @ 25 mls/hr DAILY IV Last administered on 11/18/18at 08:43; Start 11/18/18 at 09:00; Stop 11/19/18 at 15:04; Status DC Ondansetron HCl (Zofran) 4 mg PRN Q4HRS PRN IV NAUSEA/VOMITING; Start 11/17/18 at 18:15; Stop 11/19/18 at 15:04; Status DC Zolpidem Tartrate (Ambien) 5 mg PRN QHS PRN PO INSOMNIA; Start 11/17/18 at 18:15; Stop 11/19/18 at 15:04; Status DC Acetaminophen (Tylenol) 650 mg PRN Q4HRS PRN GT TEMP OVER 100.4F OR MILD PAIN; Start 11/17/18 at 18:15; Stop 11/19/18 at 15:04; Status DC Clonidine HCl (Catapres) 0.1 mg PRN Q6HRS PRN PO SBP>160 OR DBP>90; Start 11/17/18 at 18:15; Stop 11/19/18 at 15:04; Status DC Docusate Sodium (Colace) 100 mg PRN BID PRN PO CONSTIPATION; Start 11/17/18 at 18:15; Stop 11/19/18 at 15:04; Status DC Albuterol Sulfate (Ventolin Neb Soln) 2.5 mg PRN Q4HRS PRN NEB SHORTNESS OF BREATH; Start 11/17/18 at 18:15; Stop 11/19/18 at 15:04; Status DC Guaifenesin (Robitussin) 200 mg PRN Q4HRS PRN PO COUGH; Start 11/17/18 at 18:15; Stop 11/19/18 at 15:04; Status DC Lorazepam (Ativan) 0.5 mg PRN Q4HRS PRN PO ANXIETY / AGITATION Last administered on 11/18/18at 10:53; Start 11/17/18 at 18:15; Stop 11/19/18 at 15:04; Status DC Insulin Human Regular 150 ml @ 6.9 mls/hr 1X ONCE IV Last administered on 11/17/18at 19:03; Start 11/17/18 at 18:30; Stop 11/18/18 at 16:15; Status DC Ondansetron HCl (Zofran) 4 mg PRN Q8HRS PRN IV NAUSEA/VOMITING; Start 11/17/18 at 18:30; Stop 11/18/18 at 18:29; Status DC Sodium Chloride 1,000 ml @ 125 mls/hr 1X ONCE IV ; Start 11/17/18 at 18:30; Stop 11/18/18 at 02:29; Status DC Insulin Glargine (Lantus) 10 units 1X ONCE SQ Last administered on 11/18/18at 01:20; Start 11/18/18 at 01:00; Stop 11/18/18 at 01:01; Status DC Sodium Chloride 1,000 ml @ 100 mls/hr Q10H IV Last administered on 11/19/18at 02:02; Start 11/18/18 at 01:00; Stop 11/19/18 at 13:17; Status DC Dextrose (Dextrose 50%-Water Syringe) 12.5 gm PRN Q15MIN PRN IV SEE COMMENTS; Start 11/18/18 at 01:00; Stop 11/19/18 at 15:04; Status DC Insulin Human Lispro (HumaLOG) 20 units TIDWMEALS SQ ; Start 11/18/18 at 12:00; Stop 11/18/18 at 12:00; Status DC Insulin Human Lispro (HumaLOG) 0-5 UNITS TIDWMEALS SQ Last administered on 11/19/18at 12:38; Start 11/18/18 at 12:00; Stop 11/19/18 at 15:04; Status DC Dextrose (Dextrose 50%-Water Syringe) 12.5 gm PRN Q15MIN PRN IV SEE COMMENTS; Start 11/18/18 at 09:00; Status UNV Insulin Human Lispro (HumaLOG) 20 units TIDWMEALS SQ Last administered on 11/19/18at 12:38; Start 11/18/18 at 09:00; Stop 11/19/18 at 15:04; Status DC Levofloxacin (Levaquin) 250 mg DAILY06 PO Last administered on 11/19/18at 05:13; Start 11/18/18 at 18:00; Stop 11/19/18 at 15:04; Status DC Atorvastatin Calcium (Lipitor) 20 mg DAILY PO Last administered on 11/19/18at 08:44; Start 11/19/18 at 09:00; Stop 11/19/18 at 15:04; Status DC Ergocalciferol (Vitamin D2) 50,000 unit 3X/WEEK PO ; Start 11/20/18 at 09:00; Stop 11/20/18 at 09:00; Status DC Glipizide (Glucotrol) 10 mg DAILYWSUP PO ; Start 11/19/18 at 17:00; Stop 11/19/18 at 17:00; Status DC Glipizide (Glucotrol) 5 mg DAILY08 PO Last administered on 11/19/18at 08:30; Start 11/19/18 at 08:30; Stop 11/19/18 at 15:04; Status DC Losartan Potassium (Cozaar) 100 mg DAILY PO Last administered on 11/19/18at 08:44; Start 11/19/18 at 09:00; Stop 11/19/18 at 15:04; Status DC Famotidine (Pepcid) 20 mg DAILY PO Last administered on 11/19/18at 08:44; Start 11/19/18 at 09:00; Stop 11/19/18 at 15:04; Status DC Spironolactone (Aldactone) 25 mg BID PO Last administered on 11/19/18at 08:44; Start 11/19/18 at 09:00; Stop 11/19/18 at 15:04; Status DC Insulin Human Lispro (HumaLOG) 28 units 1X ONCE SQ Last administered on 11/19/18at 08:48; Start 11/19/18 at 08:30; Stop 11/19/18 at 08:31; Status DC Insulin Glargine (Lantus) 15 units BID SQ Last administered on 11/19/18at 09:52; Start 11/19/18 at 09:00; Stop 11/19/18 at 15:04; Status DC Lactobacillus Rhamnosus (Culturelle) 1 cap BID PO ; Start 11/19/18 at 21:00; Stop 11/19/18 at 21:00; Status DC Active Scripts Active Glipizide Er (Glipizide) 5 Mg Tab.er.24 1 Tab PO DAILY Humalog (Insulin Lispro) 100 Unit/1 Ml Insuln.pen 20 Units SQ TIDWMEALS 30 Days Reported Maximum D3 (Cholecalciferol (Vitamin D3)) 10,000 Unit Capsule 50,000 Unit PO 3X/WEEK Glipizide 10 Mg Tablet 10 Mg PO DAILYWSUP Spironolactone 25 Mg Tablet 1 Tab PO BID Amox Tr-K Clv 875-125 Mg Tab (Amoxicillin/Potassium Clav) 1 Each Tablet 1 Tab PO BID Irbesartan 300 Mg Tablet 1 Tab PO DAILY Zantac (Ranitidine Hcl) 150 Mg Tablet 1 Tab PO BID Atorvastatin Calcium 20 Mg Tablet 1 Tab PO DAILY Vital Signs Vital Signs Date Time Temp Pulse Resp B/P (MAP) Pulse Ox O2 Delivery O2 Flow Rate FiO2 11/19/18 11:00 97.9 68 16 145/59 (87) 97 Room Air 97.9 Labs Laboratory Tests Test 11/17/18 20:11 11/17/18 21:50 11/17/18 23:30 11/17/18 23:34 Glucose (Fingerstick) 337 mg/dL (70-99) 243 mg/dL (70-99) 178 mg/dL (70-99) Sodium Level 137 mmol/L (136-145) Potassium Level 4.0 mmol/L (3.5-5.1) Chloride Level 103 mmol/L (98-107) Carbon Dioxide Level 21 mmol/L (21-32) Anion Gap 13 (6-14) Blood Urea Nitrogen 32 mg/dL (7-20) Creatinine 2.3 mg/dL (0.6-1.0) Estimated GFR (Cockcroft-Gault) 20.8 Glucose Level 194 mg/dL (70-99) Lactic Acid Level 2.7 mmol/L (0.4-2.0) Calcium Level 8.9 mg/dL (8.5-10.1) Test 11/18/18 04:15 11/18/18 07:58 11/18/18 11:17 11/18/18 17:18 White Blood Count 6.7 x10^3/uL (4.0-11.0) Red Blood Count 3.75 x10^6/uL (3.50-5.40) Hemoglobin 11.6 g/dL (12.0-15.5) Hematocrit 34.3 % (36.0-47.0) Mean Corpuscular Volume 92 fL (79-100) Mean Corpuscular Hemoglobin 31 pg (25-35) Mean Corpuscular Hemoglobin Concent 34 g/dL (31-37) Red Cell Distribution Width 13.8 % (11.5-14.5) Platelet Count 85 x10^3/uL (140-400) Neutrophils (%) (Auto) 66 % (31-73) Lymphocytes (%) (Auto) 23 % (24-48) Monocytes (%) (Auto) 8 % (0-9) Eosinophils (%) (Auto) 2 % (0-3) Basophils (%) (Auto) 0 % (0-3) Neutrophils # (Auto) 4.5 x10^3uL (1.8-7.7) Lymphocytes # (Auto) 1.6 x10^3/uL (1.0-4.8) Monocytes # (Auto) 0.6 x10^3/uL (0.0-1.1) Eosinophils # (Auto) 0.1 x10^3/uL (0.0-0.7) Basophils # (Auto) 0.0 x10^3/uL (0.0-0.2) Sodium Level 136 mmol/L (136-145) Potassium Level 4.7 mmol/L (3.5-5.1) Chloride Level 103 mmol/L (98-107) Carbon Dioxide Level 19 mmol/L (21-32) Anion Gap 14 (6-14) Blood Urea Nitrogen 32 mg/dL (7-20) Creatinine 2.1 mg/dL (0.6-1.0) Estimated GFR (Cockcroft-Gault) 23.2 Glucose Level 271 mg/dL (70-99) Calcium Level 8.9 mg/dL (8.5-10.1) Magnesium Level 1.3 mg/dL (1.8-2.4) Glucose (Fingerstick) 261 mg/dL (70-99) 316 mg/dL (70-99) 233 mg/dL (70-99) Test 11/18/18 21:13 11/19/18 05:00 11/19/18 07:08 11/19/18 11:18 Glucose (Fingerstick) 244 mg/dL (70-99) 383 mg/dL (70-99) 313 mg/dL (70-99) White Blood Count 3.7 x10^3/uL (4.0-11.0) Red Blood Count 3.64 x10^6/uL (3.50-5.40) Hemoglobin 11.3 g/dL (12.0-15.5) Hematocrit 33.4 % (36.0-47.0) Mean Corpuscular Volume 92 fL (79-100) Mean Corpuscular Hemoglobin 31 pg (25-35) Mean Corpuscular Hemoglobin Concent 34 g/dL (31-37) Red Cell Distribution Width 14.0 % (11.5-14.5) Platelet Count 77 x10^3/uL (140-400) Neutrophils (%) (Auto) 53 % (31-73) Lymphocytes (%) (Auto) 32 % (24-48) Monocytes (%) (Auto) 11 % (0-9) Eosinophils (%) (Auto) 3 % (0-3) Basophils (%) (Auto) 1 % (0-3) Neutrophils # (Auto) 2.0 x10^3uL (1.8-7.7) Lymphocytes # (Auto) 1.2 x10^3/uL (1.0-4.8) Monocytes # (Auto) 0.4 x10^3/uL (0.0-1.1) Eosinophils # (Auto) 0.1 x10^3/uL (0.0-0.7) Basophils # (Auto) 0.0 x10^3/uL (0.0-0.2) Sodium Level 138 mmol/L (136-145) Potassium Level 5.1 mmol/L (3.5-5.1) Chloride Level 107 mmol/L (98-107) Carbon Dioxide Level 18 mmol/L (21-32) Anion Gap 13 (6-14) Blood Urea Nitrogen 24 mg/dL (7-20) Creatinine 1.8 mg/dL (0.6-1.0) Estimated GFR (Cockcroft-Gault) 27.7 BUN/Creatinine Ratio 13 (6-20) Glucose Level 365 mg/dL (70-99) Calcium Level 8.5 mg/dL (8.5-10.1) Magnesium Level 2.0 mg/dL (1.8-2.4) Total Bilirubin 1.3 mg/dL (0.2-1.0) Aspartate Amino Transf (AST/SGOT) 28 U/L (15-37) Alanine Aminotransferase (ALT/SGPT) 23 U/L (14-59) Alkaline Phosphatase 72 U/L (46-116) Total Protein 5.6 g/dL (6.4-8.2) Albumin 3.0 g/dL (3.4-5.0) Albumin/Globulin Ratio 1.2 (1.0-1.7) Laboratory Tests Test 11/18/18 21:13 11/19/18 05:00 11/19/18 07:08 11/19/18 11:18 Glucose (Fingerstick) 244 mg/dL (70-99) 383 mg/dL (70-99) 313 mg/dL (70-99) White Blood Count 3.7 x10^3/uL (4.0-11.0) Red Blood Count 3.64 x10^6/uL (3.50-5.40) Hemoglobin 11.3 g/dL (12.0-15.5) Hematocrit 33.4 % (36.0-47.0) Mean Corpuscular Volume 92 fL (79-100) Mean Corpuscular Hemoglobin 31 pg (25-35) Mean Corpuscular Hemoglobin Concent 34 g/dL (31-37) Red Cell Distribution Width 14.0 % (11.5-14.5) Platelet Count 77 x10^3/uL (140-400) Neutrophils (%) (Auto) 53 % (31-73) Lymphocytes (%) (Auto) 32 % (24-48) Monocytes (%) (Auto) 11 % (0-9) Eosinophils (%) (Auto) 3 % (0-3) Basophils (%) (Auto) 1 % (0-3) Neutrophils # (Auto) 2.0 x10^3uL (1.8-7.7) Lymphocytes # (Auto) 1.2 x10^3/uL (1.0-4.8) Monocytes # (Auto) 0.4 x10^3/uL (0.0-1.1) Eosinophils # (Auto) 0.1 x10^3/uL (0.0-0.7) Basophils # (Auto) 0.0 x10^3/uL (0.0-0.2) Sodium Level 138 mmol/L (136-145) Potassium Level 5.1 mmol/L (3.5-5.1) Chloride Level 107 mmol/L (98-107) Carbon Dioxide Level 18 mmol/L (21-32) Anion Gap 13 (6-14) Blood Urea Nitrogen 24 mg/dL (7-20) Creatinine 1.8 mg/dL (0.6-1.0) Estimated GFR (Cockcroft-Gault) 27.7 BUN/Creatinine Ratio 13 (6-20) Glucose Level 365 mg/dL (70-99) Calcium Level 8.5 mg/dL (8.5-10.1) Magnesium Level 2.0 mg/dL (1.8-2.4) Total Bilirubin 1.3 mg/dL (0.2-1.0) Aspartate Amino Transf (AST/SGOT) 28 U/L (15-37) Alanine Aminotransferase (ALT/SGPT) 23 U/L (14-59) Alkaline Phosphatase 72 U/L (46-116) Total Protein 5.6 g/dL (6.4-8.2) Albumin 3.0 g/dL (3.4-5.0) Albumin/Globulin Ratio 1.2 (1.0-1.7) Allergies Allergies Coded Allergies Type Severity Reaction Last Updated Verified NSAIDS (Non-Steroidal Anti-Inflamma Adverse Reaction Intermediate CAUSES GI BLEEDING 10/04/17 Yes Sulfa (Sulfonamide Antibiotics) Adverse Reaction Intermediate Nausea and Vom iting 10/04/17 Yes amoxicillin Adverse Reaction Intermediate vomiting and diarrhea 11/09/16 Yes aspirin Adverse Reaction Intermediate CAUSES GI BLEEDING 10/04/17 Yes clavulanic acid Adverse Reaction Intermediate vomiting and diarrhea 11/09/16 Yes naproxen Adverse Reaction Intermediate "internal bleeding" 11/09/16 Yes Patient Instructions LEFT ELISA HOLLOWAY MD November 19, 2018 18:49
[2018-11-19] MEDS ORDERED: LACTOBACILLUS RHAMNOSUS GG 1 CAPSULE. PO SCH (21:00)
[2018-11-20] MEDS ORDERED: ERGOCALCIFEROL (VITAMIN D2) 50,000 UNIT CAPSULE. PO SCH (09:00)
== END 2018-11-19 15:04 | disposition left against medical advice (07) | DRG 637 ==
LOC: ER 15:45 → ED HOLD 18:14 → 2 SOUTH 20:48
PROVIDERS: ADMIT Internal Medicine; ATTEND Internal Medicine
DX: E11.10 Type 2 diabetes mellitus with ketoacidosis without coma (principal); N17.0 Acute kidney failure with tubular necrosis; N18.4 Chronic kidney disease, stage 4 (severe); E11.22 Type 2 diabetes mellitus with diabetic chronic kidney disease; E78.00 Pure hypercholesterolemia, unspecified; E78.5 Hyperlipidemia, unspecified; E83.42 Hypomagnesemia; E87.5 Hyperkalemia; I12.9 Hypertensive chronic kidney disease with stage 1 through stage 4 chronic kidney disease, or unspecified chronic kidney disease; J45.909 Unspecified asthma, uncomplicated; K21.9 Gastro-esophageal reflux disease without esophagitis; K75.81 Nonalcoholic steatohepatitis (NASH); N20.0 Calculus of kidney; N28.1 Cyst of kidney, acquired; Z82.49 Family history of ischemic heart disease and other diseases of the circulatory system; Z90.710 Acquired absence of both cervix and uterus; Z90.49 Acquired absence of other specified parts of digestive tract; Z88.2 Allergy status to sulfonamides; Z88.8 Allergy status to other drugs, medicaments and biological substances; Z53.21 Procedure and treatment not carried out due to patient leaving prior to being seen by health care provider; R79.89 Other specified abnormal findings of blood chemistry
CPT/HCPCS: 36415; 36600; 70220; 80048; 80053; 81001; 82436; 82553; 82570; 82805; 82962; 83036; 83605; 83735; 84133; 84300; 84484; 85025; 85610; 85730; 93005; 94760; 96361; 96365; J1815; J3475; J7030; 99285-25

== ENCOUNTER → 2019-09-05 | Outpatient (CLI) | payer MEDICARE ==
[~2019-09-05] MED LIST changes: +AMOX1TAB11 PO; +CHOL2000 PO; +IRBE300T23 PO; -IRBE300T3 PO; -PANT40TA5 PO; +PANT40TA77 PO; +[UNRECOGNIZED DRUG - CODE] PO
--- NOTE | 2019-09-05 16:42 | KCIC ---
PROCEDURE: CHEST PA LATERAL, RIBS RIGHT STUDY DATE: 09/05/2019 CLINICAL INDICATION / HISTORY: Right-sided chest pain and rib pain.. TECHNIQUE: Right ribs 3 views. . COMPARISON: Chest x-ray same day FINDINGS: No displaced fractures. No pneumothorax or pleural effusion in the visualized lungs. Chest wall is unremarkable. No radiopaque foreign body or abnormal soft tissue gas. No free air under the diaphragms. IMPRESSION: Negative right rib series. EXAM: CHEST PA LATERAL, RIBS RIGHT INDICATION: Right-sided chest pain. TECHNIQUE: PA and lateral views of the chest COMPARISON: Right rib series same day, chest x-ray 03/22/2017 FINDINGS: The heart size is normal. The great vessels appear unremarkable. There is no hilar or mediastinal mass. The lungs are clear. There is no pleural effusion or pneumothorax. There are no significant osseous abnormalities. IMPRESSION: No active cardiopulmonary disease. Electronically signed by: Mona Weaver MD (09/05/2019 4:39 PM) [id number]
== END ==
LOC: KCIC 15:36
PROVIDERS: ATTEND Family Medicine
DX: R07.81 Pleurodynia (principal)
CPT/HCPCS: 71046; 71100